=== PATIENT | male | born 1955 | race Caucasian/White ===

== ENCOUNTER 2016-12-10 11:46 | Inpatient (IN) ==
[2016-12-10] MEDS ORDERED: ZOFRAN 4 MG/2 ML IVP STA (12:10)
[2016-12-10] MEDS ORDERED: DEMEROL 25 MG/ML SYRINGE IVP STA (12:10)
[2016-12-10] MEDS ORDERED: SODIUM CHLORIDE OP STA (12:10)
[2016-12-10] MEDS ORDERED: SODIUM CHLORIDE 500 ML IV STA (12:13)
--- NOTE | 2016-12-10 12:14 | ED.PDOC ---
General ED Provider: Dr. EMBER SO Chief Complaint: Abdominal Pain Stated Complaint: Been hurting in the upper part of the [place] since sunday , vomited 2 times, nausea. has h/o pancreatitis. not been eating for 3 days Time Seen by Physician: 12:11 Mode of Arrival: Walk-In Information Source: Patient Primary Care Provider: VICKI ENRIQUEZ Nursing and Triage Documentation Reviewed and Agree: Yes GI Complaint Exam - Abdominal Pain Complaint/Exam Onset: Gradual Symptoms Are: Still present Timing: Constant Initial Severity: Severe Current Severity: Severe Location of Pain: Epigastric Character: Reports: Dull, Aching Aggravating: Reports: Movement, Food, Deep breaths Alleviating: Reports: None Associated Signs and Symptoms: Reports: Back pain, Nausea, Vomiting. Denies: Diaphoresis, Fever, Cough, Chest pain, Dizziness, Constipation, Blood in stool, Dysuria, Urinary frequency, Decreased urine output, Decreased appetite, Discharge, Diarrhea, Decreased activity Related History: Reports: Similar episode AAA Risk Factors: Reports: None Cardiac Risk Factors: Reports: None Testicular Torsion Risk Factors: Reports: None Surgical Obstruction Risk Factors: Reports: None Related Surgical History: Reports: None Abdominal Findings: Absent: Pulsatile mass, Abdominal distention, Unequal femoral pulses Differential Diagnoses: Gastroenteritis, Pancreatitis Review of Systems - Review Of Systems Constitutional: Reports: Malaise, Weakness Eyes: Reports: No symptoms Ears, Nose, Mouth, Throat: Reports: No symptoms Respiratory: Reports: No symptoms Cardiac: Reports: No symptoms GI: Reports: Abdominal pain : Reports: No symptoms Musculoskeletal: Reports: No symptoms Skin: Reports: No symptoms Neurological: Reports: No symptoms Endocrine: Reports: No symptoms Hematologic/Lymphatic: Reports: No symptoms All Other Systems: Reviewed and Negative Past Medical History - Past Medical History Previously Healthy: No Endocrine: Reports: None, Dyslipidemia Cardiovascular: Reports: CAD, Hypertension, A-Fib Respiratory: Reports: COPD Hematological: Reports: None Gastrointestinal: Reports: GERD, Pancreatitis Genitourinary: Reports: None Neuro/Psych: Reports: None Musculoskeletal: Reports: Arthritis Cancer: Reports: None - Surgical History General Surgical History: Reports: Cholecystectomy, CABG, Other (-carotid surg-- vein surg to legs--) - Family History Family History: Reports: Unknown - Social History Smoking Status: Current every day smoker Smoking Cessation Counseling Time: > 3 min - 10 min Hx Substance Use: No Alcohol Screening: Occasionally - Immunizations Tetanus Shot up to Date: Yes Physical Exam - Physical Exam Appearance: Ill-appearing, Thin Ill-appearing: Moderate Pain Distress: Severe Eyes: GUILLERMO, EOMI, Conjunctiva clear ENT: Ears normal, Nose normal, Oropharynx normal Respiratory: Airway patent Cardiovascular: RRR, Pulses normal, No rub, No murmur, Tachycardia GI/: Soft, Tender Musculoskeletal: Normal strength, ROM intact, No edema, No calf tenderness Skin: Warm, Dry, Normal color Neurological: Sensation intact, Motor intact, Reflexes intact, Cranial nerves intact, Alert, Oriented Psychiatric: Affect appropriate, Mood appropriate Re-Evaluation - Re-Evaluation Time of Re-Evaluation: 13:36 Status: Unchanged, Improved Critical Care Note - Critical Care Note Total Time (mins): 0 Course - Course Hematology/Chemistry: 12/10/16 12:15 12/10/16 12:15 Orders, Labs, Meds: Lab Review 12/10/16 12:15 WBC 11.27 H RBC 6.10 Hgb 19.9 H Hct 55.4 H MCV 90.8 MCH 32.6 H MCHC 35.9 H RDW Coeff of Hilary 13.0 Plt Count 169 Immature Gran % (Auto) 0.4 Neut % (Auto) 77.9 Lymph % (Auto) 14.4 [place] % (Auto) 6.9 Eos % (Auto) 0.1 Baso % (Auto) 0.3 Immature Gran # (Auto) 0.1 Neut # 8.8 H Lymph # 1.6 [place] # 0.8 Eos # 0.0 Baso # 0.0 Sodium 133 L Potassium 3.6 Chloride 99 Carbon Dioxide 21 L Anion Gap 16.6 BUN 21 H Creatinine 1.01 Estimated GFR (MDRD) 75.00 BUN/Creatinine Ratio 20.79 Glucose 337 H Calcium 9.3 Total Bilirubin 0.90 AST 16 ALT 21 Alkaline Phosphatase 112 Total Protein 7.4 Albumin 3.2 L Globulin 4.2 Albumin/Globulin Ratio 0.76 Amylase 55 Lipase 34 Orders Category Date Time Status ED IV/MEDIPORT/POWERPORT .ONCE EMERGENCY 12/10/16 12:10 Active AMYLASE Stat LAB 12/10/16 12:15 Completed CBC W/ AUTO DIFF Stat LAB 12/10/16 12:15 Completed COMPREHENSIVE METABOLIC PANEL Stat LAB 12/10/16 12:15 Completed LIPASE Stat LAB 12/10/16 12:15 Completed 0.9 % Sodium Chloride [Saline Flush] MEDS 12/10/16 12:10 Ordered 1 syr IVF PRN PRN Meperidine HCl/Pf [Demerol 25 mg/ml Syringe] MEDS 12/10/16 12:10 Discontinued 25 mg IVP ONCE STA Ondansetron HCl/Pf [Zofran 4 mg/2 ml] MEDS 12/10/16 12:10 Discontinued 4 mg IVP ONCE STA Sodium Chloride 0.9% [Sodium Chloride] MEDS 12/10/16 12:10 Discontinued 500 ml OP ONCE STA Sodium Chloride 0.9% [Sodium Chloride] 500 ml MEDS 12/10/16 12:13 Active IV 125 mls/hr CT ABDOMEN/PELVIS WO CONTRAST Stat RADS 12/10/16 12:10 Completed Medications Generic Name Dose Route Start Last Admin Trade Name Freq PRN Reason Stop Dose Admin Sodium Chloride 500 mls @ 125 mls/hr 12/10/16 12:13 12/10/16 12:37 Sodium Chloride IV 12/10/16 16:12 125 mls/hr .Q4H STA Administration Sodium Chloride 1 syr 12/10/16 12:10 Saline Flush IVF PRN PRN To flush IV Discontinued Medications Generic Name Dose Route Start Last Admin Trade Name Freq PRN Reason Stop Dose Admin Meperidine HCl 25 mg 12/10/16 12:10 12/10/16 12:32 Demerol 25 Mg/Ml Syringe IVP 12/10/16 12:11 25 mg ONCE STA Administration Ondansetron HCl 4 mg 12/10/16 12:10 12/10/16 12:32 Zofran 4 Mg/2 Ml IVP 12/10/16 12:11 4 mg ONCE STA Administration Sodium Chloride 500 ml 12/10/16 12:10 12/10/16 12:38 Sodium Chloride OP 12/10/16 12:11 Not Given ONCE STA Vital Signs: Temp Pulse Resp BP Pulse Ox 12/10/16 11:47 98.1 F 76 16 149/99 H 97 Departure - Departure Time of Disposition: 13:10 Disposition: ADMITTED INPATIENT Discharge Problem: Acute on chronic pancreatitis, Dehydration Discharge Problem: (Ruled Out): Pancreatitis Instructions: Pancreatitis (ED) Condition: Stable Pt referred to PMD for follow-up: No Allergies/Adverse Reactions: Allergies No Known Allergies Allergy (Verified 12/10/16 11:56) Home Medications: Ambulatory Orders Cyanocobalamin/FA/Pyridoxine [[place] Tablet] 1 each PO DAILY 02/10/14 Nitroglycerin [Nitrostat] 1 tab SL DIRECTED PRN 02/10/14 Ferrous Sulfate 325 mg PO DAILY 06/07/15 Fluticasone/Salmeterol 250/50 [Advair 250-50 Diskus] 1 puff IH BID #1 puff 06/09 Tiotropium [place] [Spiriva] 1 cap IH DAILY #1 cap.w.dev 06/09/15 Amlodipine Besylate [Norvasc] 5 mg PO BID #60 tablet 01/10/16 Losartan Potassium [Cozaar] 50 mg PO BID #60 tablet 01/10/16 Omeprazole [Prilosec] 40 mg PO QDAC 03/23/16 Apixaban [Eliquis] 5 mg PO BID #60 tablet 03/24/16 Sotalol HCl [Sotalol] 40 mg PO DAILY 12/10/16 Disposition Discussed With: Patient, Family
[2016-12-10 12:25] LABS: BASOPHILS % (AUTO) 0.3 % (0.0-3.0); EOSINOPHILS % (AUTO) 0.1 % (0.0-7.0); HEMATOCRIT 55.4 % (42.0-52.0); HEMOGLOBIN 19.9 g/dl (14.0-18.0); IMMATURE GRANULOCYTE % (AUTO) 0.4 % (0.0-5.0); LYMPHOCYTES # (AUTO) 1.6 K/uL (0.60-3.4); LYMPHOCYTES % (AUTO) 14.4 (10.0-50.0); MEAN CORPUSCULAR HEMOGLOBIN 32.6 pg (27.0-31.0); MEAN CORPUSCULAR HGB CONC 35.9 (31.8-35.4); MEAN CORPUSCULAR VOLUME 90.8 fl (80.0-94.0); MONOCYTES # (AUTO) 0.8 K/uL (0.4-2.0); MONOCYTES % (AUTO) 6.9 (0-10); NEUTROPHILS # (AUTO) 8.8 K/ul (2.0-6.9); NEUTROPHILS % (AUTO) 77.9; PLATELET COUNT 169 10^3/uL (140-440); WHITE BLOOD COUNT 11.27 K/ul (4.2-10.2)
[2016-12-10 12:42] LABS: ALBUMIN 3.2 g/dL (3.4-5.0); ALBUMIN/GLOBULIN RATIO 0.76; ANION GAP 16.6; BILIRUBIN,TOTAL 0.9 mg/dL (0.00-1.20); BUN/CREATININE RATIO 20.79; CALCIUM 9.3 mg/dL (8.2-10.2); CREATININE 1.01 mg/dL (0.60-1.10); POTASSIUM 3.6 mmol/L (3.5-5.1); TOTAL PROTEIN 7.4 g/dL (5.8-8.1)
--- NOTE | 2016-12-10 13:27 | CT ---
EXAM: CT abdomen pelvis without contrast TECHNIQUE: Helical axial CT of the abdomen pelvis was performed without contrast with coronal and s agittal reconstructions. COMPARISON: CT abdomen pelvis from 04/06/2016 HISTORY: Epigastric pain FINDINGS: Previously there was some yumiko-pancreatic stranding which has resolved on today's exam fo r the most part. There is only a minimal amount remaining. There is no pancreatic necrosis or pse udocyst. There is no free air free fluid or bowel wall thickening or edema. There is some perineph keegan stranding which is not particularly changed. There is very advanced calcific atherosclerosis. There are some calcifications in the spleen. There is some subtle low attenuation seen in the left hepatic lobe which is due to mild ductal dilatation. Again seen is a small right renal mass in the u pper pole which is better characterized on earlier studies. There is no hydronephrosis and no kidne y stones. There is no acute osseous abnormality. Urinary bladder shows no filling defects. There is a stent in the right groin. There are abdominal varices. There has been prior cholecystectomy. There has been prior left hemilaminectomy at L4-5. There are emphysematous changes seen in the lung bases. IMPRESSION: 1. No acute abnormality in the pelvis. 2. Improvement in peripancreatic stranding with no evidence for pseudocyst or pancreatic necrosis. 3. Mild ductal dilatation of the left hepatic lobe which appears stable. 4. Very advanced atherosclerosis. 5. Small right renal mass unchanged 6. Other miscellaneous findings as above.
[2016-12-10] MEDS ORDERED: DEMEROL 25 MG/ML SYRINGE IVP SCH (14:00)
[2016-12-10 14:17] VITALS: BMI 19.5
[2016-12-10] MEDS ORDERED: ZOFRAN 4 MG/2 ML ONE ×2 (14:33→20:00)
[2016-12-10] MEDS ORDERED: DEMEROL 25 MG/ML SYRINGE ONE (14:34)
[2016-12-10] MEDS: PROTONIX IV IVP SCH ×2 (14:37→20:06)
[2016-12-10] MEDS: ZOFRAN 4 MG/2 ML IVP SCH ×2 (14:37→20:06)
[2016-12-10] MEDS: BETAPACE PO SCH (16:12)
[2016-12-10] MEDS: SODIUM CHLORIDE 1,000 ML IV SCH (16:19)
[2016-12-10] MEDS ORDERED: DILAUDID 2 MG/ML SYRINGE IVP PRN (16:35)
[2016-12-10] MEDS ORDERED: DILAUDID 2 MG/ML SYRINGE ONE (16:49)
[2016-12-10] MEDS ORDERED: COZAAR ONE (19:59)
[2016-12-10] MEDS: COZAAR PO SCH (20:05)
[2016-12-10] MEDS: ADVAIR 250-50 DISKUS IH SCH (20:05)
[2016-12-10] MEDS: ELIQUIS PO SCH (20:06)
[2016-12-10] MEDS: NORVASC PO SCH (20:06)
[2016-12-10 20:12] LABS: CREATINE KINASE 14 U/L
[2016-12-10] MEDS ORDERED: VASOTEC IV IVP STA (21:51)
[2016-12-10] MEDS: DILAUDID 2 MG/ML SYRINGE IVP PRN (22:02)
[2016-12-11] MEDS ORDERED: ZOFRAN 4 MG/2 ML ONE (01:01)
[2016-12-11] MEDS: ZOFRAN 4 MG/2 ML IVP SCH ×3 (01:02→18:31)
[2016-12-11] MEDS: DILAUDID 2 MG/ML SYRINGE IVP PRN ×2 (02:07→21:36)
[2016-12-11 04:25] LABS: EOSINOPHILS % (AUTO) 0.6 % (0.0-7.0); HEMATOCRIT 46.8 % (42.0-52.0); HEMOGLOBIN 16.5 g/dl (14.0-18.0); MEAN CORPUSCULAR HEMOGLOBIN 32.2 pg (27.0-31.0); MEAN CORPUSCULAR HGB CONC 35.3 (31.8-35.4); MEAN CORPUSCULAR VOLUME 91.4 fl (80.0-94.0); MONOCYTES % (AUTO) 9.4 (0-10); NEUTROPHILS % (AUTO) 66.1; PLATELET COUNT 140 10^3/uL (140-440); RED BLOOD COUNT 5.12 10^6/ul (4.70-6.10); WHITE BLOOD COUNT 10.07 K/ul (4.2-10.2)
[2016-12-11 04:26] LABS: BASOPHILS % (AUTO) 0.3 % (0.0-3.0); EOSINOPHILS # (AUTO) 0.1 K/ul (0.0-0.7); IMMATURE GRANULOCYTE % (AUTO) 0.6 % (0.0-5.0); LYMPHOCYTES # (AUTO) 2.3 K/uL (0.60-3.4); NEUTROPHILS # (AUTO) 6.7 K/ul (2.0-6.9)
[2016-12-11 04:46] LABS: ALBUMIN 2.8 g/dL (3.4-5.0); ALBUMIN/GLOBULIN RATIO 0.82; ANION GAP 12.3; BILIRUBIN,TOTAL 0.74 mg/dL (0.00-1.20); BUN/CREATININE RATIO 23.33; CALCIUM 8.7 mg/dL (8.2-10.2); CREATININE 0.9 mg/dL (0.60-1.10); POTASSIUM 3.3 mmol/L (3.5-5.1); TOTAL PROTEIN 6.2 g/dL (5.8-8.1)
[2016-12-11] MEDS: SODIUM CHLORIDE 1,000 ML IV SCH ×2 (04:47→17:58)
[2016-12-11 04:54] LABS: CREATINE KINASE 14 U/L
[2016-12-11 06:10] LABS: AMYLASE 37 U/L (25-115); LIPASE 13 U/L (8-78)
[2016-12-11] MEDS: [UNRECOGNIZED DRUG - OTHER] PO SCH (08:28)
[2016-12-11] MEDS: NORVASC PO SCH ×2 (08:28→20:41)
[2016-12-11] MEDS: ELIQUIS PO SCH ×2 (08:28→20:40)
[2016-12-11] MEDS: SPIRIVA IH SCH (08:28)
[2016-12-11] MEDS: COZAAR PO SCH ×2 (08:28→20:41)
[2016-12-11] MEDS: PYRIDOXINE PO SCH (08:28)
[2016-12-11] MEDS: CYANOCOBALAMIN PO SCH (08:28)
[2016-12-11] MEDS: ADVAIR 250-50 DISKUS IH SCH ×2 (08:28→20:40)
[2016-12-11] MEDS: FERROUS SULFATE PO SCH (08:34)
[2016-12-11] MEDS ORDERED: NON-FORMULARY MEDICATION (Ferrous Sulfate [Ferrous Sulfate] 325 MG) PO SCH ×22 (09:00)
[2016-12-11] MEDS ORDERED: BETAPACE PO SCH (09:00)
--- NOTE | 2016-12-11 09:24 | PN ---
DATE OF SERVICE: 12/11/16 SUBJECTIVE: This is a 61-year-old male hospitalized with recurrent acute pancreatitis. The patient's pain is almost resolved. This morning he doesn't have any pain for the last 6 to 8 hours. He hasn't taken any pain medicine. REVIEW OF SYSTEMS: CONSTITUTIONAL: No night sweats. No fatigue, malaise, lethargy. No fever or chills. HEENT: Eyes: No visual changes. No eye pain. No eye discharge. ENT: No runny nose. No epistaxis. No sinus pain. No sore throat. No odynophagia. No congestion. RESPIRATORY: No cough, no congestion. No hemoptysis. CARDIOVASCULAR: No angina symptoms. No CHF symptoms. No atypical chest pain for CAD. No palpitations. No shortness of breath. GASTROINTESTINAL: No abdominal pain. No nausea or vomiting. No diarrhea or constipation. No hematemesis. No hematochezia. GENITOURINARY: No urgency. No frequency. No dysuria. No hematuria. No obstructive symptoms. No discharge. No pain. No significant abnormal bleeding. MUSCULOSKELETAL: No musculoskeletal pain; no joint swelling. NEUROLOGICAL: No headache. No neck pain. No syncope. No seizures. No dizziness. PSYCHIATRIC: Not anxious. No depression. No suicidal thoughts. No homicidal thoughts. SKIN: No rash. No lesions. No wounds. ENDOCRINE: No unexplained weight loss. No weight gain. HEMATOLOGIC/LYMPHATIC: No anemia. No purpura. No petechiae. No prolonged or excessive bleeding. No palpable lymph nodes. PHYSICAL EXAMINATION: GENERAL: The patient is oriented to time, place and person. VITAL SIGNS: Temperature 96.9, pulse 99, BP 116/70, respiratory rate 20, 02 sat 96% on room air. Weight 129 pounds. Height 5'8". HEENT: Head normocephalic, atraumatic. Eyes: Extraocular muscles are intact. Pupils are equal, round and reactive to light and accommodation. Ears: No lesions. Nose appeared normal. Throat: No exudate or erythema. NECK: Supple. No JVD, no carotid bruit. No lymphadenopathy or thyromegaly. LUNGS: Decreased breath sounds. Clear to auscultation. Percussion note normal. Chest symmetrical. HEART: S1, S2, no S3. No murmurs. No cyanosis or clubbing. No ascites. Pulses: Dorsalis pedis and posterior tibial pulses feeble bilaterally. ABDOMEN: Soft. Nontender. Bowel sounds active. No CVA tenderness. No mass felt. EXTREMITIES: No edema. Full range of motion of all extremities, equal. NEUROLOGIC: No focal deficit. Cranial nerves II through XII are grossly intact. No headache, no double vision or headache. SKIN: Not dry. Intact. Turgor - normal. LYMPHATIC: No palpable lymph nodes/no lymphedema. MUSCULOSKELETAL: Normal joints with no swelling. Muscle tone is normal. LAB DATA: WBC 10.07, RBC 5.12, egvgqmlrag66.5, hematocrit 46.8, platelet 140. Normal differential. Sodium 132, potassium 3.3, chloride 100, carbon dioxide 23, BUN 21, creatinine 0.90, glucose 263, calcium 8.7, AST 17, ALT 19, alkaline phosphatase 91. Amylase 37, lipase 13. ASSESSMENT: 1. ACUTE PANCREATITIS, SEEMS TO BE RESOLVING CLINICALLY. THE PATIENT IS HUNGRY , WILL PUT HIM ON FULL LIQUIDS WITH NO MILK PRODUCTS - ADVANCE TO SOFT DIET TOLERATED. 2. CONTINUE IV FLUIDS 3. COUNSELING FOR ALCOHOL DONE. THE PATIENT HAS BEEN DRINKING 5 TO 6 DAYS AGO AND HAS BEEN HAVING PAIN FOR THAT MUCH DURATION OF TIME. THE PATIENT HAS CONTINUED TO SMOKE. COUNSELING FOR DRINKING ALCOHOL DONE, HE DOESN'T WANT ANY HELP. THE PATIENT'S PROGNOSIS IS POOR. THE PATIENT HAS HAD MULTIPLE HOSPITALIZATIONS WITH ACUTE PANCREATITIS SECONDARY TO ALCOHOLISM. THE PATIENT'S OTHER PROBLEMS ARE: 1. CORONARY ARTERY DISEASE 2. PERIPHERAL ARTERIAL DISEASE 3. CAROTID ARTERY STENOSIS 4. HYPERTENSION CONDITION: STABLE PROGNOSIS: EXTREMELY POOR TIME SPENT: More than 30 minutes. Plan and coordination of the patient's care discussed in the presence of nurse. ESPERANZA
[2016-12-11] MEDS: PROTONIX IV IVP SCH ×2 (09:55→21:36)
--- NOTE | 2016-12-11 10:29 | HP ---
DATE OF SERVICE: 12/10/16 REASON FOR HOSPITALIZATION: Abdominal pain. HISTORY OF PRESENT ILLNESS: This is a 61-year-old white male admitted through the emergency room with abdominal pain. The patient was seen in the ER with complaint of right upper quadrant abdominal pain since Sunday, weakness, nausea, vomiting times two, poor appetite, has not eaten for 3 days. The patient has a history of pancreatitis. The patient is an alcoholic and has been counseled numerous times to abstain from alcohol. The patient is admitted for further evaluation and care. REVIEW OF SYSTEMS: CONSTITUTIONAL: Weakness, fatigue. No night sweats. No fever or chills. HEENT: Eyes: No visual changes. No eye pain. No eye discharge. ENT: No runny nose. No epistaxis. No sinus pain. No sore throat. No odynophagia. No ear pain. No congestion. RESPIRATORY: No cough, no congestion. No hemoptysis. CARDIOVASCULAR: No angina symptoms. No CHF symptoms. No atypical chest pain for CAD. No palpitations. No shortness of breath. GASTROINTESTINAL: Right upper quadrant abdominal pain. Nausea with vomiting times 2. Poor appetite No diarrhea or constipation. No hematemesis. No hematochezia. GENITOURINARY: No urgency. No frequency. No dysuria. No hematuria. No obstructive symptoms. No discharge. No pain. No significant abnormal bleeding. MUSCULOSKELETAL: Generalized arthritic pain. NEUROLOGICAL: No headache. No neck pain. No syncope. No seizures. No dizziness. PSYCHIATRIC: Not anxious. No depression. No suicidal thoughts. No homicidal thoughts. SKIN: No rash. No lesions. No wounds. ENDOCRINE: No unexplained weight loss. No weight gain. HEMATOLOGIC/LYMPHATIC: No anemia. No purpura. No petechiae. No prolonged or excessive bleeding. No palpable lymph nodes. PERSONAL/FAMILY/SOCIAL HISTORY: The patient is living with his , heavy smoker, heavy alcohol abuse. He does all activities of daily living. Family history: unknown. PAST MEDICAL/SURGICAL PROBLEMS: Chronic and acute pancreatitis Chronic alcoholism Heavy smoker Hypertension, history of Severe peripheral arterial disease Diabetes mellitus Chronic lung disease Coronary artery disease Status post coronary artery bypass surgery 2007 Cholecystectomy Bilateral carotid endarterectomy Fem/Pop bypass MEDICATIONS: (HOME) Nitroglycerin one tab SL as directed p.r.n. Cyanocobalamin one each p.o. daily Ferrous Sulfate 325 mg p.o. daily Fluticasone/Salmeterol 250/50 (Advair 250-50 Diskus) one puff IH b.i.d. Tiotropium [place] (Spiriva) one cap IH daily Amlodipine (Norvasc) 5 mg p.o. b.i.d. Losartan (Cozaar) 50 mg p.o. b.i.d. Omeprazole (Prilosec) 40 mg p.o. q.d a.c. Apixaban (Eliquis) 5 mg p.o. b.i.d. Sotalol 40 mg p.o. daily ALLERGIES: NKDA PHYSICAL EXAMINATION: VITAL SIGNS: Temperature 98.1, pulse 76, respiratory rate 16, BP 149/99, pulse ox 97 HEENT: Head normocephalic, atraumatic. Eyes: Extraocular muscles are intact. Pupils are equal, round and reactive to light and accommodation. Ears: No lesions. Nose appeared normal. Throat: No exudate or erythema. NECK: Supple. No JVD, no carotid bruit. No lymphadenopathy or thyromegaly. LUNGS: Clear to auscultation. Percussion note normal. Chest symmetrical. HEART: S1, S2, no S3. No murmurs. No cyanosis or clubbing. No ascites. Pulses: Dorsalis pedis and posterior tibial pulses feeble bilaterally. ABDOMEN: Nausea. Right upper quadrant abdominal pain. Bowel sounds active. No CVA tenderness. No mass felt. EXTREMITIES: No edema. Full range of motion of all extremities, equal. NEUROLOGIC: No focal deficit. Cranial nerves II through XII are grossly intact. No headache, no double vision or headache. SKIN: Not dry. Intact. Turgor - normal. LYMPHATIC: No palpable lymph nodes/no lymphedema. MUSCULOSKELETAL: Normal joints with no swelling. Muscle tone is normal. LAB/X-RAY DATA: WBC 11.27, RBC 6.10, Hgb 19.9, HCT 55.4, platelets 169. Chemistry - sodium 133, chloride 99, BUN 21, creatinine 1.01, glucose 337. CT scan of abdomen and pelvis - showed advanced atherosclerosis with no acute abnormality of the pelvis; improvement in peripancreatic stranding from the last one; small right renal cyst. ASSESSMENT: 1. ABDOMINAL PAIN LIKELY ACUTE PANCREATITIS 2. ALCOHOLISM 3. SEVERE CHRONIC LUNG DISEASE WITH HISTORY OF HEAVY SMOKING 4. CORONARY ARTERY DISEASE 5. CAROTID ARTERY DISEASE 6. SEVERE PERIPHERAL ARTERIAL DISEASE 7. HYPERTENSION 8. DYSLIPIDEMIA PLAN: 1. Admit acute from ER with telemetry monitoring 2. Dilaudid 2 mg IVP q.4 to 6h p.r.n. 3. Betapace 40 mg p.o. 1700 4. CBC, CMP 5. Continue home medications 6. NPO 7. Vasotec 1.25 mg IV once STAT 8. EKG daily times three 9. Zofran IV 10. NS IV 11. Dietary consult TIME SPENT: More than 70 minutes. MTDD
[2016-12-11] MEDS: BETAPACE PO SCH (16:29)
[2016-12-12] MEDS: ZOFRAN 4 MG/2 ML IVP SCH ×5 (00:24→23:03)
[2016-12-12 05:04] LABS: BASOPHILS % (AUTO) 0.3 % (0.0-3.0); EOSINOPHILS # (AUTO) 0.1 K/ul (0.0-0.7); EOSINOPHILS % (AUTO) 0.9 % (0.0-7.0); HEMOGLOBIN 14.7 g/dl (14.0-18.0); IMMATURE GRANULOCYTE % (AUTO) 0.3 % (0.0-5.0); LYMPHOCYTES # (AUTO) 1.6 K/uL (0.60-3.4); LYMPHOCYTES % (AUTO) 27.8 (10.0-50.0); MEAN CORPUSCULAR HEMOGLOBIN 32.2 pg (27.0-31.0); MEAN CORPUSCULAR VOLUME 92.1 fl (80.0-94.0); MONOCYTES # (AUTO) 0.6 K/uL (0.4-2.0); NEUTROPHILS # (AUTO) 3.5 K/ul (2.0-6.9); NEUTROPHILS % (AUTO) 60.7; PLATELET COUNT 100 10^3/uL (140-440); RED BLOOD COUNT 4.56 10^6/ul (4.70-6.10)
[2016-12-12 05:26] LABS: ALBUMIN 2.7 g/dL (3.4-5.0); ALBUMIN/GLOBULIN RATIO 0.79; ANION GAP 11.1; BILIRUBIN,TOTAL 0.69 mg/dL (0.00-1.20); BUN/CREATININE RATIO 13.04; CALCIUM 8.5 mg/dL (8.2-10.2); CREATININE 0.92 mg/dL (0.60-1.10); POTASSIUM 3.1 mmol/L (3.5-5.1); TOTAL PROTEIN 6.1 g/dL (5.8-8.1)
[2016-12-12] MEDS: SODIUM CHLORIDE 1,000 ML IV SCH (06:23)
[2016-12-12] MEDS ORDERED: POTASSIUM CHLORIDE 10 MEQ VIAL-ADDITIVE ONLY 40 MEQ in SODIUM CHLORIDE 1,000 ML IV SCH (08:37)
[2016-12-12] MEDS: ELIQUIS PO SCH ×2 (10:04→21:03)
[2016-12-12] MEDS: CYANOCOBALAMIN PO SCH (10:04)
[2016-12-12] MEDS: PYRIDOXINE PO SCH (10:04)
[2016-12-12] MEDS: [UNRECOGNIZED DRUG - OTHER] PO SCH (10:04)
[2016-12-12] MEDS: COZAAR PO SCH ×2 (10:04→21:04)
[2016-12-12] MEDS: NORVASC PO SCH ×2 (10:05→21:04)
[2016-12-12] MEDS: FERROUS SULFATE PO SCH (10:05)
[2016-12-12] MEDS: ADVAIR 250-50 DISKUS IH SCH ×2 (10:07→21:03)
[2016-12-12] MEDS: SPIRIVA IH SCH (10:07)
[2016-12-12] MEDS: SODIUM CHLORIDE 0.9%-KCL 40MEQ 1,000 ML IV SCH (10:09)
[2016-12-12] MEDS: PROTONIX IV IVP SCH ×2 (10:16→21:13)
[2016-12-12] MEDS: MICRO-K CAP PO SCH ×2 (12:28→21:04)
[2016-12-12] MEDS: BETAPACE PO SCH (17:11)
[2016-12-12] MEDS: VASOTEC IV IVP PRN (22:18)
[2016-12-13 04:51] LABS: BASOPHILS % (AUTO) 0.3 % (0.0-3.0); EOSINOPHILS # (AUTO) 0.1 K/ul (0.0-0.7); EOSINOPHILS % (AUTO) 0.9 % (0.0-7.0); HEMATOCRIT 42.2 % (42.0-52.0); HEMOGLOBIN 15.3 g/dl (14.0-18.0); IMMATURE GRANULOCYTE % (AUTO) 0.7 % (0.0-5.0); LYMPHOCYTES # (AUTO) 1.6 K/uL (0.60-3.4); LYMPHOCYTES % (AUTO) 27.5 (10.0-50.0); MEAN CORPUSCULAR HEMOGLOBIN 32.9 pg (27.0-31.0); MEAN CORPUSCULAR HGB CONC 36.3 (31.8-35.4); MEAN CORPUSCULAR VOLUME 90.8 fl (80.0-94.0); MONOCYTES # (AUTO) 0.6 K/uL (0.4-2.0); NEUTROPHILS # (AUTO) 3.5 K/ul (2.0-6.9); NEUTROPHILS % (AUTO) 60.6; PLATELET COUNT 108 10^3/uL (140-440); RED BLOOD COUNT 4.65 10^6/ul (4.70-6.10); WHITE BLOOD COUNT 5.78 K/ul (4.2-10.2)
[2016-12-13] MEDS: ZOFRAN 4 MG/2 ML IVP SCH ×2 (05:10→13:09)
[2016-12-13] MEDS: MICRO-K CAP PO SCH ×2 (05:10→12:55)
[2016-12-13 05:12] LABS: ALBUMIN/GLOBULIN RATIO 0.81; ANION GAP 13.4; BILIRUBIN,TOTAL 0.69 mg/dL (0.00-1.20); BUN/CREATININE RATIO 11.76; CALCIUM 8.7 mg/dL (8.2-10.2); CREATININE 0.85 mg/dL (0.60-1.10); POTASSIUM 3.4 mmol/L (3.5-5.1); TOTAL PROTEIN 6.7 g/dL (5.8-8.1)
[2016-12-13] MEDS: VASOTEC IV IVP PRN (05:17)
[2016-12-13] MEDS: ELIQUIS PO SCH (08:38)
[2016-12-13] MEDS: SPIRIVA IH SCH (08:38)
[2016-12-13] MEDS: [UNRECOGNIZED DRUG - OTHER] PO SCH (08:38)
[2016-12-13] MEDS: FERROUS SULFATE PO SCH (08:38)
[2016-12-13] MEDS: NORVASC PO SCH (08:38)
[2016-12-13] MEDS: CYANOCOBALAMIN PO SCH (08:38)
[2016-12-13] MEDS: ADVAIR 250-50 DISKUS IH SCH (08:38)
[2016-12-13] MEDS: PYRIDOXINE PO SCH (08:38)
[2016-12-13] MEDS: PROTONIX IV IVP SCH (08:39)
[2016-12-13] MEDS: COZAAR PO SCH (08:39)
[2016-12-13] MEDS: SODIUM CHLORIDE 0.9%-KCL 40MEQ 1,000 ML IV SCH (09:05)
--- NOTE | 2016-12-13 10:50 | PCM.PROG ---
Attending Provider: ATTENDING PROVIDER: Dr. VICKI ENRIQUEZ DATE OF SERVICE: 12/13/16 SUBJECTIVE: This 61 year old WHITE/ M was hospitalized 12/10/16. The patient is hospitalized with acute abdominal pain likely from acute pancreatitis. The patient's condition has improved remarkably. He hasn't taken any pain shots or had any pain for more than 48 hours. Appetite has improved to almost normal. He had a good bowel movement this morning. REVIEW OF SYSTEMS: CONSTITUTIONAL: No night sweats. No fatigue, malaise, lethargy. No fever or chills. HEENT: Eyes: No visual changes. No eye pain. No eye discharge. ENT: No runny nose. No epistaxis. No sinus pain. No odynophagia. No congestion. RESPIRATORY: No cough, no congestion. No hemoptysis. CARDIOVASCULAR: No angina symptoms. No CHF symptoms. No atypical chest pain for CAD. No palpitations. No shortness of breath. GASTROINTESTINAL: No abdominal pain. No nausea or vomiting. No diarrhea or constipation. No hematemesis. No hematochezia. GENITOURINARY: No urgency. No frequency. No dysuria. No hematuria. No obstructive symptoms. No discharge. No pain. No significant abnormal bleeding. MUSCULOSKELETAL: No musculoskeletal pain; no joint swelling. NEUROLOGICAL: Awake, alert, oriented to time, place and person. No headache. No neck pain. No syncope. No seizures. No dizziness. PSYCHIATRIC: Not anxious. No depression. No suicidal thoughts. No homicidal thoughts. SKIN: No rash. No lesions. No wounds. ENDOCRINE: No unexplained weight loss. No weight gain. HEMATOLOGIC/LYMPHATIC: No anemia. No purpura. No petechiae. No prolonged or excessive bleeding. No palpable lymph nodes. PHYSICAL EXAMINATION: GENERAL: The patient is awake, alert and oriented, lying in bed in no distress. VITAL SIGNS: Temperature 97.2 F, Pulse 104, Respiratory Rate 21, BP 166/90, Pulse Ox 98% HEENT: Head normocephalic, atraumatic. Eyes: Extraocular muscles are intact. Pupils are equal, round and reactive to light and accommodation. Ears: No lesions. Nose appeared normal. Throat: No exudate or erythema. NECK: Supple. No JVD, no carotid bruit. No lymphadenopathy or thyromegaly. LUNGS: Clear to auscultation. Percussion note normal. Chest symmetrical. HEART: S1, S2, no S3. No murmurs. No cyanosis or clubbing. No ascites. Pulses: Dorsalis pedis and posterior tibial pulses +1 to +2 both sides. ABDOMEN: Soft. Non-tender. Bowel sounds active. No CVA tenderness. No mass felt. EXTREMITIES: No edema. Full range of motion of all extremities, equal. NEUROLOGIC: No focal deficit. Cranial nerves II through XII are grossly intact. No headache, no double vision or headache. SKIN: Not dry. Intact. Turgor-normal. LYMPHATIC: No palpable lymph nodes/no lymphedema. MUSCULOSKELETAL: Normal joints with no swelling. Muscle tone is normal. LAB REVIEW: 12/13/16 04:46 12/13/16 04:46 12/13/16 04:46: WBC 5.78, RBC 4.65 L, Hgb 15.3, Hct 42.2, MCV 90.8, MCH 32.9 H, MCHC 36.3 H, RDW Coeff of Hilary 12.8, Plt Count 108 L, Immature Gran % (Auto) 0.7 , Neut % (Auto) 60.6, Lymph % (Auto) 27.5, [place] % (Auto) 10.0, Eos % (Auto) 0.9 , Baso % (Auto) 0.3, Immature Gran # (Auto) 0.0, Neut # 3.5, Lymph # 1.6, [place] # 0.6, Eos # 0.1, Baso # 0.0, Sodium 133 L, Potassium 3.4 L, Chloride 100, Carbon Dioxide 23, Anion Gap 13.4, BUN 10, Creatinine 0.85, Estimated GFR (MDRD ) 92.00, BUN/Creatinine Ratio 11.76, Glucose 299 H, Calcium 8.7, Total Bilirubin 0.69, AST 23, ALT 22, Alkaline Phosphatase 89, Total Protein 6.7, Albumin 3.0 L, Globulin 3.7, Albumin/Globulin Ratio 0.81, Amylase 60, Lipase 10 ASSESSMENT: 1. Acute abdominal pain likely pancreatitis which has resolved. 2. Chronic pancreatitis from chronic alcoholism. PLAN: 1. Echocardiogram today 2. BNP 493 but no evidence of CHF clinically 3. Will do echo today before discharge Plan and coordination of the patient's care discussed in the presence of Lighting Technician and nurse. EDUCATION: Counseling for alcohol done. Counseling for smoking - strongly advised to quit smoking. Diabetic diet discussed with the patient. CONDITION: STABLE. Prognosis is poor considering all medical problems that the patient has and his noncompliance. SCRIBED BY: [employer] Attendant scribed while in presence of service performed by Dr. VICKI ENRIQUEZ on 12/13/16 ([id number])
--- NOTE | 2016-12-13 13:53 | PN ---
DATE OF SERVICE: 12/12/16 SUBJECTIVE: The patient is a 61 year old white male hospitalized with severe abdominal pain requiring narcotics and IV Dilaudid. The patient's condition has improved. He has been drinking prior to hospitalization heavy for few days. The patient has recurrent acute pancreatitis from alcoholism. REVIEW OF SYSTEMS: CONSTITUTIONAL: No night sweats. No fatigue, malaise, lethargy. No fever or chills. HEENT: Eyes: No visual changes. No eye pain. No eye discharge. ENT: No runny nose. No epistaxis. No sinus pain. No sore throat. No odynophagia. No congestion. RESPIRATORY: No cough, no congestion. No hemoptysis. CARDIOVASCULAR: No angina symptoms. No CHF symptoms. No atypical chest pain for CAD. No palpitations. No shortness of breath. No PND. No Orthopnea. GASTROINTESTINAL: No abdominal pain. No nausea or vomiting. No diarrhea or constipation. No hematemesis. No hematochezia. The patient says that he is going to have a bowel movement he feels like that. GENITOURINARY: No urgency. No frequency. No dysuria. No hematuria. No obstructive symptoms. No discharge. No pain. No significant abnormal bleeding. MUSCULOSKELETAL: No musculoskeletal pain; no joint swelling. NEUROLOGICAL: No headache. No neck pain. No syncope. No seizures. No dizziness. PSYCHIATRIC: Not anxious. No depression. No suicidal thoughts. No homicidal thoughts. SKIN: No rash. No lesions. No wounds. ENDOCRINE: No unexplained weight loss. No weight gain. HEMATOLOGIC/LYMPHATIC: No anemia. No purpura. No petechiae. No prolonged or excessive bleeding. No palpable lymph nodes. PHYSICAL EXAMINATION: GENERAL: The patient is oriented to time, place and person. VITAL SIGNS: temperature 97.4, pulse 100, respiratory rate 16, blood pressure 158/90 and pulse ox 94%. HEENT: Head normocephalic, atraumatic. Eyes: Extraocular muscles are intact. Pupils are equal, round and reactive to light and accommodation. Ears: No lesions. Nose appeared normal. Throat: No exudate or erythema. NECK: Supple. No JVD, no carotid bruit. No lymphadenopathy or thyromegaly. LUNGS: Decreased breath sounds but clear to auscultation. Percussion note normal. Chest symmetrical. HEART: S1, S2, no S3. No murmurs. No cyanosis or clubbing. No ascites. Pulses: Dorsalis pedis and posterior tibial pulses +1 to +2 both sides. ABDOMEN: Soft. Nontender. Bowel sounds active. No CVA tenderness. No mass felt. EXTREMITIES: No edema. Full range of motion of all extremities, equal. NEUROLOGIC: No focal deficit. Cranial nerves II through XII are grossly intact. No headache, no double vision or headache. SKIN: Not dry. Intact. Turgor - normal. LYMPHATIC: No palpable lymph nodes/no lymphedema. MUSCULOSKELETAL: Normal joints with no swelling. Muscle tone is normal. LABS: hgb 14.7, hct 42, WBC 5,800 normal differential, creatinine 0.9, BUN 12 and potassium 3.1. ASSESSMENT: 1. Acute pancreatitis, seems to have resolved 2. Alcoholism, severe, counseling done for alcoholism and he refuses any help. 3. COPD with continued smoking. Counseling done for smoking 4. Severe peripheral arterial disease 5. Coronary artery disease 6. Carotid occlusive artery disease 7. Diabetes Mellitus 8. Dyslipidemia 9. Hypokalemia 10. Hyponatremia PLAN: 1. 1,000 cc normal saline with 40meq KCL 2. K-Tab 10 meq PO three times a day 3. Restrict fluid 4. Diet soft, small multiple meals CONDITION: Stable PROGNOSIS: Poor TIME SPENT: More than 30 minutes. Plan and coordination of the patient's care discussed in the presence of nurse. ESPERANZA
[2016-12-13 14:33] VITALS: BP 165/93; TEMP 98.1
--- NOTE | 2016-12-15 07:41 | ECHO2D ---
Date of Exam: 12/13/16 Ordering Physician: VICKI ENRIQUEZ Reason for Echo: HYPERTENSION,ATRIAL FIBRILLATION M-Mode Normal Adult Results LV Dimensions Normal Adult Results AoV Opening excursions >1.6 >1.6 LVEDD-base- 3.5-5.8 4.3 Ao root dimensions 2.0-3.7 3.2 LVESD-base- 3.1-4.6 L. Atrium dimensions 1.9-3.8 4.9 Post. Wall thickness 0.8-1.1 1.1 IV septum (thickness) 0.7-1.2 1.2 Post. Wall excursion 0.72-1.3 NORMAL Septal motion -- Systolic motion R. Ventricular cavity 1.5-2.0 3.0 LVEF 60% 45% Paradoxical septal wall motion YES 2-D : HYPOKINETIC/PARADOXICAL SEPTAL WALL MOTION--NORMAL VALVES, NO EFFUSION, ENLARGED LEFT ATRIAL CAVITY, NORMAL LEFT VENTRICLE SIZE M-MODE: MV: NORMAL AV: NORMAL TV: NORMAL PV: PULMONARY HYPERTENSION CHAMBER SIZE: ENLARGED RIGHT VENTRICLE AND LEFT ATRIAL CAVITY WALL MOTION: PARADOXICAL SEPTAL WALL PERICARDIUM: NORMAL INTERPRETATION: 1. PARADOXICAL SEPTAL WALL MOTION WITH LEFT VENTRICULAR EJECTION FRACTION 45% (AFFECTS LEFT VENTRICULAR EJECTION FRACTION CALCULATION) 2. ENLARGED LEFT ATRIAL AND RIGHT VENTRICLE CAVITIES 3. EVIDENCE OF PULMONARY HYPERTENSION 4. NORMAL VALVES MTDD
--- NOTE | 2016-12-18 14:00 | DS ---
DATE OF SERVICE: 12/13/16 FINAL DIAGNOSIS: 1. ACUTE PANCREATITIS WITH ABDOMINAL PAIN 2. CHRONIC PANCREATITIS WITH ALCOHOLISM 3. CHRONIC LUNG DISEASE WITH HEAVY SMOKING 4. PERIPHERAL ARTERIAL DISEASE, SEVERE 5. CAROTID OCCLUSIVE DISEASE 6. CORONARY ARTERY BYPASS SURGERY 7. HYPERTENSION 8. DIABETES MELLITUS 9. ATRIAL FIBRILLATION 10. DYSLIPIDEMIA DISCHARGE INSTRUCTIONS: Followup appointment: Instruction to return on December 19 at 1:15 p.m. Continue to check blood sugars at least twice daily. MEDICATIONS AT DISCHARGE: Advised to continue all the home medications: Nitroglycerin Ferrous Sulfate Advair Spiriva Norvasc Cozaar Prilosec Eliquis Sotalol NEW PRESCRIPTIONS: No prescriptions given DIET INSTRUCTIONS: Consistent carbohydrates ACTIVITY: Gradually resume as tolerated SMOKING: Advised to quit smoking DISEASE SPECIFIC EDUCATION: Counseling for smoking done; counseling for alcohol done, strongly advised to quit alcohol. He does not want any help to quit alcohol. HOSPITAL COURSE: 61-year-old white male hospitalized with acute abdominal pain. The patient was put on IV fluids, NPO. Dilaudid was given. The patient required some pain medication parenterally for 36 hours. After that the pain medication was stopped. The patient is pain free for the last 48 hours. He is up and about. His appetite has improved. He is on a soft diet. He had a good BM this morning. The patient has normal cardiovascular status with no evidence of CHF or angina. The patient underwent echo which showed paradoxical septal wall motion with ejection fraction of 45 to 50%. His valvular structures are normal. The patient was strongly advised to quit alcohol. Pancreatitis with complications discussed with him. Condition at time of discharge stable considering the patient has a lot of medical problems which are end-stage along with alcoholism and pancreatitis, his prognosis is poor. He was conveyed that. The patient is also noncompliant. LABS: Hemoglobin 15.3, hematocrit 42, WBC 5,700, normal differential. Creatinine 0.8 , BUN 10, potassium 3.4, glucose 299, BNP 493. A1C 7. TIME SPENT: More than 60 minutes. ESPERANZA
--- NOTE | 2016-12-21 10:17 | PN ---
DATE OF SERVICE: 12/10/16 ADMITTING NOTE SUBJECTIVE: The patient was seen by me in the emergency room for acute and chronic pancreatitis and dehydration. Admitted for Dr. Lee for dehydration and acute on chronic pancreatitis and the severe intractable abdominal pain. REVIEW OF SYSTEMS: CONSTITUTIONAL: No fever, no chills. Malaise and weakness. HEENT: Normal. ENDOCRINE: No weight gain, no weight loss. CVS: No angina symptoms. No CHF symptoms. No palpitations. No atypical chest pain for CAD. No shortness of breath. No PND, no orthopnea. RESPIRATORY: No cough, no hemoptysis. GI: No nausea, no vomiting. Abdominal pain. : No hematuria. No polyuria. MUSCULOSKELETAL:. No joint swelling. PSYCHIATRIC: Not anxious. No depression. No suicidal thoughts. No homicidal thoughts. SKIN: Intact. No rash. PHYSICAL EXAMINATION: V/S: Temperature 98.1, pulse 76, respiratory rate 16, blood pressure 149/99 and pulse ox 97%. HEENT: Normocephalic, atraumatic. Ears, eyes, nose and throat normal. NECK: Supple. No JVD, no carotid bruit. No lymphadenopathy. LUNGS: Clear to auscultation. No rales or rhonchi. HEART: S1, S2 normal. No S3. No murmur, gallop or regurgitation. ABDOMEN: Soft, Tender. Bowel sounds active. No rigidity. No rebound or guarding. No CVA tenderness. EXTREMITIES: No clubbing, cyanosis or pedal edema. MUSCULOSKELETAL: No joint swelling. NEUROLOGIC: Awake, alert, oriented times three. No focal deficit. LYMPHATIC: No lymph nodes palpable. SKIN: Intact. LABS: WBC 11.27, hgb 19.9, hct 55.4, plt count 169, Sodium 133, potassium 3.6, chloride 99, bicarb 21, BUN 21 and creatinine 1.01. ASSESSMENT: 1. Abdominal pain likely acute pancreatitis 2. Alcoholism 3. Severe chronic lung disease with history of heavy smoking 4. Coronary artery disease 5. Carotid artery disease 6. Severe peripheral arterial disease 7. Hypertension 8. Dyslipidemia PLAN: 1. Admit acute from ER with telemetry monitoring 2. Dilaudid 2mg IVP Q 4 to 6 hours PRN 3. Betapace 40mg PO 1700 4. CBC and CMP 5. Continue home medications. 6. NPO 7. Vasotec 1.25mg IV once STAT 8. EKG daily times three 9. Zofran IV 10.NS IV 11.Dietary consult. TIME SPENT: More than 30 minutes MTDD
== END 2016-12-13 14:25 | disposition home or self-care (01) | DRG 439 ==
LOC: ED 11:46 → MEDSURG B 13:39
PROVIDERS: ADMIT Internal Medicine; ATTEND Internal Medicine
DX: K85.90 Acute pancreatitis without necrosis or infection, unspecified (principal); K86.0 Alcohol-induced chronic pancreatitis; E87.1 Hypo-osmolality and hyponatremia; I51.7 Cardiomegaly; E86.0 Dehydration; I10 Essential (primary) hypertension; F17.200 Nicotine dependence, unspecified, uncomplicated; R93.1 Abnormal findings on diagnostic imaging of heart and coronary circulation; F10.10 Alcohol abuse, uncomplicated; I48.91 Unspecified atrial fibrillation; J44.9 Chronic obstructive pulmonary disease, unspecified; I73.9 Peripheral vascular disease, unspecified; I65.29 Occlusion and stenosis of unspecified carotid artery; E11.9 Type 2 diabetes mellitus without complications; E78.5 Hyperlipidemia, unspecified; E87.6 Hypokalemia; Z95.1 Presence of aortocoronary bypass graft; Z79.01 Long term (current) use of anticoagulants; Z79.899 Other long term (current) drug therapy
CPT/HCPCS: 36415; 80053; 82150; 82550; 83036; 83690; 83880; 84484; 85025; 93005; 93010; 96361; 96374; 96375; 97802; 99284

== ENCOUNTER 2017-07-14 21:53 | Inpatient (IN) ==
[2017-07-14] MEDS ORDERED: SODIUM CHLORIDE 1,000 ML IV STA (22:16)
[2017-07-14] MEDS ORDERED: TRANDATE IVP STA (22:18)
--- NOTE | 2017-07-14 22:18 | ED.PDOC ---
General ED Provider: Dr. BRISEYDA GOMES Chief Complaint: Abdominal Pain Stated Complaint: Patient is a 62 year old male who comes to the ER with abdominal pain. He was noted to have increased heart rate. Denies any chest pain. Feels like his Pancreatitis is acting up. Time Seen by Physician: 22:16 Mode of Arrival: Walk-In Information Source: Patient Exam Limitations: No limitations Primary Care Provider: VICKI ENRIQUEZ Nursing and Triage Documentation Reviewed and Agree: Yes Review of Systems - Review Of Systems Constitutional: Reports: No symptoms Eyes: Reports: No symptoms Ears, Nose, Mouth, Throat: Reports: No symptoms Respiratory: Reports: No symptoms Cardiac: Reports: No symptoms GI: Reports: Abdominal pain, Nausea, Poor appetite, Vomiting : Reports: No symptoms Musculoskeletal: Reports: No symptoms Skin: Reports: No symptoms Neurological: Reports: Anxiety Endocrine: Reports: No symptoms Hematologic/Lymphatic: Reports: No symptoms All Other Systems: Reviewed and Negative Past Medical History - Past Medical History Previously Healthy: No Endocrine: Reports: None, Dyslipidemia Cardiovascular: Reports: CAD, Hypertension, A-Fib Respiratory: Reports: COPD Hematological: Reports: None Gastrointestinal: Reports: GERD, Pancreatitis Genitourinary: Reports: None Neuro/Psych: Reports: None Musculoskeletal: Reports: Arthritis Cancer: Reports: None - Surgical History General Surgical History: Reports: Cholecystectomy, CABG, Other (-carotid surg-- vein surg to legs--) - Family History Family History: Reports: Unknown - Social History Smoking Status: Current every day smoker, Heavy tobacco smoker Hx Substance Use: No Alcohol Screening: Occasionally - Immunizations Tetanus Shot up to Date: Yes Physical Exam - Physical Exam Appearance: Ill-appearing Ill-appearing: Moderate Pain Distress: Moderate Neck: Supple Respiratory: Airway patent, Breath sounds clear, Breath sounds equal, Respirations nonlabored Cardiovascular: Irregular rhythm, Tachycardia GI/: Soft, Nontender, No masses, Bowel sounds normal, No Organomegaly Musculoskeletal: Normal strength, ROM intact, No edema, No calf tenderness Skin: Warm, Dry Neurological: Sensation intact, Motor intact, Reflexes intact, Cranial nerves intact, Alert, Oriented Psychiatric: Anxious Interpretation - Vp Security Rate: Tachy Rhythm: Other Ectopy: None - EKG Interpretation Time of EKG #1: 22:13 Rate: Tachy Rhythm: Other [place]: [place] ST Segment: Normal Interpretation: Atrial Fibrillation Re-Evaluation - Re-Evaluation Time of Re-Evaluation: 01:50 Status: Improved Vital Signs Stable: Yes (Blood pressure 160s ) Physician Notification - Case Discussed Physician Notified: Dr Enriquez Time of Notification: 01:00 (Ok to admit to SCU ) Critical Care Note - Critical Care Note Total Time (mins): 35 Course - Course Hematology/Chemistry: 07/14/17 22:32 07/14/17 22:32 Orders, Labs, Meds: Lab Review 07/14/17 07/14/17 07/14/17 22:32 22:32 22:32 WBC 10.98 H RBC 5.88 Hgb 19.5 H Hct 52.7 H MCV 89.6 MCH 33.2 H MCHC 37.0 H RDW Coeff of Hilary 12.6 Plt Count 183 Immature Gran % (Auto) 0.5 Neut % (Auto) 83.5 Lymph % (Auto) 9.7 L [place] % (Auto) 5.6 Eos % (Auto) 0.5 Baso % (Auto) 0.2 Immature Gran # (Auto) 0.1 Neut # 9.2 H Lymph # 1.1 [place] # 0.6 Eos # 0.1 Baso # 0.0 Sodium 134 L Potassium 3.5 Chloride 96 L Carbon Dioxide 22 L Anion Gap 19.5 BUN 12 Creatinine 0.83 Estimated GFR (MDRD) 94.00 BUN/Creatinine Ratio 14.45 Glucose 285 H Calcium 9.5 Total Bilirubin 1.05 AST 21 ALT 20 Alkaline Phosphatase 112 Total Creatine Kinase 20 Troponin I < 0.0100 B-Natriuretic Peptide 616 H Total Protein 8.5 H Albumin 3.6 Globulin 4.9 Albumin/Globulin Ratio 0.73 Amylase 162 H Lipase 153 H Orders Category Date Time Status ADMIT PATIENT INPATIENT .TO SCU (MONITORED BED) ADMISSION 07/15/17 01:07 Active EKG-(ED ONLY) Stat CARDIO 07/14/17 22:16 Completed BLOOD GLUCOSE MONITORING 0630,1100,1700,2100 CARE 07/15/17 01:10 Active GIVE HS SNACK 2100 CARE 07/15/17 01:13 Active TELEMETRY MONITORING TELE CARE 07/15/17 01:09 Active CLEAR LIQUID DIET DIETARY 07/15/17 Breakfast Ordered HS SNACK DIETARY 07/15/17 Dinner Ordered ED IV/MEDIPORT/POWERPORT .ONCE EMERGENCY 07/14/17 22:16 Active ED IV/MEDIPORT/POWERPORT .ONCE EMERGENCY 07/14/17 22:16 Active AMYLASE Stat LAB 07/14/17 22:32 Completed B-TYPE NATRIURETIC PEPTIDE Stat LAB 07/14/17 22:32 Completed CBC W/ AUTO DIFF DAILY@0600 LAB 07/15/17 06:00 Ordered CBC W/ AUTO DIFF DAILY@0600 LAB 07/16/17 06:00 Ordered CBC W/ AUTO DIFF DAILY@0600 LAB 07/17/17 06:00 Ordered CBC W/ AUTO DIFF DAILY@0600 LAB 07/18/17 06:00 Ordered CBC W/ AUTO DIFF DAILY@0600 LAB 07/19/17 06:00 Ordered CBC W/ AUTO DIFF DAILY@0600 LAB 07/20/17 06:00 Ordered CBC W/ AUTO DIFF DAILY@0600 LAB 07/21/17 06:00 Ordered CBC W/ AUTO DIFF DAILY@0600 LAB 07/22/17 06:00 Ordered CBC W/ AUTO DIFF DAILY@0600 LAB 07/23/17 06:00 Ordered CBC W/ AUTO DIFF DAILY@0600 LAB 07/24/17 06:00 Ordered CBC W/ AUTO DIFF DAILY@0600 LAB 07/25/17 06:00 Ordered CBC W/ AUTO DIFF DAILY@0600 LAB 07/26/17 06:00 Ordered CBC W/ AUTO DIFF DAILY@0600 LAB 07/27/17 06:00 Ordered CBC W/ AUTO DIFF DAILY@0600 LAB 07/28/17 06:00 Ordered CBC W/ AUTO DIFF DAILY@0600 LAB 07/29/17 06:00 Ordered CBC W/ AUTO DIFF DAILY@0600 LAB 07/30/17 06:00 Ordered CBC W/ AUTO DIFF DAILY@0600 LAB 07/31/17 06:00 Ordered CBC W/ AUTO DIFF DAILY@0600 LAB 08/01/17 06:00 Ordered CBC W/ AUTO DIFF DAILY@0600 LAB 08/02/17 06:00 Ordered CBC W/ AUTO DIFF DAILY@0600 LAB 08/03/17 06:00 Ordered CBC W/ AUTO DIFF Stat LAB 07/14/17 22:32 Completed COMPREHENSIVE METABOLIC PANEL DAILY@0600 LAB 07/15/17 06:00 Ordered COMPREHENSIVE METABOLIC PANEL DAILY@0600 LAB 07/16/17 06:00 Ordered COMPREHENSIVE METABOLIC PANEL DAILY@0600 LAB 07/17/17 06:00 Ordered COMPREHENSIVE METABOLIC PANEL DAILY@0600 LAB 07/18/17 06:00 Ordered COMPREHENSIVE METABOLIC PANEL DAILY@0600 LAB 07/19/17 06:00 Ordered COMPREHENSIVE METABOLIC PANEL DAILY@0600 LAB 07/20/17 06:00 Ordered COMPREHENSIVE METABOLIC PANEL DAILY@0600 LAB 07/21/17 06:00 Ordered COMPREHENSIVE METABOLIC PANEL DAILY@0600 LAB 07/22/17 06:00 Ordered COMPREHENSIVE METABOLIC PANEL DAILY@0600 LAB 07/23/17 06:00 Ordered COMPREHENSIVE METABOLIC PANEL DAILY@0600 LAB 07/24/17 06:00 Ordered COMPREHENSIVE METABOLIC PANEL DAILY@0600 LAB 07/25/17 06:00 Ordered COMPREHENSIVE METABOLIC PANEL DAILY@0600 LAB 07/26/17 06:00 Ordered COMPREHENSIVE METABOLIC PANEL DAILY@0600 LAB 07/27/17 06:00 Ordered COMPREHENSIVE METABOLIC PANEL DAILY@0600 LAB 07/28/17 06:00 Ordered COMPREHENSIVE METABOLIC PANEL DAILY@0600 LAB 07/29/17 06:00 Ordered COMPREHENSIVE METABOLIC PANEL DAILY@0600 LAB 07/30/17 06:00 Ordered COMPREHENSIVE METABOLIC PANEL DAILY@0600 LAB 07/31/17 06:00 Ordered COMPREHENSIVE METABOLIC PANEL DAILY@0600 LAB 08/01/17 06:00 Ordered COMPREHENSIVE METABOLIC PANEL DAILY@0600 LAB 08/02/17 06:00 Ordered COMPREHENSIVE METABOLIC PANEL DAILY@0600 LAB 08/03/17 06:00 Ordered COMPREHENSIVE METABOLIC PANEL Stat LAB 07/14/17 22:32 Completed CREATINE KINASE Stat LAB 07/14/17 22:32 Completed LIPASE Stat LAB 07/14/17 22:32 Completed TROPONIN I Stat LAB 07/14/17 22:32 Completed URINALYSIS C & S IF INDICATED Stat LAB 07/15/17 00:07 Ordered 0.9 % Sodium Chloride [Premix 200Ml 0.86% Sodium MEDS 07/14/17 23:30 Ordered Chloride] 1 bag Nicardipine in NaCl, Iso-Osm [Cardene-NaCl 20 mg/200 ml Soln] 20 mg IV 5 mg/hr 0.9 % Sodium Chloride [Saline Flush] MEDS 07/14/17 22:16 Ordered 1 syr IVF PRN PRN Hydromorphone HCl [Dilaudid 1 mg/ml Syringe] MEDS 07/14/17 22:37 Discontinued 1 mg IVP ONCE STA Hydromorphone HCl [Dilaudid 1 mg/ml Syringe] MEDS 07/14/17 23:07 Discontinued 1 mg IVP ONCE STA Hydromorphone HCl [Dilaudid 1 mg/ml Syringe] MEDS 07/15/17 01:07 Ordered 1 mg IVP Q4HR PRN Ketorolac Tromethamine [Toradol] MEDS 07/15/17 00:06 Discontinued 30 mg IVP ONCE STA Labetalol HCl [Trandate] MEDS 07/14/17 22:18 Discontinued 20 mg IVP ONCE STA Nicardipine in NaCl, Iso-Osm [Cardene-NaCl 20 mg/200 ml MEDS 07/14/17 23:21 Discontinued Soln] 200 ml IV .STK-MED Ondansetron HCl/Pf [Zofran 4 mg/2 ml] MEDS 07/14/17 22:37 Discontinued 4 mg IVP ONCE STA Ondansetron HCl/Pf [Zofran 4 mg/2 ml] MEDS 07/15/17 01:07 Ordered 4 mg IVP Q6H PRN Sodium Chloride 0.9% [Sodium Chloride] 1,000 ml MEDS 07/14/17 22:16 Discontinued IV 1,000 mls/hr Sodium Chloride 0.9% [Sodium Chloride] 1,000 ml MEDS 07/15/17 01:30 Ordered IV 150 mls/hr Sodium Chloride 0.9% [Sodium Chloride] 1,000 ml MEDS 07/15/17 00:19 Discontinued IV BOLUS RESUSCITATION STATUS Routine OTHERS 07/15/17 01:[address] ABD/PEL WO RENAL STONE PROT Stat RADS 07/14/17 22:56 Completed Medications Generic Name Dose Route Start Last Admin Trade Name Freq PRN Reason Stop Dose Admin Amlodipine Besylate 5 mg 07/15/17 09:00 Norvasc PO BID TYRA Apixaban 5 mg 07/15/17 09:00 Eliquis PO BID TYRA Chlordiazepoxide/Clidinium 1 cap 07/15/17 01:19 Librax 2.5/5 Mg PO TID PRN Alcohol Withdrawal Hydromorphone HCl 1 mg 07/15/17 01:07 Dilaudid 1 Mg/Ml Syringe IVP Q4HR PRN Severe Pain NICARDIPINE IN NACL, ISO-OSM 200 mls @ 50 mls/hr 07/14/17 23:30 07/15/17 00: 04 20 mg/ Sodium Chloride IV 0 mg/hr .Q4H TYRA 0 mls/hr Protocol Titration 5 MG/HR Sodium Chloride 1,000 mls @ 150 mls/hr 07/15/17 01:30 Sodium Chloride IV .Q6H40M TYRA NICARDIPINE IN NACL, ISO-OSM 200 mls @ 25 mls/hr 07/15/17 01:17 20 mg/ Sodium Chloride IV .Q8H PRN Hypertension Protocol 2.5 MG/HR Non-Formulary Medication 325 mg 07/15/17 09:00 Ferrous Sulfate [Ferrous Sulfate] PO DAILY TYRA Non-Formulary Medication 50 mg 07/15/17 09:00 Losartan Potassium PO BID TYRA Omeprazole 40 mg 07/15/17 06:30 Prilosec PO QDAC TYRA Ondansetron HCl 4 mg 07/15/17 01:07 Zofran 4 Mg/2 Ml IVP Q6H PRN Nausea / Vomiting Fluticasone/Salmeterol 1 puff 07/15/17 01:14 Advair 250-50 Diskus IH PRN PRN shortness of breath/wheezing Sodium Chloride 1 syr 07/14/17 22:16 07/14/17 23:55 Saline Flush IVF 1 syr PRN PRN Administration To flush IV Sotalol HCl 80 mg 07/15/17 09:00 Betapace PO DAILY TYRA Sotalol HCl 40 mg 07/15/17 09:00 Betapace PO DAILY TYRA Tiotropium [place] 1 cap 07/15/17 09:00 Spiriva IH DAILY TYRA Discontinued Medications Generic Name Dose Route Start Last Admin Trade Name Freq PRN Reason Stop Dose Admin Hydromorphone HCl 1 mg 07/14/17 22:37 07/14/17 22:44 Dilaudid 1 Mg/Ml Syringe IVP 07/14/17 22:38 1 mg ONCE STA Administration Hydromorphone HCl 1 mg 07/14/17 23:07 07/14/17 23:24 Dilaudid 1 Mg/Ml Syringe IVP 07/14/17 23:08 1 mg ONCE STA Administration Sodium Chloride 1,000 mls @ 1,000 mls/hr 07/14/17 22:16 07/14/17 22:31 Sodium Chloride IV 07/14/17 23:15 1,000 mls/hr .Q1H STA Administration Sodium Chloride 1,000 mls @ 1,000 mls/hr 07/15/17 00:19 07/15/17 00:20 Sodium Chloride IV 07/15/17 01:18 1,000 mls/hr BOLUS STA Administration Ketorolac Tromethamine 30 mg 07/15/17 00:06 07/15/17 00:18 Toradol IVP 07/15/17 00:07 30 mg ONCE STA Administration Labetalol HCl 20 mg 07/14/17 22:18 07/14/17 22:37 Trandate IVP 07/14/17 22:19 20 mg ONCE STA Administration Ondansetron HCl 4 mg 07/14/17 22:37 07/14/17 22:45 Zofran 4 Mg/2 Ml IVP 07/14/17 22:38 4 mg ONCE STA Administration Vital Signs: Temp Pulse Resp BP Pulse Ox 07/15/17 00:51 75 18 144/85 H 96 07/15/17 00:06 76 16 115/85 97 07/14/17 21:53 97.9 F 104 H 22 158/102 H 95 Departure - Departure Time of Disposition: 01:30 Disposition: ADMITTED INPATIENT Discharge Problem: Abdominal pain, Acute on chronic pancreatitis Hypertension Qualifiers: Hypertension type: essential hypertension Qualified Code(s): I10 - Essential ( primary) hypertension Condition: Fair Pt referred to PMD for follow-up: No (admitted ) Allergies/Adverse Reactions: Allergies No Known Allergies Allergy (Verified 12/10/16 11:56) Home Medications: Ambulatory Orders Ferrous Sulfate 325 mg PO DAILY 06/07/15 Tiotropium [place]ro [Spiriva] 1 cap IH DAILY #1 cap.w.dev 06/09/15 Amlodipine Besylate [Norvasc] 5 mg PO BID #60 tablet 01/10/16 Losartan Potassium [Cozaar] 50 mg PO BID #60 tablet 01/10/16 Omeprazole [Prilosec] 40 mg PO QDAC 03/23/16 Apixaban [Eliquis] 5 mg PO BID #60 tablet 03/24/16 Sotalol HCl [Sotalol] 40 mg PO DAILY 12/10/16 Fluticasone/Salmeterol [Advair 250-50 Diskus] 1 puff IH PRN PRN 07/14/17 Insulin Degludec [Tresiba Flextouch U-100] 100 units INJ PRN PRN 07/14/17 Sotalol HCl [Betapace] 80 mg PO DAILY 07/14/17 Disposition Discussed With: Patient, Family
[2017-07-14 22:34] LABS: BASOPHILS % (AUTO) 0.2 % (0.0-3.0); EOSINOPHILS # (AUTO) 0.1 K/ul (0.0-0.7); EOSINOPHILS % (AUTO) 0.5 % (0.0-7.0); HEMATOCRIT 52.7 % (42.0-52.0); HEMOGLOBIN 19.5 g/dl (14.0-18.0); IMMATURE GRANULOCYTE % (AUTO) 0.5 % (0.0-5.0); LYMPHOCYTES # (AUTO) 1.1 K/uL (0.60-3.4); LYMPHOCYTES % (AUTO) 9.7 (10.0-50.0); MEAN CORPUSCULAR HEMOGLOBIN 33.2 pg (27.0-31.0); MEAN CORPUSCULAR VOLUME 89.6 fl (80.0-94.0); MONOCYTES # (AUTO) 0.6 K/uL (0.4-2.0); MONOCYTES % (AUTO) 5.6 (0-10); NEUTROPHILS # (AUTO) 9.2 K/ul (2.0-6.9); NEUTROPHILS % (AUTO) 83.5; PLATELET COUNT 183 10^3/uL (140-440); RED BLOOD COUNT 5.88 10^6/ul (4.70-6.10); WHITE BLOOD COUNT 10.98 K/ul (4.2-10.2)
[2017-07-14] MEDS ORDERED: DILAUDID 1 MG/ML SYRINGE IVP STA ×2 (22:37→23:07)
[2017-07-14] MEDS ORDERED: ZOFRAN 4 MG/2 ML IVP STA (22:37)
[2017-07-14 23:00] LABS: ALANINE AMINOTRANSFERASE 20 U/L (12-78); ALBUMIN 3.6 g/dL (3.4-5.0); ALBUMIN/GLOBULIN RATIO 0.73; ALKALINE PHOSPHATASE 112 U/L (56-119); AMYLASE 162 U/L (25-115); ANION GAP 19.5; ASPARTATE AMINO TRANSFERASE 21 U/L (15-37); BILIRUBIN,TOTAL 1.05 mg/dL (0.00-1.20); BLOOD UREA NITROGEN 12 mg/dL (7-18); BUN/CREATININE RATIO 14.45; CALCIUM 9.5 mg/dL (8.2-10.2); CARBON DIOXIDE 22 mmol/L (23-31); CHLORIDE 96 mmol/L (98-107); CREATINE KINASE 20 U/L; CREATININE 0.83 mg/dL (0.60-1.10); GLUCOSE 285 mg/dL (82-115); LIPASE 153 U/L (8-78); POTASSIUM 3.5 mmol/L (3.5-5.1); SODIUM 134 mmol/L (136-145); TOTAL PROTEIN 8.5 g/dL (5.8-8.1)
[2017-07-14] MEDS ORDERED: CARDENE-NACL 20 MG/200 ML SOLN 200 ML IV ONE (23:21)
[2017-07-14] MEDS ORDERED: CARDENE-NACL 20 MG/200 ML SOLN 20 MG in PREMIX 200ML 0.86% SODIUM CHLORIDE 1 BAG IV SCH (23:30)
--- NOTE | 2017-07-14 23:41 | CT ---
EXAM: CT scan of the abdomen pelvis without contrast HISTORY: Abdominal pain COMPARISON: CT scan abdomen pelvis 12/10/2016 FINDINGS: Contiguous axial images obtained from lung bases to the symphysis pubis without contrast u tilizing 3-mm collimation. Sagittal and coronal reconstructions were imaged and reviewed The visual ized lung bases are clear. There has been prior cholecystectomy. There are benign granulomatous nelida nges in the liver and spleen.. There is a stable thickening of the adrenal glands. Dense atheroscler otic changes are seen involving the aorta without aneurysm formation. Prostate gland normal in size. There is no free fluid or inflammatory changes. The bladder is unremarkable. There is no CT eviden ce of appendicitis. There is a stable likely hyperdense cyst upper pole right kidney. There is mild fullness of the left pelvocaliceal system and ureter with left-sided perinephric stranding secondary to a 2 mm calculus at the S1 level. IMPRESSION: ASVD without aneurysm. Mild left-sided hydronephrosis and hydroureter with perinephric stranding secondary to a 2 mm calculu s at the S1 level.
[2017-07-15] MEDS ORDERED: TORADOL IVP STA (00:06)
[2017-07-15] MEDS ORDERED: SODIUM CHLORIDE 1,000 ML IV STA (00:19)
[2017-07-15] MEDS ORDERED: ZOFRAN 4 MG/2 ML IVP PRN (01:07)
[2017-07-15] MEDS ORDERED: ADVAIR 250-50 DISKUS IH PRN ×2 (01:14→08:59)
[2017-07-15] MEDS ORDERED: LIBRAX 2.5/5 MG PO PRN (01:19)
[2017-07-15 01:48] VITALS: BMI 20.2
[2017-07-15] MEDS: SODIUM CHLORIDE 1,000 ML IV SCH ×4 (02:02→16:45)
[2017-07-15] MEDS: CARDENE-NACL 20 MG/200 ML SOLN 20 MG in PREMIX 200ML 0.86% SODIUM CHLORIDE 1 BAG IV PRN ×2 (02:37→10:27)
[2017-07-15] MEDS ORDERED: DILAUDID 2 MG/ML SYRINGE ONE ×3 (03:48→11:57)
[2017-07-15] MEDS: DILAUDID 1 MG/ML SYRINGE IVP PRN ×3 (03:51→12:04)
[2017-07-15 04:39] LABS: BASOPHILS % (AUTO) 0.2 % (0.0-3.0); HEMATOCRIT 47.9 % (42.0-52.0); HEMOGLOBIN 17.4 g/dl (14.0-18.0); IMMATURE GRANULOCYTE % (AUTO) 0.4 % (0.0-5.0); LYMPHOCYTES # (AUTO) 1.1 K/uL (0.60-3.4); LYMPHOCYTES % (AUTO) 11.5 (10.0-50.0); MEAN CORPUSCULAR HGB CONC 36.3 (31.8-35.4); MEAN CORPUSCULAR VOLUME 90.9 fl (80.0-94.0); MONOCYTES # (AUTO) 0.6 K/uL (0.4-2.0); NEUTROPHILS # (AUTO) 8.1 K/ul (2.0-6.9); NEUTROPHILS % (AUTO) 81.9; PLATELET COUNT 156 10^3/uL (140-440); RED BLOOD COUNT 5.27 10^6/ul (4.70-6.10); WHITE BLOOD COUNT 9.93 K/ul (4.2-10.2)
[2017-07-15 05:02] LABS: ALBUMIN 3.2 g/dL (3.4-5.0); ALBUMIN/GLOBULIN RATIO 0.78; ANION GAP 15.4; BILIRUBIN,TOTAL 0.72 mg/dL (0.00-1.20); BUN/CREATININE RATIO 15.18; CALCIUM 8.7 mg/dL (8.2-10.2); CREATININE 0.79 mg/dL (0.60-1.10); POTASSIUM 3.4 mmol/L (3.5-5.1); TOTAL PROTEIN 7.3 g/dL (5.8-8.1)
[2017-07-15 05:56] LABS: BILIRUBIN,URINE 1+ (NEGATIVE); KETONES,URINE 2+ (NEGATIVE); LEUKOCYTE ESTERASE ,URINE Negative (NEGATIVE); NITRITE,URINE Negative (NEGATIVE); PH,URINE 6.5 (5-9); PROTEIN,URINE 3+ (NEGATIVE); URINE, BLOOD 2+ (NEGATIVE)
[2017-07-15 05:58] LABS: ADD URINE MICROSCOPIC YES
[2017-07-15 06:01] LABS: BACTERIA,URINE TRACE (NOT PRESENT)
[2017-07-15] MEDS ORDERED: PRILOSEC PO SCH (06:30)
[2017-07-15] MEDS: SPIRIVA IH SCH (08:22)
[2017-07-15] MEDS: COZAAR PO SCH ×2 (08:23→20:55)
[2017-07-15] MEDS: NORVASC PO SCH ×2 (08:23→20:55)
[2017-07-15] MEDS: FERROUS SULFATE PO SCH (08:23)
[2017-07-15] MEDS: ELIQUIS PO SCH ×2 (08:23→20:55)
[2017-07-15] MEDS ORDERED: SPIRIVA IH PRN (08:32)
[2017-07-15] MEDS: BETAPACE PO SCH (08:33)
[2017-07-15] MEDS ORDERED: BETAPACE PO SCH (09:00)
[2017-07-15] MEDS ORDERED: LOVENOX SUBCUT SCH (09:00)
[2017-07-15] MEDS ORDERED: NON-FORMULARY MEDICATION (Losartan Potassium 50 MG) PO SCH (09:00)
[2017-07-15] MEDS ORDERED: NON-FORMULARY MEDICATION (Ferrous Sulfate [Ferrous Sulfate] 325 MG) PO SCH ×22 (09:00)
[2017-07-15] MEDS: FOLBIC TABLET PO SCH (09:21)
[2017-07-15] MEDS: ZOFRAN 4 MG/2 ML IVP PRN (11:59)
[2017-07-15] MEDS ORDERED: DILAUDID 2 MG/ML SYRINGE IVP PRN (12:16)
[2017-07-15] MEDS: TORADOL IVP SCH ×2 (13:59→20:56)
[2017-07-15] MEDS: PROTONIX IV IVP SCH ×2 (13:59→20:56)
[2017-07-15] MEDS: FLOMAX PO SCH ×2 (15:15→20:55)
[2017-07-15] MEDS: DILAUDID 2 MG/ML SYRINGE IVP PRN ×3 (16:45→22:59)
[2017-07-15] MEDS: VASOTEC IV IVP PRN (19:43)
[2017-07-16] MEDS: SODIUM CHLORIDE 1,000 ML IV SCH ×3 (02:03→22:24)
[2017-07-16] MEDS: DILAUDID 2 MG/ML SYRINGE IVP PRN ×5 (02:11→21:27)
[2017-07-16] MEDS: ZOFRAN 4 MG/2 ML IVP PRN ×3 (03:29→18:02)
[2017-07-16] MEDS: TORADOL IVP SCH ×3 (04:39→21:01)
[2017-07-16] MEDS: VASOTEC IV IVP PRN ×2 (04:46→12:19)
[2017-07-16 05:20] LABS: BASOPHILS % (AUTO) 0.2 % (0.0-3.0); EOSINOPHILS % (AUTO) 0.4 % (0.0-7.0); HEMATOCRIT 45.1 % (42.0-52.0); HEMOGLOBIN 16.4 g/dl (14.0-18.0); IMMATURE GRANULOCYTE % (AUTO) 0.3 % (0.0-5.0); LYMPHOCYTES # (AUTO) 1.1 K/uL (0.60-3.4); LYMPHOCYTES % (AUTO) 12.6 (10.0-50.0); MEAN CORPUSCULAR HEMOGLOBIN 33.2 pg (27.0-31.0); MEAN CORPUSCULAR HGB CONC 36.4 (31.8-35.4); MEAN CORPUSCULAR VOLUME 91.3 fl (80.0-94.0); MONOCYTES # (AUTO) 0.9 K/uL (0.4-2.0); MONOCYTES % (AUTO) 9.5 (0-10); NEUTROPHILS # (AUTO) 6.9 K/ul (2.0-6.9); PLATELET COUNT 161 10^3/uL (140-440); RED BLOOD COUNT 4.94 10^6/ul (4.70-6.10); WHITE BLOOD COUNT 8.97 K/ul (4.2-10.2)
[2017-07-16 05:41] LABS: ALBUMIN 3.1 g/dL (3.4-5.0); ALBUMIN/GLOBULIN RATIO 0.82; ANION GAP 14.2; BILIRUBIN,TOTAL 1.11 mg/dL (0.00-1.20); BUN/CREATININE RATIO 15.78; CALCIUM 8.8 mg/dL (8.2-10.2); CREATININE 0.76 mg/dL (0.60-1.10); POTASSIUM 3.2 mmol/L (3.5-5.1); TOTAL PROTEIN 6.9 g/dL (5.8-8.1)
[2017-07-16 08:39] LABS: AMYLASE 57 U/L (25-115); LIPASE 60 U/L (8-78)
[2017-07-16] MEDS ORDERED: LANOXIN IVP STA ×3 (08:43→09:06)
--- NOTE | 2017-07-16 08:48 | CT ---
EXAM: CT Abdomen without contrast. CT Pelvis without contrast. HISTORY: Left-sided and upper abdominal pain. COMPARISON: 07/14/2017. TECHNIQUE: Multiple axial images of the abdomen and pelvis were obtained without intravenous contras t. Images were reformatted in the coronal plane. FINDINGS: Please note that evaluation of the abdominal and pelvic structures is limited due to lack of intravenous contrast. The lung bases are clear. Degenerative changes present in the spine. Gallbladder is absent. The liver, pancreas, and spleen demonstrate normal contour. Enlargement of t he left adrenal gland is stable. Right adrenal gland appears unremarkable. No calcified renal stones or hydronephrosis detected. No ureteral or bladder stones identified. Ravi dder is unremarkable. Previously noted left ureteral calculus is not identified. Mild left perineph keegan stranding again noted.. There is fat stranding in the upper abdominal mesentery which may be centered around the stomach. Th ere is no evidence for bowel obstruction. No free air identified. Atherosclerotic calcifications ar e present with stents present in the right iliac and left femoral arteries. IMPRESSION: 1. Previously noted left ureteral calculus and left hydronephrosis are no longer seen. Mild left pe rinephric stranding persists. 2. New upper abdominal fat stranding, possibly due to gastritis.
[2017-07-16] MEDS ORDERED: LIBRAX 2.5/5 MG PO SCH (09:00)
[2017-07-16] MEDS: COZAAR PO SCH ×2 (09:13→21:37)
[2017-07-16] MEDS: BETAPACE PO SCH (09:13)
[2017-07-16] MEDS: ELIQUIS PO SCH ×2 (09:14→21:37)
[2017-07-16] MEDS: FERROUS SULFATE PO SCH (09:14)
[2017-07-16] MEDS: FLOMAX PO SCH ×2 (09:14→21:37)
[2017-07-16] MEDS: K-DUR PO SCH ×3 (09:15→21:37)
[2017-07-16] MEDS: FOLBIC TABLET PO SCH (09:15)
[2017-07-16] MEDS: PROTONIX IV IVP SCH ×2 (09:16→21:02)
[2017-07-16] MEDS: NORVASC PO SCH ×2 (09:16→21:37)
[2017-07-16] MEDS: SPIRIVA IH SCH (09:20)
[2017-07-16] MEDS: LIBRIUM PO SCH ×4 (09:39→21:37)
--- NOTE | 2017-07-16 10:01 | PCM.PROG ---
Attending Provider: ATTENDING PROVIDER: Dr. VICKI ENRIQUEZ This patient is seen with Purvi Santizo, Nurse Practitioner. DATE OF SERVICE: 07/16/17 SUBJECTIVE: This 62 year old WHITE/ M was hospitalized 07/15/17. The patient is sitting up in bed, alert. She is still having abdominal pain. Amylase and lipase are elevated. CT scan shows left kidney stone 2 mm. REVIEW OF SYSTEMS: CONSTITUTIONAL: No night sweats. No fatigue, malaise, lethargy. No fever or chills. HEENT: Eyes: No visual changes. No eye pain. No eye discharge. ENT: No runny nose. No epistaxis. No sinus pain. No odynophagia. No congestion. RESPIRATORY: No cough, no congestion. No hemoptysis. No shortness of breath. CARDIOVASCULAR: No angina symptoms. No CHF symptoms. No atypical chest pain for CAD. No palpitations. No orthopnea.. GASTROINTESTINAL: Nausea. Left flank pain. No vomiting. No diarrhea or constipation. No hematemesis. No hematochezia. GENITOURINARY: No urgency. No frequency. No dysuria. No hematuria. No obstructive symptoms. No discharge. No pain. No significant abnormal bleeding. MUSCULOSKELETAL: No musculoskeletal pain; no joint swelling. NEUROLOGICAL: Awake, alert, oriented to time, place and person. No headache. No neck pain. No syncope. No seizures. No dizziness. PSYCHIATRIC: Not anxious. No depression. No suicidal thoughts. No homicidal thoughts. SKIN: No rash. No lesions. No wounds. ENDOCRINE: No unexplained weight loss. No weight gain. HEMATOLOGIC/LYMPHATIC: No anemia. No purpura. No petechiae. No prolonged or excessive bleeding. No palpable lymph nodes. PHYSICAL EXAMINATION: GENERAL: The patient is awake, alert and oriented, sitting in bed in no distress. VITAL SIGNS: Temperature 98.0 F, Pulse 87, Respiratory Rate 14, BP 174/102, Pulse Ox 98% HEENT: Head normocephalic, atraumatic. Eyes: Extraocular muscles are intact. Pupils are equal, round and reactive to light and accommodation. Ears: No lesions. Nose appeared normal. Throat: No exudate or erythema. NECK: Supple. No JVD, no carotid bruit. No lymphadenopathy or thyromegaly. LUNGS: Diminished breath sounds bilaterally. Clear to auscultation. Percussion note normal. Chest symmetrical. HEART: S1, S2, no S3. No murmurs. No cyanosis or clubbing. No ascites. Pulses: Dorsalis pedis and posterior tibial pulses +1 to +2 both sides. ABDOMEN: Soft. Tenderness left upper and lower quadrant left flank pain. Bowel sounds active. No CVA tenderness. No mass felt. EXTREMITIES: No edema. Full range of motion of all extremities, equal. NEUROLOGIC: No focal deficit. Cranial nerves II through XII are grossly intact. No headache, no double vision or headache. SKIN: Not dry. Intact. Turgor-normal. LYMPHATIC: No palpable lymph nodes/no lymphedema. MUSCULOSKELETAL: Normal joints with no swelling. Muscle tone is normal. LAB REVIEW: 07/16/17 05:17 07/16/17 05:17 07/16/17 05:17: Sodium 132 L, Potassium 3.2 L, Chloride 98, Carbon Dioxide 23, Anion Gap 14.2, BUN 12, Creatinine 0.76, Estimated GFR (MDRD) 104.00, BUN/ Creatinine Ratio 15.78, Glucose 204 H, Calcium 8.8, Total Bilirubin 1.11, AST 19 , ALT 15, Alkaline Phosphatase 81, Total Protein 6.9, Albumin 3.1 L, Globulin 3.8, Albumin/Globulin Ratio 0.82 07/16/17 05:17: WBC 8.97, RBC 4.94, Hgb 16.4, Hct 45.1, MCV 91.3, MCH 33.2 H, MCHC 36.4 H, RDW Coeff of Hilary 12.8, Plt Count 161, Immature Gran % (Auto) 0.3, Neut % (Auto) 77.0, Lymph % (Auto) 12.6, [place] % (Auto) 9.5, Eos % (Auto) 0.4, Baso % (Auto) 0.2, Immature Gran # (Auto) 0.0, Neut # 6.9, Lymph # 1.1, [place] # 0.9, Eos # 0.0, Baso # 0.0 ASSESSMENT: 1. Acute pancreatitis 2. Left hydronephrosis with 2 mm nephrolithiasis 3. Hypertension PLAN: 1. Repeat CT scan of abdomen and pelvis today with contrast 2. UA - strain urine 3. NPO 4. Repeat amylase and lipase 5. Potassium 40 t.i.d. Plan and coordination of the patient's care discussed in the presence of Project Management Intern and nurse. CONDITION: Stable SCRIBED BY: KM MAURER Algologist scribed while in presence of service performed by Dr. Enriquez/Purvi Santizo APRN on 07/16/17 ([id number])
[2017-07-16 11:56] LABS: BILIRUBIN,URINE Negative (NEGATIVE); KETONES,URINE 1+ (NEGATIVE); LEUKOCYTE ESTERASE ,URINE Negative (NEGATIVE); NITRITE,URINE Negative (NEGATIVE); PROTEIN,URINE 3+ (NEGATIVE); URINE, BLOOD 2+ (NEGATIVE)
[2017-07-16 12:02] LABS: ADD URINE MICROSCOPIC YES
[2017-07-17] MEDS: DILAUDID 2 MG/ML SYRINGE IVP PRN ×2 (04:51→11:27)
[2017-07-17] MEDS: TORADOL IVP SCH ×3 (04:56→21:23)
[2017-07-17 05:44] LABS: BASOPHILS % (AUTO) 0.3 % (0.0-3.0); EOSINOPHILS % (AUTO) 0.3 % (0.0-7.0); HEMATOCRIT 39.2 % (42.0-52.0); HEMOGLOBIN 14.2 g/dl (14.0-18.0); IMMATURE GRANULOCYTE % (AUTO) 0.4 % (0.0-5.0); LYMPHOCYTES # (AUTO) 0.9 K/uL (0.60-3.4); MEAN CORPUSCULAR HEMOGLOBIN 33.6 pg (27.0-31.0); MEAN CORPUSCULAR HGB CONC 36.2 (31.8-35.4); MEAN CORPUSCULAR VOLUME 92.7 fl (80.0-94.0); MONOCYTES # (AUTO) 0.7 K/uL (0.4-2.0); NEUTROPHILS # (AUTO) 5.7 K/ul (2.0-6.9); PLATELET COUNT 113 10^3/uL (140-440); RED BLOOD COUNT 4.23 10^6/ul (4.70-6.10); WHITE BLOOD COUNT 7.41 K/ul (4.2-10.2)
[2017-07-17 06:19] LABS: ALBUMIN 2.5 g/dL (3.4-5.0); ALBUMIN/GLOBULIN RATIO 0.68; ANION GAP 14.7; BUN/CREATININE RATIO 16.66; CALCIUM 8.3 mg/dL (8.2-10.2); CREATININE 0.84 mg/dL (0.60-1.10); POTASSIUM 3.7 mmol/L (3.5-5.1); TOTAL PROTEIN 6.2 g/dL (5.8-8.1)
--- NOTE | 2017-07-17 07:13 | HP ---
DATE OF SERVICE: 07/16/17 HISTORY OF PRESENT ILLNESS: This is a 62-year-old male who presented to the emergency room complaining of abdominal pain. He does have a history of recurrent pancreatitis. He had vomited times one at home, has no appetite and is found to have an increased heart rate. PAST MEDICAL HISTORY: Dyslipidemia Coronary artery disease Hypertension History of atrial fibrillation COPD GERD History of recurrent pancreatitis Osteoarthritis History of alcohol abuse PAST SURGICAL HISTORY: Cholecystectomy CABG Carotid stenosis repair REVIEW OF SYSTEMS: CONSTITUTIONAL: Positive for fatigue and malaise. No night sweats. No fever or chills. HEENT: Eyes: No blurred vision. No eye redness. No visual changes. No eye pain. No eye discharge. ENT: No runny nose. No epistaxis. No sinus pain. No sore throat. No odynophagia. No ear pain. No congestion. RESPIRATORY: No cough, no congestion. No hemoptysis. No shortness of breath. CARDIOVASCULAR: No angina symptoms. No CHF symptoms. No atypical chest pain for CAD. No palpitations. No orthopnea. GASTROINTESTINAL: Positive for abdominal pain. Nausea, poor appetite, vomiting. No diarrhea or constipation. No hematemesis. No hematochezia. GENITOURINARY: No urgency. No frequency. No dysuria. No hematuria. No obstructive symptoms. No discharge. No pain. No significant abnormal bleeding. MUSCULOSKELETAL: No musculoskeletal pain. No joint swelling or redness. No arthritis. NEUROLOGICAL: No headache. No neck pain. No syncope. No seizures. No dizziness. PSYCHIATRIC: Not anxious. No depression. No suicidal thoughts. No homicidal thoughts. SKIN: No rash. No lesions. No wounds. ENDOCRINE: No unexplained weight loss. No weight gain. HEMATOLOGIC/LYMPHATIC: No anemia. No purpura. No petechiae. No prolonged or excessive bleeding. No palpable lymph nodes. FAMILY HISTORY: Not pertinent. SOCIAL HISTORY: The patient is a current every day smoker. He uses alcohol daily. He lives at home with his . MEDICATIONS: (HOME) Ferrous Sulfate 325 mg p.o. daily Spiriva one cap IH daily Amlodipine (Norvasc) 5 mg p.o. b.i.d. Cozaar 50 mg p.o. b.i.d. Omeprazole 40 mg p.o. q.d a.c. Eliquis 5 mg p.o. b. i.d. Sotalol 40 mg p.o. daily Tresiba Flextouch U-100 100 jnits INJ p.r.n. Advair 250/50 diskus Spiriva one cap IH bedtime p.r.n. Cyanocobalamin one tab p.o. daily ALLERGIES: NKDA PHYSICAL EXAMINATION: GENERAL: The patient is ill-appearing but in no acute distress. VITAL SIGNS: Temperature 97.9, heart rate 104, respirations 22, BP 158/102, oxygen 95%. HEENT: Head normocephalic, atraumatic. Eyes: Extraocular muscles are intact. Pupils are equal, round and reactive to light and accommodation. Ears: No lesions. Nose appeared normal. Throat: No exudate or erythema. NECK: Supple. No JVD, no carotid bruit. No lymphadenopathy or thyromegaly. LUNGS: Clear with diminished breath sounds bilaterally. Respirations nonlabored. Percussion note normal. Chest symmetrical. HEART: Regular, tachycardic. S1, S2, no S3. No murmurs, clicks or rubs. No cyanosis or clubbing. No ascites. Pulses: Dorsalis pedis and posterior tibial pulses +1 to +2 both sides. ABDOMEN: Soft. Nondistended. Tenderness noted to the left upper and lower quadrants around to the left flank. Bowel sounds active times four quadrants. No hepatosplenomegaly. No CVA tenderness. No mass felt. EXTREMITIES: No edema. No calf tenderness. Full range of motion of all extremities, equal. NEUROLOGIC: The patient is alert, oriented times three. No focal deficit. Cranial nerves II through XII are grossly intact. No headache, no double vision or headache. SKIN: Clean, dry and intact. Turgor - normal. LYMPHATIC: No palpable lymph nodes/no lymphedema. MUSCULOSKELETAL: Normal joints with no swelling. Muscle tone is normal. EKG shows tachycardia with possible atrial fibrillation. LABS: White count 10.98, hemoglobin 19.5, hematocrit 52.7, platelets 183. Sodium 134, potassium 3.5, BUN 12, creatinine 0.83, glucose 285, calcium 9.5, total bili 1.05, AST 21, ALT 20, alkaline phosphatase 112. Total CK 20, troponin less than 0.01. BNP 616, total protein 8.5. Amylase 162, lipase 153. CT scan shows left hydronephrosis with 2 mm renal calculus at the S1 level and left kidney. Urine pH 6.5, 3+ protein, 2+ glucose, 2+ ketones, 2+ blood, nitrite negative, 1+ bili , negative leuks, trace bacteria. ASSESSMENT: 1. ACUTE PANCREATITIS 2. LEFT HYDRONEPHROSIS AND WITH LEFT RENAL CALCULUS 2 MM 3. POLYCYTHEMIA 4. TACHYCARDIA 5. CORONARY ARTERY DISEASE PLAN: 1. Admit to special care unit 2. Make patient NPO 3. IV fluids, NS at 100 cc/hr 4. Zofran 4 mg IV q.6hr as needed 5. Protonix 40 mg daily 6. Repeat CT with renal protocol at 1030 7. Routine telemetry 8. CBC, CMP daily 9. Will follow closely TIME SPENT: More than 70 minutes. MTDD
[2017-07-17] MEDS ORDERED: DECADRON 4 MG/ML SDV IM STA (08:33)
[2017-07-17] MEDS ORDERED: SODIUM CHLORIDE 1,000 ML IV SCH (08:42)
[2017-07-17] MEDS: SPIRIVA IH SCH (09:49)
[2017-07-17] MEDS: BETAPACE PO SCH (09:50)
[2017-07-17] MEDS: COZAAR PO SCH ×2 (09:51→21:18)
[2017-07-17] MEDS: FLOMAX PO SCH ×2 (09:52→21:18)
[2017-07-17] MEDS: FERROUS SULFATE PO SCH (09:52)
[2017-07-17] MEDS: ELIQUIS PO SCH ×2 (09:52→21:19)
[2017-07-17] MEDS: K-DUR PO SCH ×3 (09:53→21:18)
[2017-07-17] MEDS: FOLBIC TABLET PO SCH (09:53)
[2017-07-17] MEDS: LIBRIUM PO SCH ×4 (09:53→21:18)
[2017-07-17] MEDS: NORVASC PO SCH ×2 (09:53→21:19)
[2017-07-17] MEDS: PROTONIX PO SCH ×2 (09:54→17:48)
[2017-07-17] MEDS: THIAMINE IM SCH (09:54)
--- NOTE | 2017-07-17 11:27 | PCM.PROG ---
Attending Provider: ATTENDING PROVIDER: Dr. VICKI ENRIQUEZ DATE OF SERVICE: 07/17/17 SUBJECTIVE: This 62 year old WHITE/ M was hospitalized 07/15/17. The patient is hospitalized with acute pancreatitis, left ureteric stone, which has passed. No pain this morning. REVIEW OF SYSTEMS: CONSTITUTIONAL: No night sweats. No fatigue, malaise, lethargy. No fever or chills. HEENT: Eyes: No visual changes. No eye pain. No eye discharge. ENT: No runny nose. No epistaxis. No sinus pain. No odynophagia. No congestion. RESPIRATORY: Mild cough and congestion. No hemoptysis. No shortness of breath. CARDIOVASCULAR: No angina symptoms. No CHF symptoms. No atypical chest pain for CAD. No palpitations. No orthopnea.. GASTROINTESTINAL: No abdominal pain. No nausea or vomiting. No diarrhea or constipation. No hematemesis. No hematochezia. GENITOURINARY: No urgency. No frequency. No dysuria. No hematuria. No obstructive symptoms. No discharge. No pain. No significant abnormal bleeding. MUSCULOSKELETAL: No musculoskeletal pain; no joint swelling. NEUROLOGICAL: Awake, alert, oriented to time, place and person. No headache. No neck pain. No syncope. No seizures. No dizziness. PSYCHIATRIC: Not anxious. No depression. No suicidal thoughts. No homicidal thoughts. SKIN: No rash. No lesions. No wounds. ENDOCRINE: No unexplained weight loss. No weight gain. HEMATOLOGIC/LYMPHATIC: No anemia. No purpura. No petechiae. No prolonged or excessive bleeding. No palpable lymph nodes. PHYSICAL EXAMINATION: GENERAL: The patient is awake, alert and oriented, lying/sitting in bed in no distress. VITAL SIGNS: Temperature 97.7 F, Pulse 103, Respiratory Rate 16, BP 134/96, Pulse Ox 99% HEENT: Head normocephalic, atraumatic. Eyes: Extraocular muscles are intact. Pupils are equal, round and reactive to light and accommodation. Ears: No lesions. Nose appeared normal. Throat: No exudate or erythema. NECK: Supple. No JVD, no carotid bruit. No lymphadenopathy or thyromegaly. LUNGS: Decreased breath sounds. Clear to auscultation. Percussion note normal. Chest symmetrical. HEART: S1, S2, no S3. No murmurs. No cyanosis or clubbing. No ascites. Pulses: Dorsalis pedis and posterior tibial pulses +1 to +2 both sides. ABDOMEN: Soft. Non-tender. Bowel sounds active. No CVA tenderness. No mass felt. EXTREMITIES: No edema. Full range of motion of all extremities, equal. NEUROLOGIC: No focal deficit. Cranial nerves II through XII are grossly intact. No headache, no double vision or headache. SKIN: Not dry. Intact. Turgor-normal. LYMPHATIC: No palpable lymph nodes/no lymphedema. MUSCULOSKELETAL: Normal joints with no swelling. Muscle tone is normal. LAB REVIEW: 07/17/17 05:00 07/17/17 05:00 07/17/17 05:00: Sodium 132 L, Potassium 3.7, Chloride 100, Carbon Dioxide 21 L, Anion Gap 14.7, BUN 14, Creatinine 0.84, Estimated GFR (MDRD) 93.00, BUN/ Creatinine Ratio 16.66, Glucose 241 H, Calcium 8.3, Total Bilirubin 1.00, AST 13 L, ALT 9 L, Alkaline Phosphatase 74, Total Protein 6.2, Albumin 2.5 L, Globulin 3.7, Albumin/Globulin Ratio 0.68 07/17/17 05:00: WBC 7.41, RBC 4.23 L, Hgb 14.2, Hct 39.2 L, MCV 92.7, MCH 33.6 H , MCHC 36.2 H, RDW Coeff of Hilary 13.2, Plt Count 113 L, Immature Gran % (Auto) 0.4, Neut % (Auto) 77.0, Lymph % (Auto) 12.0, [place] % (Auto) 10.0, Eos % (Auto) 0.3, Baso % (Auto) 0.3, Immature Gran # (Auto) 0.0, Neut # 5.7, Lymph # 0.9, [place] # 0.7, Eos # 0.0, Baso # 0.0 07/16/17 11:32: Urine Color Yellow, Urine Clarity Clear, Urine pH 6.0, Ur Specific [place] 1.020, Urine Protein 3+, Urine Glucose (UA) 2+, Urine Ketones 1 +, Urine Blood 2+, Urine Nitrite Negative, Urine Bilirubin Negative, Urine Urobilinogen 0.2, Ur Leukocyte Esterase Negative, Urine Microscopic RBC 2-5, Urine Microscopic WBC 0-2, Ur Squamous Epith Cells 0-2 07/16/17 04:35: Amylase 57 D, Lipase 60 D ASSESSMENT: 1. Acute pancreatitis clinically resolved. 2. Left ureteric stone, resolved. 3. Hypertension controlled. 4. Atrial fibrillation has slowed down to 100/min average 5. Cardiovascular status is stable 6. Peripheral arterial disease is stable 7. Alcoholism discussed and strongly advised to quit. He doesn't want any help. The patient is an alcoholic. 8. The patient also has acute bronchitis. PLAN: 1. The patient will be given 1 cc Decadron for bronchitis 2. Continue IV fluids at a slower rate 3. Up and about 4. Soft diet 5. No DTs; Thiamine 100 mg IM every day 6. Protonix p.o. twice a day EDUCATION: Discussed pancreatitis and the need to abstain from all alcohol. Also discussed alcoholism as noted above. Plan and coordination of the patient's care discussed in the presence of Poultry And Fish Butcher and nurse. CONDITION: Stable SCRIBED BY: KM MAURER Automation Operator scribed while in presence of service performed by Dr. VICKI ENRIQUEZ on 07/17/17 ([id number])
[2017-07-17] MEDS: HUMULIN R SUBCUT PRN (23:02)
[2017-07-18 05:29] LABS: BASOPHILS % (AUTO) 0.2 % (0.0-3.0); EOSINOPHILS % (AUTO) 0.2 % (0.0-7.0); HEMATOCRIT 37.2 % (42.0-52.0); HEMOGLOBIN 13.6 g/dl (14.0-18.0); IMMATURE GRANULOCYTE % (AUTO) 0.6 % (0.0-5.0); LYMPHOCYTES % (AUTO) 15.7 (10.0-50.0); MEAN CORPUSCULAR HEMOGLOBIN 33.5 pg (27.0-31.0); MEAN CORPUSCULAR HGB CONC 36.6 (31.8-35.4); MEAN CORPUSCULAR VOLUME 91.6 fl (80.0-94.0); MONOCYTES # (AUTO) 0.7 K/uL (0.4-2.0); MONOCYTES % (AUTO) 10.4 (0-10); NEUTROPHILS # (AUTO) 4.7 K/ul (2.0-6.9); NEUTROPHILS % (AUTO) 72.9; PLATELET COUNT 111 10^3/uL (140-440); RED BLOOD COUNT 4.06 10^6/ul (4.70-6.10); WHITE BLOOD COUNT 6.37 K/ul (4.2-10.2)
[2017-07-18 05:50] LABS: ALBUMIN 2.6 g/dL (3.4-5.0); ALBUMIN/GLOBULIN RATIO 0.68; BILIRUBIN,TOTAL 0.71 mg/dL (0.00-1.20); BUN/CREATININE RATIO 16.86; CREATININE 0.83 mg/dL (0.60-1.10); TOTAL PROTEIN 6.4 g/dL (5.8-8.1)
[2017-07-18] MEDS: PROTONIX PO SCH ×2 (06:15→18:06)
[2017-07-18] MEDS: TORADOL IVP SCH ×3 (06:16→20:32)
[2017-07-18] MEDS: HUMULIN R SUBCUT PRN ×4 (06:43→20:43)
[2017-07-18] MEDS: ELIQUIS PO SCH ×2 (09:38→20:32)
[2017-07-18] MEDS: K-DUR PO SCH ×3 (09:39→20:32)
[2017-07-18] MEDS: LIBRIUM PO SCH ×4 (09:39→20:35)
[2017-07-18] MEDS: NORVASC PO SCH ×2 (09:39→21:25)
[2017-07-18] MEDS: BETAPACE PO SCH (09:39)
[2017-07-18] MEDS: FERROUS SULFATE PO SCH (09:39)
[2017-07-18] MEDS: FOLBIC TABLET PO SCH (09:39)
[2017-07-18] MEDS: FLOMAX PO SCH ×2 (09:40→20:32)
[2017-07-18] MEDS: THIAMINE IM SCH (09:40)
[2017-07-18] MEDS: COZAAR PO SCH ×2 (09:42→20:32)
[2017-07-18] MEDS: SPIRIVA IH SCH (09:43)
--- NOTE | 2017-07-18 09:54 | CT ---
EXAM: CT chest with and without contrast HISTORY: Wheezing and shortness of breath COMPARISON: CT chest 03/23/2016 and multiple prior chest x-rays TECHNIQUE: Serial axial images of the chest were obtained after and before 75 ml of Omnipaque IV con trast was administered. These were obtained from the lung apices to the upper abdomen. FINDINGS: The thyroid is normal. Visualized vessels demonstrate mild atherosclerotic disease of the aorta. There is no dissection, aneurysm or stenosis. The heart is normal in size without pericardi al effusion. There is no mediastinal, hilar or axillary pathologically enlarged lymph nodes. Calcif ied mediastinal and hilar lymph nodes are present. There is no pneumothorax or pleural effusion. There is mild emphysematous disease. The there is mil d small airway thickening in the lower lobes and right middle lobe. There is no nodule, consolidatio n or mass. Pleural-based nodule on prior examination is no longer visualized with trace residual te und-glass. The limited views of the soft tissues in the upper abdomen are unremarkable. The osseous structures demonstrate degenerative disease of the spine with changes of sternotomy. IMPRESSION: 1. Mild central and small airway thickening in the lower lobes and right middle lobe that may repres ent inflammation versus airways infection. There is no acute consolidation. 2. Sequela of old granulomatous disease. 3. Unchanged emphysema.
--- NOTE | 2017-07-18 09:54 | CT ---
EXAM: CT Head with and without contrast HISTORY: Weakness, dizziness COMPARISON: 01/12/2013 TECHNIQUE: CT head performed with and without contrast FINDINGS: There is no mass effect, midline shift, or intracranial hemmorhage. Zamora white differenti ation is preserved. There is no extra-axial collection. The ventricles, sulci, and basal cisterns a re patent and symmetric. There is chronic ischemic disease of the white matter and cerebral volume l oss. There is no depressed calvarial fracture. The mastoid air cells are clear. The visualized para nasal sinuses are clear. There are intracranial atherosclerotic calcifications. No abnormal area of e nhancement. IMPRESSION: 1. No acute intracranial abnormality. No abnormal area of enhancement. 2. Chronic ischemic disease of the white matter and cerebral volume loss.
--- NOTE | 2017-07-18 10:33 | US ---
EXAM: Bilateral carotid artery Doppler History: Dizziness and weakness. Technique: Multiple sonographic images through the bilateral internal carotid arteries were obtained . Color duplex Doppler was used to interrogate vascular flow. Findings: The right ICA peak systolic velocity is within normal limits measuring 70 cm/sec. The right ICA/cca P SV ratio is normal at 1.2. The right vertebral artery is patent and demonstrates antegrade flow. Gr ay scale images demonstrate mild to moderate plaque buildup within the right internal carotid artery. The left ICA peak systolic velocity is within normal limits measuring 70 cm/sec. The left ICA/cca PS V ratio is normal at 0.9. The left vertebral artery is patent and demonstrates antegrade flow. A mo derate amount of heterogeneous plaque buildup seen within the left carotid bulb and left internal car otid artery. Impression: No significant hemodynamic stenosis of the bilateral internal carotid arteries.
--- NOTE | 2017-07-18 11:28 | PCM.PROG ---
Attending Provider: ATTENDING PROVIDER: Dr. VICKI ENRIQUEZ This patient is seen with Purvi Santizo, Nurse Practitioner. DATE OF SERVICE: 07/18/17 SUBJECTIVE: This 62 year old WHITE/ M was hospitalized 07/15/17. The patient is lying in bed, alert. He has been dizzy upon standing. He is still tired. REVIEW OF SYSTEMS: CONSTITUTIONAL: No night sweats. No fatigue, malaise, lethargy. No fever or chills. HEENT: Eyes: No visual changes. No eye pain. No eye discharge. ENT: No runny nose. No epistaxis. No sinus pain. No odynophagia. No congestion. RESPIRATORY: No cough, no congestion. No hemoptysis. No shortness of breath. CARDIOVASCULAR: No angina symptoms. No CHF symptoms. No atypical chest pain for CAD. No palpitations. No orthopnea.. GASTROINTESTINAL: Decreased appetite. No abdominal pain. No nausea or vomiting. No diarrhea or constipation. No hematemesis. No hematochezia. GENITOURINARY: No urgency. No frequency. No dysuria. No hematuria. No obstructive symptoms. No discharge. No pain. No significant abnormal bleeding. MUSCULOSKELETAL: No musculoskeletal pain; no joint swelling. NEUROLOGICAL: Awake, alert, oriented to time, place and person. No headache. No neck pain. No syncope. No seizures. Dizziness. PSYCHIATRIC: Not anxious. No depression. No suicidal thoughts. No homicidal thoughts. SKIN: No rash. No lesions. No wounds. ENDOCRINE: No unexplained weight loss. No weight gain. HEMATOLOGIC/LYMPHATIC: No anemia. No purpura. No petechiae. No prolonged or excessive bleeding. No palpable lymph nodes. PHYSICAL EXAMINATION: GENERAL: The patient is awake, alert and oriented, lying in bed in no distress. VITAL SIGNS: Temperature 97.4 F, Pulse 80, Respiratory Rate 21, BP 151/85, Pulse Ox 95% HEENT: Head normocephalic, atraumatic. Eyes: Extraocular muscles are intact. Pupils are equal, round and reactive to light and accommodation. Ears: No lesions. Nose appeared normal. Throat: No exudate or erythema. NECK: Supple. No JVD, no carotid bruit. No lymphadenopathy or thyromegaly. LUNGS: Diminished breath sounds bilaterally. Clear to auscultation. Percussion note normal. Chest symmetrical. HEART: S1, S2, no S3. No murmurs. No cyanosis or clubbing. No ascites. Pulses: Dorsalis pedis and posterior tibial pulses +1 to +2 both sides. ABDOMEN: Soft. Non-tender. Bowel sounds active. No CVA tenderness. No mass felt. EXTREMITIES: No edema. Full range of motion of all extremities, equal. NEUROLOGIC: No focal deficit. Cranial nerves II through XII are grossly intact. No headache, no double vision or headache. SKIN: Not dry. Intact. Turgor-normal. LYMPHATIC: No palpable lymph nodes/no lymphedema. MUSCULOSKELETAL: Normal joints with no swelling. Muscle tone is normal. LAB REVIEW: 07/18/17 04:54 07/18/17 04:54 07/18/17 04:54: Sodium 133 L, Potassium 4.0, Chloride 102, Carbon Dioxide 22 L, Anion Gap 13.0, BUN 14, Creatinine 0.83, Estimated GFR (MDRD) 94.00, BUN/ Creatinine Ratio 16.86, Glucose 339 H D, Calcium 9.0, Total Bilirubin 0.71, AST 12 L, ALT 10 L, Alkaline Phosphatase 72, Total Protein 6.4, Albumin 2.6 L, Globulin 3.8, Albumin/Globulin Ratio 0.68 07/18/17 04:54: WBC 6.37, RBC 4.06 L, Hgb 13.6 L, Hct 37.2 L, MCV 91.6, MCH 33.5 H, MCHC 36.6 H, RDW Coeff of Hilary 12.8, Plt Count 111 L, Immature Gran % ( Auto) 0.6, Neut % (Auto) 72.9, Lymph % (Auto) 15.7, [place] % (Auto) 10.4 H, Eos % (Auto) 0.2, Baso % (Auto) 0.2, Immature Gran # (Auto) 0.0, Neut # 4.7, Lymph # 1.0, [place] # 0.7, Eos # 0.0, Baso # 0.0 ASSESSMENT: 1. Acute pancreatitis clinically resolved. 2. Left ureteric stone, resolved. 3. Hypertension controlled. 4. Atrial fibrillation has slowed down to 100/min average 5. Cardiovascular status is stable 6. Peripheral arterial disease is stable 7. Alcoholism discussed and strongly advised to quit. He doesn't want any help. The patient is an alcoholic. 8. The patient also has acute bronchitis. 9. Hyperglycemia. PLAN: 1. Encouraged to be up and about 2. Increase fluids 3. Will monitor sugar with sliding scale likely due to steroids Plan and coordination of the patient's care discussed in the presence of Negative Developer and nurse. CONDITION: Stable SCRIBED BY: KM MAURER Mandrel Press Hand scribed while in presence of service performed by Dr. Enriquez/Purvi Santizo APRN on 07/18/17 ([id number])
--- NOTE | 2017-07-18 14:43 | PN ---
DATE OF SERVICE: 07/16/17 SUBJECTIVE: The patient was seen and examined with the Nurse Practitioner and Clinical Esthetician. The patient's condition has improved and his pain is much less. CT scan of the abdomen and pelvis was repeated which doesn't show any left sided ureteric stone anymore and no hydronephrosis standing still. We will wait for culture sensitivity. The patient doesn't have any nausea or vomiting. Blood pressure a little bit better with systolic 155. REVIEW OF SYSTEMS: CONSTITUTIONAL: No night sweats. No fatigue, malaise, lethargy. No fever or chills. the patient's is in the room. HEENT: Eyes: No visual changes. No eye pain. No eye discharge. ENT: No runny nose. No epistaxis. No sinus pain. No sore throat. No odynophagia. No congestion. RESPIRATORY: No cough, no congestion. No hemoptysis. No shortness of breath. CARDIOVASCULAR: No angina symptoms. No CHF symptoms. No atypical chest pain for CAD. No palpitations. No orthopnea. GASTROINTESTINAL: Mild abdominal pain. No nausea or vomiting. No diarrhea or constipation. No hematemesis. No hematochezia. GENITOURINARY: No urgency. No frequency. No dysuria. No hematuria. No obstructive symptoms. No discharge. No pain. No significant abnormal bleeding. MUSCULOSKELETAL: No musculoskeletal pain; no joint swelling. NEUROLOGICAL: No headache. No neck pain. No syncope. No seizures. No dizziness. PSYCHIATRIC: Not anxious. No depression. No suicidal thoughts. No homicidal thoughts. SKIN: No rash. No lesions. No wounds. ENDOCRINE: No unexplained weight loss. No weight gain. HEMATOLOGIC/LYMPHATIC: No anemia. No purpura. No petechiae. No prolonged or excessive bleeding. No palpable lymph nodes. PHYSICAL EXAMINATION: GENERAL: The patient is oriented to time, place and person. VITAL SIGNS: Temperature 98, pulse 87, respiratory rate 14, blood pressure 155/ 98 and pulse ox 98%. HEENT: Head normocephalic, atraumatic. Eyes: Extraocular muscles are intact. Pupils are equal, round and reactive to light and accommodation. Ears: No lesions. Nose appeared normal. Throat: No exudate or erythema. NECK: Supple. No JVD, no carotid bruit. No lymphadenopathy or thyromegaly. LUNGS: Clear to auscultation. Percussion note normal. Chest symmetrical. HEART: S1, S2, no S3. No murmurs. No cyanosis or clubbing. No ascites. Pulses: Dorsalis pedis and posterior tibial pulses +1 to +2 both sides. ABDOMEN: Soft. Nontender. Bowel sounds active. No CVA tenderness. No mass felt. EXTREMITIES: No edema. Full range of motion of all extremities, equal. NEUROLOGIC: No focal deficit. Cranial nerves II through XII are grossly intact. No headache, no double vision or headache. SKIN: Not dry. Intact. Turgor - normal. LYMPHATIC: No palpable lymph nodes/no lymphedema. MUSCULOSKELETAL: Normal joints with no swelling. Muscle tone is normal. ASSESSMENT: 1. Acute pancreatitis 2. Acute left ureter stone resolved 3. Possibility of urinary tract infection 4. Hypokalemia 5. Severe hypertension getting under control with multiple medications being treated 6. Atrial fibrillation with rapid ventricular response,Will given 0.25mg of IV Lanoxin 7. Peripheral arterial disease 8. Coronary artery disease 9. Alcoholism 10.Dyslipidemia PLAN: 1. Given Librium 25mg Q 6 2. Discontinue Librax 3. IV Lanoxin 0.25mg now one dose and see the rate 4. Urine cultures pending 5. Continue IV fluids 6. Clear liquids 7. Alcoholism discussed and refuses any help 8. Watch for DT's 9. We have to give Thiamin 100mg IM daily TIME SPENT: More than 60 minutes, Extensive. Plan and coordination of the patient's care discussed in the presence of nurse. ESPERANZA
[2017-07-19] MEDS: TORADOL IVP SCH (04:42)
[2017-07-19] MEDS: HUMULIN R SUBCUT PRN ×2 (06:04→11:26)
[2017-07-19] MEDS: PROTONIX PO SCH (06:04)
[2017-07-19 06:09] LABS: BASOPHILS % (AUTO) 0.3 % (0.0-3.0); EOSINOPHILS # (AUTO) 0.1 K/ul (0.0-0.7); EOSINOPHILS % (AUTO) 1.5 % (0.0-7.0); HEMATOCRIT 41.7 % (42.0-52.0); IMMATURE GRANULOCYTE % (AUTO) 0.5 % (0.0-5.0); LYMPHOCYTES # (AUTO) 1.6 K/uL (0.60-3.4); LYMPHOCYTES % (AUTO) 23.7 (10.0-50.0); MEAN CORPUSCULAR HEMOGLOBIN 33.3 pg (27.0-31.0); MEAN CORPUSCULAR VOLUME 92.7 fl (80.0-94.0); MONOCYTES # (AUTO) 0.6 K/uL (0.4-2.0); MONOCYTES % (AUTO) 8.9 (0-10); NEUTROPHILS # (AUTO) 4.3 K/ul (2.0-6.9); NEUTROPHILS % (AUTO) 65.1; PLATELET COUNT 138 10^3/uL (140-440); WHITE BLOOD COUNT 6.66 K/ul (4.2-10.2)
[2017-07-19 06:30] LABS: ALBUMIN 2.8 g/dL (3.4-5.0); ALBUMIN/GLOBULIN RATIO 0.7; ANION GAP 13.7; BILIRUBIN,TOTAL 0.8 mg/dL (0.00-1.20); BUN/CREATININE RATIO 10.11; CALCIUM 9.6 mg/dL (8.2-10.2); CREATININE 0.89 mg/dL (0.60-1.10); POTASSIUM 3.7 mmol/L (3.5-5.1); TOTAL PROTEIN 6.8 g/dL (5.8-8.1)
[2017-07-19] MEDS: SPIRIVA IH SCH (08:13)
[2017-07-19] MEDS: ELIQUIS PO SCH (08:14)
[2017-07-19] MEDS: K-DUR PO SCH (08:14)
[2017-07-19] MEDS: FERROUS SULFATE PO SCH (08:14)
[2017-07-19] MEDS: FOLBIC TABLET PO SCH (08:14)
[2017-07-19] MEDS: BETAPACE PO SCH (08:15)
[2017-07-19] MEDS: THIAMINE IM SCH (08:15)
[2017-07-19] MEDS: COZAAR PO SCH (08:16)
[2017-07-19] MEDS: INSULIN DEGLUDEC 14 UNIT INJ SCH ×2 (08:18→09:23)
[2017-07-19] MEDS: NORVASC PO SCH (08:20)
--- NOTE | 2017-07-19 10:53 | PCM.PROG ---
Attending Provider: ATTENDING PROVIDER: Dr. VICKI ENRIQUEZ This patient is seen with Purvi Santizo, Nurse Practitioner. DATE OF SERVICE: 07/19/17 SUBJECTIVE: This 62 year old WHITE/ M was hospitalized 07/15/17. The patient is sitting up in chair alert. The patient is ready to go home. He is feeling better. All scans from yesterday, head, carotid and chest showed no acute process. Dizziness has resolved. He has been up and about with good appetite. REVIEW OF SYSTEMS: CONSTITUTIONAL: No night sweats. No fatigue, malaise, lethargy. No fever or chills. HEENT: Eyes: No visual changes. No eye pain. No eye discharge. ENT: No runny nose. No epistaxis. No sinus pain. No odynophagia. No congestion. RESPIRATORY:Cough and congestion. No hemoptysis. No shortness of breath. CARDIOVASCULAR: No angina symptoms. No CHF symptoms. No atypical chest pain for CAD. No palpitations. No orthopnea.. GASTROINTESTINAL: Appetite is good. No abdominal pain. No nausea or vomiting. No diarrhea or constipation. No hematemesis. No hematochezia. GENITOURINARY: No urgency. No frequency. No dysuria. No hematuria. No obstructive symptoms. No discharge. No pain. No significant abnormal bleeding. MUSCULOSKELETAL: No musculoskeletal pain; no joint swelling. NEUROLOGICAL: Awake, alert, oriented to time, place and person. No headache. No neck pain. No syncope. No seizures. No dizziness. PSYCHIATRIC: Not anxious. No depression. No suicidal thoughts. No homicidal thoughts. SKIN: No rash. No lesions. No wounds. ENDOCRINE: No unexplained weight loss. No weight gain. HEMATOLOGIC/LYMPHATIC: No anemia. No purpura. No petechiae. No prolonged or excessive bleeding. No palpable lymph nodes. PHYSICAL EXAMINATION: GENERAL: The patient is awake, alert and oriented, sitting in bed in no distress. VITAL SIGNS: Temperature 97.5 F, Pulse 78, Respiratory Rate 18, BP 152/87, Pulse Ox 95% HEENT: Head normocephalic, atraumatic. Eyes: Extraocular muscles are intact. Pupils are equal, round and reactive to light and accommodation. Ears: No lesions. Nose appeared normal. Throat: No exudate or erythema. NECK: Supple. No JVD, no carotid bruit. No lymphadenopathy or thyromegaly. LUNGS: Diminished breath sounds. Clear to auscultation. Percussion note normal. Chest symmetrical. HEART: Irregular heart rate consistent with atrial fib. S1, S2, no S3. No murmurs. No cyanosis or clubbing. No ascites. Pulses: Dorsalis pedis and posterior tibial pulses +1 to +2 both sides. ABDOMEN: Soft. Non-tender. Bowel sounds active. No CVA tenderness. No mass felt. EXTREMITIES: No edema. Full range of motion of all extremities, equal. NEUROLOGIC: No focal deficit. Cranial nerves II through XII are grossly intact. No headache, no double vision or headache. SKIN: Not dry. Intact. Turgor-normal. LYMPHATIC: No palpable lymph nodes/no lymphedema. MUSCULOSKELETAL: Normal joints with no swelling. Muscle tone is normal. LAB REVIEW: 07/19/17 05:32 07/19/17 05:32 07/19/17 05:32: Sodium 135 L, Potassium 3.7, Chloride 100, Carbon Dioxide 25, Anion Gap 13.7, BUN 9, Creatinine 0.89, Estimated GFR (MDRD) 87.00, BUN/ Creatinine Ratio 10.11, Glucose 315 H, Calcium 9.6, Total Bilirubin 0.80, AST 21 , ALT 14, Alkaline Phosphatase 95, Total Protein 6.8, Albumin 2.8 L, Globulin 4.0, Albumin/Globulin Ratio 0.70 07/19/17 05:32: WBC 6.66, RBC 4.50 L, Hgb 15.0, Hct 41.7 L, MCV 92.7, MCH 33.3 H , MCHC 36.0 H, RDW Coeff of Hilary 12.8, Plt Count 138 L, Immature Gran % (Auto) 0.5, Neut % (Auto) 65.1, Lymph % (Auto) 23.7, [place] % (Auto) 8.9, Eos % (Auto) 1.5, Baso % (Auto) 0.3, Immature Gran # (Auto) 0.0, Neut # 4.3, Lymph # 1.6, [place] # 0.6, Eos # 0.1, Baso # 0.0 ASSESSMENT: 1. Acute pancreatitis resolved 2. Left hydronephrosis 3. Nephrolithiasis resolved 4. Atrial fib controlled 5. Hypertension controlled 6. COPD/bronchitis improving 7. Dizziness resolved PLAN: 1. Prednisone 10 b.i.d. for 5 days 2. Z-Pack for 5 days 3. D/C home 4. Stop potassium 5. Stop Flomax Plan and coordination of the patient's care discussed in the presence of Window Cutter and nurse. CONDITION: Stable SCRIBED BY: KM MAURER Heel Cover Softener scribed while in presence of service performed by Dr. Enriquez/Purvi Santizo APRN on 07/19/17 ([id number])
--- NOTE | 2017-07-19 11:27 | CM.DICTOOL ---
ADMISSION: 07/15/17 01:12 DISCHARGE: 07/19/17 DATE OF SERVICE: 07/19/17 FINAL DIAGNOSIS PANCREATITIS, ACUTE ON CHRONIC-CLINICALLY RESOLVED BRONCHITIS ACUTE, RESOLVED ABDOMINAL PAIN LEFT HYDRONEPHROSIS WITH 2 MM NEPHROLITHIASIS, RESOLVED HYPERTENSION, CONTROLLED ATRIAL FIBRILLATION, RATE CONTROLLED (ELIQUIS) CORONARY ARTERY DISEASE CHRONIC LUNG DISEASE DIABETES MELLITUS SEVERE PERIPHERAL ARTERY DISEASE CHRONIC ALCOHOLISM TOBACCO USE, HEAVY DYSLIPIDEMIA BILATERAL CAROTID ENDARTERECTOMY CHOLECYSTECTOMY CABG, 2007 FEM-POP BYPASS ECHOCARDIOGRAM 12/13/2016: LVEF 45% PULMONARY HYPERTENSION LEFT ATRIAL AND RIGHT VENTRICLE CAVITIES PFT 08/2015: MILD/MODERATE COPD STRESS SESTAMIBI 08/2015: NO ISCHEMIA BY ST-T WAVE CURRENT HEAVY SMOKER LAST VITALS Temp Pulse Resp BP Pulse Ox 97.5 F L 78 18 152/87 H 95 07/19/17 05:39 07/19/17 05:39 07/19/17 05:39 07/19/17 05:39 07/19/17 02:00 ACTIVE HOME MEDICATIONS Amlodipine Besylate (Norvasc) 5 mg PO BID [facility] Last Admin: 07/19/17 08:20 Dose: 5 mg Apixaban (Eliquis) 5 mg PO BID [facility] Last Admin: 07/19/17 08:14 Dose: 5 mg Ferrous Sulfate (Ferrous Sulfate) 324 mg PO DAILY [facility] Last Admin: 07/19/17 08:14 Dose: 324 mg Folic Acid (Folbic Tablet) 1 tab PO DAILY [facility] Last Admin: 07/19/17 08:14 Dose: 1 tab Losartan Potassium (Cozaar) 50 mg PO BID [facility] Last Admin: 07/19/17 08:16 Dose: 50 mg Insulin Degludec [Tresiba Flextouch U-100] 14 units INJ QAM [facility] Last Admin: 07/19/17 09:23 Dose: Not Given Fluticasone/Salmeterol (Advair 250-50 Diskus) 1 puff IH BID PRN PRN Reason: shortness of breath/wheezing Last Admin: 07/18/17 20:43 Dose: 1 puff Omeprazole (Prilosec) 40 mg PO QDAC Sotalol HCl (Betapace) 40 mg PO DAILY [facility] Last Admin: 07/19/17 08:15 Dose: 40 mg Tiotropium [place] (Spiriva) 1 cap IH DAILY [facility] Last Admin: 07/19/17 08:13 Dose: 1 cap Tiotropium [place] (Spiriva) 1 cap IH BEDTIME PRN PRN Reason: SOA/wheezing ALLERGIES No Known Allergies Allergy (Verified 12/10/16 11:56) NEW PRESCRIPTIONS: Z-DANIEL (ZITHROMAX) TAKE DIRECTED PREDNISONE 10 MG, TAKE ONE TABLET BY MOUTH TWICE DAILY WITH FOOD FOR 5 DAYS SMOKING: CURRENT EVERYDAY SMOKER (HEAVY SMOKER) THE PATIENT HAS BEEN PROVIDED SMOKING CESSATION EDUCATION INCLUDING RISKS OF CONTINUATION AND BENEFITS FROM COMPLETE CESSATION. HE HAS BEEN ADVISED TO STOP SMOKING COMPLETELY. HE HAS NOT VERBALIZED HIS INTENT TO STOP OR DECREASE IN FREQUENCY. HE WILL BENEFIT FROM FOLLOW UP AND REINFORCEMENT OF THIS TEACHING. DISEASE SPECIFIC EDUCATION: PANCREATITIS LEFT HYDRONEPHROSIS LEFT NEPHROLITHIASIS HOME MEDICATIONS NEW PRESCRIPTIONS FOLLOW UP THE PATIENT HAS BEEN STRONGLY ADVISED TO STOP DRINKING ALCOHOL. HE DECLINES ASSISTANCE IN ALCOHOL CESSATION. HE IS AWARE HE IS AN ALCOHOLIC. HE WILL BENEFIT FROM CONTINUED TEACHING AND ENCOURAGEMENT FOR COMPLETE CESSATION. HE IS AWARE OF THE CONSEQUENCES OF CONTINUATION. LAB REVIEW: 07/19/17 05:32 07/19/17 05:32 07/19/17 05:32: Sodium 135 L, Potassium 3.7, Chloride 100, Carbon Dioxide 25, Anion Gap 13.7, BUN 9, Creatinine 0.89, Estimated GFR (MDRD) 87.00, BUN/ Creatinine Ratio 10.11, Glucose 315 H, Calcium 9.6, Total Bilirubin 0.80, AST 21 , ALT 14, Alkaline Phosphatase 95, Total Protein 6.8, Albumin 2.8 L, Globulin 4.0, Albumin/Globulin Ratio 0.70 07/19/17 05:32: WBC 6.66, RBC 4.50 L, Hgb 15.0, Hct 41.7 L, MCV 92.7, MCH 33.3 H , MCHC 36.0 H, RDW Coeff of Hilary 12.8, Plt Count 138 L, Immature Gran % (Auto) 0.5, Neut % (Auto) 65.1, Lymph % (Auto) 23.7, [place] % (Auto) 8.9, Eos % (Auto) 1.5, Baso % (Auto) 0.3, Immature Gran # (Auto) 0.0, Neut # 4.3, Lymph # 1.6, [place] # 0.6, Eos # 0.1, Baso # 0.0 PLAN: DISCHARGE HOME TODAY RETURN TO SEE DR. ENRIQUEZ ON 07/23/17 AT 10:15 A.M. RESUME YOUR HOME MEDICATIONS PER LIST PROVIDED BY THE NURSING STAFF NEW PRESCRIPTIONS: Z-DANIEL (ZITHROMAX) TAKE DIRECTED PREDNISONE 10 MG, TAKE ONE TABLET BY MOUTH TWICE DAILY WITH FOOD FOR 5 DAYS ACTIVITY: GET PLENTY OF REST AT HOME. GRADUALLY INCREASE YOUR ACTIVITY LEVEL ACCORDING TO YOUR TOLERATION DIET: CONSISTENT CARBS SUMMARY THE PATIENT IS ALERT AND ORIENTED X3. HE CURRENTLY RESIDES AT HOME WITH HIS SPOUSE. HE IS INDEPENDENT WITH ADL'S AND HAS NOT REQUIRED HOME HEALTH OR HOMEMAKING SERVICES. HE HAS A NEBULIZER AND A GLUCOMETER WITH BLOOD SUGAR TESTING SUPPLIES AT HOME. THE ROOM AIR OXYGEN SATURATIONS ARE 95% TODAY. HE WILL NOT REQUIRE HOME OXYGEN. MR. ROUSE DESIRES TO RETURN TO HIS HOME AT DISCHARGE. HIS SKIN TURGOR IS INTACT AND WITHOUT DECUBITUS ULCERS. THE HYDRATION STATUS IS VERY MUCH IMPROVED COMPARED TO ADMISSION. MR. ROUSE IS ABLE TO TOLERATE SOLID FOODS AND LIQUIDS WITHOUT N/V OR ABDOMINAL PAIN. HE DENIES DIZZINESS AND SAYS HE FEELS,"PRETTY GOOD" THIS MORNING. AND MRS. ROUSE ARE BOTH AWARE AND AGREEABLE FOR DISCHARGE TODAY. CURRENT CODE STATUS: FULL CODE ISAÍAS JEAN APRN VICKI ENRIQUEZ M.D.
[2017-07-19 11:42] VITALS: BP 148/15; TEMP 97.6
--- NOTE | 2017-07-19 12:40 | PN ---
DATE OF SERVICE: 07/15/17 - ADMITTING NOTE SUBJECTIVE: 62-year-old white male who came to the emergency room with complaint of having abdominal pain, left lower quadrant across; also upper part; epigastric across. According to the patient, his pain was typical of his pancreatitis. Besides that , he had left flank type of pain that goes along with his left ureteral stone producing partial hydronephrosis on the left side. The patient's pain started at 1:30 in the morning on 10:29 a.m. sudden onset. The patient had four to five beers the day prior. The patient is an alcoholic and has alcoholic pancreatitis for a number of years. Besides that the patient also has coronary artery disease, severe peripheral arterial disease, severe hypertension, chronic pancreatitis, severe chronic lung disease, history of smoking, diabetes mellitus. REVIEW OF SYSTEMS: CONSTITUTIONAL: Fatigue and weakness. No night sweats. No fever or chills. HEENT: Eyes: No visual changes. No eye pain. No eye discharge. ENT: No runny nose. No epistaxis. No sinus pain. No sore throat. No odynophagia. No congestion. RESPIRATORY: No cough, no congestion. No hemoptysis. No shortness of breath. No PND. CARDIOVASCULAR: No angina symptoms. No CHF symptoms. No atypical chest pain for CAD. No palpitations. No orthopnea. GASTROINTESTINAL: Poor appetite. Hasn 't eaten anything for a couple of days. Nausea, abdominal pain described which is lower quadrant and left flank area across. No vomiting. No diarrhea or constipation. No hematemesis. No hematochezia. GENITOURINARY: No urgency. No frequency. No dysuria. No hematuria. No obstructive symptoms. No discharge. No pain. No significant abnormal bleeding. MUSCULOSKELETAL: No musculoskeletal pain; no joint swelling. NEUROLOGICAL: No headache. No neck pain. No syncope. No seizures. No dizziness. PSYCHIATRIC: Not anxious. No depression. No suicidal thoughts. No homicidal thoughts. SKIN: No rash. No lesions. No wounds. ENDOCRINE: No unexplained weight loss. No weight gain. HEMATOLOGIC/LYMPHATIC: No anemia. No purpura. No petechiae. No prolonged or excessive bleeding. No palpable lymph nodes. PHYSICAL EXAMINATION: GENERAL: The patient is oriented to time, place and person. VITAL SIGNS: Temperature 97.8, pulse 81, respiratory rate 18, BP 146/100, pulse ox 97%. HEENT: Head normocephalic, atraumatic. Eyes: Extraocular muscles are intact. Pupils are equal, round and reactive to light and accommodation. Ears: No lesions. Nose appeared normal. Throat: No exudate or erythema. NECK: Supple. No JVD, no carotid bruit. No lymphadenopathy or thyromegaly. LUNGS: Decreased breath sounds. Clear to auscultation. Percussion note normal. Chest symmetrical. HEART: S1, S2, no S3. No murmurs. No cyanosis or clubbing. No ascites. Pulses: Dorsalis pedis and posterior tibial pulses +1 to +2 both sides. ABDOMEN: Flat. Soft. Mildly tender in epigastric area. Bowel sounds active. No CVA tenderness. No mass felt. EXTREMITIES: Feeble pulses bilaterally. No edema. Full range of motion of all extremities, equal. NEUROLOGIC: No focal deficit. Cranial nerves II through XII are grossly intact. No headache, no double vision or headache. SKIN: Not dry. Intact. Turgor - normal. LYMPHATIC: No palpable lymph nodes/no lymphedema. MUSCULOSKELETAL: Normal joints with no swelling. Muscle tone is normal. LABS: Hemoglobin 17, hematocrit 47, WBC 9,900, normal differential. Creatinine 0.7, BUN 12, potassium 3.4, glucose 258. BNP 616. EKG atrial fib with rapid ventricular response. ASSESSMENT: 1. ABDOMINAL PAIN, MODERATE TO SEVERE, CAUSE PANCREATITIS AND/OR URETERAL COLIC 2. ALCOHOLISM 3. LEFT HYDRONEPHROSIS WITH LEFT URETERAL STONES 4. ATRIAL FIBRILLATION WITH RAPID VENTRICULAR RESPONSE 5. SEVERE HYPERTENSION 6. SEVERE PERIPHERAL ARTERIAL DISEASE 7. CORONARY ARTERY DISEASE 8. DIABETES MELLITUS PLAN: 1. Protonix 40 mg twice a day 2. Dilaudid 2 mg every 3 hours 3. Flomax 0.4 twice a day 4. Toradol 30 mg IV q.8 5. Telemetry 6. Clear liquids with no dairy products 7. Counseling for alcoholism done - does not want any help for it 8. Vasotec 1.25 q.8 hourly for BP over 160 9. Nicardipine drip continued 10. Continue Norvasc 11. The patient's atrial fib with rate is approximately 100/110 average which is high because of the pain. Continue to monitor. May need IV Lanoxin to slow down the heart rhythm. Will watch closely. 12. Glucose to be monitored with sliding scale and coverage. CONDITION: Stable for now. PROGNOSIS: Guarded. TIME SPENT: More than 30 minutes. Plan and coordination of the patient's care discussed in the presence of nurse. ESPERANZA
--- NOTE | 2017-07-26 15:40 | PN ---
DATE OF SERVICE: 07/19/17 SUBJECTIVE: The patient was seen and examined with the Nurse Practitioner. 62 year old white male hospitalized with acute pancreatitis and left ureteric stone. The patient's condition has resolved. The patient has uncontrolled diabetes and he is noncompliant. He has continued to drink alcohol and refuses to quit drinking. The patient has been light headed and dizzy which has resolved. REVIEW OF SYSTEMS: CONSTITUTIONAL: No night sweats. No fatigue, malaise, lethargy. No fever or chills. HEENT: Eyes: No visual changes. No eye pain. No eye discharge. ENT: No runny nose. No epistaxis. No sinus pain. No sore throat. No odynophagia. No congestion. RESPIRATORY: No cough, no congestion. No hemoptysis. No shortness of breath. CARDIOVASCULAR: No angina symptoms. No CHF symptoms. No atypical chest pain for CAD. No palpitations. No orthopnea. GASTROINTESTINAL: No abdominal pain. No nausea or vomiting. No diarrhea or constipation. No hematemesis. No hematochezia. GENITOURINARY: No urgency. No frequency. No dysuria. No hematuria. No obstructive symptoms. No discharge. No pain. No significant abnormal bleeding. MUSCULOSKELETAL: No musculoskeletal pain; no joint swelling. NEUROLOGICAL: No headache. No neck pain. No syncope. No seizures. No dizziness. PSYCHIATRIC: Not anxious. No depression. No suicidal thoughts. No homicidal thoughts. SKIN: No rash. No lesions. No wounds. ENDOCRINE: No unexplained weight loss. No weight gain. HEMATOLOGIC/LYMPHATIC: No anemia. No purpura. No petechiae. No prolonged or excessive bleeding. No palpable lymph nodes. PHYSICAL EXAMINATION: GENERAL: The patient is oriented to time, place and person. VITAL SIGNS: Temperature 97.8, pulse 80, respiratory rate 18, blood pressure 146/105 with oxygen saturation 97%. HEENT: Head normocephalic, atraumatic. Eyes: Extraocular muscles are intact. Pupils are equal, round and reactive to light and accommodation. Ears: No lesions. Nose appeared normal. Throat: No exudate or erythema. NECK: Supple. No JVD, no carotid bruit. No lymphadenopathy or thyromegaly. LUNGS: Decreased breath sounds but clear to auscultation. Percussion note normal. Chest symmetrical. HEART: S1, S2, no S3. No murmurs. No cyanosis or clubbing. No ascites. Pulses: Dorsalis pedis and posterior tibial pulses +1 to +2 both sides. ABDOMEN: Soft. Nontender. Bowel sounds active. No CVA tenderness. No mass felt. EXTREMITIES: No edema. Full range of motion of all extremities, equal. NEUROLOGIC: No focal deficit. Cranial nerves II through XII are grossly intact. No headache, no double vision or headache. SKIN: Not dry. Intact. Turgor - normal. LYMPHATIC: No palpable lymph nodes/no lymphedema. MUSCULOSKELETAL: Normal joints with no swelling. Muscle tone is normal. ASSESSMENT: 1. Acute pancreatitis 2. Left Ureter stone, resolved 3. Dehydration, resolved PLAN: 1. No DT's noted 2. The patient is on Flomax 0.4 twice a day ureteric stone, we will discontinue that. 3. Blood pressure is labile CONDITION: Stable The patient is stable enough to be discharged. Blood pressure will be monitored at home, goal blood pressure will be 135/85 or under. We will see if the patient had echo or not. TIME SPENT: More than 30 minutes. Plan and coordination of the patient's care discussed in the presence of nurse. ESPERANZA
--- NOTE | 2017-07-27 10:58 | PN ---
DATE OF SERVICE: 07/18/17 SUBJECTIVE: 62-year-old white male hospitalized with acute pancreatitis, left ureteric stone , moderate to severe abdominal pain. The patient's pain has practically subsided. No evidence of pancreatitis. The left ureteric stone has disappeared. The patient is up and about. The patient is an alcoholic. Counseling for alcoholism done. REVIEW OF SYSTEMS: CONSTITUTIONAL: No night sweats. No fatigue, malaise, lethargy. No fever or chills. HEENT: Eyes: No visual changes. No eye pain. No eye discharge. ENT: No runny nose. No epistaxis. No sinus pain. No sore throat. No odynophagia. No congestion. RESPIRATORY: No cough, no congestion. No hemoptysis. No shortness of breath. CARDIOVASCULAR: No angina symptoms. No CHF symptoms. No atypical chest pain for CAD. No palpitations. No orthopnea. GASTROINTESTINAL: No abdominal pain. No nausea or vomiting. No diarrhea or constipation. No hematemesis. No hematochezia. GENITOURINARY: No urgency. No frequency. No dysuria. No hematuria. No obstructive symptoms. No discharge. No pain. No significant abnormal bleeding. MUSCULOSKELETAL: No musculoskeletal pain; no joint swelling. NEUROLOGICAL: No headache. No neck pain. No syncope. No seizures. No dizziness. PSYCHIATRIC: Not anxious. No depression. No suicidal thoughts. No homicidal thoughts. SKIN: No rash. No lesions. No wounds. ENDOCRINE: No unexplained weight loss. No weight gain. HEMATOLOGIC/LYMPHATIC: No anemia. No purpura. No petechiae. No prolonged or excessive bleeding. No palpable lymph nodes. PHYSICAL EXAMINATION: GENERAL: The patient is oriented to time, place and person. HEENT: Head normocephalic, atraumatic. Eyes: Extraocular muscles are intact. Pupils are equal, round and reactive to light and accommodation. Ears: No lesions. Nose appeared normal. Throat: No exudate or erythema. NECK: Supple. No JVD, no carotid bruit. No lymphadenopathy or thyromegaly. LUNGS: Decreased breath sounds but clear to auscultation. Percussion note normal. Chest symmetrical. HEART: S1, S2, no S3. No murmurs. No cyanosis or clubbing. No ascites. Pulses: Dorsalis pedis and posterior tibial pulses +1 to +2 both sides. ABDOMEN: Soft. Nontender. Bowel sounds active. No CVA tenderness. No mass felt. EXTREMITIES: No edema. Full range of motion of all extremities, equal. NEUROLOGIC: No focal deficit. Cranial nerves II through XII are grossly intact. No headache, no double vision or headache. SKIN: Not dry. Intact. Turgor - normal. LYMPHATIC: No palpable lymph nodes/no lymphedema. MUSCULOSKELETAL: Normal joints with no swelling. Muscle tone is normal. ASSESSMENT: 1. ACUTE PANCREATITIS RESOLVED 2. LEFT URETERIC STONE MUCH BETTER, RESOLVED 3. OF NOTE, THE PATIENT HAD SOME SYMPTOMS OF TIA WHICH WERE VERY QUESTIONABLE BUT THE PATIENT WILL UNDERGO CAROTID SCAN WITH MULTIPLE RISK FACTORS FOR ASHD AND ALSO WILL HAVE CT SCAN OF THE HEAD. CONDITION: Stable. Neurological status is stable. The patient was seen and examined with nurse practitioner. TIME SPENT: More than 30 minutes. Plan and coordination of the patient's care discussed in the presence of nurse. ESPERANZA
--- NOTE | 2017-08-03 14:10 | DS ---
DATE OF SERVICE: 07/19/16 FINAL DIAGNOSIS: 1. PANCREATITIS, ACUTE ON CHRONIC CLINICALLY RESOLVED 2. BRONCHITIS, ACUTE, RESOLVED 3. ABDOMINAL PAIN 4. LEFT HYDRONEPHROSIS WITH 2 MM NEPHROLITHIASIS, RESOLVED 5. HYPERTENSION, CONTROLLED 6. ATRIAL FIBRILLATION, RATE CONTROLLED (ELIQUIS) 7. CORONARY ARTERY DISEASE 8. CHRONIC LUNG DISEASE 9. DIABETES MELLITUS 10. SEVERE PERIPHERAL ARTERIAL DISEASE 11. CHRONIC ALCOHOLISM 12. TOBACCO USE, HEAVY 13. DYSLIPIDEMIA 14. BILATERAL CAROTID ENDARTERECTOMY 15. CHOLECYSTECTOMY 16. CABG, 2007 17. FEM-POP BYPASS 18. ECHOCARDIOGRAM 12/13/16, LEVEF 45% 19. PULMONARY HYPERTENSION 20. LEFT ATRIAL AND RIGHT VENTRICLE CAVITIES 21. PFT 08/2015; MILD/MODERATE COPD 22. STRESS SESTAMIBI 08/2015, NO ISCHEMIA BY ST-T WAVE 23. CURRENT HEAVY SMOKER DISCHARGE INSTRUCTIONS: Followup appointment: Return to see Dr. Lee on 07/23/17 at 10:15 a.m. MEDICATIONS AT DISCHARGE: Norvasc 5 mg p.o. b.i.d. TYRA Eliquis 5 mg p.o. b.i.d. [facility] Ferrous Sulfate 324 mt p.o. daily [facility] Folic Acid one tab p.o. daily [facility] Cozaar 50 mg p.o. b.i.d. [facility]YRA Tresiba Flextouch U-100 14 units INJ q.a.m. TYRA Advair 250-50 Diskus one puff IH b.i.d. p.r.n. Prilosec 40 mg p.o. q.d a.c. Betapace 40 mg p.o. daily TYRA Spiriva one cap IH daily TYRA Spiriva one cap IH bedtime p.r.n. NEW PRESCRIPTIONS: Z-Pack take as directed Prednisone 10 mg take one tablet by mouth twice daily with food for 5 days DIET INSTRUCTIONS: Consistent carbs ACTIVITY: Get plenty of rest at home. Gradually increase your activity level according to your toleration. SMOKING: Current every day smoker (heavy smoker). The patient has been provided smoking cessation education including risks of continuation and benefits from complete cessation. He has been advised to stop smoking completely. He has not verbalized his intent to stop or decrease in frequency. He will benefit from follow up and reinforcement of this teaching. DISEASE SPECIFIC EDUCATION: Pancreatitis Left Hydronephrosis Left nephrolithiasis Home medications New prescriptions Followup The patient has been strongly advised to stop drinking alcohol. He declines assistance in alcohol cessation. He is aweare he is an alcoholic. He will benefit from continued teaching and encouragement for complete cessation. He is aware of the consequences of continuation. HOSPITAL COURSE: This 62-year-old white male who was admitted after coming to the emergency room with abdominal pain. He has a history of recurrent pancreatitis. He is a chronic alcoholic. Upon admission, his amylase and lipase were significantly elevated. The CT scan of the abdomen also showed a 2 mm stone in the left kidney with left hydronephrosis and stranding. The patient was subsequently admitted to the Special Care Unit. He was started on IV fluids, Normal Saline at 100 cc an hour. He was placed on Flomax 0.4 mg b.i.d. in order to help pass the stone. He was made NPO. His blood pressure was elevated on admission. He was ordered Vasotec 1.25 mg q.8hr for systolic greater than 160. He was also given Dilaudid 2 mg IV every four hours as needed for pain. By the following morning, repeat amylase and lipase were significantly lower and he was experiencing very minimal pain. He did have very mild left flank pain, nothing severe. Repeat CT scan of the abdomen and pelvis the following morning revealed no stone and hydronephrosis had resolved so it was assumed that he had passed the kidney stone. On the second day, he was reporting an increase in dizziness and thought that he might have been experiencing some right-sides weakness. CT of the head along with a carotid scan and CT of the chest were all done, all of which were normal and showed changes associated with aging. 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 CT of the brain was normal and showed changes associated with aging and carotid scan showed no significant stenosis. Education was provided to the and the patient regarding his need to decrease his alcohol intake significantly along with stop smoking. He was placed on Librium t.i.d. during the hospital stay to prevent withdrawal symptoms. We thought that this in combination with the Flomax might have been causing some dizziness. The Librium was decreased along with the Flomax and today, on day of discharge, the patient reported no dizziness. He had been up walking around the room. He had advanced over the past several days and is now on a regular diet. He was not experiencing any abdominal pain. He had normal urinary output, no flank pain, no abdominal tenderness. His amylase and lipase had returned to normal. His blood pressure had stabilized at 152/87. His glucose has remained elevated during the course of his hospital stay with readings into the 400's. He is on Tresiba however the patient does not take it regularly as prescribed. We provided information and talked to him regarding the need to stop drinking alcohol and the effect it was having on his sugar which is somewhat uncontrollable and his blood pressure which also has been uncontrollable. He also has a history of atrial fibrillation for which he takes Eliquis. He remained in atrial fib during the course of his hospital stay. He was on telemetry the entire time. His rate had been controlled and he did not experience any problems from this. Today, he is ready to go home. All tests have been normal. His prognosis is good. His condition is stable. He will be discharged home with Prednisone 10 mg b.i.d. for the next 5 days for cough related to COPD and chronic smoking as well as a Z-pack. We will followup with him on Sunday or Sunday in the office. He will continue his Protonix 40 mg daily for the next 30 days. All other home medications he is to resume. We will follow him closely. TIME SPENT: More than 60 minutes. ESPERANZA
== END 2017-07-19 12:45 | disposition home or self-care (01) | DRG 439 ==
LOC: ED 21:53 → SCU 07-15 01:12
PROVIDERS: ADMIT Internal Medicine; ATTEND Internal Medicine
DX: K86.1 Other chronic pancreatitis (principal); N13.30 Unspecified hydronephrosis; I10 Essential (primary) hypertension; I48.91 Unspecified atrial fibrillation; R00.0 Tachycardia, unspecified; N20.0 Calculus of kidney; J44.9 Chronic obstructive pulmonary disease, unspecified; J20.9 Acute bronchitis, unspecified; E11.65 Type 2 diabetes mellitus with hyperglycemia; I25.10 Atherosclerotic heart disease of native coronary artery without angina pectoris; I73.9 Peripheral vascular disease, unspecified; E86.0 Dehydration; F10.20 Alcohol dependence, uncomplicated; E78.5 Hyperlipidemia, unspecified; I27.20 Pulmonary hypertension, unspecified; R42 Dizziness and giddiness; F17.200 Nicotine dependence, unspecified, uncomplicated; Z79.01 Long term (current) use of anticoagulants; Z98.890 Other specified postprocedural states; Z95.1 Presence of aortocoronary bypass graft; Z71.41 Alcohol abuse counseling and surveillance of alcoholic
CPT/HCPCS: 36415; 74176; 80053; 81001; 82150; 82550; 82962; 83690; 83880; 84484; 85025; 93005; 93010; 96361; 96367; 96374; 96375; 99284

== ENCOUNTER 2018-11-05 06:36 | Outpatient (CLI) ==
[2013-03-11 12:21] VITALS: TEMP 101
--- NOTE | 2018-11-05 08:46 | US ---
EXAM: ULTRASOUND CAROTID DUPLEX, BILATERAL HISTORY: Dizziness FINDINGS: Mckeon-scale ultrasound, color Doppler and spectral analysis was performed. Velocities are in meters per second. By mckeon scale and color Doppler imaging, there were regions of heterogeneous plaque formation identi fied within the carotid bulbs and internal carotid arteries. These regions of plaque appeared to rem ain less than 50% vessel diameter. RIGHT: External carotid artery peak systolic velocity: 1.05/0.13 Common carotid artery peak systolic velocity/end diastolic velocity: 0.61/0.14 Internal carotid artery peak systolic velocity: 0.78 ICA/CCA peak systolic velocity ratio: 1.3 ICA end diastolic velocity: 0.27 LEFT: External carotid artery peak systolic velocity: 0.62/0.09 Common carotid artery peak systolic velocity/end diastolic velocity: 0.8/0.32 Internal carotid artery peak systolic velocity: 0.66 ICA/CCA peak systolic velocity ratio: 0.8 ICA end diastolic velocity: 0.24 The right and left vertebral arteries were antegrade. IMPRESSION: 1. By mckeon scale and color Doppler imaging, there were regions of heterogeneous plaque formation mart ntified within the carotid bulbs and internal carotid arteries. These regions of plaque appeared to remain less than 50% vessel diameter. 2. Internal carotid artery peak systolic velocities and ICA/CCA peak systolic velocity ratios indica te no hemodynamically significant stenosis bilaterally. 3. Both vertebral arteries were antegrade.
--- NOTE | 2018-11-06 11:12 | ECHO2D ---
Date of Exam: 11/05/18 Ordering Physician: DR. VICKI ENRIQUEZ Room #: OP Reason for Echo: SOB, HYPERTENSION, CAD, PAD, SURGICAL CLEARANCE M-Mode Normal Adult Results LV Dimensions Normal Adult Results AoV Opening excursions >1.6 >1.6 LVEDD-base- 3.5-5.8 4.3 Ao root dimensions 2.0-3.7 3.4 LVESD-base- 3.1-4.6 L. Atrium dimensions 1.9-3.8 4.3 Post. Wall thickness 0.8-1.1 1.2 IV septum (thickness) 0.7-1.2 1.2 Post. Wall excursion 0.72-1.3 NORMAL Septal motion 0.3 Systolic motion R. Ventricular cavity 1.5-2.0 3.0 LVEF 60% 56% Paradoxical septal wall motion NO 2-D : ENLARGED LEFT ATRIAL CAVITY, NORMAL LEFT VENTRICULAR CONTRACTILITY, HYPOKINETIC SEPTAL WALL, NO EFFUSION, NO THROMBUS M-MODE: MV: NORMAL AV: NORMAL TV: NORMAL PV: CHAMBER SIZE: ENLARGED LEFT ATRIAL AND RIGHT VENTRICLE CAVITIES WALL MOTION: HYPOKINETIC SEPTUM PERICARDIUM: NORMAL INTERPRETATION: 1. LEFT VENTRICULAR HYPERTROPHY WITH ENLARGED LEFT ATRIAL AND RIGHT VENTRICLE CAVITIES 2. HYPOKINETIC SEPTAL WALL--EJECTION FRACTION 56% 3. NORMAL VALVES MTDD
== END 2018-11-05 06:37 | disposition home or self-care (01) ==
LOC: CAR 06:36
PROVIDERS: ATTEND Internal Medicine
DX: R06.02 Shortness of breath (principal); I25.10 Atherosclerotic heart disease of native coronary artery without angina pectoris; R42 Dizziness and giddiness; N28.89 Other specified disorders of kidney and ureter
CPT/HCPCS: 93005; 93010

== ENCOUNTER 2018-11-06 06:27 | Outpatient (CLI) ==
[2013-03-11 12:21] VITALS: TEMP 101
--- NOTE | 2018-11-06 10:05 | NM ---
Exam: Cardiac stress test with SPECT imaging. Reason for exam: Short of breath Comparison: 08/20/2015 Date of exam: 11/06/2018 Radiopharmaceutical: Rest: 3.5mCi Tc-99m Sestamibi i.v. Stress: 25.0mCi Tc-99m Sestamibi i.v. Treadmill stress FINDINGS: Standard myocardial perfusion images were obtained after injection of technetium 99m sesta mibi under resting conditions The patient was then stressed with Cristopher treadmill protocol. Please see separate report by lawrencein g physician for details of the stress protocol Standard myocardial perfusion images were obtained after injection of technetium 99m sestamibi under stress conditions. Gated images were performed to evaluate left ventricular ejection fraction The stress perfusion images moderately sized, mildly severe decreased radiopharmaceutical uptake in t he inferior wall The rest perfusion images demonstrate uniform distribution of activity without evidence of significan t redistribution or ischemia. The left ventricular ejection fraction is calculated to be 59%. Impression: 1. Moderately sized, mildly severe, mostly reversible ischemia in the inferior wall 2. Left ventricular ejection fraction measures 59%.
--- NOTE | 2018-11-06 11:21 | STECHOSEST ---
Date of Test: 11/06/18 Ordering Physician: DR. VICKI ENRIQUEZ Occupation: RETIRED Reason for Exam: CHEST PAIN, SOB Smoking History: 40 PK/YR Height: 68" Weight: 147 LBS Current Medications: COREG, AMLODIPINE, ATROPINE Resting EKG: SINUS RHYTHM/ PAC'S Target Heart Rate: 133/157 S-T SEGMENT STAGE MPH/GRADE HEART RATE BPM BLOOD PRESSURE mmhg RHYTHM +/- ELEVATION DEPRESSION SYMPTOMS At Rest 90 BPM 160/76 MMHG SR X NONE 1 1.7/10% 120 BPM 170/78 MMHG SR X NONE 2 2.5/12% 3 3.4/14% 4 4.2/16% 5 5.0/18% Immediately after 150 BPM SR X CLAUDICATION Minutes Post Exercise 4:00 92 BPM 166/74 MMHG SR X NONE Minutes Post Exercise Total Time: 3:34 Maximum Heart Rate Reached: 150 BPM Reason for Termination: CLAUDICATION 98% Oxygen saturation on room air with exercises Mets 6.5 INTERPRETATION 1. NO EVIDENCE OF ISCHEMIC ST-T WAVE 2. NO CHEST PAIN OR DISCOMFORT 3. CLAUDICATION WAS LIMITING FACTOR TO HIS EXERCISE LEVEL, IT WAS ACCEPTABLE 4. ISOLATED PVC'S WITH EXERCISE--FEW 5. BLOOD PRESSURE RESPONSE: ACCEPTABLE LEFT VENTRICULAR CONTRACTILITY--HYPOKINETIC SEPTUM RESTING AND POST EXERCISE MTDD
--- NOTE | 2018-11-06 11:27 | ECHOSTRESS ---
Date of Exam: 11/06/18 Ordering Physician: DR. VICKI ENRIQUEZ Reason for Echo: CHEST PAIN, SOB, STRESS TEST--NO ISCHEMIA M-Mode Normal Adult Results LV Dimensions Normal Adult Results AoV Opening excursions >1.6 LVEDD-base- 3.5-5.8 Ao root dimensions 2.0-3.7 LVESD-base- 3.1-4.6 L. Atrium dimensions 1.9-3.8 Post. Wall thickness 0.8-1.1 IV septum (thickness) 0.7-1.2 Post. Wall excursion 0.72-1.3 Septal motion Systolic motion R. Ventricular cavity 1.5-2.0 LVEF 60% Paradoxical septal wall motion 2-D: HYPOKINETIC SEPTAL WALL AT REST AND WITH EXERCISE M-MODE: MV: AV: TV: PV: CHAMBER SIZE: WALL MOTION: HYPOKINETIC SEPTAL WALL AT REST AND WITH EXERCISE PERICARDIUM: INTERPRETATION: 1. HYPOKINETIC SEPTAL WALL AT REST AND WITH EXERCISE MTDD
== END 2018-11-06 06:28 | disposition home or self-care (01) ==
LOC: CAR 06:27
PROVIDERS: ATTEND Internal Medicine
DX: R06.02 Shortness of breath (principal); I25.10 Atherosclerotic heart disease of native coronary artery without angina pectoris; N28.89 Other specified disorders of kidney and ureter

== ENCOUNTER 2020-11-18 11:59 | Inpatient (IN) ==
[2020-11-18 12:49] VITALS: BMI 16.8
[2020-11-18] MEDS ORDERED: VISTARIL INJ IM PRN (13:09)
[2020-11-18] MEDS ORDERED: ATROPINE SULFATE PFS IVP PRN (13:09)
[2020-11-18] MEDS ORDERED: TYLENOL PO PRN (13:09)
[2020-11-18] MEDS ORDERED: NITROSTAT SL PRN (13:09)
[2020-11-18 13:33] LABS: BASOPHILS % (AUTO) 0.2 % (0.0-3.0); EOSINOPHILS % (AUTO) 0.5 % (0.0-7.0); HEMATOCRIT 39.5 % (42.0-52.0); IMMATURE GRANULOCYTE % (AUTO) 0.5 % (0.0-5.0); LYMPHOCYTES # (AUTO) 2.1 K/uL (0.60-3.4); LYMPHOCYTES % (AUTO) 23.3 (10.0-50.0); MEAN CORPUSCULAR HEMOGLOBIN 33.2 pg (27.0-31.0); MEAN CORPUSCULAR HGB CONC 35.4 (31.8-35.4); MEAN CORPUSCULAR VOLUME 93.6 fl (80.0-94.0); MONOCYTES # (AUTO) 0.5 K/uL (0.4-2.0); MONOCYTES % (AUTO) 5.5 (0-10); NEUTROPHILS # (AUTO) 6.2 K/ul (2.0-6.9); PLATELET COUNT 186 10^3/uL (140-440); RED BLOOD COUNT 4.22 10^6/ul (4.70-6.10); WHITE BLOOD COUNT 8.88 K/ul (4.2-10.2)
[2020-11-18 13:46] LABS: ALANINE AMINOTRANSFERASE 22.8 U/L (0-50); ALBUMIN 3.4 g/dL (3.5-5.0); ALKALINE PHOSPHATASE 99.8 U/L (56-119); AMYLASE 65.1 U/L (30-110); ASPARTATE AMINO TRANSFERASE 30.5 U/L (17-59); BILIRUBIN,TOTAL 0.56 mg/dL (0.2-1.3); BLOOD UREA NITROGEN 19.7 mg/dL (9-20); CALCIUM 8.88 mg/dL (8.4-10.2); CHLORIDE 101.8 mmol/L (98-107); CREATININE 0.96 mg/dL (0.60-1.10); LIPASE 69.5 U/L (23-300); POTASSIUM 4.15 mmol/L (3.5-5.1); SODIUM 131.7 mmol/L (134.5-145); TOTAL PROTEIN 6.73 g/dL (6.3-8.2)
--- NOTE | 2020-11-18 14:11 | DI ---
EXAM: Chest two view, frontal and lateral views. HISTORY: Shortness of breath. COMPARISON: 07/18/2017. FINDINGS: CABG changes noted. The heart size is normal. There is no pulmonary vascular congestion. The lungs are clear. No pleural effusion or pneumothorax is seen. No acute osseous abnormality id entified. Old right clavicular and posterior sixth and seventh rib fractures noted. Since the prior study, there has been no significant interval change. IMPRESSION: No acute cardiopulmonary process.
[2020-11-18] MEDS: SODIUM CHLORIDE 1,000 ML IV SCH (14:12)
[2020-11-18] MEDS: DILAUDID 1 MG/ML SYRINGE IVP PRN ×2 (14:12→19:35)
[2020-11-18] MEDS: ADVAIR 250-50 DISKUS IH SCH (20:25)
[2020-11-18] MEDS: ELIQUIS PO SCH (20:26)
[2020-11-18] MEDS ORDERED: SYMBICORT 160-4.5 MCG INHALER IH SCH (21:00)
[2020-11-19] MEDS: DILAUDID 1 MG/ML SYRINGE IVP PRN ×4 (00:46→17:50)
[2020-11-19] MEDS: SODIUM CHLORIDE 1,000 ML IV SCH ×2 (00:50→12:48)
[2020-11-19 01:00] LABS: BILIRUBIN,URINE 1+ (NEGATIVE); CLARITY,URINE Clear (CLEAR); COLOR,URINE Yellow (YELLOW); GLUCOSE, URINE (UA) 2+ (NEGATIVE); KETONES,URINE Negative (NEGATIVE); LEUKOCYTE ESTERASE ,URINE Negative (NEGATIVE); NITRITE,URINE Negative (NEGATIVE); PH,URINE 5.5 (5-9); PROTEIN,URINE 2+ (NEGATIVE); URINE, BLOOD Negative (NEGATIVE)
[2020-11-19 01:02] LABS: URINE RBC, MICROSCOPIC 0-2 (0-2); URINE WBC, MICROSCOPIC 0-2 (0-2)
[2020-11-19 05:27] LABS: BASOPHILS % (AUTO) 0.2 % (0.0-3.0); EOSINOPHILS % (AUTO) 0.5 % (0.0-7.0); HEMATOCRIT 36.4 % (42.0-52.0); HEMOGLOBIN 12.5 g/dl (14.0-18.0); IMMATURE GRANULOCYTE % (AUTO) 0.5 % (0.0-5.0); LYMPHOCYTES # (AUTO) 1.7 K/uL (0.60-3.4); LYMPHOCYTES % (AUTO) 21.1 (10.0-50.0); MEAN CORPUSCULAR HEMOGLOBIN 32.4 pg (27.0-31.0); MEAN CORPUSCULAR HGB CONC 34.3 (31.8-35.4); MEAN CORPUSCULAR VOLUME 94.3 fl (80.0-94.0); MONOCYTES # (AUTO) 0.4 K/uL (0.4-2.0); MONOCYTES % (AUTO) 4.4 (0-10); NEUTROPHILS % (AUTO) 73.3 % (42.2-75.2); PLATELET COUNT 164 10^3/uL (140-440); RED BLOOD COUNT 3.86 10^6/ul (4.70-6.10); WHITE BLOOD COUNT 8.15 K/ul (4.2-10.2)
[2020-11-19] MEDS: PROTONIX PO SCH (05:34)
[2020-11-19 05:43] LABS: ALANINE AMINOTRANSFERASE 159.5 U/L (0-50); ALKALINE PHOSPHATASE 263.8 U/L (56-119); ASPARTATE AMINO TRANSFERASE 307.9 U/L (17-59); BILIRUBIN,TOTAL 1.08 mg/dL (0.2-1.3); BLOOD UREA NITROGEN 16.1 mg/dL (9-20); CALCIUM 8.43 mg/dL (8.4-10.2); CHLORIDE 104.1 mmol/L (98-107); CREATININE 0.74 mg/dL (0.60-1.10); GLUCOSE 225.8 mg/dL (74-106); POTASSIUM 3.94 mmol/L (3.5-5.1); SODIUM 132.4 mmol/L (134.5-145); TOTAL PROTEIN 6.29 g/dL (6.3-8.2)
[2020-11-19] MEDS ORDERED: PRILOSEC PO SCH (06:30)
[2020-11-19] MEDS ORDERED: ASPIRIN EC PO SCH (08:30)
[2020-11-19] MEDS: NORVASC PO SCH (08:45)
[2020-11-19] MEDS: FERROUS SULFATE PO SCH (08:45)
[2020-11-19] MEDS: ADVAIR 250-50 DISKUS IH SCH ×2 (08:45→20:19)
[2020-11-19] MEDS: ELIQUIS PO SCH ×2 (08:45→20:19)
[2020-11-19] MEDS: BETAPACE PO SCH (08:45)
[2020-11-19] MEDS: SPIRIVA IH SCH (08:45)
[2020-11-19] MEDS: COZAAR PO SCH (08:45)
[2020-11-19] MEDS: THIAMINE IM SCH (08:46)
[2020-11-19] MEDS ORDERED: ZOFRAN 4 MG/2 ML IVP PRN (08:51)
[2020-11-19] MEDS: TRESIBA SUBCUT SCH (08:51)
[2020-11-19] MEDS ORDERED: NON-FORMULARY MEDICATION (Insulin Degludec [Tresiba Flextouch U-100] 100 UNIT/ML insulin p SUBCUT SCH (09:00)
[2020-11-19] MEDS ORDERED: NON-FORMULARY MEDICATION (Ferrous Sulfate 325 MG tablet) PO SCH (09:00)
[2020-11-19] MEDS: FOLIC ACID VIT B6 VIT B12 PO SCH (09:00)
--- NOTE | 2020-11-19 10:53 | PCM.PROG ---
Attending Provider: ATTENDING PROVIDER: Dr. VICKI ENRIQUEZ This patient is seen with Purvi Santizo, Nurse Practitioner. DATE OF SERVICE: 11/19/20 SUBJECTIVE: This 65 year old /WHITE M was hospitalized 11/18/20. The patient's pain has slightly improved. Pain medication is helping. Liver function is elevated which is to be expected. REVIEW OF SYSTEMS: CONSTITUTIONAL: No night sweats. No fatigue, malaise, lethargy. No fever or chills. HEENT: Eyes: No visual changes. No eye pain. No eye discharge. ENT: No runny nose. No epistaxis. No sinus pain. No odynophagia. No congestion. RESPIRATORY: No cough, no congestion. No hemoptysis. No shortness of breath. CARDIOVASCULAR: No angina symptoms. No CHF symptoms. No atypical chest pain for CAD. No palpitations. No orthopnea.. GASTROINTESTINAL: Abdominal pain. Nausea. No diarrhea or constipation. No hematemesis. No hematochezia. Decreased appetite. GENITOURINARY: No urgency. No frequency. No dysuria. No hematuria. No o bstructive symptoms. No discharge. No pain. No significant abnormal bleeding. MUSCULOSKELETAL: No musculoskeletal pain; no joint swelling. NEUROLOGICAL: Awake, alert, oriented to time, place and person. No headache. No neck pain. No syncope. No seizures. No dizziness. PSYCHIATRIC: Not anxious. No depression. No suicidal thoughts. No homicidal thoughts. SKIN: No rash. No lesions. No wounds. ENDOCRINE: No unexplained weight loss. No weight gain. HEMATOLOGIC/LYMPHATIC: No anemia. No purpura. No petechiae. No prolonged or excessive bleeding. No palpable lymph nodes. PHYSICAL EXAMINATION: GENERAL: The patient is awake, alert and oriented, sitting in bed in no distres s. VITAL SIGNS: Temperature 98.0 F, Pulse 65, Respiratory Rate 20, BP 140/90, Pulse Ox 100% HEENT: Head normocephalic, atraumatic. Eyes: Extraocular muscles are intact. Pupils are equal, round and reactive to light and accommodation. Ears: No lesions. Nose appeared normal. Throat: No exudate or erythema. NECK: Supple. No JVD, no carotid bruit. No lymphadenopathy or thyromegaly. LUNGS: Diminished breath sounds. Clear to auscultation. Percussion note normal. Chest symmetrical. HEART: S1, S2, no S3. No murmurs. No cyanosis or clubbing. No ascites. Pulses: Dorsalis pedis and posterior tibial pulses +1 to +2 both sides. ABDOMEN: Soft. Non-tender. Bowel sounds active. No CVA tenderness. No mass felt. Left upper quadrant tenderness to epigastric. EXTREMITIES: No edema. Full range of motion of all extremities, equal. NEUROLOGIC: No focal deficit. Cranial nerves II through XII are grossly intact. No headache. No double vision. SKIN: Not dry. Intact. Turgor-normal. LYMPHATIC: No palpable lymph nodes/no lymphedema. MUSCULOSKELETAL: Normal joints with no swelling. Muscle tone is normal. LAB REVIEW: 11/19/20 04:55 11/19/20 04:55 11/19/20 04:55: Sodium 132.4 L, Potassium 3.94, Chloride 104.1, Carbon Dioxide 24.0, Anion Gap 8.24, BUN 16.1, Creatinine 0.74, Estimated GFR (MDRD) 106.00, BUN/Creatinine Ratio 21.75, Glucose 225.8 H, Calcium 8.43, Total Bilirubin 1.08, AST 307.9 H D, ALT 159.5 H D, Alkaline Phosphatase 263.8 H D, Total Protein 6.29 L, Albumin 3.00 L, Globulin 3.29, Albumin/Globulin Ratio 0.91 11/19/20 04:55: WBC 8.15, RBC 3.86 L, Hgb 12.5 L, Hct 36.4 L, MCV 94.3 H, MCH 32.4 H, MCHC 34.3, RDW Coeff of Hilary 15.0 H, Plt Count 164, Immature Gran % (Auto) 0.5, Neut % (Auto) 73.3, Lymph % (Auto) 21.1, [place] % (Auto) 4.4, Eos % (Auto) 0.5, Baso % (Auto) 0.2, Neut # (Auto) 6.0, Lymph # (Auto) 1.7, [place] # (Auto) 0.4, Eos # (Auto) 0.0, Baso # (Auto) 0.0, Immature Gran # (Auto) 0.0 11/19/20 00:50: Urine Color Yellow, Urine Clarity Clear, Urine pH 5.5, Ur Specific [place] >=1.030, Urine Protein 2+ H, Urine Glucose (UA) 2+ H, Urine Ketones Negative, Urine Blood Negative, Urine Nitrite Negative, Urine Bilirubin 1+ H, Urine Urobilinogen 2.0 H, Ur Leukocyte Esterase Negative, Urine Microsco pic RBC 0-2, Urine Microscopic WBC 0-2, Ur Squamous Epith Cells 2-5, Hyaline Casts 2-5 11/18/20 13:29: Sodium 131.7 L, Potassium 4.15, Chloride 101.8, Carbon Dioxide 22.0, Anion Gap 12.05, BUN 19.7, Creatinine 0.96, Estimated GFR (MDRD) 79.00, BUN/Creatinine Ratio 20.52, Glucose 264.0 H, Calcium 8.88, Total Bilirubin 0.56, AST 30.5, ALT 22.8, Alkaline Phosphatase 99.8, Total Protein 6.73, Albumin 3.40 L, Globulin 3.33, Albumin/Globulin Ratio 1.02, Amylase 65.1, Lipase 69.5 11/18/20 13:29: WBC 8.88, RBC 4.22 L, Hgb 14.0, Hct 39.5 L, MCV 93.6, MCH 33.2 H , MCHC 35.4, RDW Coeff of Hilary 15.0 H, Plt Count 186, Immature Gran % (Auto) 0.5, Neut % (Auto) 70.0, Lymph % (Auto) 23.3, [place] % (Auto) 5.5, Eos % (Auto) 0.5, Baso % (Auto) 0.2, Neut # (Auto) 6.2, Lymph # (Auto) 2.1, [place] # (Auto) 0.5, Eos # (Auto) 0.0, Baso # (Auto) 0.0, Immature Gran # (Auto) 0.0 ASSESSMENT: Please see below. 1. Acute pancreatitis 2. Nausea 3. Dehydration, improved 4. Atrial fibrillation 5. Diabetes Mellitus type 2 6. COPD PLAN: 1. Will continue with IV fluids 2. Clear liquid diet 3. Thiamine IM 4. Zofran 4mg Q 6 hours PRN 5. Hepatitis panel 6. Ultrasound of liver 7. Discontinue Symbicort inhaler 8. Accu-checks TID with sliding scale. Plan and coordination of the patient's care discussed in the presence of Central Lab Technician and nurse. SCRIBED BY: LA VICKERS Bin Operator scribed while in presence of service performed by Dr. Enriquez/Purvi Santizo APRN on 11/19/20 ([id number])
--- NOTE | 2020-11-19 11:04 | HP ---
DATE OF SERVICE: 11/18/20 REASON FOR HOSPITALIZATION/HISTORY OF PRESENT ILLNESS: 65-year-old male with complaint of left-sided abdominal pain, nausea and vomiting, has lost 10 lbs. He went to ER 11/16 and sent him home. This started Sunday. He is not eating or drinking. PAST MEDICAL HISTORY: COPD Chronic pancreatitis History of alcoholism Anemia PAD severe Hypertension Hyperglycemia PAST SURGICAL HISTORY: Gallbladder CABG times three Vascular right leg REVIEW OF SYSTEMS: CONSTITUTIONAL: Fatigue. No fever. HEENT: No sinus drainage, no sore throat. RESPIRATORY: No cough, no congestion. CARDIOVASCULAR: No atypical chest pain for coronary artery disease. No angina, CHF symptoms, palpitations or shortness of breath. GASTROINTESTINAL: Abdominal pain left upper quadrant. Nausea. GENITOURINARY: No hematuria, no prostatism, no polyuria. PULPER OPERATOR: No blackout, no dizziness, no headache, no double vision. MUSCULOSKELETAL: No osteoarthritis pain, no joint swelling. ENDOCRINE: No weight loss, no weight gain. SKIN: Not dry, no rash. PSYCHIATRIC: Not anxious, no depression, no suicidal thoughts, no homicidal thoughts. SOCIAL HISTORY: Smoker, 1 1/2 pack per day. Alcohol use. . No children. Retired. FAMILY HISTORY: Father . Mother . Brother(s) 3. Sister(s) 3. MEDICATIONS: Eliquis 5 mg b.i.d. Folic acid q.d Losartan 50 mg q.d Prilosec 40 mg q.d Norvasc 5 mg q.d Betapace 80 mg q.d Fe Sulfate 325 mg q.d Advair 250/50 b.i.d. Spiriva q.d Tresiba 18-20 units daily ASA 81 mg q.d Symbicort 160/4.5 b.i.d. Protonix 40 mg daily ALLERGIES: METFORMIN (UPSET STOMACH), TRICOR, CHANTIX, NO JANUVIA/TRADJENTA, PRAVASTATIN-PANCREAS PHYSICAL EXAMINATION: V/S: Pulse 80, BP 102/58, temperature 98.2, 02 sat 98%. BMI 17.8. Height 5'9", 120.8 lbs. GENERAL APPEARANCE: Oriented times three. Pale. Dry mucous membranes. HEENT: Normal. NECK: No JVP, no bruits. RESPIRATORY: Decreased breath sounds. Lungs are clear. CARDIOVASCULAR: Irregular, atrial fibrillation. S1, S2, no S3, no murmur. No cyanosis, clubbing. No ascites. GI/ABDOMEN: Left upper quadrant epigastric pain. Bowel sounds are active. EXTREMITIES: No edema, pulses +1, equal. PULPER OPERATOR: Deep tendon reflexes, sensory, motor and gait all normal. ASSESSMENT: 1. LEFT UPPER QUADRANT PAIN 2. ACUTE PANCREATITIS OR CHRONIC 3. DEHYDRATION 4. GENERALIZED WEAKNESS 5. HISTORY OF NONCOMPLIANCE WITH DIET, MEDICATIONS AND LIFESTYLE 6. COPD 7. HEART CATHETERIZATION 12/03 8. STATUS POST PARTIAL RIGHT NEPHRECTOMY, DR. MUHAMMAD 9. RIGHT FEMORAL ARTERIAL OCCLUSION 10. HISTORY OF RENAL STENT 11. CAD/CABG 2006 12. DIABETES MELLITUS TYPE 2, A1C 8.6 13. RIGHT COMM. FEMORAL END 12/03 - DR. HASKINS 14. BILATERAL CAROTID ENDARTERECTOMY, 2009 15. HISTORY OF PANCREATITIS 16. HISTORY OF ALCOHOL ABUSE 17. ATRIAL FIBRILLATION - ELIQUIS 18. HISTORY OF RENAL MASS 19. PAD 20. NEUROPATHY 21. HISTORY OF GI BLEED 22. DYSLIPIDEMIA 23. CLAUDICATION PLAN: 1. Routine telemetry orders. 2. No cardiac markers. 3. No aspirin. 4. UA 5. Chest x-ray 6. NS IV @ 83 cc/hr. 7. Amylase/lipase now. 8. CBC, CMP now and daily. 9. Clear liquid diet. 10. Dilaudid 1-2 mg IV q.4h. 11. Thiamine 100 mg IM daily. 12. Watch for DT's. 13. Full code. TIME SPENT: More than 70 minutes. MTDD
[2020-11-19] MEDS: HUMULIN R SUBCUT PRN ×2 (12:13→17:17)
--- NOTE | 2020-11-19 12:34 | US ---
EXAM: ULTRASOUND ABDOMEN LIMITED HISTORY: Elevated liver enzymes FINDINGS: Ultrasound abdomen, limited. Mckeon-scale ultrasound and color Doppler was performed. Live r size was measured at 10 cm, within normal limits. There is mild increased sound attenuation by the liver parenchyma which may be related to steatosis. No focal hepatic lesion or definite evidence of intrahepatic biliary dilatation was identified. The main portal vein is patent and hepatopedal. Gallbladder has been removed. The common bile duct is dilated at 1.5 cm. No gross choledocholithias is. The pancreas was not adequately seen secondary superimposed bowel gas. No ascites identified. IMPRESSION: 1. Possible mild fatty infiltration liver. 2. Post cholecystectomy state. 3. Significant dilatation of the common bile duct. 4. The pancreas was poorly seen. 5. Consider correlation with MRI/MRCP of the liver.
--- NOTE | 2020-11-19 12:54 | PN ---
DATE OF SERVICE: 11/19/2020 SUBJECTIVE: Alcoholic with history of pancreatitis admitted for pancreatitis. Condition is a lot better. The pain is much less. Hydration status has improved. Cardiovascular status is stable. TIME SPENT: More than 30 minutes. Plan and coordination of the patient's care discussed in the presence of nurse. ESPERANZA
--- NOTE | 2020-11-19 14:38 | PN ---
DATE OF SERVICE: 11/18/2020 SUBJECTIVE: The patient was seen and examined in the office and was hospitalized. The patient's old records reviewed from the emergency room. The patient was sent home with acute pancreatitis type of symptoms. He continued to vomit. The patient is alcoholic. The patient is going to be hospitalized with IV fluids and Dilaudid. The patient's history of physical and management was discussed with Nurse Practitioner. CONDITION: Stable. PROGNOSIS: Poor TIME SPENT: More than 30 minutes. Plan and coordination of the patient's care discussed in the presence of nurse. ESPERANZA
[2020-11-20] MEDS: DILAUDID 1 MG/ML SYRINGE IVP PRN ×5 (00:27→23:42)
[2020-11-20] MEDS: SODIUM CHLORIDE 1,000 ML IV SCH ×2 (00:27→05:58)
[2020-11-20 05:15] LABS: BASOPHILS % (AUTO) 0.4 % (0.0-3.0); EOSINOPHILS # (AUTO) 0.1 K/ul (0.0-0.7); EOSINOPHILS % (AUTO) 1.4 % (0.0-7.0); HEMATOCRIT 35.5 % (42.0-52.0); HEMOGLOBIN 11.8 g/dl (14.0-18.0); IMMATURE GRANULOCYTE % (AUTO) 0.4 % (0.0-5.0); LYMPHOCYTES # (AUTO) 1.6 K/uL (0.60-3.4); LYMPHOCYTES % (AUTO) 31.4 (10.0-50.0); MEAN CORPUSCULAR HEMOGLOBIN 33.5 pg (27.0-31.0); MEAN CORPUSCULAR HGB CONC 33.2 (31.8-35.4); MEAN CORPUSCULAR VOLUME 100.9 fl (80.0-94.0); MONOCYTES # (AUTO) 0.4 K/uL (0.4-2.0); MONOCYTES % (AUTO) 8.6 (0-10); NEUTROPHILS % (AUTO) 57.8 % (42.2-75.2); PLATELET COUNT 157 10^3/uL (140-440); RDW COEFFICIENT OF VARIATION 15.5 % (11.6-14.8); RED BLOOD COUNT 3.52 10^6/ul (4.70-6.10)
[2020-11-20 05:55] LABS: ALANINE AMINOTRANSFERASE 185.4 U/L (0-50); ALBUMIN 2.72 g/dL (3.5-5.0); ALKALINE PHOSPHATASE 415.1 U/L (56-119); ASPARTATE AMINO TRANSFERASE 277.1 U/L (17-59); BILIRUBIN,TOTAL 0.53 mg/dL (0.2-1.3); BLOOD UREA NITROGEN 9.1 mg/dL (9-20); CALCIUM 7.98 mg/dL (8.4-10.2); CARBON DIOXIDE 19.6 mmol/L (22-30.0); CHLORIDE 108.2 mmol/L (98-107); CREATININE 0.58 mg/dL (0.60-1.10); GLUCOSE 136.6 mg/dL (74-106); POTASSIUM 3.4 mmol/L (3.5-5.1); SODIUM 132.2 mmol/L (134.5-145); TOTAL PROTEIN 5.61 g/dL (6.3-8.2)
[2020-11-20] MEDS: PROTONIX PO SCH (06:10)
[2020-11-20 06:16] LABS: HBsAgSCREEN Negative (Negative); HEP A AB, IgM Negative (Negative); HEP B CORE Ab, IgM Negative (Negative); HEP C VIRUS AB < 0.1 s/co ratio (0.0-0.9)
[2020-11-20] MEDS: ADVAIR 250-50 DISKUS IH SCH ×2 (09:16→20:46)
[2020-11-20] MEDS: COZAAR PO SCH (09:16)
[2020-11-20] MEDS: THIAMINE IM SCH (09:16)
[2020-11-20] MEDS: SPIRIVA IH SCH (09:16)
[2020-11-20] MEDS: BETAPACE PO SCH (09:16)
[2020-11-20] MEDS: FERROUS SULFATE PO SCH (09:16)
[2020-11-20] MEDS: FOLIC ACID VIT B6 VIT B12 PO SCH (09:17)
[2020-11-20] MEDS: TRESIBA SUBCUT SCH (09:17)
[2020-11-20] MEDS: NORVASC PO SCH (09:17)
[2020-11-20] MEDS: ELIQUIS PO SCH ×2 (09:18→20:45)
[2020-11-20] MEDS: HUMULIN R SUBCUT PRN (12:09)
[2020-11-21] MEDS: PROTONIX PO SCH (05:37)
[2020-11-21 05:39] LABS: BASOPHILS % (AUTO) 0.2 % (0.0-3.0); EOSINOPHILS % (AUTO) 0.9 % (0.0-7.0); HEMATOCRIT 31.2 % (42.0-52.0); HEMOGLOBIN 11.1 g/dl (14.0-18.0); IMMATURE GRANULOCYTE % (AUTO) 0.2 % (0.0-5.0); LYMPHOCYTES # (AUTO) 1.4 K/uL (0.60-3.4); LYMPHOCYTES % (AUTO) 32.7 (10.0-50.0); MEAN CORPUSCULAR HEMOGLOBIN 33.3 pg (27.0-31.0); MEAN CORPUSCULAR HGB CONC 35.6 (31.8-35.4); MEAN CORPUSCULAR VOLUME 93.7 fl (80.0-94.0); MONOCYTES # (AUTO) 0.4 K/uL (0.4-2.0); MONOCYTES % (AUTO) 8.2 (0-10); NEUTROPHILS # (AUTO) 2.5 K/ul (2.0-6.9); NEUTROPHILS % (AUTO) 57.8 % (42.2-75.2); PLATELET COUNT 127 10^3/uL (140-440); RDW COEFFICIENT OF VARIATION 14.9 % (11.6-14.8); RED BLOOD COUNT 3.33 10^6/ul (4.70-6.10); WHITE BLOOD COUNT 4.37 K/ul (4.2-10.2)
[2020-11-21 06:01] LABS: ALBUMIN 2.8 g/dL (3.5-5.0); BILIRUBIN,TOTAL 0.6 mg/dL (0.2-1.3); CALCIUM 8.3 mg/dL (8.4-10.2); CREATININE 0.5 mg/dL (0.60-1.10); POTASSIUM 3.1 mmol/L (3.5-5.1); TOTAL PROTEIN 5.7 g/dL (6.3-8.2)
[2020-11-21] MEDS: THIAMINE IM SCH (08:52)
[2020-11-21] MEDS: COZAAR PO SCH (08:52)
[2020-11-21] MEDS: BETAPACE PO SCH (08:52)
[2020-11-21] MEDS: FERROUS SULFATE PO SCH (08:52)
[2020-11-21] MEDS: NORVASC PO SCH (08:52)
[2020-11-21] MEDS: SPIRIVA IH SCH (08:53)
[2020-11-21] MEDS: TRESIBA SUBCUT SCH (08:53)
[2020-11-21] MEDS: ADVAIR 250-50 DISKUS IH SCH ×2 (08:53→20:47)
[2020-11-21] MEDS: ELIQUIS PO SCH ×2 (08:53→20:46)
[2020-11-21] MEDS: FOLIC ACID VIT B6 VIT B12 PO SCH (08:59)
[2020-11-21] MEDS: HUMULIN R SUBCUT PRN ×2 (12:25→17:13)
[2020-11-21] MEDS: K-DUR PO SCH ×2 (12:46→17:13)
[2020-11-22] MEDS: K-DUR PO SCH ×2 (00:09→05:50)
[2020-11-22 05:23] LABS: BASOPHILS % (AUTO) 0.2 % (0.0-3.0); EOSINOPHILS # (AUTO) 0.1 K/ul (0.0-0.7); EOSINOPHILS % (AUTO) 0.8 % (0.0-7.0); HEMATOCRIT 32.3 % (42.0-52.0); HEMOGLOBIN 11.5 g/dl (14.0-18.0); IMMATURE GRANULOCYTE % (AUTO) 0.3 % (0.0-5.0); LYMPHOCYTES # (AUTO) 1.9 K/uL (0.60-3.4); LYMPHOCYTES % (AUTO) 30.3 (10.0-50.0); MEAN CORPUSCULAR HEMOGLOBIN 33.3 pg (27.0-31.0); MEAN CORPUSCULAR HGB CONC 35.6 (31.8-35.4); MEAN CORPUSCULAR VOLUME 93.6 fl (80.0-94.0); MONOCYTES # (AUTO) 0.5 K/uL (0.4-2.0); MONOCYTES % (AUTO) 8.5 (0-10); NEUTROPHILS # (AUTO) 3.8 K/ul (2.0-6.9); NEUTROPHILS % (AUTO) 59.9 % (42.2-75.2); PLATELET COUNT 153 10^3/uL (140-440); RDW COEFFICIENT OF VARIATION 15.2 % (11.6-14.8); RED BLOOD COUNT 3.45 10^6/ul (4.70-6.10); WHITE BLOOD COUNT 6.36 K/ul (4.2-10.2)
[2020-11-22 05:34] LABS: ALBUMIN 3.1 g/dL (3.5-5.0); BILIRUBIN,TOTAL 0.5 mg/dL (0.2-1.3); CALCIUM 8.4 mg/dL (8.4-10.2); CREATININE 0.7 mg/dL (0.60-1.10); POTASSIUM 3.3 mmol/L (3.5-5.1); TOTAL PROTEIN 6.3 g/dL (6.3-8.2)
[2020-11-22] MEDS: PROTONIX PO SCH (05:50)
[2020-11-22 06:11] VITALS: BP 148/83; TEMP 99
--- NOTE | 2020-11-22 09:11 | PCM.PROG ---
Attending Provider: ATTENDING PROVIDER: Dr. VICKI ENRIQUEZ This patient is seen with Purvi Santizo, Nurse Practitioner. DATE OF SERVICE: 11/22/20 SUBJECTIVE: This 65 year old /WHITE M was hospitalized 11/18/20. The patient is lying in bed resting comfortably. He has not required any pain medications for over 24 hours. He has been eating a low fat diet and tolerating each meal. Pain and tenderness resolved. REVIEW OF SYSTEMS: CONSTITUTIONAL: Weakness. No night sweats. No fatigue, malaise, lethargy. No fever or chills. HEENT: Eyes: No visual changes. No eye pain. No eye discharge. ENT: No runny nose. No epistaxis. No sinus pain. No odynophagia. No congestion. RESPIRATORY: No cough, no congestion. No hemoptysis. No shortness of breath. CARDIOVASCULAR: No angina symptoms. No CHF symptoms. No atypical chest pain for CAD. No palpitations. No orthopnea.. GASTROINTESTINAL: No abdominal pain. No nausea or vomiting. No diarrhea or constipation. No hematemesis. No hematochezia. GENITOURINARY: No urgency. No frequency. No dysuria. No hematuria. No obstructive symptoms. No discharge. No pain. No significant abnormal bleeding. MUSCULOSKELETAL: No musculoskeletal pain; no joint swelling. NEUROLOGICAL: Awake, alert, oriented to time, place and person. No headache. No neck pain. No syncope. No seizures. No dizziness. PSYCHIATRIC: Not anxious. No depression. No suicidal thoughts. No homicidal thoughts. SKIN: No rash. No lesions. No wounds. ENDOCRINE: No unexplained weight loss. No weight gain. HEMATOLOGIC/LYMPHATIC: No anemia. No purpura. No petechiae. No prolonged or excessive bleeding. No palpable lymph nodes. PHYSICAL EXAMINATION: GENERAL: The patient is awake, alert and oriented, lying/sitting in bed in no distress. VITAL SIGNS: Temperature 99.0 F, Pulse 85, Respiratory Rate 16, BP 148/83, Pulse Ox 97% HEENT: Head normocephalic, atraumatic. Eyes: Extraocular muscles are intact. Pupils are equal, round and reactive to light and accommodation. Ears: No lesions. Nose appeared normal. Throat: No exudate or erythema. NECK: Supple. No JVD, no carotid bruit. No lymphadenopathy or thyromegaly. LUNGS: Diminished breath sounds. Clear to auscultation. Percussion note normal. Chest symmetrical. HEART: S1, S2, no S3. No murmurs. No cyanosis or clubbing. No ascites. Pulses: Dorsalis pedis and posterior tibial pulses +1 to +2 both sides. ABDOMEN: Soft. Non-tender. Bowel sounds active. No CVA tenderness. No mass felt. EXTREMITIES: No edema. Full range of motion of all extremities, equal. NEUROLOGIC: No focal deficit. Cranial nerves II through XII are grossly intact. No headache. No double vision. SKIN: Not dry. Intact. Turgor-normal. LYMPHATIC: No palpable lymph nodes/no lymphedema. MUSCULOSKELETAL: Normal joints with no swelling. Muscle tone is normal. LAB REVIEW: 11/22/20 04:45 11/22/20 04:45 11/22/20 04:45: Sodium 132.0 L, Potassium 3.30 L, Chloride 104.0, Carbon Dioxide 23.0, Anion Gap 8.30, BUN 5.0 L, Creatinine 0.70, Estimated GFR (MDRD) 113.00, BUN/Creatinine Ratio 7.14, Glucose 44.0 L* D, Calcium 8.40, Total Bilirubin 0.50, AST 59.0 D, ALT 123.0 H D, Alkaline Phosphatase 408.0 H D, Total Protein 6.30, Albumin 3.10 L, Globulin 3.20, Albumin/Globulin Ratio 0.96 11/22/20 04:45: WBC 6.36, RBC 3.45 L, Hgb 11.5 L, Hct 32.3 L, MCV 93.6, MCH 33.3 H, MCHC 35.6 H, RDW Coeff of Hilary 15.2 H, Plt Count 153, Immature Gran % (Auto) 0.3, Neut % (Auto) 59.9, Lymph % (Auto) 30.3, [place] % (Auto) 8.5, Eos % (Auto) 0.8, Baso % (Auto) 0.2, Neut # (Auto) 3.8, Lymph # (Auto) 1.9, [place] # (Auto) 0.5, Eos # (Auto) 0.1, Baso # (Auto) 0.0, Immature Gran # (Auto) 0.0 ASSESSMENT: Please see below. 1. Acute on chronic pancreatitis. 2. Elevated liver function related to pancreatitis. 3. Hypokalemia. 4. Hyponatremia. 5. History of alcohol abuse. 6. Diabetes mellitus type 2. PLAN: 1. Will discharge home today. 2. Instructions given regarding diet with small frequent meals, low fat. 3. The patient declines treatment for alcohol - advised to discontinue. 4. Will help the patient reschedule Covid vaccine. 5. Potassium 20 mEq b.i.d. for 5 days. 6. D/C Humalog. 7. Will see in the office next week. Plan and coordination of the patient's care discussed in the presence of Slurry Tank Operator and nurse. CONDITION: Stable SCRIBED BY: KM MAURER [employer] Project Manager scribed while in presence of service performed by Dr. Enriquez/Purvi Santizo APRN on 11/22/20 ([id number])
[2020-11-22] MEDS: TRESIBA SUBCUT SCH (10:06)
[2020-11-22] MEDS: FERROUS SULFATE PO SCH (10:09)
[2020-11-22] MEDS: COZAAR PO SCH (10:09)
[2020-11-22] MEDS: BETAPACE PO SCH (10:10)
[2020-11-22] MEDS: NORVASC PO SCH (10:10)
[2020-11-22] MEDS: ELIQUIS PO SCH (10:10)
[2020-11-22] MEDS: THIAMINE IM SCH (10:10)
[2020-11-22] MEDS: ADVAIR 250-50 DISKUS IH SCH (10:12)
[2020-11-22] MEDS: SPIRIVA IH SCH (10:12)
[2020-11-22] MEDS: FOLIC ACID VIT B6 VIT B12 PO SCH (10:16)
--- NOTE | 2020-11-22 11:01 | CM.DICTOOL ---
ADMISSION: 11/18/20 11:59 DISCHARGE: NOVEMBER 22, 2020 DATE OF SERVICE: 11/22/20 FINAL DIAGNOSIS LEFT UPPER QUADRANT PAIN ACUTE ON CHRONIC PANCREATITIS* ELEVATED LIVER FUNCTION RELATED TO PANCREATITIS* HYPOKALEMIEA* HYPONATREMIA* HISTORY OF ALCOHOL ABUSE* DIABETES MELLITUS TYPE 2* HX: DEHYDRATION GENERALIZED WEAKNESS HISTORY OF NONCOMPLIANCE WITH DIET, MEDICATIONS AND LIFESTYLE COPD HEART CATHETERIZATION 12/03 STATUS POST PARTIAL RIGHT NEPHRECTOMY, DR. MUHAMMAD RIGHT FEMORAL ARTERIAL OCCLUSION HISTORY OF RENAL STENT CAD/CABG 2006 DIABETES MELLITUS TYPE 2, A1C 8.6 RIGHT COMM. FEMORAL END 12/03 - DR. HASKINS BILATERAL CAROTID ENDARTERECTOMY, 2009 HISTORY OF PANCREATITIS HISTORY OF ALCOHOL ABUSE ATRIAL FIBRILLATION - ELIQUIS HISTORY OF RENAL MASS PAD NEUROPATHY HISTORY OF GI BLEED DYSLIPIDEMIA CLAUDICATION PAST SURGICAL HISTORY: STATUS POST PARTIAL RIGHT NEPHRECTOMY, DR. MUHAMMAD RIGHT FEMORAL ARTERIAL OCCLUSION HISTORY OF RENAL STENT CAD/CABG 2006 DIABETES MELLITUS TYPE 2, A1C 8.6 RIGHT COMM. FEMORAL END 12/03 - DR. HAKSINS BILATERAL CAROTID ENDARTERECTOMY, 2009 GALLBLADDER LAST VITALS Temp Pulse Resp BP Pulse Ox 99.0 F 85 19 148/83 H 97 11/22/20 06:00 11/22/20 06:00 11/22/20 08:00 11/22/20 06:00 11/22/20 06:00 TAKE THESE MEDICATIONS AT HOME Amlodipine Besylate (Amlodipine Besylate 5 Mg Tablet) 5 mg PO DAILY [facility] Last Admin: 11/21/20 08:52 Dose: 5 mg Documented by: Apixaban (Apixaban 5 Mg Tab) 5 mg PO BID [facility] Last Admin: 11/21/20 20:46 Dose: 5 mg Documented by: Ferrous Sulfate (Ferrous Sulfate 324 Mg Tablet.) 324 mg PO DAILY [facility] Last Admin: 11/21/20 08:52 Dose: 324 mg Documented by: Losartan Potassium (Losartan Potassium 25 Mg Tablet) 50 mg PO DAILY [facility] Last Admin: 11/21/20 08:52 Dose: 50 mg Documented by: Non-Formulary Medication (Folic Acid-Vit B6-Vit B12 [Folbic]) 1 tab PO DAILY [facility] Last Admin: 11/21/20 08:59 Dose: Not Given Documented by: Non-Formulary Medication (Tresiba 200units/Ml) 18 - 20 units SUBCUT DAILY [facility] Last Admin: 11/21/20 08:53 Dose: 18 units Documented by: Potassium Chloride (Potassium Chloride 20 Meq Tab) 20 meq PO BID X 5 MORE DAYS -- ( NEW) Last Admin: 11/22/20 05:50 Dose: 20 meq Documented by: Fluticasone/Salmeterol (Fluticasone/Salmeterol 250/50 Diskus) 1 puff IH BID [facility] Last Admin: 11/21/20 20:47 Dose: 1 puff Documented by: Sotalol HCl (Sotalol Hcl 80 Mg Tablet) 80 mg PO DAILY [facility] Last Admin: 11/21/20 08:52 Dose: 80 mg Documented by: Tiotropium [place] (Tiotropium [place] 18 Mcg Cap.W.Dev) 1 cap IH DAILY [facility] Last Admin: 11/21/20 08:53 Dose: 1 cap Documented by: OMEPRAZOLE 40 MG PO QDAC ALLERGIES No Known Allergies Allergy (Verified 11/16/20 17:05) DISCONTINUED MEDICATIONS 1). SYMBICORT INHALER NEW PRESCRIPTIONS: 1). POTASSIUM 20 MEQ PO BID X 5 DAYS SMOKING: N/A DISEASE SPECIFIC EDUCATION: PANCREATITIS NO ALCOHOL COVID 19 LAB REVIEW: 11/22/20 04:45 11/22/20 04:45 11/22/20 04:45: Sodium 132.0 L, Potassium 3.30 L, Chloride 104.0, Carbon Dioxide 23.0, Anion Gap 8.30, BUN 5.0 L, Creatinine 0.70, Estimated GFR (MDRD) 113.00, BUN/Creatinine Ratio 7.14, Glucose 44.0 L* D, Calcium 8.40, Total Bilirubin 0.50, AST 59.0 D, ALT 123.0 H D, Alkaline Phosphatase 408.0 H D, Total Protein 6.30, Albumin 3.10 L, Globulin 3.20, Albumin/Globulin Ratio 0.96 11/22/20 04:45: WBC 6.36, RBC 3.45 L, Hgb 11.5 L, Hct 32.3 L, MCV 93.6, MCH 33.3 H, MCHC 35.6 H, RDW Coeff of Hilary 15.2 H, Plt Count 153, Immature Gran % (Auto) 0.3, Neut % (Auto) 59.9, Lymph % (Auto) 30.3, [place] % (Auto) 8.5, Eos % (Auto) 0.8, Baso % (Auto) 0.2, Neut # (Auto) 3.8, Lymph # (Auto) 1.9, [place] # (Auto) 0.5, Eos # (Auto) 0.1, Baso # (Auto) 0.0, Immature Gran # (Auto) 0.0 PLAN: DISCHARGE HOME: TODAY, WEDNESDAY, NOVEMBER 22 LIVES WITH SPOUSE ACTIVITY: SLOWLY RESUME PREVIOUS ACTIVITY, WITH FREQUENT REST PERIODS STAY HOME, EXCEPT FOR MEDICAL RELATED APPOINTMENTS, COVID VACCINE SUNDAY AT [facility] SOCIAL DISTANCING BLOOD SUGARS: CONTINUE TO CHECK BEFORE DIET: LOW FAT/ LOW CHOLESTEROL NO ALCOHOL FOLLOW UP: SEE DR. ENRIQUEZ/ ISAÍAS JEAN APRN/ RHONDA JAY APRN IN THE OFFICE ON SUNDAY. DECEMBER 02, 2020 @ 0945 AM CODE STATUS: DNI MR. ROUSE REMAINS ALERT AND ORIENTED X 4. HE IS PLEASANT. LUNGS ARE CLEAR, WITH NO COUGH AND NO SHORTNESS OF BREATH. NO CHEST PAIN. NO ABDOMINAL PAIN IN 2 DAYS. NO FURTHER N/V. HE IS TOLERATING A LOW FAT/ LOW CHOLESTEROL DIET WITH FAIR TO GOOD APPETITE.. SKIN WARM, DRY AND INTACT. CONTINENT OF BOWEL AND BLADDER. LAST BM 11/21/2020, FORMED AND GREEN, ( IS ON IRON). HE IS UP TOLERATED, INDEPENDENTLY. HE STATED HE HAD 2 BEERS A MONTH AGO. HE DID VERBALIZE THAT HE IS NOT TO DRINK ALCOHOL. LIVES WITH HIS . HE IS SCHEDULED TO HAVE THE COVID VACCINE ON Sunday11/26/2020 AT A COMMUNITY LOCATION PER [address] MD ISAÍAS LARA APRN ALYCE HANNAN, APRN
--- NOTE | 2020-11-22 11:46 | PN ---
DATE OF SERVICE: 11/20/20 SUBJECTIVE: 65-year-old white male hospitalized with acute pancreatitis, abdominal pain. The patient had acute pancreatitis resolving with dehydration with nausea and vomiting. The patient received IV fluids. He was practically on clear liquids. His diet has been advanced because he has been feeling hungry on low fat diet tolerating very well. He is up and about practically no pain, very little pain medication. REVIEW OF SYSTEMS: CONSTITUTIONAL: No night sweats. No fatigue, malaise, lethargy. No fever or chills. HEENT: Eyes: No visual changes. No eye pain. No eye discharge. ENT: No runny nose. No epistaxis. No sinus pain. No sore throat. No odynophagia. No congestion. RESPIRATORY: No cough, no congestion. No hemoptysis. No shortness of breath. CARDIOVASCULAR: No angina symptoms. No CHF symptoms. No atypical chest pain for CAD. No palpitations. No PND. No orthopnea. GASTROINTESTINAL: No abdominal pain. No nausea or vomiting. No diarrhea or constipation. No hematemesis. No hematochezia. GENITOURINARY: No urgency. No frequency. No dysuria. No hematuria. No obstructive symptoms. No discharge. No pain. No significant abnormal bleeding. MUSCULOSKELETAL: No musculoskeletal pain; no joint swelling. NEUROLOGICAL: No headache. No neck pain. No syncope. No seizures. No dizziness. PSYCHIATRIC: Not anxious. No depression. No suicidal thoughts. No homicidal thoughts. SKIN: No rash. No lesions. No wounds. ENDOCRINE: No unexplained weight loss. No weight gain. HEMATOLOGIC/LYMPHATIC: No anemia. No purpura. No petechiae. No prolonged or excessive bleeding. No palpable lymph nodes. PHYSICAL EXAMINATION: VITAL SIGNS: Temperature 97.8, pulse 77, respiratory rate 20, blood pressure 140/90, pulse ox 100% on room air. HEENT: Head normocephalic, atraumatic. Eyes: Extraocular muscles are intact. Pupils are equal, round and reactive to light and accommodation. Ears: No lesions. Nose appeared normal. Throat: No exudate or erythema. NECK: Supple. No JVD, no carotid bruit. No lymphadenopathy or thyromegaly. LUNGS: Decreased breath sounds but clear to auscultation. Percussion note normal. Chest symmetrical. HEART: S1, S2, no S3. No murmurs. No cyanosis or clubbing. No ascites. Pulses: Dorsalis pedis and posterior tibial pulses +1 to +2 bilaterally. ABDOMEN: Soft. Nontender. Bowel sounds active. No CVA tenderness. No mass felt. EXTREMITIES: No edema. Full range of motion of all extremities, equal. NEUROLOGIC: No focal deficit. Cranial nerves II through XII are grossly intact. No headache. No double vision. SKIN: Not dry. Intact. Turgor - normal. LYMPHATIC: No palpable lymph nodes/no lymphedema. MUSCULOSKELETAL: Normal joints with no swelling. Muscle tone is normal. LABS: Hemoglobin 11.8, hematocrit 35, WBC 6,100, normal differential. Creatinine 0.5, BUN 9, potassium 3.4. ASSESSMENT: 1. Acute pancreatitis resolving. 2. History of alcohol abuse with history of chronic pancreatitis. 3. Peripheral arterial disease. 4. Coronary artery disease. 5. Carotid occlusive disease. 6. Severe chronic lung disease with history of smoking. The patient has continued to smoke. 7. Chronic anemia. PLAN: 1. Continue medications. 2. D/C IV fluids. 3. Up and about. 4. Counseling for smoking done. 5. Refuses any help for alcohol abuse. Prognosis is poor. TIME SPENT: More than 30 minutes. Plan and coordination of the patient's care discussed in the presence of nurse. ESPERANZA
--- NOTE | 2020-11-23 10:25 | ECHO2D ---
Date of Exam: 11/20/2020 Ordering Physician: DR. VICKI ENRIQUEZ Room #: 109 Reason for Echo: HYPERTENSION, CAD, COPD M-Mode Normal Adult Results LV Dimensions Normal Adult Results AoV Opening excursions >1.6 >1.6 LVEDD-base- 3.5-5.8 4.4 Ao root dimensions 2.0-3.7 3.4 LVESD-base- 3.1-4.6 L. Atrium dimensions 1.9-3.8 4.6 Post. Wall thickness 0.8-1.1 1.0 IV septum (thickness) 0.7-1.2 1.0 Post. Wall excursion 0.72-1.3 NORMAL Septal motion 0.3 Systolic motion R. Ventricular cavity 1.5-2.0 4.0 LVEF 60% 45-50% Paradoxical septal wall motion MAYBE 2-D : 2-D M Mode Echocardiogram was performed using apical four chamber and left parasternal long and short axis views. Mitral, tricuspid and aortic valves appear to be normal. Contractility of the left ventricle seems to be normal, so is the cavity size. ENLARGED LEFT ATRIAL AND RIGHT VENTRICLE CAVITIES. Aortic root appears to be normal. There is no pericardial effusion. There is no thrombus noted in the left ventricle or left atrial cavity. No mitral valve prolapse noted. HYPOKINETIC SEPTUM M-MODE: MV: NORMAL AV: NORMAL TV: NORMAL PV: CHAMBER SIZE: ENLARGED RIGHT VENTRICLE AND LEFT ATRIAL CAVITIES WALL MOTION: HYPOKINETIC SEPTUM PERICARDIUM: NORMAL INTERPRETATION: 1. HYPOKINETIC SEPTUM--MAYBE MILD PARADOXICAL MOTION 2. ENLARGED LEFT ATRIAL AND RIGHT VENTRICLE CAVITIES 3. LEFT VENTRICULAR EJECTION FRACTION 45 TO 50% 4. NORMAL VALVES MTDD
--- NOTE | 2020-11-24 11:39 | HP ---
DATE OF SERVICE: 11/22/20 FINAL DIAGNOSIS: 1. LEFT UPPER QUADRANT PAIN 2. ACUTE ON CHRONIC PANCREATITIS* 3. ELEVATED LIVER FUNCTION RELATED TO PANCREATITIS* 4. HYPOKALEMIA* 5. HYPONATREMIA* 6. HISTORY OF ALCOHOL ABUSE* 7. DIABETES MELLITUS TYPE 2* HX: 8. DEHYDRATION 9. GENERALIZED WEAKNESS 10. HISTORY OF NONCOMPLIANCE WITH DIET, MEDICATIONS AND LIFESTYLE 11. COPD 12. HEART CATHETERIZATION 12/03 13. STATUS POST PARTIAL RIGHT NEPHRECTOMY, DR. MUHAMMAD 14. RIGHT FEMORAL ARTERIAL OCCLUSION 15. HISTORY OF RENAL STENT 16. CAD/CABG 2006 17. DIABETES MELLITUS TYPE 2, A1C 8.6 18. RIGHT COMM. FEMORAL END 12/03 - DR. HASKINS 19. BILATERAL CAROTID ENDARTERECTOMY, 2009 20. HISTORY OF PANCREATITIS 21. HISTORY OF ALCOHOL ABUSE 22. ATRIAL FIBRILLATION - ELIQUIS 23. HISTORY OF RENAL MASS 24. PAD 25. NEUROPATHY 26. HISTORY OF GI BLEED 27. DYSLIPIDEMIA 28. CLAUDICATION PAST SURGICAL HISTORY: 29. STATUS POST PARTIAL RIGHT NEPHRECTOMY, DR. MUHAMMAD 30. RIGHT FEMORAL ARTERIAL OCCLUSION 31. HISTORY OF RENAL STENT 32. CAD/CABG 2006 33. DIABETES MELLITUS TYPE 2, A1C 8.6 34. RIGHT COMM. FEMORAL END 12/03 - DR. HASKINS 35. BILATERAL CAROTID ENDARTERECTOMY, 2009 36. GALLBLADDER LAST VITALS Temp Pulse Resp BP Pulse Ox 99.0 F 85 19 148/83 H 97 11/22/20 06:00 11/22/20 06:00 11/22/20 08:00 11/22/20 06:00 11/22/20 06:00 DISCHARGE INSTRUCTIONS: 1. DISCHARGE HOME: TODAY, SUNDAY, November, LIVES WITH SPOUSE. 2. MD FOLLOW UP: SEE DR. ENRIQUEZ/ISAÍAS JEAN APRN/RHONDA JAY APRN IN THE OFFICE ON SUNDAY. DECEMBER 02, 2020 @ 0945 AM. 3. BLOOD SUGARS: CONTINUE TO CHECK BEFORE. MEDICATIONS AT DISCHARGE: Amlodipine Besylate (Amlodipine Besylate 5 Mg Tablet) 5 mg PO DAILY [facility] Last Admin: 11/21/20 08:52 Dose: 5 mg Documented by: Apixaban (Apixaban 5 Mg Tab) 5 mg PO BID [facility] Last Admin: 11/21/20 20:46 Dose: 5 mg Documented by: Ferrous Sulfate (Ferrous Sulfate 324 Mg Tablet.) 324 mg PO DAILY [facility] Last Admin: 11/21/20 08:52 Dose: 324 mg Documented by: Losartan Potassium (Losartan Potassium 25 Mg Tablet) 50 mg PO DAILY [facility] Last Admin: 11/21/20 08:52 Dose: 50 mg Documented by: Non-Formulary Medication (Folic Acid-Vit B6-Vit B12 ) 1 tab PO DAILY [facility] Last Admin: 11/21/20 08:59 Dose: Not Given Documented by: Non-Formulary Medication (Tresiba 200units/Ml) 18 - 20 units SUBCUT DAILY [facility] Last Admin: 11/21/20 08:53 Dose: 18 units Documented by: Potassium Chloride (Potassium Chloride 20 Meq Tab) 20 meq PO BID X 5 MORE DAYS -- ( NEW) Last Admin: 11/22/20 05:50 Dose: 20 meq Documented by: Fluticasone/Salmeterol (Fluticasone/Salmeterol 250/50 Diskus) 1 puff IH BID [facility] Last Admin: 11/21/20 20:47 Dose: 1 puff Documented by: Sotalol HCl (Sotalol Hcl 80 Mg Tablet) 80 mg PO DAILY [facility] Last Admin: 11/21/20 08:52 Dose: 80 mg Documented by: Tiotropium [place] (Tiotropium [place] 18 Mcg Cap.W.Dev) 1 cap IH DAILY [facility] Last Admin: 11/21/20 08:53 Dose: 1 cap Documented by: OMEPRAZOLE 40 MG PO QDAC NEW PRESCRIPTIONS: POTASSIUM 20 MEQ PO BID X 5 DAYS DISCONTINUED MEDICATIONS: SYMBICORT INHALER DIET INSTRUCTIONS: LOW FAT/LOW CHOLESTEROL NO ALCOHOL ACTIVITY: SLOWLY RESUME PREVIOUS ACTIVITY, WITH FREQUENT REST PERIODS STAY HOME, EXCEPT FOR MEDICAL RELATED APPOINTMENTS COVID VACCINE SUNDAY AT [facility] [employer] [facility] SOCIAL DISTANCING SMOKING: N/A DISEASE SPECIFIC EDUCATION: PANCREATITIS NO ALCOHOL COVID 19 HOSPITAL COURSE: This is a 65-year-old white male who went to the emergency room, I do believe on 11/16, was seen in the emergency room for abdominal pain, nausea, vomiting and unable to eat. He has a history of pancreatitis. CT scan revealed pancreatitis. He was sent home. No IV fluids were given. Amylase was done. No lipase. He called our office reporting that he had increasing pain, was unable to eat. He was admitted with left upper quadrant pain, acute on chronic pancreatitis, was found to be hypokalemic, hyponatremic. He was started on IV fluids at 125 cc/hr NS, placed NPO, given Dilaudid 1 mg q.3 to 4 hours p.r.n. He was not started on Toradol as he is on Eliquis for history of atrial fibrillation. Over the course of several days he was advanced to clear liquids and soft bland diet. He has tolerated this well. Today, on day of discharge, he has been eating low fat foods, small frequent meals for the past 24 hours and has tolerated this, not experiencing any pain, has not had any nausea. It is to be noted liver functions significantly increased after admission. Hepatitis panel was done which was negative. Ultrasound of the liver was done which showed fatty liver. Liver enzymes have already started trending down. This is to be expected with pancreatitis. He does have a history of alcohol abuse although reports that he has stopped, declines treatment for alcohol abuse. Blood sugars were controlled while he was here. He does have a history of diabetes. Today, on day of discharge, his labs look great. He is feeling much better. He has been up and about in the room. Again, reports no pain at all. Sodium 132, potassium 3.3, BUN 5, creatinine 0.7. Hemoglobin 11.5. He has been instructed of course no alcohol, small low-fat meals and to eat frequently. He is scheduled for a Covid vaccine I do believe later on this week. He is okay to get that. I will discharge him on Potassium 20 daily to take for the next 5 days just as his potassium is at 3.3. We will followup with him next week in the office and he will be discharged in stable condition. TIME SPENT: More than 60 minutes. ESPERANZA
--- NOTE | 2020-11-25 09:19 | PN ---
DATE OF SERVICE: 11/21/2020 SUBJECTIVE: 65 year old white male hospitalized with epigastric pain, acute pancreatitis and dehydration. He is feeling a lot better. He is up and about. Appetite has improved. No nausea or vomiting. He is taking pain medication much less than before. REVIEW OF SYSTEMS: CONSTITUTIONAL: No night sweats. No fatigue, malaise, lethargy. No fever or chills. Up and about. HEENT: Eyes: No visual changes. No eye pain. No eye discharge. ENT: No runny nose. No epistaxis. No sinus pain. No sore throat. No odynophagia. No congestion. RESPIRATORY: No cough, no congestion. No hemoptysis. No shortness of breath. CARDIOVASCULAR: No angina symptoms. No CHF symptoms. No atypical chest pain for CAD. No palpitations. No PND. No orthopnea. GASTROINTESTINAL: No abdominal pain. No nausea or vomiting. No diarrhea or constipation. No hematemesis. No hematochezia.Appetite is improving. GENITOURINARY: No urgency. No frequency. No dysuria. No hematuria. No obstructive symptoms. No discharge. No pain. No significant abnormal bleeding. MUSCULOSKELETAL: No musculoskeletal pain; no joint swelling. NEUROLOGICAL: No headache. No neck pain. No syncope. No seizures. No dizziness. PSYCHIATRIC: Not anxious. No depression. No suicidal thoughts. No homicidal thoughts. SKIN: No rash. No lesions. No wounds. ENDOCRINE: No unexplained weight loss. No weight gain. HEMATOLOGIC/LYMPHATIC: No anemia. No purpura. No petechiae. No prolonged or excessive bleeding. No palpable lymph nodes. PHYSICAL EXAMINATION: VITAL SIGNS: Temperature 99, pulse 84, respiratory rate 16, blood pressure 136/82 and pulse ox 99%. HEENT: Head normocephalic, atraumatic. Eyes: Extraocular muscles are intact. Pupils are equal, round and reactive to light and accommodation. Ears: No lesions. Nose appeared normal. Throat: No exudate or erythema. NECK: Supple. No JVD, no carotid bruit. No lymphadenopathy or thyromegaly. LUNGS: Decreased breath sounds but clear to auscultation. Percussion note normal. Chest symmetrical. HEART: S1, S2, no S3. No murmurs. No cyanosis or clubbing. No ascites. Pulses: Dorsalis pedis and posterior tibial pulses +1 to +2 bilaterally. ABDOMEN: Soft. Nontender. Bowel sounds active. No CVA tenderness. No mass felt. EXTREMITIES: No edema. Full range of motion of all extremities, equal. NEUROLOGIC: No focal deficit. Cranial nerves II through XII are grossly intact. No headache. No double vision. SKIN: Not dry. Intact. Turgor - normal. LYMPHATIC: No palpable lymph nodes/no lymphedema. MUSCULOSKELETAL: Normal joints with no swelling. Muscle tone is normal. LABS: Hgb 11.1, hct 31, WBC 4,300 normal differential, creatinine 0.5, BUN 6, potassium 3.1 ASSESSMENT: 1. Acute pancreatitis has resolved advised to quit alcohol completely. The patient has alcohol addiction. 2. Hypokalemia, will give K-tab 20meq QID daily PLAN: 1. He says that he had a BM this morning and feels a lot better. His appetite has improved. 2. Counseling for smoking also done. 3. Again discussed about his DNR status. Just like during past hospitalization the patient has indicated that he would not like to be intubated. He doesn't want tube to be put into his throat. He would want everything else. I conveyed that to the nurse in charge. CONDITION: Stable TIME SPENT: More than 30 minutes. Plan and coordination of the patient's care discussed in the presence of nurse. ESPERANZA
--- NOTE | 2020-11-25 09:23 | PN ---
DATE OF SERVICE: 11/22/2020 SUBJECTIVE: The patient was seen and examined with the Nurse Practitioner. The patient's condition is improving. He is up and about. Cardiovascular status is stable. Practically no abdominal pain. Bowel movements are regular. Counseling for alcohol abuse and alcohol excess done. Also counseling for smoking done. TIME SPENT: More than 30 minutes. Plan and coordination of the patient's care discussed in the presence of nurse. ESPERANZA
--- NOTE | 2020-11-26 09:44 | DS ---
DATE OF SERVICE: 11/22/20 FINAL DIAGNOSIS: 1. LEFT UPPER QUADRANT PAIN 2. ACUTE ON CHRONIC PANCREATITIS* 3. ELEVATED LIVER FUNCTION RELATED TO PANCREATITIS* 4. HYPOKALEMIA* 5. HYPONATREMIA* 6. HISTORY OF ALCOHOL ABUSE* 7. DIABETES MELLITUS TYPE 2* HX: 8. DEHYDRATION 9. GENERALIZED WEAKNESS 10. HISTORY OF NONCOMPLIANCE WITH DIET, MEDICATIONS AND LIFESTYLE 11. COPD 12. HEART CATHETERIZATION 12/03 13. STATUS POST PARTIAL RIGHT NEPHRECTOMY, DR. MUHAMMAD 14. RIGHT FEMORAL ARTERIAL OCCLUSION 15. HISTORY OF RENAL STENT 16. CAD/CABG 2006 17. DIABETES MELLITUS TYPE 2, A1C 8.6 18. RIGHT COMM. FEMORAL END 12/03 - DR. HASKINS 19. BILATERAL CAROTID ENDARTERECTOMY, 2009 20. HISTORY OF PANCREATITIS 21. HISTORY OF ALCOHOL ABUSE 22. ATRIAL FIBRILLATION - ELIQUIS 23. HISTORY OF RENAL MASS 24. PAD 25. NEUROPATHY 26. HISTORY OF GI BLEED 27. DYSLIPIDEMIA 28. CLAUDICATION PAST SURGICAL HISTORY: 29. STATUS POST PARTIAL RIGHT NEPHRECTOMY, DR. MUHAMMAD 30. RIGHT FEMORAL ARTERIAL OCCLUSION 31. HISTORY OF RENAL STENT 32. CAD/CABG 2006 33. DIABETES MELLITUS TYPE 2, A1C 8.6 34. RIGHT COMM. FEMORAL END 12/03 - DR. HASKINS 35. BILATERAL CAROTID ENDARTERECTOMY, 2009 36. GALLBLADDER LAST VITALS Temp Pulse Resp BP Pulse Ox 99.0 F 85 19 148/83 H 97 11/22/20 06:00 11/22/20 06:00 11/22/20 08:00 11/22/20 06:00 11/22/20 06:00 DISCHARGE INSTRUCTIONS: 1. DISCHARGE HOME: TODAY, SUNDAY, November, LIVES WITH SPOUSE. 2. MD FOLLOW UP: SEE DR. ENRIQUEZ/ISAÍAS JEAN APRN/RHONDA JAY APRN IN THE OFFICE ON SUNDAY. DECEMBER 02, 2020 @ 0945 AM. 3. BLOOD SUGARS: CONTINUE TO CHECK BEFORE. MEDICATIONS AT DISCHARGE: Amlodipine Besylate (Amlodipine Besylate 5 Mg Tablet) 5 mg PO DAILY [facility] Last Admin: 11/21/20 08:52 Dose: 5 mg Documented by: Apixaban (Apixaban 5 Mg Tab) 5 mg PO BID [facility] Last Admin: 11/21/20 20:46 Dose: 5 mg Documented by: Ferrous Sulfate (Ferrous Sulfate 324 Mg Tablet.) 324 mg PO DAILY [facility] Last Admin: 11/21/20 08:52 Dose: 324 mg Documented by: Losartan Potassium (Losartan Potassium 25 Mg Tablet) 50 mg PO DAILY [facility] Last Admin: 11/21/20 08:52 Dose: 50 mg Documented by: Non-Formulary Medication (Folic Acid-Vit B6-Vit B12 ) 1 tab PO DAILY [facility] Last Admin: 11/21/20 08:59 Dose: Not Given Documented by: Non-Formulary Medication (Tresiba 200units/Ml) 18 - 20 units SUBCUT DAILY [facility] Last Admin: 11/21/20 08:53 Dose: 18 units Documented by: Potassium Chloride (Potassium Chloride 20 Meq Tab) 20 meq PO BID X 5 MORE DAYS -- ( NEW) Last Admin: 11/22/20 05:50 Dose: 20 meq Documented by: Fluticasone/Salmeterol (Fluticasone/Salmeterol 250/50 Diskus) 1 puff IH BID [facility] Last Admin: 11/21/20 20:47 Dose: 1 puff Documented by: Sotalol HCl (Sotalol Hcl 80 Mg Tablet) 80 mg PO DAILY [facility] Last Admin: 11/21/20 08:52 Dose: 80 mg Documented by: Tiotropium Page (Tiotropium Page 18 Mcg Cap.W.Dev) 1 cap IH DAILY [facility] Last Admin: 11/21/20 08:53 Dose: 1 cap Documented by: OMEPRAZOLE 40 MG PO QDAC NEW PRESCRIPTIONS: POTASSIUM 20 MEQ PO BID X 5 DAYS DISCONTINUED MEDICATIONS: SYMBICORT INHALER DIET INSTRUCTIONS: LOW FAT/LOW CHOLESTEROL NO ALCOHOL ACTIVITY: SLOWLY RESUME PREVIOUS ACTIVITY, WITH FREQUENT REST PERIODS STAY HOME, EXCEPT FOR MEDICAL RELATED APPOINTMENTS COVID VACCINE SUNDAY AT [facility] SOCIAL DISTANCING SMOKING: N/A DISEASE SPECIFIC EDUCATION: PANCREATITIS NO ALCOHOL COVID 19 HOSPITAL COURSE: This is a 65-year-old white male who went to the emergency room, I do believe on 11/16, was seen in the emergency room for abdominal pain, nausea, vomiting and unable to eat. He has a history of pancreatitis. CT scan revealed pancreatitis. He was sent home. No IV fluids were given. Amylase was done. No lipase. He called our office reporting that he had increasing pain, was unable to eat. He was admitted with left upper quadrant pain, acute on chronic pancreatitis, was found to be hypokalemic, hyponatremic. He was started on IV fluids at 125 cc/hr NS, placed NPO, given Dilaudid 1 mg q.3 to 4 hours p.r.n. He was not started on Toradol as he is on Eliquis for history of atrial fibrillation. Over the course of several days he was advanced to clear liquids and soft bland diet. He has tolerated this well. Today, on day of discharge, he has been eating low fat foods, small frequent meals for the past 24 hours and has tolerated this, not experiencing any pain, has not had any nausea. It is to be noted liver functions significantly increased after admission. Hepatitis panel was done which was negative. Ultrasound of the liver was done which showed fatty liver. Liver enzymes have already started trending down. This is to be expected with pancreatitis. He does have a history of alcohol abuse although reports that he has stopped, declines treatment for alcohol abuse. Blood sugars were controlled while he was here. He does have a history of diabetes. Today, on day of discharge, his labs look great. He is feeling much better. He has been up and about in the room. Again, reports no pain at all. Sodium 132, potassium 3.3, BUN 5, creatinine 0.7. Hemoglobin 11.5. He has been instructed of course no alcohol, small low-fat meals and to eat frequently. He is scheduled for a Covid vaccine I do believe later on this week. He is okay to get that. I will discharge him on Potassium 20 daily to take for the next 5 days just as his potassium is at 3.3. We will followup with him next week in the office and he will be discharged in stable condition. TIME SPENT: More than 60 minutes. ESPERANZA
--- NOTE | 2020-11-26 09:47 | DS ---
CODING FOR BILLING 11/18/20 ADMISSION DAY LEVEL 5 11/19/20 INTERMEDIATE 11/20/20 INTERMEDIATE 11/21/20 INTERMEDIATE 11/22/20 D IN DISCHARGE MTDD
== END 2020-11-22 11:51 | disposition home or self-care (01) | DRG 392 ==
LOC: MEDSURG A 11:59
PROVIDERS: ADMIT Internal Medicine; ATTEND Internal Medicine

== ENCOUNTER 2021-08-23 15:39 | Inpatient (IN) ==
[2021-08-23] MEDS ORDERED: VENTOLIN HFA (PER PUFF-WITH SPACER) IH ONE (15:47)
[2021-08-23] MEDS ORDERED: SOLU-MEDROL 125 MG IVP STA (16:06)
[2021-08-23 16:08] LABS: ABG O2 HGB 89.9 % (95-100); ABG PH 7.45 (7.35-7.45); BEecf 3.8 (-2.0-3.0); COHb 2.8 (0.5-1.5); HCO3 27.8 (21-28); MetHb 1.3 (0-1.5); sO2 92.1 % (94-98); tHb 14.1 g/dl (11.7-17.4)
[2021-08-23] MEDS ORDERED: DUONEB NEB ONE (16:11)
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
--- NOTE | 2021-08-23 16:26 | DI ---
EXAM: Chest one view, frontal view only. HISTORY: Shortness of breath. COMPARISON: 08/04/2021. FINDINGS: CABG hardware again noted. The heart size is normal. There is no pulmonary vascular jonatan estion. Pulmonary nodules noted on recent CT not well seen by radiograph. Follow-up CT recommended. There is bronchial thickening in both lungs most notably the right base. Otherwise, the lungs are clear. No pleural effusion or pneumothorax is seen. No acute osseous abnormality is identified. Ol d right clavicular fracture noted. IMPRESSION: Bronchial thickening, greatest in the right base consistent with airways inflammation.
[2021-08-23 16:31] LABS: BASOPHILS % (AUTO) 0.4 % (0.0-3.0); EOSINOPHILS % (AUTO) 0.2 % (0.0-7.0); HEMATOCRIT 42.4 % (42.0-52.0); HEMOGLOBIN 14.2 g/dl (14.0-18.0); IMMATURE GRANULOCYTE # (AUTO) 0.1 (0.0-1.0); IMMATURE GRANULOCYTE % (AUTO) 0.6 % (0.0-5.0); LYMPHOCYTES # (AUTO) 1.4 K/uL (0.60-3.4); LYMPHOCYTES % (AUTO) 16.2 (10.0-50.0); MEAN CORPUSCULAR HEMOGLOBIN 31.7 pg (27.0-31.0); MEAN CORPUSCULAR HGB CONC 33.5 (31.8-35.4); MEAN CORPUSCULAR VOLUME 94.6 fl (80.0-94.0); MONOCYTES # (AUTO) 0.9 K/uL (0.4-2.0); MONOCYTES % (AUTO) 10.7 (0-10); NEUTROPHILS % (AUTO) 71.9 % (42.2-75.2); PLATELET COUNT 186 10^3/uL (140-440); RDW COEFFICIENT OF VARIATION 12.5 % (11.6-14.8); RED BLOOD COUNT 4.48 10^6/ul (4.70-6.10); WHITE BLOOD COUNT 8.35 K/ul (4.2-10.2)
[2021-08-23] MEDS ORDERED: CATAPRES PO STA (16:50)
[2021-08-23] MEDS ORDERED: CATAPRES PO ONE (16:54)
[2021-08-23 17:14] LABS: ALANINE AMINOTRANSFERASE 15.2 U/L (0-50); ALKALINE PHOSPHATASE 94.8 U/L (56-119); ASPARTATE AMINO TRANSFERASE 20.2 U/L (17-59); BILIRUBIN,TOTAL 0.37 mg/dL (0.2-1.3); BLOOD UREA NITROGEN 12.5 mg/dL (9-20); CARBON DIOXIDE 26.5 mmol/L (22-30.0); CHLORIDE 103.9 mmol/L (98-107); CREATINE KINASE 32.3 U/L (55-170); CREATININE 0.78 mg/dL (0.60-1.10); GLUCOSE 202.5 mg/dL (74-106); POTASSIUM 3.52 mmol/L (3.5-5.1); SODIUM 136.8 mmol/L (134.5-145); TOTAL PROTEIN 7.32 g/dL (6.3-8.2)
[2021-08-23 17:31] LABS: TROPONIN I < 0.012 ng/ml (0.0000-0.120)
[2021-08-23] MEDS ORDERED: ROCEPHIN 1 GM/50 ML D5W 1 GM/50 ML BAG IV SCH (20:00)
[2021-08-23] MEDS ORDERED: PROTONIX PO PRN (20:11)
[2021-08-23] MEDS ORDERED: NORVASC PO SCH ×2 (20:30→21:00)
[2021-08-23] MEDS ORDERED: BETAPACE PO SCH (20:30)
[2021-08-23 20:43] LABS: BORDETELLA PARAPERTUSSIS (PCR) NOT DETECTED (NOT DETECT); BORDETELLA PERTUSSIS (PCR) NOT DETECTED (NOT DETECT); CHLAMYDIA PNEUMONIAE (PCR) NOT DETECTED (NOT DETECT); CORONAVIRUS 229E (PCR) NOT DETECTED (NOT DETECT); CORONAVIRUS HKU1 (PCR) NOT DETECTED (NOT DETECT); CORONAVIRUS NL63 (PCR) NOT DETECTED (NOT DETECT); CORONAVIRUS OC43 (PCR) NOT DETECTED (NOT DETECT); HUMAN METAPNEUMOVIRUS (PCR) NOT DETECTED (NOT DETECT); HUMAN RHINOVIRUS/ENTEROV (PCR) NOT DETECTED (NOT DETECT); INFLUENZA B (PCR) NOT DETECTED (NOT DETECT); MYCOPLASMA PNEUMONIAE (PCR) NOT DETECTED (NOT DETECT); PARAINFLUENZA VIRUS 1 (PCR) NOT DETECTED (NOT DETECT); PARAINFLUENZA VIRUS 2 (PCR) NOT DETECTED (NOT DETECT); PARAINFLUENZA VIRUS 4 (PCR) NOT DETECTED (NOT DETECT); RESPIRATORY SYNCYTIAL V (PCR) NOT DETECTED (NOT DETECT); SARS_COV_2 (PCR) NOT DETECTED (NOT DETECT)
[2021-08-23] MEDS ORDERED: ELIQUIS PO SCH (21:00)
[2021-08-23] MEDS ORDERED: SOLU-MEDROL 125 MG IVP SCH (21:00)
[2021-08-23] MEDS ORDERED: SYMBICORT 160-4.5 MCG INHALER IH SCH (21:00)
[2021-08-23 21:09] VITALS: BMI 18.3
[2021-08-23] MEDS ORDERED: NITROSTAT SL PRN (21:11)
[2021-08-23] MEDS ORDERED: TYLENOL PO PRN (21:11)
[2021-08-23] MEDS ORDERED: ATROPINE SULFATE PFS IVP PRN (21:11)
[2021-08-23] MEDS: ATIVAN PO SCH (21:16)
[2021-08-23] MEDS: ELIQUIS PO SCH (21:17)
[2021-08-23] MEDS: THIAMINE PO SCH (21:17)
[2021-08-23 21:34] LABS: ADENOVIRUS (PCR) NOT DETECTED (NOT DETECT); PARAINFLUENZA VIRUS 3 (PCR) DETECTED (NOT DETECT)
[2021-08-23] MEDS: SOLU-MEDROL 125 MG IVP SCH (21:50)
[2021-08-23] MEDS: DOXY-100 100 MG in SODIUM CHLORIDE 100ML 100 ML IV SCH (22:22)
[2021-08-23] MEDS: HUMULIN R SUBCUT PRN (22:26)
[2021-08-24] MEDS: DUONEB NEB SCH ×4 (04:50→19:50)
[2021-08-24] MEDS: PULMICORT 1 MG/2 ML NEB SCH ×2 (04:50→19:40)
[2021-08-24 05:15] LABS: BASOPHILS % (AUTO) 0.2 % (0.0-3.0); HEMATOCRIT 39.1 % (42.0-52.0); HEMOGLOBIN 13.2 g/dl (14.0-18.0); IMMATURE GRANULOCYTE % (AUTO) 0.6 % (0.0-5.0); LYMPHOCYTES % (AUTO) 16.3 (10.0-50.0); MEAN CORPUSCULAR HEMOGLOBIN 31.7 pg (27.0-31.0); MEAN CORPUSCULAR HGB CONC 33.8 (31.8-35.4); MEAN CORPUSCULAR VOLUME 93.8 fl (80.0-94.0); MONOCYTES # (AUTO) 0.1 K/uL (0.4-2.0); MONOCYTES % (AUTO) 1.6 (0-10); NEUTROPHILS # (AUTO) 5.1 K/ul (2.0-6.9); NEUTROPHILS % (AUTO) 81.3 % (42.2-75.2); PLATELET COUNT 158 10^3/uL (140-440); RDW COEFFICIENT OF VARIATION 12.2 % (11.6-14.8); RED BLOOD COUNT 4.17 10^6/ul (4.70-6.10); WHITE BLOOD COUNT 6.32 K/ul (4.2-10.2)
[2021-08-24] MEDS: SOLU-MEDROL 125 MG IVP SCH ×4 (05:20→20:36)
[2021-08-24 05:27] LABS: ALANINE AMINOTRANSFERASE 13.3 U/L (0-50); ALBUMIN 3.17 g/dL (3.5-5.0); ALKALINE PHOSPHATASE 81.1 U/L (56-119); ASPARTATE AMINO TRANSFERASE 18.4 U/L (17-59); BILIRUBIN,TOTAL 0.29 mg/dL (0.2-1.3); BLOOD UREA NITROGEN 14.4 mg/dL (9-20); CALCIUM 8.49 mg/dL (8.4-10.2); CREATININE 0.73 mg/dL (0.60-1.10); GLUCOSE 164.9 mg/dL (74-106); POTASSIUM 3.94 mmol/L (3.5-5.1); SODIUM 136.1 mmol/L (134.5-145); TOTAL PROTEIN 6.67 g/dL (6.3-8.2)
[2021-08-24 05:43] LABS: BILIRUBIN,URINE Negative (NEGATIVE); CLARITY,URINE Clear (CLEAR); COLOR,URINE Yellow (YELLOW); GLUCOSE, URINE (UA) 2+ (NEGATIVE); KETONES,URINE Negative (NEGATIVE); LEUKOCYTE ESTERASE ,URINE Negative (NEGATIVE); NITRITE,URINE Negative (NEGATIVE); PROTEIN,URINE 3+ (NEGATIVE); URINE, BLOOD Trace-intact (NEGATIVE); UROBILINOGEN,URINE 0.2 (0.2)
[2021-08-24] MEDS: PRILOSEC PO SCH (05:44)
[2021-08-24] MEDS: HUMULIN R SUBCUT PRN ×4 (05:54→20:49)
[2021-08-24 05:56] LABS: BACTERIA,URINE TRACE (NOT PRESENT); MUCUS,URINE 1+ (NOT PRESENT); RENAL EPITHELIAL CELLS,URINE 0-2 (NOT PRESENT); SQUAMOUS EPITHELIAL CELL,UR NOT PRESENT (0-5)
[2021-08-24] MEDS ORDERED: PRILOSEC PO SCH (06:30)
[2021-08-24] MEDS: THIAMINE PO SCH (08:05)
[2021-08-24] MEDS: FERROUS SULFATE PO SCH (08:05)
[2021-08-24] MEDS: ATIVAN PO SCH ×2 (08:05→20:36)
[2021-08-24] MEDS: DOXY-100 100 MG in SODIUM CHLORIDE 100ML 100 ML IV SCH ×2 (08:05→21:36)
[2021-08-24] MEDS: ELIQUIS PO SCH ×2 (08:06→20:39)
[2021-08-24] MEDS ORDERED: COZAAR PO SCH (09:00)
[2021-08-24] MEDS ORDERED: FERROUS SULFATE PO SCH (09:00)
[2021-08-24] MEDS ORDERED: SODIUM CHLORIDE 1,000 ML IV SCH (09:00)
[2021-08-24 14:27] LABS: ABG O2 HGB 92.9 % (95-100); ABG PH 7.44 (7.35-7.45); BEecf 1.6 (-2.0-3.0); COHb 2.6 (0.5-1.5); HCO3 25.8 (21-28); sO2 93.7 % (94-98); tHb 12.2 g/dl (11.7-17.4)
[2021-08-24] MEDS: NORVASC PO SCH ×2 (14:35→20:38)
[2021-08-24] MEDS ORDERED: NYSTATIN ORAL SUSP PO STA (20:14)
[2021-08-24] MEDS: NYSTATIN ORAL SUSP PO SCH (20:26)
[2021-08-24] MEDS: COZAAR PO SCH (20:38)
[2021-08-24] MEDS ORDERED: NORVASC PO SCH (21:00)
[2021-08-24] MEDS ORDERED: BETAPACE PO SCH (21:00)
[2021-08-24] MEDS ORDERED: ROCEPHIN 1 GM/50 ML D5W 1 GM/50 ML BAG IV SCH (21:00)
[2021-08-25] MEDS: PULMICORT 1 MG/2 ML NEB SCH (04:55)
[2021-08-25] MEDS: DUONEB NEB SCH ×2 (04:55→09:55)
[2021-08-25 05:35] LABS: BASOPHILS % (AUTO) 0.1 % (0.0-3.0); HEMATOCRIT 37.7 % (42.0-52.0); HEMOGLOBIN 12.8 g/dl (14.0-18.0); IMMATURE GRANULOCYTE # (AUTO) 0.1 (0.0-1.0); IMMATURE GRANULOCYTE % (AUTO) 0.8 % (0.0-5.0); LYMPHOCYTES # (AUTO) 1.4 K/uL (0.60-3.4); LYMPHOCYTES % (AUTO) 17.6 (10.0-50.0); MEAN CORPUSCULAR HEMOGLOBIN 31.5 pg (27.0-31.0); MEAN CORPUSCULAR VOLUME 92.9 fl (80.0-94.0); MONOCYTES # (AUTO) 0.3 K/uL (0.4-2.0); MONOCYTES % (AUTO) 3.7 (0-10); NEUTROPHILS # (AUTO) 6.2 K/ul (2.0-6.9); NEUTROPHILS % (AUTO) 77.8 % (42.2-75.2); PLATELET COUNT 170 10^3/uL (140-440); RDW COEFFICIENT OF VARIATION 12.3 % (11.6-14.8); RED BLOOD COUNT 4.06 10^6/ul (4.70-6.10); WHITE BLOOD COUNT 7.92 K/ul (4.2-10.2)
[2021-08-25 05:46] VITALS: BP 139/86; TEMP 97.9
[2021-08-25] MEDS: PRILOSEC PO SCH (05:46)
[2021-08-25] MEDS: NYSTATIN ORAL SUSP PO SCH ×2 (05:47→11:00)
[2021-08-25 05:51] LABS: ALBUMIN 3.03 g/dL (3.5-5.0); ALKALINE PHOSPHATASE 68.5 U/L (56-119); ASPARTATE AMINO TRANSFERASE 19.7 U/L (17-59); BILIRUBIN,TOTAL 0.25 mg/dL (0.2-1.3); BLOOD UREA NITROGEN 20.4 mg/dL (9-20); CALCIUM 8.48 mg/dL (8.4-10.2); CARBON DIOXIDE 25.7 mmol/L (22-30.0); CHLORIDE 104.3 mmol/L (98-107); CREATININE 0.73 mg/dL (0.60-1.10); POTASSIUM 3.82 mmol/L (3.5-5.1); TOTAL PROTEIN 6.33 g/dL (6.3-8.2)
[2021-08-25] MEDS: HUMULIN R SUBCUT PRN ×2 (06:04→11:01)
[2021-08-25] MEDS ORDERED: PREDNISONE PO SCH (08:30)
[2021-08-25] MEDS ORDERED: DECADRON IM ONE (08:35)
[2021-08-25] MEDS: FERROUS SULFATE PO SCH (08:37)
[2021-08-25] MEDS: COZAAR PO SCH (08:37)
[2021-08-25] MEDS: NORVASC PO SCH (08:37)
[2021-08-25] MEDS: THIAMINE PO SCH (08:37)
[2021-08-25] MEDS: ATIVAN PO SCH (08:38)
[2021-08-25] MEDS: ELIQUIS PO SCH (08:38)
[2021-08-25] MEDS: DOXY-100 100 MG in SODIUM CHLORIDE 100ML 100 ML IV SCH (08:43)
[2021-08-25] MEDS ORDERED: SYMBICORT 160-4.5 MCG INHALER IH SCH (09:00)
--- NOTE | 2021-08-25 09:00 | PCM.PROG ---
Attending Provider: ATTENDING PROVIDER: Dr. VICKI ENRIQUEZ This patient is seen with Purvi Santizo, Nurse Practitioner. DATE OF SERVICE: 08/25/21 SUBJECTIVE: This 66 year old /WHITE M was hospitalized 08/23/21. The patient is resting comfortably. The patient would like to go home today. Sating 93% on room air. Still with significant wheezing. No fever. REVIEW OF SYSTEMS: CONSTITUTIONAL: No night sweats. No fatigue, malaise, lethargy. No fever or chills. HEENT: Eyes: No visual changes. No eye pain. No eye discharge. ENT: No runny nose. No epistaxis. No sinus pain. No odynophagia. No congestion. RESPIRATORY: Cough, no congestion. No hemoptysis. No shortness of breath. Wheezing. CARDIOVASCULAR: No angina symptoms. No CHF symptoms. No atypical chest pain for CAD. No palpitations. No orthopnea.. GASTROINTESTINAL: No abdominal pain. No nausea or vomiting. No diarrhea or constipation. No hematemesis. No hematochezia. GENITOURINARY: No urgency. No frequency. No dysuria. No hematuria. No obstructive symptoms. No discharge. No pain. No significant abnormal bleeding. MUSCULOSKELETAL: No musculoskeletal pain; no joint swelling. NEUROLOGICAL: Awake, alert, oriented to time, place and person. No headache. No neck pain. No syncope. No seizures. No dizziness. PSYCHIATRIC: Not anxious. No depression. No suicidal thoughts. No homicidal thoughts. SKIN: No rash. No lesions. No wounds. ENDOCRINE: No unexplained weight loss. No weight gain. HEMATOLOGIC/LYMPHATIC: No anemia. No purpura. No petechiae. No prolonged or excessive bleeding. No palpable lymph nodes. PHYSICAL EXAMINATION: GENERAL: The patient is awake, alert and oriented, lying in bed in no distress. VITAL SIGNS: Temperature 97.9 F, Pulse 88, Respiratory Rate 20, BP 139/86, Pulse Ox 94% HEENT: Head normocephalic, atraumatic. Eyes: Extraocular muscles are intact. Pupils are equal, round and reactive to light and accommodation. Ears: No lesions. Nose appeared normal. Throat: No exudate or erythema. NECK: Supple. No JVD, no carotid bruit. No lymphadenopathy or thyromegaly. LUNGS:Bilateral inspiratory and expiratory wheezing. Clear to auscultation. Percussion note normal. Chest symmetrical. HEART: S1, S2, no S3. No murmurs. No cyanosis or clubbing. No ascites. Pulses: Dorsalis pedis and posterior tibial pulses +1 to +2 both sides. ABDOMEN: Soft. Non-tender. Bowel sounds active. No CVA tenderness. No mass felt. EXTREMITIES: No edema. Full range of motion of all extremities, equal. NEUROLOGIC: No focal deficit. Cranial nerves II through XII are grossly intact. No headache. No double vision. SKIN: Not dry. Intact. Turgor-normal. LYMPHATIC: No palpable lymph nodes/no lymphedema. MUSCULOSKELETAL: Normal joints with no swelling. Muscle tone is normal. LAB REVIEW: 08/25/21 05:10 08/25/21 05:10 08/25/21 05:10: Sodium 135.0, Potassium 3.82, Chloride 104.3, Carbon Dioxide 25.7, Anion Gap 8.82, BUN 20.4 H, Creatinine 0.73, Estimated GFR (MDRD) 107.00, BUN/Creatinine Ratio 27.94, Glucose 177.0 H, Calcium 8.48, Total Bilirubin 0.25, AST 19.7, ALT 14.0, Alkaline Phosphatase 68.5, Total Protein 6.33, Albumin 3.03 L, Globulin 3.30, Albumin/Globulin Ratio 0.91 08/25/21 05:10: WBC 7.92, RBC 4.06 L, Hgb 12.8 L, Hct 37.7 L, MCV 92.9, MCH 31.5 H, MCHC 34.0, RDW Coeff of Hilary 12.3, Plt Count 170, Immature Gran % (Auto) 0.8, Neut % (Auto) 77.8 H, Lymph % (Auto) 17.6, [place] % (Auto) 3.7, Eos % (Auto) 0.0, Baso % (Auto) 0.1, Neut # (Auto) 6.2, Lymph # (Auto) 1.4, [place] # (Auto) 0.3 L, Eos # (Auto) 0.0, Baso # (Auto) 0.0, Immature Gran # (Auto) 0.1 08/24/21 14:00: Puncture Site Lrad, Base Excess 1.6, O2 Saturation 93.7 L, ABG pH 7.44, ABG pCO2 38.0, ABG pO2 67.0 L, ABG HCO3 25.8, ABG Total CO2 27.0 H, Laron Test Pos, Hemoglobin 1.0, Oxyhemoglobin 92.9 L, Carboxyhemoglobin 2.6 H, Total Hemoglobin 12.2, FiO2 % 21.0 ASSESSMENT: Please see below. 1. Acute COPD exacerbation 2. Shortness of breath 3. Atrial fibrillation. PLAN: 1. Discharge home 2. 1cc Decadrone today 3. Prednisone 20mg BID for 4 days then daily for 3 days 4. Keflex 500mg TID for 7 days 5. Nystatin QID 6. Followup in the office Plan and coordination of the patient's care discussed in the presence of Clinical Editor and nurse. SCRIBED BY: Kaden WHITE scribed while in presence of service performed by Dr. Enriquez/Purvi Santizo APRN on 08/25/21 ([id number])
--- NOTE | 2021-08-25 13:59 | CM.DICTOOL ---
ADMISSION: 08/23/21 18:17 DISCHARGE: AUGUST 25, 2021 DATE OF SERVICE: 08/25/21 FINAL DIAGNOSIS ACUTE COPD EXACERBATION SMOKE EXPOSURE/INHALATION ATRIAL FIBRILLATION (ON ELIQUIS) COPD HYPERTENSION CORONARY ARTERY DISEASE RIGHT FEMORAL ARTERIAL OCCLUSION DIABETES MELLITUS TYPE 2, A1C 8.6 PANCREATITIS RIGHT RENAL MASS PERIPHERAL ARTERIAL DISEASE CLAUDICATION NEUROPATHY HISTORY OF GI BLEED DYSLIPIDEMIA ALCOHOL ABUSE CONTINUED SMOKING NON-COMPLIANCE WITH DIET, MEDICATIONS AND LIFESTYLE PARTIAL RIGHT NEPHRECTOMY, DR. MUHAMMAD RENAL STENT CABG 2006 CARDIAC CATH, 2018 RIGHT COMMON FEMORAL ENDARTERECTOMY, 12/03 - DR. HASKINS LEFT FEMORAL ARTERY STENT BILATERAL CAROTID ENDARTERECTOMY, 2010 CHOLECYSTECTOMY LAST VITALS Temp Pulse Resp BP Pulse Ox 97.9 F 88 20 139/86 95 08/25/21 05:45 08/25/21 05:45 08/25/21 08:00 08/25/21 05:45 08/25/21 09:54 TAKE THESE MEDICATIONS AT HOME Albuterol NEB RTQID PRN Last Admin: 08/25/21 09:55 Dose: 3 ml Documented by: Amlodipine Besylate (Amlodipine Besylate 5 Mg Tablet) 5 mg PO BID [facility] (DOSE INCREASED) Last Admin: 08/25/21 08:37 Dose: 5 mg Documented by: Apixaban (Apixaban 5 Mg Tab) 5 mg PO BID [facility] Last Admin: 08/25/21 08:38 Dose: 5 mg Documented by: Budesonide/Formoterol Fumarate (Budesonide/Formoterol Fumarate 160/4.5 Mcg Inhaler) 2 puff IH BID [facility] Last Admin: 08/25/21 09:11 Dose: 2 puff Documented by: Ferrous Sulfate (Ferrous Sulfate 324 Mg Tablet.) 324 mg PO DAILY [facility] Last Admin: 08/25/21 08:37 Dose: 324 mg Documented by: FOLBIC ACID 1 TABLET PO DAILY [facility] LAST ADMIN: TRESIBA SQ DAILY, DOSE INSTRUCTED [facility] LAST ADMIN: Losartan Potassium (Losartan Potassium 25 Mg Tablet) 50 mg PO BID [facility] (DOSE INCREASED) Last Admin: 08/25/21 08:37 Dose: 50 mg Documented by: Nystatin (Nystatin Susp 500,000 Units/5 Ml Cup) 5 ml PO ACHS TYRA (NEW RX) Last Admin: 08/25/21 05:47 Dose: 5 ml Documented by: Pantoprazole Sodium (Pantoprazole Sodium 40 Mg Tablet.) 40 mg PO DAILY PRN Reason: Heartburn Prednisone (Prednisone 20 Mg Tablet) 20 mg PO BID FOR 4 DAYS, THEN DAILY FOR 3 DAYS TYRA (NEW RX) Last Admin: 08/25/21 08:37 Dose: 20 mg Documented by: KEFLEX 500 MG PO TID TYRA FOR 7 DAYS (NEW RX) ALBUTEROL HFA 2 PUFFS QID PRN WHEEZING, SHORTNESS OF AIR (NEW RX) Sotalol HCl (Sotalol Hcl 80 Mg Tablet) 80 mg PO 2100 TYRA Last Admin: 08/24/21 20:36 Dose: 80 mg Documented by: ALLERGIES No Known Allergies Allergy (Verified 08/23/21 15:45) DISCONTINUED MEDICATIONS AMLODIPINE 5 MG DAILY LOSARTAN 50 MG DAILY PRILOSEC ASA SPIRIVA ADVAIR NEW PRESCRIPTIONS: PREDNISONE 20 MG BID FOR 4 DAYS, THEN 20 MG DAILY FOR 3 DAYS KEFLEX 500 MG TID FOR 7 DAYS AMLODIPINE 5 MG BID LOSARTAN 50 MG BID ALBUTEROL HFA 2 PUFFS QID PRN WHEEZING NYSTATIN 5 ML QID FOR 10 DAYS SMOKING: COUNSELING REGARDING SMOKING CESSATION ENCOURAGED TO STOP SMOKING DISEASE SPECIFIC EDUCATION: SMOKING CESSATION NEBULIZER TREATMENTS NEW MEDICATIONS USE OF ORAL STEROIDS AND RISK OF GI IRRITATION, AVASCULAR NECROSIS APPOINTMENT LAB REVIEW: 08/25/21 05:10 08/25/21 05:10 08/25/21 05:10: Sodium 135.0, Potassium 3.82, Chloride 104.3, Carbon Dioxide 25.7, Anion Gap 8.82, BUN 20.4 H, Creatinine 0.73, Estimated GFR (MDRD) 107.00, BUN/Creatinine Ratio 27.94, Glucose 177.0 H, Calcium 8.48, Total Bilirubin 0.25, AST 19.7, ALT 14.0, Alkaline Phosphatase 68.5, Total Protein 6.33, Albumin 3.03 L, Globulin 3.30, Albumin/Globulin Ratio 0.91 08/25/21 05:10: WBC 7.92, RBC 4.06 L, Hgb 12.8 L, Hct 37.7 L, MCV 92.9, MCH 31.5 H, MCHC 34.0, RDW Coeff of Hilary 12.3, Plt Count 170, Immature Gran % (Auto) 0.8, Neut % (Auto) 77.8 H, Lymph % (Auto) 17.6, [place] % (Auto) 3.7, Eos % (Auto) 0.0, Baso % (Auto) 0.1, Neut # (Auto) 6.2, Lymph # (Auto) 1.4, [place] # (Auto) 0.3 L, Eos # (Auto) 0.0, Baso # (Auto) 0.0, Immature Gran # (Auto) 0.1 08/24/21 14:00: Puncture Site Lrad, Base Excess 1.6, O2 Saturation 93.7 L, ABG pH 7.44, ABG pCO2 38.0, ABG pO2 67.0 L, ABG HCO3 25.8, ABG Total CO2 27.0 H, Laron Test Pos, Hemoglobin 1.0, Oxyhemoglobin 92.9 L, Carboxyhemoglobin 2.6 H, Total Hemoglobin 12.2, FiO2 % 21.0 PLAN: DISCHARGE HOME WITH SPOUSE ACTIVITY: GRADUALLY RESUME TOLERATED DIET: CONSISTENT CARBOHYDRATES CONTINUE TO USE NEBULIZER TREATMENTS 3-4 TIMES DAILY UNTIL SEEN IN OFFICE A NEW NEBULIZER HAS BEEN ORDERED THRU [facility] USE ONLY INHALERS LISTED ON NURSING DISCHARGE DO NOT TAKE ASPIRIN CONTINUE TRESIBA DOSING INSTRUCTED BY DR. ENRIQUEZ/ISAÍAS JEAN APRN AN APPOINTMENT IS SCHEDULED WITH DR. ENRIQUEZ/ISAÍAS JEAN APRN/RHONDA JAY APRN ON August AT 10:45 AM CODE STATUS: FULL CODE MR. ROUSE IS ALERT AND ORIENTED X 4. HE LIVES AT HOME WITH HIS . HE IS INDEPENDENT WITH ALL ACTIVITIES OF DAILY LIVING. HE IS AMBULATORY WITHOUT USE OF ASSISTIVE DEVICE OR STAFF ASSISTANCE. MR. ROUSE CONTINUES TO REPORT SLIGHT SHORTNESS OF AIR WITH EXERTION, BUT STATES HE IS MUCH IMPROVED SINCE HIS ADMISSION. OXYGEN SATURATIONS HAVE BEEN IN THE LOW T0 MID 90'S ON ROOM AIR. MEAL INTAKES ARE GOOD AT 25-100%. MR. ROUSE REPORTS HE LIKES TO HAVE SMALL SNACKS FREQUENTLY HERE AND AT HOME. HYDRATION STATUS IS GOOD. HE IS CONTINENT OF BOWEL AND BLADDER. SKIN IS INTACT AND FREE OF OPEN WOUNDS. MD ISAÍAS LARA APRN
--- NOTE | 2021-08-26 13:34 | PN ---
DATE OF SERVICE: 08/25/2021 SUBJECTIVE: The patient was seen and examined with the Nurse Practitioner. The patient's condition is stable and wants to go home. No distress. No wheezing. Cardiovascular and respiratory status is stable. Oxygen saturation 96% on room air. Discharge home on steroids and antibiotics. Counseling for smoking done. Counseling for alcoholism to quit alcohol abuse done. Advised to continue all his medications as prescribed. TIME SPENT: More than 30 minutes. Plan and coordination of the patient's care discussed in the presence of nurse. ESPERANZA
--- NOTE | 2021-08-26 13:41 | PN ---
DATE OF SERVICE: 08/24/2021 SUBJECTIVE: The patient is doing well. Was seen in the rounds. REVIEW OF SYSTEMS: CONSTITUTIONAL: No night sweats. No fatigue, malaise, lethargy. No fever or chills. HEENT: Eyes: No visual changes. No eye pain. No eye discharge. ENT: No runny nose. No epistaxis. No sinus pain. No sore throat. No odynophagia. No congestion. RESPIRATORY: No cough, no congestion. No hemoptysis. No shortness of breath. CARDIOVASCULAR: No angina symptoms. No CHF symptoms. No atypical chest pain for CAD. No palpitations. No PND. No orthopnea. GASTROINTESTINAL: No abdominal pain. No nausea or vomiting. No diarrhea or constipation. No hematemesis. No hematochezia. Appetite has improved. GENITOURINARY: No urgency. No frequency. No dysuria. No hematuria. No obstructive symptoms. No discharge. No pain. No significant abnormal bleeding. MUSCULOSKELETAL: No musculoskeletal pain; no joint swelling. NEUROLOGICAL: No headache. No neck pain. No syncope. No seizures. No dizziness. PSYCHIATRIC: Not anxious. No depression. No suicidal thoughts. No homicidal thoughts. SKIN: No rash. No lesions. No wounds. ENDOCRINE: No unexplained weight loss. No weight gain. HEMATOLOGIC/LYMPHATIC: No anemia. No purpura. No petechiae. No prolonged or excessive bleeding. No palpable lymph nodes. PHYSICAL EXAMINATION: VITAL SIGNS: Oxygen saturation 96% on room air. pulse 80, respiratory rate 15, blood pressure 180/94. HEENT: Head normocephalic, atraumatic. Eyes: Extraocular muscles are intact. Pupils are equal, round and reactive to light and accommodation. Ears: No lesions. Nose appeared normal. Throat: No exudate or erythema. NECK: Supple. No JVD, no carotid bruit. No lymphadenopathy or thyromegaly. LUNGS: Good breath sounds with mild expiratory wheeze. Clear to auscultation. Percussion note normal. Chest symmetrical. HEART: S1, S2, no S3. No murmurs. No cyanosis or clubbing. No ascites. Pulses: Dorsalis pedis and posterior tibial pulses +1 to +2 bilaterally. ABDOMEN: Soft. Nontender. Bowel sounds active. No CVA tenderness. No mass felt. EXTREMITIES: No edema. Full range of motion of all extremities, equal. NEUROLOGIC: No focal deficit. Cranial nerves II through XII are grossly intact. No headache. No double vision. SKIN: Not dry. Intact. Turgor - normal. LYMPHATIC: No palpable lymph nodes/no lymphedema. MUSCULOSKELETAL: Normal joints with no swelling. Muscle tone is normal. LABS: Stable. ASSESSMENT: 1. Acute respiratory distress, resolved 2. COPD with continued smoking. Counseling for smoking done. Counseling for alcoholism done. Doesn't want any help for alcoholism 3. Cardiovascular status is stable with history of coronary artery disease. Respiratory functions are a lot better Clinically. PLAN: 1. Add Cozaar 50mg BID 2. Amlodipine 5mg twice day 3. The patient hasn't been taking his inhalers as prescribed. 4. Will add Albuterol as rescue inhaler CONDITION: Stable. TIME SPENT: More than 30 minutes. Plan and coordination of the patient's care discussed in the presence of nurse. ESPERANZA
--- NOTE | 2021-08-26 13:51 | PN ---
DATE OF SERVICE: 08/23/2021 ADMIT NOTE SUBJECTIVE: The patient was seen and examined. He was hospitalized with shortness of breath and cough. 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 The patient's blood pressure in the emergency room was approximately 180/112. The patient is noncompliant of medications and lifestyle. He has continued to smoke and drink with multiple end stage medical problems with history of chronic pancreatitis, severe chronic lung disease, severe peripheral arterial disease, coronary artery disease, severe chronic lung disease. The patient's arterial blood gasses are stable for his medical problems and has oxygen saturation 92% on room air. He is going to be given antibiotics, steroids and NEBS. He is going to have telemetry. Cardiac markers are negative. He will continued on his antihypertensive medications. CONDITION: Stable The patient is full code. TIME SPENT: More than 30 minutes. Plan and coordination of the patient's care discussed in the presence of nurse. ESPERANZA
--- NOTE | 2021-09-08 13:31 | HP ---
DATE OF SERVICE: 08/23/2021 REASON FOR HOSPITALIZATION/HISTORY OF PRESENT ILLNESS: 66 year old white male who presented to the emergency room with shortness of breath and wheezing. He stated that he had been burning leaves all day. He has a long history of COPD, heavy smoker and atrial fibrillation. PAST MEDICAL HISTORY: End stage COPD Atrial fibrillation on Eliquis Hypertension Coronary artery disease Right femoral arterial occlusions Diabetes Mellitus type II last A1c was 8 in the office about a month ago History of recurrent pancreatitis. Chronic alcoholism Right renal carcinoma with right partial nephrectomy PAD Claudication Neuropathy History of GI bleed Dyslipidemia Smoker History of noncompliance with diet, lifestyle and medications Carotid stenosis GERD PAST SURGICAL HISTORY: Partial right nephrectomy by Dr. Sandoval History of renal stent CABG 2006 Last cath 2019 Right common femoral endarterectomy 12/[address] Alcocer Left femoral artery stent Bilateral carotid endarterectomy 2010 Cholecystectomy REVIEW OF SYSTEMS: CONSTITUTIONAL: No night sweats. No fatigue, malaise, lethargy. No fever or chills. HEENT: Eyes: No visual changes. No eye pain. No eye discharge. ENT: No runny nose. No epistaxis. No sinus pain. No sore throat. No odynophagia. No ear pain. No congestion. RESPIRATORY: Cough, no congestion. No hemoptysis. Shortness of breath. Wheezing. Brown sputum. CARDIOVASCULAR: No angina symptoms. No CHF symptoms. No atypical chest pain for CAD. No palpitations. No PND. No orthopnea. GASTROINTESTINAL: No abdominal pain. No nausea or vomiting. No diarrhea or constipation. No hematemesis. No hematochezia. GENITOURINARY: No urgency. No frequency. No dysuria. No hematuria. No obstructive symptoms. No discharge. No pain. No significant abnormal bleeding. MUSCULOSKELETAL: No musculoskeletal pain. No joint swelling. No arthritis. NEUROLOGICAL: No headache. No neck pain. No syncope. No seizures. No dizziness. PSYCHIATRIC: Not anxious. No depression. No suicidal thoughts. No homicidal thoughts. SKIN: No rash. No lesions. No wounds. ENDOCRINE: No unexplained weight loss. No weight gain. HEMATOLOGIC/LYMPHATIC: No anemia. No purpura. No petechiae. No prolonged or excessive bleeding. No palpable lymph nodes. PERSONAL/FAMILY/SOCIAL HISTORY: Continues to be heavy smoker. Frequent drinker of alcohol. No illicit drug use. He is and lives at home with his . MEDICATIONS: Ferrous sulfate 325mg Po daily Spiriva 1 cap inhalation daily Omeprazole 40mg PO QDAC Eliquis 5mg PO BID Sotalol 80mg PO daily Tresiba 18-20 units daily Advair 250-50 one puff inhalation BID Folbic tablet 2.5-25-2mg one tablet PO daily Amlodipine 5mg PO daily Losartan 50mg PO daily Symbicort two puffs inhalation BID Pantoprazole 40mg PO daily Albuterol Sulfate 2.5mg inhalation QID PRN ALLERGIES: No known allergies PHYSICAL EXAMINATION: HEENT: Head normocephalic, atraumatic. Eyes: Extraocular muscles are intact. Pupils are equal, round and reactive to light and accommodation. Ears: No lesions. Nose appeared normal. Throat: No exudate or erythema. NECK: Supple. No JVD, no carotid bruit. No lymphadenopathy or thyromegaly. LUNGS: Clear to auscultation. Percussion note normal. Chest symmetrical. HEART: S1, S2, no S3. No murmur. No cyanosis or clubbing. No ascites. Pulses: Dorsalis pedis and posterior tibial pulses +1 to +2 bilaterally. ABDOMEN: Soft. Nontender. Bowel sounds active. No CVA tenderness. No mass felt. EXTREMITIES: No edema. Full range of motion of all extremities, equal. NEUROLOGIC: No focal deficit. Cranial nerves II through XII are grossly intact. No headache, no double vision or headache. SKIN: Not dry. Intact. Turgor - normal. LYMPHATIC: No palpable lymph nodes/no lymphedema. MUSCULOSKELETAL: Normal joints with no swelling. Muscle tone is normal. LABS: Hgb 12.8, hct 37.7, plt count 170, WBC 7.9, sodium 135, potassium 3.8, BUN 20.4, creatinine 0.73, glucose 177. AST 20, ALT 15, Troponin 0.012, total protein 7.32. ABG on room air and ER O2 saturation 92, pH 7.45, pCO2 40, Po2 61. Rapid PCR in the ER was negative. Chest x-ray shows bronchial thickening greatest in the right base consistent with airway inflammation. ASSESSMENT: 1. Acute COPD exacerbation 2. Shortness of breath 3. Smoker 4. Afib 5. Coronary artery disease 6. Diabetes Mellitus type II PLAN: 1. We will admit 2. Routine telemetry orders 3. CBC and CMP daily 4. Respiratory panel by PCR 5. Sputum culture 6. Rocephin 1 gram IV daily 7. Solu-Medrol 125mg IV Q 8 hours 8. Pulmicort NEB 1mg BID 9. DUO NEB TID scheduled 10.Regular diet 11.Sliding scale for insulin due to diabetes 12.Continue home medications 13.Oxygen at 1-2 liters as needed. 14.Fall precautions 15.Will follow closely. TIME SPENT: More than 70 minutes. MTDD
--- NOTE | 2021-09-21 08:41 | DS ---
DATE OF SERVICE: 08/25/21 FINAL DIAGNOSIS: ACUTE COPD EXACERBATION SMOKE EXPOSURE/INHALATION ATRIAL FIBRILLATION (ON ELIQUIS) COPD HYPERTENSION CORONARY ARTERY DISEASE RIGHT FEMORAL ARTERIAL OCCLUSION DIABETES MELLITUS TYPE 2, A1C 8.6 PANCREATITIS RIGHT RENAL MASS PERIPHERAL ARTERIAL DISEASE CLAUDICATION NEUROPATHY HISTORY OF GI BLEED DYSLIPIDEMIA ALCOHOL ABUSE CONTINUED SMOKING NON-COMPLIANCE WITH DIET, MEDICATIONS AND LIFESTYLE PARTIAL RIGHT NEPHRECTOMY, DR. MUHAMMAD RENAL STENT CABG 2006 CARDIAC CATH, 2018 RIGHT COMMON FEMORAL ENDARTERECTOMY, 12/03 - DR. HASKINS LEFT FEMORAL ARTERY STENT BILATERAL CAROTID ENDARTERECTOMY, 2009 CHOLECYSTECTOMY LAST VITALS: Temp Pulse Resp BP Pulse Ox 97.9 F 88 20 139/86 95 08/25/21 05:45 08/25/21 05:45 08/25/21 08:00 08/25/21 05:45 08/25/21 09:54 DISCHARGE INSTRUCTIONS: DISCHARGE HOME WITH SPOUSE. CONTINUE TO USE NEBULIZER TREATMENTS 3-4 TIMES DAILY UNTIL SEEN IN OFFICE. A NEW NEBULIZER HAS BEEN ORDERED THRU [facility]. USE ONLY INHALERS LISTED ON NURSING DISCHARGE. DO NOT TAKE ASPIRIN CONTINUE TRESIBA DOSING INSTRUCTED BY DR. ENRIQUEZ/ISAÍAS JEAN APRN. AN APPOINTMENT IS SCHEDULED WITH DR. ENRIQUEZ/ISAÍAS JEAN APRN/RHONDA JAY APRN ON August AT 10:45 AM. CODE STATUS: FULL CODE TAKE THESE MEDICATIONS AT HOME: Albuterol NEB RTQID PRN Last Admin: 08/25/21 09:55 Dose: 3 ml Documented by: Amlodipine Besylate (Amlodipine Besylate 5 Mg Tablet) 5 mg PO BID [facility] (DOSE INCREASED) Last Admin: 08/25/21 08:37 Dose: 5 mg Documented by: Apixaban (Apixaban 5 Mg Tab) 5 mg PO BID [facility] Last Admin: 08/25/21 08:38 Dose: 5 mg Documented by: Budesonide/Formoterol Fumarate (Budesonide/Formoterol Fumarate 160/4.5 Mcg Inhaler) 2 puff IH BID [facility] Last Admin: 08/25/21 09:11 Dose: 2 puff Documented by: Ferrous Sulfate (Ferrous Sulfate 324 Mg Tablet.) 324 mg PO DAILY [facility] Last Admin: 08/25/21 08:37 Dose: 324 mg Documented by: FOLBIC ACID 1 TABLET PO DAILY [facility] LAST ADMIN: TRESIBA SQ DAILY, DOSE INSTRUCTED [facility] LAST ADMIN: Losartan Potassium (Losartan Potassium 25 Mg Tablet) 50 mg PO BID [facility] (DOSE INCREASED) Last Admin: 08/25/21 08:37 Dose: 50 mg Documented by: Nystatin (Nystatin Susp 500,000 Units/5 Ml Cup) 5 ml PO ACHS TYRA (NEW RX) Last Admin: 08/25/21 05:47 Dose: 5 ml Documented by: Pantoprazole Sodium (Pantoprazole Sodium 40 Mg Tablet.) 40 mg PO DAILY PRN Reason: Heartburn Prednisone (Prednisone 20 Mg Tablet) 20 mg PO BID FOR 4 DAYS, THEN DAILY FOR 3 DAYS [facility] (NEW RX) Last Admin: 08/25/21 08:37 Dose: 20 mg Documented by: KEFLEX 500 MG PO TID TYRA FOR 7 DAYS (NEW RX) ALBUTEROL HFA 2 PUFFS QID PRN WHEEZING, SHORTNESS OF AIR (NEW RX) Sotalol HCl (Sotalol Hcl 80 Mg Tablet) 80 mg PO 2100 [facility] Last Admin: 08/24/21 20:36 Dose: 80 mg Documented by: ALLERGIES: No Known Allergies Allergy (Verified 08/23/21 15:45) DISCONTINUED MEDICATIONS: AMLODIPINE 5 MG DAILY LOSARTAN 50 MG DAILY PRILOSEC ASA SPIRIVA ADVAIR NEW PRESCRIPTIONS: PREDNISONE 20 MG BID FOR 4 DAYS, THEN 20 MG DAILY FOR 3 DAYS KEFLEX 500 MG TID FOR 7 DAYS AMLODIPINE 5 MG BID LOSARTAN 50 MG BID ALBUTEROL HFA 2 PUFFS QID PRN WHEEZING NYSTATIN 5 ML QID FOR 10 DAYS SMOKING: COUNSELING REGARDING SMOKING CESSATION ENCOURAGED TO STOP SMOKING DISEASE SPECIFIC EDUCATION: SMOKING CESSATION NEBULIZER TREATMENTS NEW MEDICATIONS USE OF ORAL STEROIDS AND RISK OF GI IRRITATION, AVASCULAR NECROSIS APPOINTMENT LAB REVIEW: 08/25/21 05:10 08/25/21 05:10 08/25/21 05:10: Sodium 135.0, Potassium 3.82, Chloride 104.3, Carbon Dioxide 25.7, Anion Gap 8.82, BUN 20.4 H, Creatinine 0.73, Estimated GFR (MDRD) 107.00, BUN/Creatinine Ratio 27.94, Glucose 177.0 H, Calcium 8.48, Total Bilirubin 0.25, AST 19.7, ALT 14.0, Alkaline Phosphatase 68.5, Total Protein 6.33, Albumin 3.03 L, Globulin 3.30, Albumin/Globulin Ratio 0.91 08/25/21 05:10: WBC 7.92, RBC 4.06 L, Hgb 12.8 L, Hct 37.7 L, MCV 92.9, MCH 31.5 H, MCHC 34.0, RDW Coeff of Hilary 12.3, Plt Count 170, Immature Gran % (Auto) 0.8, Neut % (Auto) 77.8 H, Lymph % (Auto) 17.6, [place] % (Auto) 3.7, Eos % (Auto) 0.0, Baso % (Auto) 0.1, Neut # (Auto) 6.2, Lymph # (Auto) 1.4, [place] # (Auto) 0.3 L, Eos # (Auto) 0.0, Baso # (Auto) 0.0, Immature Gran # (Auto) 0.1 08/24/21 14:00: Puncture Site Lrad, Base Excess 1.6, O2 Saturation 93.7 L, ABG pH 7.44, ABG pCO2 38.0, ABG pO2 67.0 L, ABG HCO3 25.8, ABG Total CO2 27.0 H, Laron Test Pos, Hemoglobin 1.0, Oxyhemoglobin 92.9 L, Carboxyhemoglobin 2.6 H, Total Hemoglobin 12.2, FiO2 % 21.0 ACTIVITY: GRADUALLY RESUME TOLERATED DIET: CONSISTENT CARBOHYDRATES HOSPITAL COURSE: This is a 66 year old white male with severe COPD who came to the emergency room after burning some brush outside and he was experiencing shortness of breath. Chest x-ray showed that he had some inflammation and possible bronchialitis. Respiratory panel was negative. He was admitted and started on IV Solu-Medrol along with IV antibiotics, Rocephin and Zithromax. He initially used oxygen at 2 liters via nasal canula but this was stopped a couple of hours after admission. With IV steroids and antibiotics along with inhalers Symbicort and Albuterol TID his shortness of breath has improved. He does not qualify for home oxygen. Information regarding smoking cessation has been given and especially about him staying indoors with things burning that will exacerbate his COPD. He will be discharged on Prednisone 20mg PO BID for 4 days and then daily for 3 days along with Keflex 500mg TID for 7 days. He also will be given a prescription for Albuterol inhaler two puffs QID. I want him to do this at least three times a day scheduled along with a Symbicort inhaler which he previously had at home. He however has a long history of noncompliance with his medications so I do believe that he has not been doing his inhalers at home. He does have a nebulizer and I have instructed him to do this three times a day if he is inside rather than albuterol inhaler. Again stop smoking. Please return if signs or symptoms do not continue to improve. He is discharged in stable condition. TIME SPENT: More than 60 minutes. ESPERANZA
== END 2021-08-25 13:50 | disposition home or self-care (01) | DRG 190 ==
LOC: ED 15:39 → MEDSURG A 18:17
PROVIDERS: ADMIT Internal Medicine; ATTEND Internal Medicine
DX: I10 Essential (primary) hypertension; R06.02 Shortness of breath; K85.90 Acute pancreatitis without necrosis or infection, unspecified; Z79.01 Long term (current) use of anticoagulants; Z20.822 Contact with and (suspected) exposure to COVID-19; Z95.820 Peripheral vascular angioplasty status with implants and grafts; Z95.828 Presence of other vascular implants and grafts; R07.9 Chest pain, unspecified; Z79.899 Other long term (current) drug therapy; I25.810 Atherosclerosis of coronary artery bypass graft(s) without angina pectoris; T59.811A Toxic effect of smoke, accidental (unintentional), initial encounter; Z91.14 Patient's other noncompliance with medication regimen; Z91.11 Patient's noncompliance with dietary regimen; E78.5 Hyperlipidemia, unspecified; G62.9 Polyneuropathy, unspecified; I73.9 Peripheral vascular disease, unspecified; Z96.0 Presence of urogenital implants; Z72.0 Tobacco use; I48.91 Unspecified atrial fibrillation; E11.9 Type 2 diabetes mellitus without complications; J44.1 Chronic obstructive pulmonary disease with (acute) exacerbation; R06.2 Wheezing; R53.1 Weakness; F10.10 Alcohol abuse, uncomplicated; Z51.81 Encounter for therapeutic drug level monitoring; Z90.5 Acquired absence of kidney

== ENCOUNTER 2021-10-03 11:52 | Inpatient (IN) ==
[2021-10-03 14:28] VITALS: BMI 16.6
[2021-10-03] MEDS ORDERED: TYLENOL PO PRN (14:44)
[2021-10-03] MEDS ORDERED: NITROSTAT SL PRN (14:44)
[2021-10-03] MEDS ORDERED: ATROPINE SULFATE PFS IVP PRN (14:44)
[2021-10-03] MEDS ORDERED: CREON DR 12,000 UNITS CAPSULE PO SCH (15:00)
[2021-10-03 15:01] LABS: BASOPHILS % (AUTO) 0.2 % (0.0-3.0); EOSINOPHILS % (AUTO) 0.3 % (0.0-7.0); HEMATOCRIT 34.1 % (42.0-52.0); HEMOGLOBIN 11.9 g/dl (14.0-18.0); IMMATURE GRANULOCYTE # (AUTO) 0.1 (0.0-1.0); IMMATURE GRANULOCYTE % (AUTO) 0.6 % (0.0-5.0); LYMPHOCYTES # (AUTO) 2.4 K/uL (0.60-3.4); LYMPHOCYTES % (AUTO) 20.1 (10.0-50.0); MEAN CORPUSCULAR HEMOGLOBIN 32.3 pg (27.0-31.0); MEAN CORPUSCULAR HGB CONC 34.9 (31.8-35.4); MEAN CORPUSCULAR VOLUME 92.7 fl (80.0-94.0); MONOCYTES # (AUTO) 0.8 K/uL (0.4-2.0); NEUTROPHILS # (AUTO) 8.4 K/ul (2.0-6.9); NEUTROPHILS % (AUTO) 71.8 % (42.2-75.2); PLATELET COUNT 264 10^3/uL (140-440); RDW COEFFICIENT OF VARIATION 16.1 % (11.6-14.8); RED BLOOD COUNT 3.68 10^6/ul (4.70-6.10)
[2021-10-03 15:13] LABS: ALANINE AMINOTRANSFERASE 65.5 U/L (0-50); ALBUMIN 3.09 g/dL (3.5-5.0); ALKALINE PHOSPHATASE 353.7 U/L (56-119); ASPARTATE AMINO TRANSFERASE 36.8 U/L (17-59); CALCIUM 8.84 mg/dL (8.4-10.2); CARBON DIOXIDE 23.2 mmol/L (22-30.0); CREATINE KINASE 24.8 U/L (55-170); GLUCOSE 165.6 mg/dL (74-106); POTASSIUM 4.14 mmol/L (3.5-5.1); SODIUM 135.2 mmol/L (134.5-145); TOTAL PROTEIN 6.03 g/dL (6.3-8.2)
--- NOTE | 2021-10-03 15:16 | DI ---
EXAM: Chest two view, frontal and lateral views. HISTORY: Shortness of breath. COMPARISON: 10/02/2021. FINDINGS: CABG hardware again noted. The heart size is normal. There is no pulmonary vascular jonatan estion. The lungs are clear. Medial right upper lobe nodular density on CT is not well seen by radi ograph. CT followup as previously recommended. No pleural effusion or pneumothorax is seen. No acu te osseous abnormality identified. Old right clavicular fracture. Old right posterior sixth rib fra cture. Since the prior study, there has been no significant interval change. IMPRESSION: No acute cardiopulmonary process.
[2021-10-03 15:26] LABS: TROPONIN I < 0.012 ng/ml (0.0000-0.120)
[2021-10-03] MEDS ORDERED: NORCO 10-325 PO PRN ×3 (15:33→17:00)
[2021-10-03] MEDS: ATIVAN PO PRN (16:21)
[2021-10-03] MEDS: SOLU-CORTEF 250 MG IVP SCH ×2 (16:22→20:48)
[2021-10-03] MEDS: DILAUDID 1 MG/ML SYRINGE IVP PRN ×2 (16:22→20:55)
[2021-10-03] MEDS: DEXTROSE 5%-1/2NS IV SOLUTION 1,000 ML IV SCH (16:22)
[2021-10-03] MEDS: CREON DR 12,000 UNITS CAPSULE PO SCH (17:13)
[2021-10-03] MEDS: ELIQUIS PO SCH (20:47)
[2021-10-03] MEDS: BETAPACE PO SCH (20:48)
[2021-10-03] MEDS: COZAAR PO SCH (20:51)
[2021-10-03] MEDS: NORVASC PO SCH (20:52)
[2021-10-04] MEDS: DILAUDID 1 MG/ML SYRINGE IVP PRN ×5 (00:56→20:12)
[2021-10-04] MEDS: DEXTROSE 5%-1/2NS IV SOLUTION 1,000 ML IV SCH (01:07)
[2021-10-04 05:22] LABS: BILIRUBIN,URINE Negative (NEGATIVE); CLARITY,URINE Clear (CLEAR); COLOR,URINE Yellow (YELLOW); GLUCOSE, URINE (UA) 2+ (NEGATIVE); KETONES,URINE Negative (NEGATIVE); LEUKOCYTE ESTERASE ,URINE Negative (NEGATIVE); NITRITE,URINE Negative (NEGATIVE); PH,URINE 5.5 (5-9); PROTEIN,URINE Negative (NEGATIVE); URINE, BLOOD Negative (NEGATIVE); UROBILINOGEN,URINE 0.2 (0.2)
[2021-10-04 05:46] LABS: BASOPHILS % (AUTO) 0.1 % (0.0-3.0); HEMATOCRIT 34.7 % (42.0-52.0); HEMOGLOBIN 11.8 g/dl (14.0-18.0); IMMATURE GRANULOCYTE % (AUTO) 0.4 % (0.0-5.0); LYMPHOCYTES # (AUTO) 1.1 K/uL (0.60-3.4); MEAN CORPUSCULAR HEMOGLOBIN 32.2 pg (27.0-31.0); MEAN CORPUSCULAR VOLUME 94.6 fl (80.0-94.0); MONOCYTES # (AUTO) 0.1 K/uL (0.4-2.0); MONOCYTES % (AUTO) 1.2 (0-10); NEUTROPHILS # (AUTO) 6.5 K/ul (2.0-6.9); NEUTROPHILS % (AUTO) 84.3 % (42.2-75.2); PLATELET COUNT 228 10^3/uL (140-440); RDW COEFFICIENT OF VARIATION 16.2 % (11.6-14.8); RED BLOOD COUNT 3.67 10^6/ul (4.70-6.10); WHITE BLOOD COUNT 7.74 K/ul (4.2-10.2)
[2021-10-04] MEDS: PROTONIX PO SCH (05:59)
[2021-10-04 06:02] LABS: ALANINE AMINOTRANSFERASE 54.1 U/L (0-50); ALBUMIN 2.82 g/dL (3.5-5.0); ASPARTATE AMINO TRANSFERASE 34.4 U/L (17-59); BILIRUBIN,TOTAL 0.4 mg/dL (0.2-1.3); BLOOD UREA NITROGEN 18.9 mg/dL (9-20); CALCIUM 8.18 mg/dL (8.4-10.2); CARBON DIOXIDE 22.8 mmol/L (22-30.0); CHLORIDE 105.1 mmol/L (98-107); CREATININE 0.91 mg/dL (0.60-1.10); GLUCOSE 430.5 mg/dL (74-106); POTASSIUM 4.08 mmol/L (3.5-5.1); SODIUM 131.1 mmol/L (134.5-145); TOTAL PROTEIN 5.49 g/dL (6.3-8.2)
[2021-10-04] MEDS: THIAMINE IM SCH (08:51)
[2021-10-04] MEDS: CREON DR 12,000 UNITS CAPSULE PO SCH (08:52)
[2021-10-04] MEDS: FERROUS SULFATE PO SCH (08:52)
[2021-10-04] MEDS: FOLIC ACID VIT B6 VIT B12 PO SCH (08:52)
[2021-10-04] MEDS: NON-FORMULARY MEDICATION (Insulin Degludec [Tresiba Flextouch U-100] 100 UNIT/ML insulin p SUBCUT SCH ×2 (08:53→11:50)
--- NOTE | 2021-10-04 08:54 | PCM.PROG ---
Attending Provider: ATTENDING PROVIDER: Dr. VICKI ENRIQUEZ This patient is seen with Purvi Santizo, Nurse Practitioner. DATE OF SERVICE: 10/04/21 SUBJECTIVE: This 66 year old /WHITE M was hospitalized 10/03/21. Dilaudid helping with pain control. Did eat small amount of cleat liquids last night. Color has improved this morning. Blood pressure has improved. We have been holding blood pressure medications due to Hypotension. Did have asymptomatic bradycardia last night with no noted pauses. Will continue with IV fluids and steroids. Will continue with clear liquids today. REVIEW OF SYSTEMS: CONSTITUTIONAL: No night sweats. No fatigue, malaise, lethargy. No fever or chills. Weakness. HEENT: Eyes: No visual changes. No eye pain. No eye discharge. ENT: No runny nos e. No epistaxis. No sinus pain. No odynophagia. No congestion. RESPIRATORY: No cough, no congestion. No hemoptysis. No shortness of breath. CARDIOVASCULAR: No angina symptoms. No CHF symptoms. No atypical chest pain for CAD. No palpitations. No orthopnea.. GASTROINTESTINAL: Left lower abdominal pain. No nausea or vomiting. No diarrhea or constipation. No hematemesis. No hematochezia. GENITOURINARY: No urgency. No frequency. No dysuria. No hematuria. No obstructive symptoms. No discharge. No pain. No significant abnormal bleeding. MUSCULOSKELETAL: No musculoskeletal pain; no joint swelling. NEUROLOGICAL: Awake, alert, oriented to time, place and person. No headache. No neck pain. No syncope. No seizures. No dizziness. PSYCHIATRIC: Not anxious. No depression. No suicidal thoughts. No homicidal thoughts. SKIN: No rash. No lesions. No wounds. ENDOCRINE: No unexplained weight loss. No weight gain. HEMATOLOGIC/LYMPHATIC: No anemia. No purpura. No petechiae. No prolonged or excessive bleeding. No palpable lymph nodes. PHYSICAL EXAMINATION: GENERAL: The patient is awake, alert and oriented, lying in bed in no distress. VITAL SIGNS: Temperature 97.8 F, Pulse 60, Respiratory Rate 16, BP 120/70, Pulse Ox 98% HEENT: Head normocephalic, atraumatic. Eyes: Extraocular muscles are intact. Pupils are equal, round and reactive to light and accommodation. Ears: No lesions. Nose appeared normal. Throat: No exudate or erythema. NECK: Supple. No JVD, no carotid bruit. No lymphadenopathy or thyromegaly. LUNGS: Diminished breath sounds. Bilateral rhonchi. Left sided tenderness. Clear to auscultation. Percussion note normal. Chest symmetrical. HEART: S1, S2, no S3. No murmurs. No cyanosis or clubbing. No ascites. Pulses: Dorsalis pedis and posterior tibial pulses +1 to +2 both sides. ABDOMEN: Soft. Non-tender. Bowel sounds active. No CVA tenderness. No mass felt. EXTREMITIES: No edema. Full range of motion of all extremities, equal. NEUROLOGIC: No focal deficit. Cranial nerves II through XII are grossly intact. No headache. No double vision. SKIN: Not dry. Intact. Turgor-normal. LYMPHATIC: No palpable lymph nodes/no lymphedema. MUSCULOSKELETAL: Normal joints with no swelling. Muscle tone is normal. LAB REVIEW: 10/04/21 04:57 10/04/21 04:57 10/04/21 05:10: Urine Color Yellow, Urine Clarity Clear, Urine pH 5.5, Ur Specific [place] 1.015, Urine Protein Negative, Urine Glucose (UA) 2+ H, Urine Ketones Negative, Urine Blood Negative, Urine Nitrite Negative, Urine Bilirubin Negative, Urine Urobilinogen 0.2, Ur Leukocyte Esterase Negative 10/04/21 04:57: Sodium 131.1 L, Potassium 4.08, Chloride 105.1, Carbon Dioxide 22.8, Anion Gap 7.28, BUN 18.9, Creatinine 0.91, Estimated GFR (MDRD) 83.00, BUN/Creatinine Ratio 20.76, Glucose 430.5 H D, Calcium 8.18 L, Total Bilirubin 0.40, AST 34.4, ALT 54.1 H, Alkaline Phosphatase 365.0 H, Total Protein 5.49 L, Albumin 2.82 L, Globulin 2.67, Albumin/Globulin Ratio 1.05 10/04/21 04:57: WBC 7.74, RBC 3.67 L, Hgb 11.8 L, Hct 34.7 L, MCV 94.6 H, MCH 32.2 H, MCHC 34.0, RDW Coeff of Hilary 16.2 H, Plt Count 228, Immature Gran % (Auto) 0.4, Neut % (Auto) 84.3 H, Lymph % (Auto) 14.0, [place] % (Auto) 1.2, Eos % (Auto) 0.0, Baso % (Auto) 0.1, Neut # (Auto) 6.5, Lymph # (Auto) 1.1, [place] # (Auto) 0.1 L, Eos # (Auto) 0.0, Baso # (Auto) 0.0, Immature Gran # (Auto) 0.0 10/03/21 14:56: Sodium 135.2, Potassium 4.14, Chloride 108.0 H, Carbon Dioxide 23.2, Anion Gap 8.14, BUN 22.0 H, Creatinine 1.00, Estimated GFR (MDRD) 75.00, BUN/Creatinine Ratio 22.00, Glucose 165.6 H, Calcium 8.84, Total Bilirubin 0.50, AST 36.8 D, ALT 65.5 H, Alkaline Phosphatase 353.7 H, Total Creatine Kinase 24.8 L, Troponin I < 0.012, Total Protein 6.03 L, Albumin 3.09 L, Globulin 2.94, Albumin/Globulin Ratio 1.05 10/03/21 14:56: WBC 11.70 H, RBC 3.68 L, Hgb 11.9 L, Hct 34.1 L, MCV 92.7, MCH 32.3 H, MCHC 34.9, RDW Coeff of Hilary 16.1 H, Plt Count 264, Immature Gran % (Auto) 0.6, Neut % (Auto) 71.8, Lymph % (Auto) 20.1, [place] % (Auto) 7.0, Eos % (Auto) 0.3, Baso % (Auto) 0.2, Neut # (Auto) 8.4 H, Lymph # (Auto) 2.4, [place] # (Auto) 0.8, Eos # (Auto) 0.0, Baso # (Auto) 0.0, Immature Gran # (Auto) 0.1 10/03/21 12:13: SARS CoV-2 RNA Rapid MARTINEZ Negative ASSESSMENT: Please see below. 1. Pancreatic insufficiency due to chronic pancreatitis 2. Long history of alcohol abuse 4. Dehydration, improved 5. Acute COPD exacerbation 6. Diabetes Mellitus Type II PLAN: 1. Discontinue D5 and start normal saline 2. Continue with clear liquids 3. Hold blood pressure medications. Plan and coordination of the patient's care discussed in the presence of Supervisor Marble and nurse. SCRIBED BY: LA VICKERS Delivery Table Operator scribed while in presence of service performed by Dr. Enriquez/Purvi Santizo APRN on 10/04/21 ([id number])
[2021-10-04] MEDS: SPIRIVA IH SCH (08:59)
[2021-10-04] MEDS ORDERED: NON-FORMULARY MEDICATION (Ferrous Sulfate 325 MG tablet) PO SCH (09:00)
[2021-10-04] MEDS ORDERED: BETAPACE PO SCH (09:00)
[2021-10-04] MEDS: ELIQUIS PO SCH ×2 (09:09→20:27)
[2021-10-04] MEDS: SODIUM CHLORIDE 1,000 ML IV SCH ×2 (09:18→20:27)
[2021-10-04] MEDS: COZAAR PO SCH ×2 (09:20→20:27)
[2021-10-04] MEDS: NORVASC PO SCH ×2 (09:20→20:27)
[2021-10-04] MEDS: SOLU-CORTEF 250 MG IVP SCH ×2 (09:20→20:12)
[2021-10-04] MEDS: INSULIN DEGLUDEC SUBCUT SCH ×2 (12:00→17:26)
[2021-10-04] MEDS: ZOFRAN 4 MG/2 ML IVP PRN (14:40)
[2021-10-04] MEDS ORDERED: INSULIN DEGLUDEC SUBCUT SCH (17:45)
[2021-10-04] MEDS: BETAPACE PO SCH (20:27)
[2021-10-05 04:31] LABS: BASOPHILS % (AUTO) 0.1 % (0.0-3.0); HEMATOCRIT 29.8 % (42.0-52.0); HEMOGLOBIN 10.4 g/dl (14.0-18.0); IMMATURE GRANULOCYTE # (AUTO) 0.1 (0.0-1.0); IMMATURE GRANULOCYTE % (AUTO) 0.6 % (0.0-5.0); LYMPHOCYTES # (AUTO) 1.3 K/uL (0.60-3.4); LYMPHOCYTES % (AUTO) 9.1 (10.0-50.0); MEAN CORPUSCULAR HEMOGLOBIN 32.7 pg (27.0-31.0); MEAN CORPUSCULAR HGB CONC 34.9 (31.8-35.4); MEAN CORPUSCULAR VOLUME 93.7 fl (80.0-94.0); MONOCYTES # (AUTO) 0.7 K/uL (0.4-2.0); NEUTROPHILS # (AUTO) 12.2 K/ul (2.0-6.9); NEUTROPHILS % (AUTO) 85.2 % (42.2-75.2); PLATELET COUNT 216 10^3/uL (140-440); RDW COEFFICIENT OF VARIATION 15.9 % (11.6-14.8); RED BLOOD COUNT 3.18 10^6/ul (4.70-6.10); WHITE BLOOD COUNT 14.25 K/ul (4.2-10.2)
[2021-10-05] MEDS: DILAUDID 1 MG/ML SYRINGE IVP PRN ×3 (04:37→13:49)
[2021-10-05 04:50] LABS: ALANINE AMINOTRANSFERASE 42.4 U/L (0-50); ALBUMIN 2.71 g/dL (3.5-5.0); ALKALINE PHOSPHATASE 281.9 U/L (56-119); ASPARTATE AMINO TRANSFERASE 23.2 U/L (17-59); BILIRUBIN,TOTAL 0.31 mg/dL (0.2-1.3); BLOOD UREA NITROGEN 13.3 mg/dL (9-20); CALCIUM 8.17 mg/dL (8.4-10.2); CARBON DIOXIDE 21.9 mmol/L (22-30.0); CHLORIDE 109.6 mmol/L (98-107); CREATININE 0.69 mg/dL (0.60-1.10); GLUCOSE 198.6 mg/dL (74-106); POTASSIUM 3.69 mmol/L (3.5-5.1); SODIUM 135.2 mmol/L (134.5-145); TOTAL PROTEIN 5.4 g/dL (6.3-8.2)
[2021-10-05] MEDS: PROTONIX PO SCH (05:40)
[2021-10-05] MEDS: SODIUM CHLORIDE 1,000 ML IV SCH ×2 (05:45→17:29)
[2021-10-05] MEDS: CREON DR 12,000 UNITS CAPSULE PO SCH (08:58)
[2021-10-05] MEDS: SOLU-CORTEF 250 MG IVP SCH ×2 (08:58→20:41)
[2021-10-05] MEDS: COZAAR PO SCH ×2 (08:58→20:41)
[2021-10-05] MEDS: NORVASC PO SCH ×2 (08:59→20:41)
[2021-10-05] MEDS: FERROUS SULFATE PO SCH (08:59)
[2021-10-05] MEDS: ZOFRAN 4 MG/2 ML IVP PRN (09:00)
[2021-10-05] MEDS: THIAMINE IM SCH (09:00)
[2021-10-05] MEDS: ELIQUIS PO SCH ×2 (09:16→20:42)
[2021-10-05] MEDS: FOLIC ACID VIT B6 VIT B12 PO SCH (09:17)
[2021-10-05] MEDS: SPIRIVA IH SCH (09:17)
[2021-10-05] MEDS: MIRALAX PO SCH (13:59)
[2021-10-05] MEDS: HUMULIN R SUBCUT PRN ×2 (17:31→21:44)
[2021-10-05] MEDS: DILAUDID 0.5 MG/0.5 ML SYRINGE IVP PRN ×2 (17:54→21:59)
[2021-10-05] MEDS: BETAPACE PO SCH (20:40)
[2021-10-05] MEDS ORDERED: LANTUS SUBCUT SCH (21:00)
[2021-10-06] MEDS: SODIUM CHLORIDE 1,000 ML IV SCH (02:54)
[2021-10-06] MEDS: PROTONIX PO SCH (05:53)
[2021-10-06 07:19] LABS: BASOPHILS % (AUTO) 0.1 % (0.0-3.0); EOSINOPHILS % (AUTO) 0.1 % (0.0-7.0); HEMATOCRIT 32.4 % (42.0-52.0); HEMOGLOBIN 11.2 g/dl (14.0-18.0); IMMATURE GRANULOCYTE # (AUTO) 0.2 (0.0-1.0); IMMATURE GRANULOCYTE % (AUTO) 0.9 % (0.0-5.0); LYMPHOCYTES # (AUTO) 1.4 K/uL (0.60-3.4); LYMPHOCYTES % (AUTO) 8.5 (10.0-50.0); MEAN CORPUSCULAR HEMOGLOBIN 32.4 pg (27.0-31.0); MEAN CORPUSCULAR HGB CONC 34.6 (31.8-35.4); MEAN CORPUSCULAR VOLUME 93.6 fl (80.0-94.0); MONOCYTES % (AUTO) 6.1 (0-10); NEUTROPHILS # (AUTO) 13.5 K/ul (2.0-6.9); NEUTROPHILS % (AUTO) 84.3 % (42.2-75.2); PLATELET COUNT 303 10^3/uL (140-440); RDW COEFFICIENT OF VARIATION 16.2 % (11.6-14.8); RED BLOOD COUNT 3.46 10^6/ul (4.70-6.10)
[2021-10-06] MEDS ORDERED: DEXTROSE 50%-WATER ABBOJECT IVP ONE ×3 (07:22→20:12)
[2021-10-06 07:26] LABS: ALANINE AMINOTRANSFERASE 38.7 U/L (0-50); ALBUMIN 2.91 g/dL (3.5-5.0); ALKALINE PHOSPHATASE 248.8 U/L (56-119); ASPARTATE AMINO TRANSFERASE 24.6 U/L (17-59); BILIRUBIN,TOTAL 0.32 mg/dL (0.2-1.3); BLOOD UREA NITROGEN 11.5 mg/dL (9-20); CALCIUM 8.23 mg/dL (8.4-10.2); CARBON DIOXIDE 22.6 mmol/L (22-30.0); CHLORIDE 109.4 mmol/L (98-107); CREATININE 0.63 mg/dL (0.60-1.10); POTASSIUM 3.07 mmol/L (3.5-5.1); SODIUM 135.9 mmol/L (134.5-145); TOTAL PROTEIN 5.68 g/dL (6.3-8.2)
[2021-10-06 07:29] LABS: GLUCOSE 46.5 mg/dL (74-106)
[2021-10-06] MEDS: DILAUDID 0.5 MG/0.5 ML SYRINGE IVP PRN ×3 (07:38→19:42)
--- NOTE | 2021-10-06 09:06 | PCM.PROG ---
Attending Provider: ATTENDING PROVIDER: Dr. VICKI ENRIQUEZ This patient is seen with Purvi Santizo, Nurse Practitioner. DATE OF SERVICE: 10/06/21 SUBJECTIVE: This 66 year old /WHITE M was hospitalized 10/03/21. Had hypoglycemia this morning, since resolved. The patient was asymptomatic. Still requiring Dilaudid for pain control. However he states he wishes he could go home, tried to explain pancreatic insufficiency causing chronic pain and at this point in ability to control pain at home. Will attempt PO medication today. REVIEW OF SYSTEMS: CONSTITUTIONAL: No night sweats. No fatigue, malaise, lethargy. No fever or chills. Weakness. HEENT: Eyes: No visual changes. No eye pain. No eye discharge. ENT: No runny nose. No epistaxis. No sinus pain. No odynophagia. No congestion. RESPIRATORY: No cough, no congestion. No hemoptysis. No shortness of breath. CARDIOVASCULAR: No angina symptoms. No CHF symptoms. No atypical chest pain for CAD. No palpitations. No orthopnea.. GASTROINTESTINAL: Left abdominal pain. No nausea or vomiting. No diarrhea or constipation. No hematemesis. No hematochezia. Loss of appetite. GENITOURINARY: No urgency. No frequency. No dysuria. No hematuria. No obstructive symptoms. No discharge. No pain. No significant abnormal bleeding. MUSCULOSKELETAL: No musculoskeletal pain; no joint swelling. NEUROLOGICAL: Awake, alert, oriented to time, place and person. No headache. No neck pain. No syncope. No seizures. No dizziness. PSYCHIATRIC: Not anxious. No depression. No suicidal thoughts. No homicidal thoughts. SKIN: No rash. No lesions. No wounds. ENDOCRINE: No unexplained weight loss. No weight gain. HEMATOLOGIC/LYMPHATIC: No anemia. No purpura. No petechiae. No prolonged or excessive bleeding. No palpable lymph nodes. PHYSICAL EXAMINATION: GENERAL: The patient is awake, alert and oriented, lying in bed in no distress. VITAL SIGNS: Temperature 97.7 F, Pulse 92, Respiratory Rate 20, BP 132/78, Pulse Ox 99% HEENT: Head normocephalic, atraumatic. Eyes: Extraocular muscles are intact. Pupils are equal, round and reactive to light and accommodation. Ears: No lesions. Nose appeared normal. Throat: No exudate or erythema. NECK: Supple. No JVD, no carotid bruit. No lymphadenopathy or thyromegaly. LUNGS: Diminished breath sounds. Clear to auscultation. Percussion note normal. Chest symmetrical. HEART: S1, S2, no S3. No murmurs. No cyanosis or clubbing. No ascites. Pulses: Dorsalis pedis and posterior tibial pulses +1 to +2 both sides. ABDOMEN: Soft. Non-tender. Bowel sounds active. No CVA tenderness. No mass felt. EXTREMITIES: No edema. Full range of motion of all extremities, equal. NEUROLOGIC: No focal deficit. Cranial nerves II through XII are grossly intact. No headache. No double vision. SKIN: Not dry. Intact. Turgor-normal. LYMPHATIC: No palpable lymph nodes/no lymphedema. MUSCULOSKELETAL: Normal joints with no swelling. Muscle tone is normal. LAB REVIEW: 10/06/21 06:52 10/06/21 06:52 10/06/21 06:52: Sodium 135.9, Potassium 3.07 L, Chloride 109.4 H, Carbon Dioxide 22.6, Anion Gap 6.97, BUN 11.5, Creatinine 0.63, Estimated GFR (MDRD) 127.00, BUN/Creatinine Ratio 18.25, Glucose 46.5 L*, Calcium 8.23 L, Total Bilirubin 0.32, AST 24.6, ALT 38.7, Alkaline Phosphatase 248.8 H D, Total Protein 5.68 L, Albumin 2.91 L, Globulin 2.77, Albumin/Globulin Ratio 1.05 10/06/21 06:52: WBC 16.00 H, RBC 3.46 L, Hgb 11.2 L, Hct 32.4 L, MCV 93.6, MCH 32.4 H, MCHC 34.6, RDW Coeff of Hilary 16.2 H, Plt Count 303 D, Immature Gran % (Auto) 0.9, Neut % (Auto) 84.3 H, Lymph % (Auto) 8.5 L, [place] % (Auto) 6.1, Eos % (Auto) 0.1, Baso % (Auto) 0.1, Neut # (Auto) 13.5 H, Lymph # (Auto) 1.4, [place] # (Auto) 1.0, Eos # (Auto) 0.0, Baso # (Auto) 0.0, Immature Gran # (Auto) 0.2 10/06/21 06:50: Glucose 46.5 L* ASSESSMENT: Please see below. 1. Left sided abdominal pain 2. Pancreatitis insufficiency due to chronic pancreatitis 3. Dehydration, resolved 4. Diabetes Mellitus type II 5. Acute COPD exacerbation 6. Hypokalemia 7. Atrial fibrillation PLAN: 1. Potassium 20meq TID 2. Tresiba 15 3. Discontinue Lantus 4. 1/2 Bottle Magnesium Citrate 5. Discontinue IV fluids 6. Discontinue Solu-Cortef 7. Prednisone 20mg PO daily 8. [place] 10mg TID scheduled. We will attempt to control pain with this and use Dilaudid as last resort in hopes to prepare for discharge otherwise Hospice maybe a better option for his condition level of pain and end stage disease Plan and coordination of the patient's care discussed in the presence of Assisted Living Executive Director and nurse. SCRIBED BY: LA VICKERS [employer] scribed while in presence of service performed by Dr. Enriquez/Purvi Santizo APRN on 10/06/21 ([id number])
[2021-10-06] MEDS: CITRATE OF MAGNESIA PO ONE ×2 (09:50→09:59)
[2021-10-06] MEDS: FOLIC ACID VIT B6 VIT B12 PO SCH (09:52)
[2021-10-06] MEDS: CREON DR 12,000 UNITS CAPSULE PO SCH (09:53)
[2021-10-06] MEDS: NORVASC PO SCH ×2 (09:53→20:19)
[2021-10-06] MEDS: COZAAR PO SCH ×2 (09:54→20:20)
[2021-10-06] MEDS: FERROUS SULFATE PO SCH (09:54)
[2021-10-06] MEDS: K-DUR PO SCH ×3 (09:54→17:17)
[2021-10-06] MEDS: THIAMINE IM SCH (09:55)
[2021-10-06] MEDS: SPIRIVA IH SCH (09:57)
[2021-10-06] MEDS: MIRALAX PO SCH (10:00)
[2021-10-06] MEDS: ELIQUIS PO SCH ×2 (10:01→20:20)
[2021-10-06] MEDS: NORCO 10-325 PO SCH ×2 (14:50→20:19)
[2021-10-06] MEDS: BETAPACE PO SCH (20:20)
[2021-10-07] MEDS: DILAUDID 0.5 MG/0.5 ML SYRINGE IVP PRN (00:17)
[2021-10-07] MEDS: ATIVAN PO PRN (00:17)
[2021-10-07] MEDS ORDERED: DEXTROSE 50%-WATER ABBOJECT ONE (04:55)
[2021-10-07 05:03] LABS: BASOPHILS % (AUTO) 0.1 % (0.0-3.0); EOSINOPHILS % (AUTO) 0.1 % (0.0-7.0); HEMATOCRIT 33.2 % (42.0-52.0); HEMOGLOBIN 11.8 g/dl (14.0-18.0); IMMATURE GRANULOCYTE # (AUTO) 0.1 (0.0-1.0); IMMATURE GRANULOCYTE % (AUTO) 0.8 % (0.0-5.0); LYMPHOCYTES # (AUTO) 2.8 K/uL (0.60-3.4); LYMPHOCYTES % (AUTO) 16.4 (10.0-50.0); MEAN CORPUSCULAR HEMOGLOBIN 32.9 pg (27.0-31.0); MEAN CORPUSCULAR HGB CONC 35.5 (31.8-35.4); MEAN CORPUSCULAR VOLUME 92.5 fl (80.0-94.0); MONOCYTES # (AUTO) 2.3 K/uL (0.4-2.0); MONOCYTES % (AUTO) 13.4 (0-10); NEUTROPHILS # (AUTO) 11.9 K/ul (2.0-6.9); NEUTROPHILS % (AUTO) 69.2 % (42.2-75.2); PLATELET COUNT 301 10^3/uL (140-440); RDW COEFFICIENT OF VARIATION 16.2 % (11.6-14.8); RED BLOOD COUNT 3.59 10^6/ul (4.70-6.10); WHITE BLOOD COUNT 17.23 K/ul (4.2-10.2)
[2021-10-07 05:17] LABS: ALANINE AMINOTRANSFERASE 37.6 U/L (0-50); ALBUMIN 2.83 g/dL (3.5-5.0); ALKALINE PHOSPHATASE 231.1 U/L (56-119); ASPARTATE AMINO TRANSFERASE 34.7 U/L (17-59); BILIRUBIN,TOTAL 0.39 mg/dL (0.2-1.3); BLOOD UREA NITROGEN 11.6 mg/dL (9-20); CALCIUM 8.47 mg/dL (8.4-10.2); CARBON DIOXIDE 25.4 mmol/L (22-30.0); CHLORIDE 109.7 mmol/L (98-107); CREATININE 0.54 mg/dL (0.60-1.10); POTASSIUM 3.42 mmol/L (3.5-5.1); TOTAL PROTEIN 5.57 g/dL (6.3-8.2)
[2021-10-07 05:18] LABS: GLUCOSE 20.3 mg/dL (74-106)
[2021-10-07] MEDS ORDERED: DEXTROSE 50%-WATER ABBOJECT IVP ONE (05:46)
[2021-10-07] MEDS: PROTONIX PO SCH (06:40)
[2021-10-07] MEDS ORDERED: DEXTROSE 50%-WATER ABBOJECT IVP STA (08:07)
[2021-10-07] MEDS: CREON DR 12,000 UNITS CAPSULE PO SCH (08:55)
[2021-10-07] MEDS: NORCO 7.5-325 PO SCH ×3 (08:56→20:11)
[2021-10-07] MEDS: COZAAR PO SCH ×2 (08:56→20:11)
[2021-10-07] MEDS: NORVASC PO SCH ×2 (08:56→20:11)
[2021-10-07] MEDS: PREDNISONE PO SCH (08:56)
[2021-10-07] MEDS: FERROUS SULFATE PO SCH (08:56)
[2021-10-07] MEDS: THIAMINE IM SCH (08:57)
[2021-10-07] MEDS: K-DUR PO SCH ×3 (08:57→17:19)
[2021-10-07] MEDS: MIRALAX PO SCH (08:57)
[2021-10-07] MEDS: SPIRIVA IH SCH (08:59)
[2021-10-07] MEDS: ELIQUIS PO SCH ×2 (08:59→20:10)
[2021-10-07] MEDS ORDERED: DEXTROSE 50%-WATER ABBOJECT IVP PRN ×2 (08:59→11:38)
[2021-10-07] MEDS: FOLIC ACID VIT B6 VIT B12 PO SCH (08:59)
[2021-10-07] MEDS ORDERED: NON-FORMULARY MEDICATION (Insulin Degludec [Tresiba Flextouch U-100] 100 unit/mL (3 mL) In SUBCUT SCH (09:00)
--- NOTE | 2021-10-07 09:50 | PCM.PROG ---
Attending Provider: ATTENDING PROVIDER: Dr. VICKI ENRIQUEZ DATE OF SERVICE: 10/07/21 SUBJECTIVE: This 66 year old /WHITE M was hospitalized 10/03/21 with dehydration, left sided pain and pancreatitis. The patient during the hospital stay was given IV fluids and steroids to improve his appetite which has worked. Last 24 hours having hypoglycemic spells, he was not given insulin yesterday. Day before yesterday was given Lantus. The patient has been given 2-3 doses of IV D50% glucose. At present time he is oriented to time, place and person. He is in no distress. REVIEW OF SYSTEMS: CONSTITUTIONAL: No night sweats. No fatigue, malaise, lethargy. No fever or chills. HEENT: Eyes: No visual changes. No eye pain. No eye discharge. ENT: No runny nose. No epistaxis. No sinus pain. No odynophagia. No congestion. RESPIRATORY: No cough, no congestion. No hemoptysis. No shortness of breath. CARDIOVASCULAR: No angina symptoms. No CHF symptoms. No atypical chest pain for CAD. No palpitations. No orthopnea.. GASTROINTESTINAL: No abdominal pain. No nausea or vomiting. No diarrhea or constipation. No hematemesis. No hematochezia. GENITOURINARY: No urgency. No frequency. No dysuria. No hematuria. No obstructive symptoms. No discharge. No pain. No significant abnormal bleeding. MUSCULOSKELETAL: No musculoskeletal pain; no joint swelling. NEUROLOGICAL: Awake, alert, oriented to time, place and person. No headache. No neck pain. No syncope. No seizures. No dizziness. PSYCHIATRIC: Not anxious. No depression. No suicidal thoughts. No homicidal thoughts. SKIN: No rash. No lesions. No wounds. ENDOCRINE: No unexplained weight loss. No weight gain. HEMATOLOGIC/LYMPHATIC: No anemia. No purpura. No petechiae. No prolonged or excessive bleeding. No palpable lymph nodes. PHYSICAL EXAMINATION: GENERAL: The patient is awake, alert and oriented, lying in bed in no distress. VITAL SIGNS: Temperature 97.6 F, Pulse 72, Respiratory Rate 18, BP 98/50, Pulse Ox 95% HEENT: Head normocephalic, atraumatic. Eyes: Extraocular muscles are intact. Pupils are equal, round and reactive to light and accommodation. Ears: No lesions. Nose appeared normal. Throat: No exudate or erythema. NECK: Supple. No JVD, no carotid bruit. No lymphadenopathy or thyromegaly. LUNGS: Clear to auscultation. Percussion note normal. Chest symmetrical. HEART: S1, S2, no S3. No murmurs. No cyanosis or clubbing. No ascites. Pulses: Dorsalis pedis and posterior tibial pulses +1 to +2 both sides. ABDOMEN: Soft. Non-tender. Bowel sounds active. No CVA tenderness. No mass felt. EXTREMITIES: No edema. Full range of motion of all extremities, equal. NEUROLOGIC: No focal deficit. Cranial nerves II through XII are grossly intact. No headache, no double vision or headache. SKIN: Warm and dry. Intact. Turgor-normal. LYMPHATIC: No palpable lymph nodes/no lymphedema. MUSCULOSKELETAL: Normal joints with no swelling. Muscle tone is normal. LAB REVIEW: 10/07/21 05:00 10/07/21 05:30 10/07/21 05:30: Glucose 94.5 D 10/07/21 05:00: Sodium 137.0, Potassium 3.42 L, Chloride 109.7 H, Carbon Dioxide 25.4, Anion Gap 5.32, BUN 11.6, Creatinine 0.54 L, Estimated GFR (MDRD) 152.00, BUN/Creatinine Ratio 21.48, Glucose 20.3 L* D, Calcium 8.47, Total Bilirubin 0.39, AST 34.7, ALT 37.6, Alkaline Phosphatase 231.1 H, Total Protein 5.57 L, Albumin 2.83 L, Globulin 2.74, Albumin/Globulin Ratio 1.03 10/07/21 05:00: WBC 17.23 H, RBC 3.59 L, Hgb 11.8 L, Hct 33.2 L, MCV 92.5, MCH 32.9 H, MCHC 35.5 H, RDW Coeff of Hilary 16.2 H, Plt Count 301, Immature Gran % (Auto) 0.8, Neut % (Auto) 69.2, Lymph % (Auto) 16.4, [place] % (Auto) 13.4 H, Eos % (Auto) 0.1, Baso % (Auto) 0.1, Neut # (Auto) 11.9 H, Lymph # (Auto) 2.8, [place] # (Auto) 2.3 H, Eos # (Auto) 0.0, Baso # (Auto) 0.0, Immature Gran # (Auto) 0.1 ASSESSMENT: Please see below. 1. Dehydration 2. Chronic pancreatitis 3. Hypoglycemia 4. Generalized osteoarthritis PLAN: 1. Will observe his sugars likely discharge day is tomorrow 2. Discontinue Dilaudid 3. Decrease [place] to 7.5mg three times a day 4. Discontinue Insulin Plan and coordination of the patient's care discussed in the presence of Psych Rn and nurse. SCRIBED BY: LA VICKERS [employer] Operator scribed while in presence of service performed by Dr. VICKI ENRIQUEZ on 10/07/21 ([id number])
--- NOTE | 2021-10-07 12:46 | PN ---
DATE OF SERVICE: 10/03/21 SUBJECTIVE: The patient was seen and examined with the Nurse Practitioner and the patient was hospitalized. Reviewing the ER chart, ER visit yesterday the plan is to admit the patient and given IV fluids and put him NPO for the time being. The patient has chronic pancreatitis. Discussed the patient's prognosis with the in detail. The patient is going to be DNI. He has a lot of end stage medical condition. The patient has end stage chronic lung disease with continued smoking, has liver cirrhosis, chronic pancreatitis from alcoholism, peripheral arterial disease for number of years, coronary artery disease, carotid artery stenosis. The patient is losing weight. He is just declining in health. Plan is to given IV fluids and we will also put him on appetite stimulants. TIME SPENT: More than 30 minutes. Plan and coordination of the patient's care discussed in the presence of nurse. ESPERANZA
--- NOTE | 2021-10-07 13:38 | PN ---
DATE OF SERVICE: 10/04/21 SUBJECTIVE: The patient was seen and examined with the Nurse Practitioner. The patient seems to have improved. Hydration status has improved. His appetite has improved. We will advance the diet. No chest pain. No PND. No Orthopnea. Continue the same management with steroids and fluids. Encourage the patient to eat, advised to quit smoking and drinking. Counseling done for smoking and alcoholism. In the past the patient has refused any help for his alcohol abuse. TIME SPENT: More than 30 minutes. Plan and coordination of the patient's care discussed in the presence of nurse. ESPERANZA
[2021-10-07] MEDS: BETAPACE PO SCH (20:11)
[2021-10-07 21:28] VITALS: TEMP 98.5
[2021-10-08 05:18] LABS: BASOPHILS % (AUTO) 0.1 % (0.0-3.0); HEMATOCRIT 28.6 % (42.0-52.0); IMMATURE GRANULOCYTE # (AUTO) 0.1 (0.0-1.0); IMMATURE GRANULOCYTE % (AUTO) 0.3 % (0.0-5.0); LYMPHOCYTES # (AUTO) 1.3 K/uL (0.60-3.4); LYMPHOCYTES % (AUTO) 8.3 (10.0-50.0); MEAN CORPUSCULAR VOLUME 94.4 fl (80.0-94.0); MONOCYTES # (AUTO) 1.4 K/uL (0.4-2.0); MONOCYTES % (AUTO) 8.4 (0-10); NEUTROPHILS # (AUTO) 13.4 K/ul (2.0-6.9); NEUTROPHILS % (AUTO) 82.9 % (42.2-75.2); PLATELET COUNT 177 10^3/uL (140-440); RED BLOOD COUNT 3.03 10^6/ul (4.70-6.10); WHITE BLOOD COUNT 16.09 K/ul (4.2-10.2)
[2021-10-08 05:34] LABS: ALANINE AMINOTRANSFERASE 28.8 U/L (0-50); ALBUMIN 2.37 g/dL (3.5-5.0); ALKALINE PHOSPHATASE 175.5 U/L (56-119); ASPARTATE AMINO TRANSFERASE 22.3 U/L (17-59); BILIRUBIN,TOTAL 0.41 mg/dL (0.2-1.3); CALCIUM 8.34 mg/dL (8.4-10.2); CARBON DIOXIDE 25.7 mmol/L (22-30.0); CHLORIDE 108.3 mmol/L (98-107); CREATININE 0.73 mg/dL (0.60-1.10); GLUCOSE 143.8 mg/dL (74-106); POTASSIUM 4.77 mmol/L (3.5-5.1); SODIUM 133.8 mmol/L (134.5-145); TOTAL PROTEIN 4.88 g/dL (6.3-8.2)
[2021-10-08 05:41] VITALS: BP 119/66
[2021-10-08] MEDS: PROTONIX PO SCH (05:42)
[2021-10-08] MEDS: SPIRIVA IH SCH (09:14)
[2021-10-08] MEDS: THIAMINE IM SCH (09:14)
[2021-10-08] MEDS: CREON DR 12,000 UNITS CAPSULE PO SCH (09:15)
[2021-10-08] MEDS: FERROUS SULFATE PO SCH (09:15)
[2021-10-08] MEDS: COZAAR PO SCH (09:15)
[2021-10-08] MEDS: PREDNISONE PO SCH (09:15)
[2021-10-08] MEDS: NORCO 7.5-325 PO SCH ×2 (09:16→14:15)
[2021-10-08] MEDS: K-DUR PO SCH ×2 (09:16→12:39)
[2021-10-08] MEDS: NORVASC PO SCH (09:16)
[2021-10-08] MEDS: ELIQUIS PO SCH (09:16)
[2021-10-08] MEDS: FOLIC ACID VIT B6 VIT B12 PO SCH (09:21)
[2021-10-08] MEDS: MIRALAX PO SCH (10:16)
--- NOTE | 2021-10-10 10:24 | ECHO2D ---
Date of Exam: 10/08/2021 Ordering Physician: DR. VICKI ENRIQUEZ Room #: 104 Reason for Echo: CAD, COPD, A-FIB M-Mode Normal Adult Results LV Dimensions Normal Adult Results AoV Opening excursions >1.6 >1.6 LVEDD-base- 3.5-5.8 4.9 Ao root dimensions 2.0-3.7 3.2 LVESD-base- 3.1-4.6 L. Atrium dimensions 1.9-3.8 4.7 Post. Wall thickness 0.8-1.1 1.0 IV septum (thickness) 0.7-1.2 1.0 Post. Wall excursion 0.72-1.3 NORMAL Septal motion .03 Systolic motion R. Ventricular cavity 1.5-2.0 3.0 LVEF 60% 77% Paradoxical septal wall motion YES 2-D : ENLARGED LEFT ATRIAL AND RIGHT VENTRICLE CAVITIES--PARADOXICAL SEPTAL MOTION, NO EFFUSION, NO THROMBUS, NORMAL LEFT VENTRICLE SIZE M-MODE: MV: NORMAL AV: NORMAL TV: NORMAL PV: CHAMBER SIZE: ENLARGED LEFT ATRIAL AND RIGHT VENTRICLE CAVITIES WALL MOTION: PARADOXICAL SEPTAL MOTION PERICARDIUM: NORMAL INTERPRETATION: 1. ENLARGED RIGHT VENTRICLE AND LEFT ATRIAL CAVITIES 2. PARADOXICAL SEPTAL MOTION 3. NORMAL LEFT VENTRICLE SIZE--EJECTION FRACTION >60% 4. VALVES --NORMAL MTDD
--- NOTE | 2021-10-10 13:58 | DS ---
DATE OF SERVICE: 10/08/21 FINAL DIAGNOSIS: 1. Abdominal pain left upper quadrant from chronic pancreatitis 2. Dehydration 3. Loss of appetite and weight loss secondary to alcoholism, chronic pancreatitis and chronic hepatitis 4. Severe peripheral arterial disease 5. Severe chronic lung disease 6. Severe coronary artery disease 7. Alcoholism 8. Alcoholic hepatitis with possibility of liver cirrhosis 9. History of hypertension 10.History of dyslipidemia 11.Diabetes mellitus 12.Chronic anemia 13.Malnutrition DISCHARGE INSTRUCTIONS: Discharge home. Advised to continue the rest of the medications. MEDICATIONS AT DISCHARGE: Eliquis Ferrous sulfate Sotalol Pantoprazole Albuterol inhaler Amlodipine Losartan Zofran Spiriva handy haler Tresiba 15 units after supper. NEW PRESCRIPTIONS: [place] 7.5/325mg PO twice a day as needed total given 30 tablets DIET INSTRUCTIONS: Continue on soft/low fiber diet until followup with Dr. Lee ACTIVITY: Resume normal activity with frequent rest periods SMOKING: Abstain from smoking and drinking DISEASE SPECIFIC EDUCATION: Medications Diet Followup Smoking Alcohol use HOSPITAL COURSE: 66 year old white male hospitalized with chronic pancreatitis, left upper quadrant discomfort, dehydration. The patient was treated with steroids, Dilaudid for pain, IV fluids and continuation of PPI and IRIS II mynor. Condition improved. At the time of discharge he has gained weight and his appetite had improved. His pain practically was under control with [place] being given a couple of times at day. The patient's hydration status with skin turgor improved remarkably. The patient was again counseled about alcoholism and smoking. He was explained about all his diagnosis in detail. His was present practically every time there was discussion about his lifestyle. The patient has multiple end stage medical problems and his prognosis is very poor. He is to be seen in 5-7 days after discharge. Note the patient is DNI. The patient was given [place] 7.5/325mg BID PRN total of 30 tablet but advised to only if needed for abdominal pain. TIME SPENT: More than 60 minutes. MTDD
--- NOTE | 2021-10-10 13:59 | PN ---
10/03/21: Level 5 10/04/21: Intermediate 10/05/21: Intermediate 10/06/21: Intermediate 10/07/21: Intermediate 10/08/21: Intermediate MTDD
--- NOTE | 2021-10-10 14:44 | PN ---
DATE OF SERVICE: 10/08/21 DISCHARGE NOTE SUBJECTIVE: 66 year old white male hospitalized with mild abdominal pain, left upper quadrant which is intermittently with pancreatitis, chronic pancreatitis and dehydration and weight loss. The patient has been still drinking. The patient's present in the room. The patient had hypoglycemia yesterday which has resolved. The patient hasn't been given any insulin. REVIEW OF SYSTEMS: CONSTITUTIONAL: No night sweats. No fatigue, malaise, lethargy. No fever or chills. HEENT: Eyes: No visual changes. No eye pain. No eye discharge. ENT: No runny nose. No epistaxis. No sinus pain. No sore throat. No odynophagia. No congestion. RESPIRATORY: No cough, no congestion. No hemoptysis. No shortness of breath. CARDIOVASCULAR: No angina symptoms. No CHF symptoms. No atypical chest pain for CAD. No palpitations. No PND. No orthopnea. GASTROINTESTINAL: Practically no abdominal pain for last 36 hours to 48 hours. No nausea or vomiting. No diarrhea or constipation. No hematemesis. No hematochezia. GENITOURINARY: No urgency. No frequency. No dysuria. No hematuria. No obstructive symptoms. No discharge. No pain. No significant abnormal bleeding. MUSCULOSKELETAL: No musculoskeletal pain; no joint swelling. NEUROLOGICAL: No headache. No neck pain. No syncope. No seizures. No dizziness. PSYCHIATRIC: Not anxious. No depression. No suicidal thoughts. No homicidal thoughts. SKIN: No rash. No lesions. No wounds. ENDOCRINE: No unexplained weight loss. No weight gain. HEMATOLOGIC/LYMPHATIC: No anemia. No purpura. No petechiae. No prolonged or excessive bleeding. No palpable lymph nodes. PHYSICAL EXAMINATION: VITAL SIGNS: Temperature 98.5, pulse 75, respiratory rate 16, blood pressure 120/66 and pulse ox 98% on room air. HEENT: Head normocephalic, atraumatic. Eyes: Extraocular muscles are intact. Pupils are equal, round and reactive to light and accommodation. Ears: No lesions. Nose appeared normal. Throat: No exudate or erythema. NECK: Supple. No JVD, no carotid bruit. No lymphadenopathy or thyromegaly. LUNGS: Decreased breath sounds but clear to auscultation. Percussion note normal. Chest symmetrical. HEART: S1, S2, no S3. No murmurs. No cyanosis or clubbing. No ascites. Pulses: Dorsalis pedis and posterior tibial pulses +1 to +2 bilaterally. ABDOMEN: Soft. Nontender. Bowel sounds active. No CVA tenderness. No mass felt. EXTREMITIES: No edema. Full range of motion of all extremities, equal. NEUROLOGIC: No focal deficit. Cranial nerves II through XII are grossly intact. No headache. No double vision. SKIN: Not dry. Intact. Turgor - normal. LYMPHATIC: No palpable lymph nodes/no lymphedema. MUSCULOSKELETAL: Normal joints with no swelling. Muscle tone is normal. LABS: Hgb 10, hct 28, WBC 16,000 normal differential, creatinine 0.7, BUN 12, potassium 4.7 ASSESSMENT: 1. Dehydration 2. Left upper quadrant pain, under control PLAN: 1. Discharge the patient home 2. Counseled for alcohol and smoking 3. [place] to be given 7.5/325mg BID PRN 30 tablets given 4. Instruction to come back in 5-7 days 5. The patient strongly advised to quit drinking and smoking. 6. Regular lifestyle discussed 7. Small multiple meals, low fat discussed PROGNOSIS: Poor The patient is DNI. TIME SPENT: More than 30 minutes. Plan and coordination of the patient's care discussed in the presence of nurse. ESPERANZA
--- NOTE | 2021-10-11 11:03 | PN ---
DATE OF SERVICE: 10/05/21 SUBJECTIVE: 66 year old white male hospitalized with failure to thrive, dehydration and chronic abdominal pain subsided. The patient's lab findings and x-ray findings were not consistent with acute pancreatitis. The patient has chronic pancreatitis. The patient's condition has steadily improved. He is looking better. The patient has multiple other medical problems which are probably end stage like COPD, peripheral arterial disease, coronary artery disease, Chronic lung disease. The patient is also on insulin with diabetes mellitus. The patient's appetite has improved some but in excess amount of food causes him to have abdominal pain from chronic pancreatitis. The is in the room. The patient is DNI. REVIEW OF SYSTEMS: CONSTITUTIONAL: No night sweats. No fatigue, malaise, lethargy. No fever or chills. Feeling better. HEENT: Eyes: No visual changes. No eye pain. No eye discharge. ENT: No runny nose. No epistaxis. No sinus pain. No sore throat. No odynophagia. No congestion. RESPIRATORY: No cough, no congestion. No hemoptysis. No shortness of breath. CARDIOVASCULAR: No angina symptoms. No CHF symptoms. No atypical chest pain for CAD. No palpitations. No PND. No orthopnea. GASTROINTESTINAL: No abdominal pain for past few hours. No nausea or vomiting. No diarrhea or constipation. No hematemesis. No hematochezia. Appetite has improved. GENITOURINARY: No urgency. No frequency. No dysuria. No hematuria. No obstructive symptoms. No discharge. No pain. No significant abnormal bleeding. MUSCULOSKELETAL: No musculoskeletal pain; no joint swelling. NEUROLOGICAL: No headache. No neck pain. No syncope. No seizures. No dizziness. PSYCHIATRIC: Not anxious. No depression. No suicidal thoughts. No homicidal thoughts. SKIN: No rash. No lesions. No wounds. ENDOCRINE: No unexplained weight loss. No weight gain. HEMATOLOGIC/LYMPHATIC: No anemia. No purpura. No petechiae. No prolonged or excessive bleeding. No palpable lymph nodes. PHYSICAL EXAMINATION: VITAL SIGNS: Temperature 97.8, pulse 56, respiratory rate 18, blood pressure 122/80 and pulse ox 98%. HEENT: Head normocephalic, atraumatic. Eyes: Extraocular muscles are intact. Pupils are equal, round and reactive to light and accommodation. Ears: No lesions. Nose appeared normal. Throat: No exudate or erythema. NECK: Supple. No JVD, no carotid bruit. No lymphadenopathy or thyromegaly. LUNGS: Decreased breath sounds but clear to auscultation. Percussion note normal. Chest symmetrical. HEART: S1, S2, no S3. No murmurs. No cyanosis or clubbing. No ascites. Pulses: Dorsalis pedis and posterior tibial pulses +1 to +2 bilaterally. ABDOMEN: Soft. Nontender. Bowel sounds active. No CVA tenderness. No mass felt. EXTREMITIES: No edema. Full range of motion of all extremities, equal. NEUROLOGIC: No focal deficit. Cranial nerves II through XII are grossly intact. No headache. No double vision. SKIN: Not dry. Intact. Turgor - normal. LYMPHATIC: No palpable lymph nodes/no lymphedema. MUSCULOSKELETAL: Normal joints with no swelling. Muscle tone is normal. LABS: Hgb 10.4, hct 29, WBC 14,000 normal differential, creatinine 0.6, BUN 13, potassium 3.6. ASSESSMENT: 1. Failure to thrive 2. Dehydration 3. Chronic abdominal pain, subsided. 4. Chronic lung disease under control 5. Coronary artery disease stable 6. COPD PLAN: 1. Continue IV fluids 2. Continue to encourage the patient to eat. 3. We will discontinue Tresiba which the patient takes three times a day. Already indicated to him that that's not the way Tresiba should be taken. It is a long acting insulin. Should be taken once but he has decided to take it three times a day. We put him on 30 units of Lantus insulin and discontinues Tresiba while he is in the hospital. We put him on sliding scale 4. Counseling for smoking 5. Counseling for alcoholism done. He doesn't want any help for any of them is in the room but she is quite helpless as far as his lifestyle is concerned. PROGNOSIS: Poor 3. TIME SPENT: More than 30 minutes. Plan and coordination of the patient's care discussed in the presence of nurse. ESPERANZA
--- NOTE | 2021-10-11 11:13 | PN ---
DATE OF SERVICE: 10/06/21 SUBJECTIVE: The patient was seen and examined with the Nurse Practitioner. The patient's cardiovascular and respiratory status stable. He is able to tolerate the food. Discussed with the patient. Also discussed with him about his insulin in detail. He is noncompliant of lifestyle and medications, followups. His prognosis is poor. TIME SPENT: More than 30 minutes. Plan and coordination of the patient's care discussed in the presence of nurse. ESPERANZA
--- NOTE | 2021-10-12 11:02 | HP ---
DATE OF SERVICE: 10/03/21 REASON FOR HOSPITALIZATION/HISTORY OF PRESENT ILLNESS: Lost 17 pounds. ER followup. The patient has been in the ER twice. Left sided pain. Pain 9-10 on 1-10 scale. Can't eat, nauseated. PAST MEDICAL HISTORY: COPD Chronic pancreatitis History of alcoholism Anemia PAD, severe Hypertension Hyperglycemia PAST SURGICAL HISTORY: Gallbladder CABG times three Vascular right leg REVIEW OF SYSTEMS: CONSTITUTIONAL: No fever, Fatigue. HEENT: No sinus drainage, no sore throat. RESPIRATORY: No cough, no congestion. CARDIOVASCULAR: No atypical chest pain for coronary artery disease. No angina, CHF symptoms, palpitations or shortness of breath. GASTROINTESTINAL: No melena. GERD. Left sided abdominal pain. GENITOURINARY: No hematuria, no prostatism, no polyuria. UKE OPERATOR: No blackout, no dizziness, no headache, no double vision. MUSCULOSKELETAL: Osteoarthritis pain, no joint swelling. ENDOCRINE: No weight loss, no weight gain. SKIN: Not dry, no rash. PSYCHIATRIC: Not anxious, no depression, no suicidal thoughts, no homicidal thoughts. SOCIAL HISTORY: Marital Status: . Alcohol Usage: Y. Tobacco Usage: Y. FAMILY HISTORY: Father Mother Brother 3 Sister 3 MEDICATIONS: Eliquis 5mg BID Folic acid Q daily Losartan 50mg Q daily Norvasc 5mg Q daily Betapace 80mg Q daily Ferrous sulfate 325mg Q daily Advair 250-50 BID Spiriva Q daily Tresiba 18-20 units daily Aspirin 81mg Q daily Symbicort 160-4.5mg BID Protonix 40 daily COVID vaccine Zofran 4mg PRN [place] 10-325mg daily ALLERGIES: Metformin (upset stomach) Tricor Chantix No Januvia Tradjenta Pravastatin-pancreas PHYSICAL EXAMINATION: V/S: pulse 56, blood pressure 88/52, temperature 97.7, oxygen saturation 99%. BMI 16.4, height 5'9, weight 111. GENERAL APPEARANCE: Oriented times three. HEENT: Pale. Dry mucous membranes NECK: No JVP, no bruits. RESPIRATORY: Decreased breath sounds, bilateral rhonchi. CARDIOVASCULAR: S1, S2, no S3, Irregular. no murmur. No cyanosis, clubbing. No ascites. GI/ABDOMEN: No tenderness. Bowel sounds are active. EXTREMITIES: edema, pulses +1, equal. UKE OPERATOR: Deep tendon reflexes, sensory, motor and gait all normal. RECTAL: Dr. Sandoval. 01/30 refused repeat. PROSTATE: 05/2020 . ASSESSMENT: 1. Acute dehydration 2. Left sided pain 3. Pancreatic insufficiency 4. Acute COPD exacerbation 5. Dyslipidemia 6. Claudication 7. History of GI bleed 8. COPD 9. Bilateral pulmonary nodules 10.Basal cell nose- Dr. 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 Patient to go through drive through for testing 2. Routine telemetry orders, No cardiac markers 3. CBC and CMP now and daily 4. Chest x-ray 5. U/A 6. Continue home medications 7. D5 1/2 normal saline IV @100 cc an hour 8. NPO 9. Zofran 4mg IV Q 6 hours PRN 10.Solu-Cortef 125mg IV Q 12 hours 11.Thiamine daily 12.O2 @ 1-2 liters nasal cannula. 13.Dilaudid 1-2mg IV Q 4 hours 14. NPO 15.Ativan 0.5mg BID PRN PO 16.Creo [id number] daily PO TIME SPENT: More than 70 minutes. MTDD
== END 2021-10-08 14:21 | disposition home or self-care (01) | DRG 392 ==
LOC: LAB 11:52 → MEDSURG A 13:52
PROVIDERS: ADMIT Internal Medicine; ATTEND Internal Medicine
DX: K73.9 Chronic hepatitis, unspecified; R11.0 Nausea; E78.5 Hyperlipidemia, unspecified; I73.9 Peripheral vascular disease, unspecified; I10 Essential (primary) hypertension; D64.9 Anemia, unspecified; I25.10 Atherosclerotic heart disease of native coronary artery without angina pectoris; Z51.81 Encounter for therapeutic drug level monitoring; E44.1 Mild protein-calorie malnutrition; Z87.19 Personal history of other diseases of the digestive system; R10.12 Left upper quadrant pain; Z79.01 Long term (current) use of anticoagulants; F10.99 Alcohol use, unspecified with unspecified alcohol-induced disorder; Z96.0 Presence of urogenital implants; G90.09 Other idiopathic peripheral autonomic neuropathy; R91.1 Solitary pulmonary nodule; K86.1 Other chronic pancreatitis; J44.9 Chronic obstructive pulmonary disease, unspecified; Z79.899 Other long term (current) drug therapy; J44.1 Chronic obstructive pulmonary disease with (acute) exacerbation; E11.65 Type 2 diabetes mellitus with hyperglycemia; E86.0 Dehydration

== ENCOUNTER 2022-06-09 22:51 | Inpatient (IN) ==
[2022-06-09] MEDS ORDERED: DUONEB NEB STA (22:53)
[2022-06-09] MEDS ORDERED: DECADRON IVP ONE (22:53)
--- NOTE | 2022-06-09 23:05 | ED.PDOC ---
General ED Provider: Dr. JILLIAN ESPINO Chief Complaint: Shortness of Air Stated Complaint: Pt presents with SOB. Pt has been feeling SOB for the past 3 days. It worsened tonight and he started having chest tightness so he called EMS. On arrival, he was noted to have an O2 saturation of around 75%. After a delfina and oxygen, he was feeling better and his chest tightness resolved but he still has some SOB. He has COPD and still smokes but has been smoking less recently. He is in afib w/ RVR but has a h/o it and is on Eliquis. Has has a subjective fever but no N/V/AP. Nothing else has made his sxs better or worse and they are mild in nature. Time Seen by Provider: 06/09/22 22:53 Primary Care Provider: VICKI ENRIQUEZ Nursing and Triage Documentation Reviewed and Agree: Yes Does patient meet sepsis criteria?: No If yes, has appropriate treatment been initiated?: No System Inflammatory Response Syndrome: Not Applicable Sepsis Protocol: For patient's 13 years and over: Temp is 96.8 and below OR 101 and greater Pulse >90 BPM Resp >20/minute Acutely Altered Mental Status Are patient's symptoms suggestive of a new infection, such as: -Pneumonia -Skin, Soft Tissue -Endocarditis -UTI -Bone, Joint Infection -Implantable Device -Acute Abdominal Infection -Wound Infection -Meningitis -Blood Stream Catheter Infection -Unknown Review of Systems Review Of Systems Constitutional: Reports No symptoms Eyes: Reports No symptoms Ears, Nose, Mouth, Throat: Reports No symptoms Respiratory: Reports Short of air and Wheezing Cardiac: Reports Chest pain (Tightness with SOb) GI: Reports No symptoms : Reports No symptoms Musculoskeletal: Reports No symptoms Skin: Reports No symptoms Neurological: Reports No symptoms Endocrine: Reports No symptoms Hematologic/Lymphatic: Reports No symptoms All Other Systems: Reviewed and Negative [facility] Medical History A-fib Alcohol abuse CAD (coronary artery disease) Claudication COPD (chronic obstructive pulmonary disease) Diabetes mellitus Dyslipidemia Femoral artery occlusion GI bleed History of stent insertion of renal artery Neuropathy PAD (peripheral artery disease) Pancreatitis Right renal mass Family History Other No known health problems Social History Smoking and tobacco status: Current every day smoker Alcohol intake: current Alcohol intake frequency: a few times a week Substance use type: does not use Surgical History History of nephrectomy, right Hx of CABG Physical Exam Physical Exam Appearance: Reports Ill-appearing, No pain distress and Well-nourished Ill-appearing: Mild Pain Distress: None Eyes: Reports GUILLERMO, EOMI and Conjunctiva clear ENT: Reports Oropharynx normal Neck: Supple Respiratory: Reports Airway patent and Wheezes (Diffuse inspiratory and expiratory wheezes with mild SOB) Cardiovascular: Reports No rub, No murmur, Irregular rhythm and Tachycardia GI/: Reports Soft, Nontender, No masses, Bowel sounds normal and No Organomegaly Musculoskeletal: Reports Normal strength, ROM intact, No edema and No calf tenderness Skin: Reports Warm, Dry and Normal color Neurological: Reports Sensation intact, Motor intact, Reflexes intact, Cranial nerves intact, Alert and Oriented Psychiatric: Reports Affect appropriate and Mood appropriate Interpretation EKG Interpretation Time of EKG #1: 23:16 Rate: Tachy Rhythm: Other (Atrial fibrillation with PVCs) Ectopy: PVCs [place]: [place] ST Segment: Normal Critical Care Note Critical Care Note Total Critical Care Time (mins): 0 Course Course Hematology/Chemistry: 06/09/22 23:00 06/09/22 23:00 Orders, Labs, Meds: Lab Review 06/09/22 06/09/22 23:00 23:00 WBC 13.85 H RBC 4.33 L Hgb 14.0 Hct 42.0 MCV 97.0 H MCH 32.3 H MCHC 33.3 RDW Coeff of Hilary 12.3 Plt Count 196 Immature Gran % (Auto) 0.4 Neut % (Auto) 79.7 H Lymph % (Auto) 11.3 [place] % (Auto) 8.2 Eos % (Auto) 0.2 Baso % (Auto) 0.2 Neut # (Auto) 11.0 H Lymph # (Auto) 1.6 [place] # (Auto) 1.1 Eos # (Auto) 0.0 Baso # (Auto) 0.0 Immature Gran # (Auto) 0.1 Sodium 136.3 Potassium 3.55 Chloride 100.0 Carbon Dioxide 27.6 Anion Gap 12.25 BUN 16.5 Creatinine 0.87 Estimated GFR (MDRD) 88.00 BUN/Creatinine Ratio 18.96 Glucose 375.4 H Calcium 8.48 Magnesium 1.55 L Total Bilirubin 0.49 AST 22.7 ALT 17.8 Alkaline Phosphatase 138.8 H Troponin I < 0.012 NT-Pro-B Natriuret Pep 8520.000 H Total Protein 6.61 Albumin 3.21 L Globulin 3.40 Albumin/Globulin Ratio 0.94 Orders Category Date Time Status AD[facility] ADMISSION 06/10/22 00:50 Active ABG DRAW REQUEST Stat CARDIO 06/09/22 23:05 Ordered EKG-(ED ONLY) Stat CARDIO 06/09/22 22:53 Completed NEBULIZER TREATMENT Routine CARDIO 06/10/22 00:52 Ordered NEBULIZER TREATMENT Stat CARDIO 06/09/22 22:54 Completed OXYGEN Routine CARDIO 06/10/22 00:51 Ordered ACTIVITY .Up ad Noemi CARE 06/10/22 00:50 Active BLOOD GLUCOSE MONITORING (MED/SURG) 0630,1100,1700,2100 CARE 06/10/22 00:51 Active GIVE HS SNACK 2100 CARE 06/10/22 00:51 Active INTAKE & OUTPUT Q8HR CARE 06/10/22 00:50 Active IP: INSERT SALINE LOCK ONCE CARE 06/10/22 00:50 Active NOTIFY PHYSICIAN OF CONSULT ONCE CARE 06/10/22 00:55 Active REMINDER: Give Insulin if Needed Q4HR CARE 06/10/22 00:50 Active TELEMETRY MONITORING TELE CARE 06/10/22 00:50 Active VITAL SIGNS Q8HR CARE 06/10/22 00:50 Active CONSULT PHYSICIAN [PHYSICIAN CONSULTATION] [CONS] CONSULTS 06/10/22 00:55 Ordered Routine ADA 1800 KAM. DIET DIETARY 06/10/22 Breakfast Ordered HS SNACK DIETARY 06/10/22 Dinner Ordered ABG COOX Stat LAB 06/09/22 23:05 Received BLOOD CULTURE (ED ONLY) Stat LAB 06/10/22 Ordered CBC W/ AUTO DIFF DAILY@0600 LAB 06/10/22 06:00 Ordered CBC W/ AUTO DIFF DAILY@0600 LAB 06/11/22 06:00 Ordered CBC W/ AUTO DIFF Stat LAB 06/09/22 23:00 Completed COMPREHENSIVE METABOLIC PANEL DAILY@0600 LAB 06/10/22 06:00 Ordered COMPREHENSIVE METABOLIC PANEL DAILY@0600 LAB 06/11/22 06:00 Ordered COMPREHENSIVE METABOLIC PANEL Stat LAB 06/09/22 23:00 Completed MAGNESIUM Stat LAB 06/09/22 23:00 Completed NT-PROBNP Stat LAB 06/09/22 23:00 Completed SARS COV-2 RNA RAPID MARTINEZ Stat LAB 06/10/22 Ordered TROPONIN I Q8H LAB 06/10/22 07:00 Ordered TROPONIN I Q8H LAB 06/10/22 15:00 Ordered TROPONIN I Stat LAB 06/09/22 23:00 Completed Amlodipine Besylate [Norvasc] MEDS 06/10/22 09:00 Ordered 5 mg PO BID Apixaban [Eliquis] MEDS 06/10/22 09:00 Ordered 5 mg PO BID Azithromycin Inj [Zithromax] 500 mg MEDS 06/10/22 09:00 Ordered 0.9 % Sodium Chloride [Sodium Chloride] 250 ml IV DAILY Budesonide/Formoterol Fumarate [Symbicort 160-4.5 Mcg MEDS 06/10/22 09:00 Ordered Inhaler] 2 puff IH BID Ceftriaxone/D5w 1 gm Premix [Rocephin 1 gm/50 ml D5w] MEDS 06/10/22 09:00 Ordered 1 gm in 50 ml IV DAILY Ceftriaxone/D5w 1 gm Premix [Rocephin 1 gm/50 ml D5w] MEDS 06/10/22 00:07 Discontinued 1 gm in 50 ml IV ONCE Dexamethasone Sod Phosphate [Decadron] MEDS 06/09/22 22:53 Discontinued 10 mg IVP ONCE ONE Fluticasone Propionate [Flonase] MEDS 06/10/22 09:00 Ordered 2 spray MARCO A DAILY Hydrocodone Bit/Acetaminophen [[place] 7.5-325] MEDS 06/10/22 00:54 Ordered 1 tab PO BID PRN Insulin Regular, Human [Humulin R] MEDS 06/10/22 00:07 Discontinued 10 unit SUBCUT ONCE STA Ipratropium/Albuterol Neb [Duoneb] MEDS 06/09/22 22:53 Discontinued 3 ml NEB ONCE STA Ipratropium/Albuterol Neb [Duoneb] MEDS 06/10/22 06:00 Ordered 3 ml NEB RTQ6H Loratadine [Claritin] MEDS 06/10/22 09:00 Ordered 10 mg PO DAILY Losartan Potassium [Cozaar] MEDS 06/10/22 09:00 Ordered 50 mg PO BID Ondansetron [Zofran Odt] MEDS 06/10/22 01:00 Ordered 4 mg PO Q8H Pantoprazole Sodium [Protonix] MEDS 06/10/22 09:00 Ordered 40 mg PO DAILY Sotalol HCl [Betapace] MEDS 06/10/22 09:00 Ordered 80 mg PO DAILY ferrous sulfate MEDS 06/10/22 09:00 Ordered 325 mg PO DAILY folic acid-vit B6-vit B12 [Folbic] MEDS 06/10/22 09:00 Ordered 1 tab PO DAILY insulin degludec [Tresiba FlexTouch U-100] MEDS 06/10/22 09:00 Ordered 15 unit SUBCUT DAILY RESUSCITATION STATUS Routine OTHERS 06/10/22 00:50 Ordered CHEST, 1V AP ONLY Stat RADS 06/09/22 22:53 Completed Medications Generic Name Dose Route Start Last Admin Trade Name Freq PRN Reason Stop Dose Admin Hydrocodone Bitart/Acetaminophen 1 tab 06/10/22 00:54 Hydrocodone Bit/Acetaminophen 7.5/325 Mg Tablet PO BID PRN Pain Albuterol/Ipratropium 3 ml 06/10/22 06:00 Ipratropium/Albuterol Vial.Neb NEB RTQ6H TYRA Amlodipine Besylate 5 mg 06/10/22 09:00 Amlodipine Besylate 5 Mg Tablet PO BID TYRA Apixaban 5 mg 06/10/22 09:00 Apixaban 5 Mg Tab PO BID TYRA Budesonide/Formoterol Fumarate 2 puff 06/10/22 09:00 Budesonide/Formoterol Fumarate 160/4.5 Mcg Inhaler IH BID TYRA Fluticasone Propionate 2 spray 06/10/22 09:00 Fluticasone Propionate 16 Gm Nasal [place] MARCO A DAILY TYRA CEFTRIAXONE/D5W 1 GM PREMIX 1 gm in 50 mls @ 75 mls/hr 06/10/22 09:00 Rocephin 1 Gm/50 Ml D5w IV 06/13/22 08:59 DAILY [facility] Azithromycin 500 mg/ Sodium 250 mls @ 125 mls/hr 06/10/22 09:00 Chloride IV 06/13/22 08:59 DAILY TYRA Loratadine 10 mg 06/10/22 09:00 Loratadine 10 Mg Tablet PO DAILY TYRA Losartan Potassium 50 mg 06/10/22 09:00 Losartan Potassium 25 Mg Tablet PO BID TYRA Non-Formulary Medication 325 mg 06/10/22 09:00 Ferrous Sulfate PO DAILY TYRA Non-Formulary Medication 15 unit 06/10/22 09:00 Insulin Degludec [Tresiba Flextouch U-100] SUBCUT DAILY [facility] Non-Formulary Medication 1 tab 06/10/22 09:00 Folic Acid-Vit B6-Vit B12 [Folbic] PO DAILY TYRA Ondansetron HCl 4 mg 06/10/22 01:00 Ondansetron Hcl 4 Mg Tab.Rapdis PO Q8H TYRA Pantoprazole Sodium 40 mg 06/10/22 09:00 Pantoprazole Sodium 40 Mg Tablet. PO DAILY TYRA Sotalol HCl 80 mg 06/10/22 09:00 Sotalol Hcl 80 Mg Tablet PO DAILY [facility] Discontinued Medications Generic Name Dose Route Start Last Admin Trade Name Freq PRN Reason Stop Dose Admin Albuterol/Ipratropium 3 ml 06/09/22 22:53 06/09/22 23:10 Ipratropium/Albuterol Vial.Neb NEB 06/09/22 22:54 3 ml ONCE STA Administration Dexamethasone Sodium Phosphate 10 mg 06/09/22 22:53 06/09/22 23:16 Dexamethasone Sod Phos 10 Mg/Ml Inj IVP 06/09/22 22:54 10 mg ONCE ONE Administration CEFTRIAXONE/D5W 1 GM PREMIX 1 gm in 50 mls @ 75 mls/hr 06/10/22 00:07 06/10/22 00:42 Rocephin 1 Gm/50 Ml D5w IV 06/10/22 00:46 75 mls/hr ONCE ONE Administration Insulin Human Regular 10 unit 06/10/22 00:07 06/10/22 00:40 Insulin Regular, Human 100 Unit/Ml (3ml) Vial SUBCUT 06/10/22 00:08 10 unit ONCE STA Administration Vital Signs: Temp Pulse Resp BP Pulse Ox 06/09/22 22:52 98.1 F 126 H 25 H 124/70 98 Discharge Plan Discharge Patient Disposition: ADMITTED INPATIENT Discharge Problem: COPD exacerbation, Acute hyperglycemia, Atrial fibrillation, Hypoxia Did you review [place] IS TECHNICIAN?: Not Applicable ED Provider: JILLIAN ESPINO Condition: Fair Physician Progress Note: 12:00 AM: I have reviewed pt results. CBC shows a WBC of 13.85. Chems show a glucose of 375. Trop is negative. BNP is 8520. XR shows COPD with no obvious infiltrate or edema. ABG shows pH of 7.41, Co2 of 44, O2 of 52. On reeval, he is doing better but drops to mid to low 80s Os sat and will need to be admitted. I spoke with Dr. Enriquez who recommends transfer as he is a full code with many problems. I will draw blood cultures, give abx and treat his glucose while attempting to transfer the patient. 12:50 AM: Both [facility] and [facility] in [place] are at capacity. The patient does not wish to go anywhere else. Will plan to admit to hospitalist service here and have Dr. Enriquez consult in the morning.
[2022-06-09 23:12] LABS: BASOPHILS % (AUTO) 0.2 % (0.0-3.0); EOSINOPHILS % (AUTO) 0.2 % (0.0-7.0); IMMATURE GRANULOCYTE # (AUTO) 0.1 (0.0-1.0); IMMATURE GRANULOCYTE % (AUTO) 0.4 % (0.0-5.0); LYMPHOCYTES # (AUTO) 1.6 K/uL (0.60-3.4); LYMPHOCYTES % (AUTO) 11.3 (10.0-50.0); MEAN CORPUSCULAR HEMOGLOBIN 32.3 pg (27.0-31.0); MEAN CORPUSCULAR HGB CONC 33.3 (31.8-35.4); MONOCYTES # (AUTO) 1.1 K/uL (0.4-2.0); MONOCYTES % (AUTO) 8.2 (0-10); NEUTROPHILS % (AUTO) 79.7 % (42.2-75.2); PLATELET COUNT 196 10^3/uL (140-440); RDW COEFFICIENT OF VARIATION 12.3 % (11.6-14.8); RED BLOOD COUNT 4.33 10^6/ul (4.70-6.10); WHITE BLOOD COUNT 13.85 K/ul (4.2-10.2)
[2022-06-09 23:24] LABS: ALANINE AMINOTRANSFERASE 17.8 U/L (0-50); ALBUMIN 3.21 g/dL (3.5-5.0); ALKALINE PHOSPHATASE 138.8 U/L (56-119); ASPARTATE AMINO TRANSFERASE 22.7 U/L (17-59); BILIRUBIN,TOTAL 0.49 mg/dL (0.2-1.3); BLOOD UREA NITROGEN 16.5 mg/dL (9-20); CALCIUM 8.48 mg/dL (8.4-10.2); CARBON DIOXIDE 27.6 mmol/L (22-30.0); CREATININE 0.87 mg/dL (0.60-1.10); GLUCOSE 375.4 mg/dL (74-106); MAGNESIUM 1.55 mg/dL (1.6-2.3); POTASSIUM 3.55 mmol/L (3.5-5.1); SODIUM 136.3 mmol/L (134.5-145); TOTAL PROTEIN 6.61 g/dL (6.3-8.2)
[2022-06-09 23:37] LABS: TROPONIN I < 0.012 ng/ml (0.0000-0.120)
[2022-06-10] MEDS ORDERED: HUMULIN R SUBCUT STA (00:07)
[2022-06-10] MEDS ORDERED: ROCEPHIN 1 GM/50 ML D5W 1 GM/50 ML BAG IV ONE (00:07)
--- NOTE | 2022-06-10 00:29 | DI ---
EXAM: Single-view chest HISTORY: Shortness of breath COMPARISON: Two-view chest 10/03/2021 FINDINGS: The cardiomediastinal silhouette is stable. Sternal wire sutures are noted from previous CABG. There is no consolidation or effusion. Clips are seen in the right upper quadrant. IMPRESSION: No evidence of active pulmonary disease. Prior mediastinotomy.
[2022-06-10 03:02] VITALS: BMI 14.1
[2022-06-10] MEDS: NICODERM 21 MG TD SCH ×3 (04:02→12:38)
[2022-06-10] MEDS: ZOFRAN ODT PO SCH ×3 (05:03→16:53)
[2022-06-10] MEDS: DUONEB NEB SCH ×3 (05:39→16:50)
[2022-06-10 05:50] LABS: BASOPHILS % (AUTO) 0.1 % (0.0-3.0); HEMATOCRIT 38.5 % (42.0-52.0); HEMOGLOBIN 13.1 g/dl (14.0-18.0); IMMATURE GRANULOCYTE # (AUTO) 0.1 (0.0-1.0); IMMATURE GRANULOCYTE % (AUTO) 0.4 % (0.0-5.0); LYMPHOCYTES # (AUTO) 0.7 K/uL (0.60-3.4); LYMPHOCYTES % (AUTO) 4.9 (10.0-50.0); MEAN CORPUSCULAR HEMOGLOBIN 32.5 pg (27.0-31.0); MEAN CORPUSCULAR VOLUME 95.5 fl (80.0-94.0); MONOCYTES # (AUTO) 0.8 K/uL (0.4-2.0); MONOCYTES % (AUTO) 5.9 (0-10); NEUTROPHILS # (AUTO) 11.9 K/ul (2.0-6.9); NEUTROPHILS % (AUTO) 88.7 % (42.2-75.2); PLATELET COUNT 166 10^3/uL (140-440); RDW COEFFICIENT OF VARIATION 12.1 % (11.6-14.8); RED BLOOD COUNT 4.03 10^6/ul (4.70-6.10); WHITE BLOOD COUNT 13.39 K/ul (4.2-10.2)
[2022-06-10 06:05] LABS: ALANINE AMINOTRANSFERASE 17.9 U/L (0-50); ALBUMIN 2.91 g/dL (3.5-5.0); ALKALINE PHOSPHATASE 119.1 U/L (56-119); ASPARTATE AMINO TRANSFERASE 29.4 U/L (17-59); BILIRUBIN,TOTAL 0.39 mg/dL (0.2-1.3); BLOOD UREA NITROGEN 17.5 mg/dL (9-20); CALCIUM 8.43 mg/dL (8.4-10.2); CARBON DIOXIDE 29.5 mmol/L (22-30.0); CHLORIDE 101.8 mmol/L (98-107); CREATININE 0.79 mg/dL (0.60-1.10); GLUCOSE 205.2 mg/dL (74-106); POTASSIUM 3.2 mmol/L (3.5-5.1); SODIUM 137.7 mmol/L (134.5-145); TOTAL PROTEIN 6.29 g/dL (6.3-8.2)
[2022-06-10] MEDS: HUMULIN R SUBCUT PRN ×4 (06:17→20:35)
[2022-06-10 06:41] LABS: ABG PH 7.41 (7.35-7.45)
[2022-06-10 06:42] LABS: BEecf 3.3 (-2.0-3.0); COHb 4.1 (0.5-1.5); HCO3 27.9 (21-28)
[2022-06-10 06:43] LABS: ABG O2 HGB 85.5 % (95-100); MetHb 1.2 (0-1.5); TCO2 29.3 (19-24); sO2 86.7 % (94-98); tHb 13.3 g/dl (11.7-17.4)
[2022-06-10] MEDS: ZITHROMAX 500 MG in SODIUM CHLORIDE 250 ML IV SCH (08:05)
[2022-06-10] MEDS: CLARITIN PO SCH (08:06)
[2022-06-10] MEDS: COZAAR PO SCH ×2 (08:06→20:36)
[2022-06-10] MEDS: ELIQUIS PO SCH ×2 (08:06→20:36)
[2022-06-10] MEDS: FLONASE NAS SCH (08:06)
[2022-06-10] MEDS: FOLIC ACID PO SCH (08:06)
[2022-06-10] MEDS: PROTONIX PO SCH (08:06)
[2022-06-10] MEDS: SYMBICORT 160-4.5 MCG INHALER IH SCH ×2 (08:06→20:45)
[2022-06-10] MEDS: FERROUS SULFATE PO SCH (08:06)
[2022-06-10] MEDS ORDERED: NON-FORMULARY MEDICATION (Insulin Degludec [Tresiba Flextouch U-100] 100 unit/mL (3 mL) In SUBCUT SCH (09:00)
[2022-06-10] MEDS ORDERED: BETAPACE PO SCH (09:00)
[2022-06-10] MEDS ORDERED: NORVASC PO SCH (09:00)
[2022-06-10] MEDS ORDERED: K-DUR PO STA (09:02)
--- NOTE | 2022-06-10 09:06 | PCM.PROG ---
Date Seen by Provider: 06/10/22 Time Seen by Provider: 09:03 Subjective: he says he is breathing much better--cough is more productive now--no nursing staff concerns other than afib with rvr this am--betapace given early this am Objective: Vitals: T=97.0 F, P=112, R=18, DY=554/86, SPO2=99 HEENT: [] Neck: [supple] Lungs: [scattered rhonchi] CVS: [irr] Abdomen: [soft nt ] Extremities: [] Neurological: [intact] Skin: [] Lab/Tests/Diagnostic Imaging: [potassium 3.2 this am] (1) COPD exacerbation: Status: Acute Code(s): J44.1 - Chronic obstructive pulmonary disease with (acute) exacerbation SNOMED Code(s): 064241337 (2) Hypokalemia: Status: Inactive Code(s): E87.6 - Hypokalemia SNOMED Code(s): 03774450 Plan: will replete potassium orall and monitor--continue meds for copd exacerbation--dr florentino consulted for HR concerns---see orders
[2022-06-10] MEDS: LANTUS SUBCUT SCH (09:40)
[2022-06-10] MEDS ORDERED: TYLENOL PO PRN (13:09)
[2022-06-10] MEDS: NORCO 7.5-325 PO PRN (13:49)
[2022-06-10] MEDS: K-DUR PO SCH (17:37)
[2022-06-10] MEDS: NYSTATIN ORAL SUSP PO SCH ×2 (17:37→20:57)
[2022-06-10] MEDS: ROCEPHIN 1 GM/50 ML D5W 1 GM/50 ML BAG IV SCH (20:36)
[2022-06-11] MEDS: DUONEB NEB SCH ×5 (00:15→23:15)
[2022-06-11] MEDS: ZOFRAN ODT PO SCH ×3 (01:03→17:01)
[2022-06-11 05:00] LABS: BASOPHILS % (AUTO) 0.1 % (0.0-3.0); HEMATOCRIT 34.5 % (42.0-52.0); HEMOGLOBIN 11.7 g/dl (14.0-18.0); IMMATURE GRANULOCYTE # (AUTO) 0.1 (0.0-1.0); IMMATURE GRANULOCYTE % (AUTO) 0.5 % (0.0-5.0); LYMPHOCYTES # (AUTO) 1.1 K/uL (0.60-3.4); LYMPHOCYTES % (AUTO) 10.7 (10.0-50.0); MEAN CORPUSCULAR HEMOGLOBIN 32.4 pg (27.0-31.0); MEAN CORPUSCULAR HGB CONC 33.9 (31.8-35.4); MEAN CORPUSCULAR VOLUME 95.6 fl (80.0-94.0); MONOCYTES # (AUTO) 0.5 K/uL (0.4-2.0); MONOCYTES % (AUTO) 4.9 (0-10); NEUTROPHILS # (AUTO) 8.7 K/ul (2.0-6.9); NEUTROPHILS % (AUTO) 83.8 % (42.2-75.2); PLATELET COUNT 168 10^3/uL (140-440); RDW COEFFICIENT OF VARIATION 12.2 % (11.6-14.8); RED BLOOD COUNT 3.61 10^6/ul (4.70-6.10); WHITE BLOOD COUNT 10.42 K/ul (4.2-10.2)
[2022-06-11 05:11] LABS: ALANINE AMINOTRANSFERASE 14.1 U/L (0-50); ALBUMIN 2.71 g/dL (3.5-5.0); ASPARTATE AMINO TRANSFERASE 16.8 U/L (17-59); BILIRUBIN,TOTAL 0.32 mg/dL (0.2-1.3); BLOOD UREA NITROGEN 19.1 mg/dL (9-20); CALCIUM 8.58 mg/dL (8.4-10.2); CARBON DIOXIDE 25.9 mmol/L (22-30.0); CHLORIDE 103.6 mmol/L (98-107); CREATININE 0.65 mg/dL (0.60-1.10); GLUCOSE 323.4 mg/dL (74-106); POTASSIUM 4.43 mmol/L (3.5-5.1); SODIUM 134.5 mmol/L (134.5-145); TOTAL PROTEIN 5.79 g/dL (6.3-8.2)
[2022-06-11] MEDS: NYSTATIN ORAL SUSP PO SCH ×4 (05:54→20:39)
[2022-06-11] MEDS: HUMULIN R SUBCUT PRN ×4 (05:54→20:39)
[2022-06-11] MEDS: PROTONIX PO SCH (05:54)
[2022-06-11] MEDS: BETAPACE PO SCH ×2 (08:24→20:40)
[2022-06-11] MEDS: CLARITIN PO SCH (08:25)
[2022-06-11] MEDS: K-DUR PO SCH ×3 (08:25→17:22)
[2022-06-11] MEDS: COZAAR PO SCH ×2 (08:25→20:40)
[2022-06-11] MEDS: ELIQUIS PO SCH ×2 (08:25→20:40)
[2022-06-11] MEDS: FOLIC ACID PO SCH (08:25)
[2022-06-11] MEDS: FERROUS SULFATE PO SCH (08:25)
[2022-06-11] MEDS: LANTUS SUBCUT SCH (08:26)
[2022-06-11] MEDS: SYMBICORT 160-4.5 MCG INHALER IH SCH ×2 (08:27→20:50)
[2022-06-11] MEDS: FLONASE NAS SCH (08:27)
[2022-06-11] MEDS: NICODERM 21 MG TD SCH (08:28)
[2022-06-11] MEDS: DECADRON IVP SCH (08:56)
[2022-06-11] MEDS: ZITHROMAX 500 MG in SODIUM CHLORIDE 250 ML IV SCH (08:59)
[2022-06-11] MEDS ORDERED: NORVASC PO SCH (09:00)
[2022-06-11] MEDS: NORCO 7.5-325 PO PRN (12:12)
[2022-06-11] MEDS ORDERED: CITRATE OF MAGNESIA PO ONE (12:21)
--- NOTE | 2022-06-11 12:28 | PCM.PROG ---
Date Seen by Provider: 06/11/22 Time Seen by Provider: 12:26 Subjective: breathing better, out of bed, noted Dr Lee med changes, norvasc daily, betapace 40 bid, kdur 20 tid, decadron Objective: Vitals: T=97.8 F, P=91, R=18, EZ=316/88, SPO2=99 HEENT: [] Neck: [] Lungs: [] CVS: [] Abdomen: [] Extremities: [] Neurological: [] Skin: [] Lab/Tests/Diagnostic Imaging: [] K+ 4.4, glucose 319 (1) COPD exacerbation: Status: Acute Code(s): J44.1 - Chronic obstructive pulmonary disease with (acute) exacerbation SNOMED Code(s): 308078144 (2) Hypokalemia: Status: Inactive Code(s): E87.6 - Hypokalemia SNOMED Code(s): 78204432 Plan: continue rocephin and zithromax and duo nebs, discharge home in morning care to Dr Lim at 19:00
[2022-06-11] MEDS ORDERED: MILK OF MAGNESIA PO ONE (12:37)
[2022-06-11] MEDS: ROCEPHIN 1 GM/50 ML D5W 1 GM/50 ML BAG IV SCH (20:39)
[2022-06-11] MEDS: NORVASC PO SCH (20:49)
[2022-06-12] MEDS: ZOFRAN ODT PO SCH ×2 (02:10→09:01)
[2022-06-12] MEDS: DUONEB NEB SCH ×2 (04:50→11:55)
[2022-06-12 05:25] LABS: HEMATOCRIT 37.4 % (42.0-52.0); HEMOGLOBIN 12.4 g/dl (14.0-18.0); IMMATURE GRANULOCYTE # (AUTO) 0.1 (0.0-1.0); IMMATURE GRANULOCYTE % (AUTO) 0.5 % (0.0-5.0); LYMPHOCYTES # (AUTO) 1.8 K/uL (0.60-3.4); LYMPHOCYTES % (AUTO) 19.1 (10.0-50.0); MEAN CORPUSCULAR HGB CONC 33.2 (31.8-35.4); MEAN CORPUSCULAR VOLUME 96.6 fl (80.0-94.0); MONOCYTES # (AUTO) 0.6 K/uL (0.4-2.0); MONOCYTES % (AUTO) 6.5 (0-10); NEUTROPHILS # (AUTO) 6.9 K/ul (2.0-6.9); NEUTROPHILS % (AUTO) 73.9 % (42.2-75.2); PLATELET COUNT 200 10^3/uL (140-440); RDW COEFFICIENT OF VARIATION 12.4 % (11.6-14.8); RED BLOOD COUNT 3.87 10^6/ul (4.70-6.10); WHITE BLOOD COUNT 9.39 K/ul (4.2-10.2)
[2022-06-12 05:40] LABS: ALANINE AMINOTRANSFERASE 18.6 U/L (0-50); ALBUMIN 2.97 g/dL (3.5-5.0); ALKALINE PHOSPHATASE 108.7 U/L (56-119); ASPARTATE AMINO TRANSFERASE 24.6 U/L (17-59); BILIRUBIN,TOTAL 0.29 mg/dL (0.2-1.3); BLOOD UREA NITROGEN 17.6 mg/dL (9-20); CALCIUM 8.91 mg/dL (8.4-10.2); CHLORIDE 100.6 mmol/L (98-107); CREATININE 0.66 mg/dL (0.60-1.10); GLUCOSE 332.9 mg/dL (74-106); POTASSIUM 4.66 mmol/L (3.5-5.1); SODIUM 133.5 mmol/L (134.5-145); TOTAL PROTEIN 6.18 g/dL (6.3-8.2)
[2022-06-12] MEDS: NYSTATIN ORAL SUSP PO SCH ×2 (05:54→11:22)
[2022-06-12] MEDS: HUMULIN R SUBCUT PRN ×2 (05:55→12:03)
[2022-06-12] MEDS: PROTONIX PO SCH (05:55)
--- NOTE | 2022-06-12 07:15 | ECHO2D ---
Date of Exam: 06/10/2022 Ordering Physician: DR. VICKI ENRIQUEZ Room #: 104 Reason for Echo: CAD/COPD/A FIB WITH RVR/ SOB/ RESPIRATORY FAILURE M-Mode Normal Adult Results LV Dimensions Normal Adult Results AoV Opening excursions >1.6 >1.6 LVEDD-base- 3.5-5.8 4.3 Ao root dimensions 2.0-3.7 3.5 LVESD-base- 3.1-4.6 L. Atrium dimensions 1.9-3.8 4.7 Post. Wall thickness 0.8-1.1 1.1 IV septum (thickness) 0.7-1.2 1.1 Post. Wall excursion 0.72-1.3 NORMAL Septal motion Systolic motion R. Ventricular cavity 1.5-2.0 4.0 LVEF 60% Paradoxical septal wall motion YES 2-D : ENLARGED LEFT ATRIAL AND RIGHT VENTRICLE CAVITIES--NORMAL LEFT VENTRICLE SIZE--NORMAL VALVES--PARADOXICAL SEPTAL MOTION, NO EFFUSION, NO THROMBUS M-MODE: MV: NORMAL AV: NORMAL TV: NORMAL PV: CHAMBER SIZE: ENLARGED LEFT ATRIAL AND RIGHT VENTRICLE CAVITIES WALL MOTION: PARADOXICAL SEPTAL WALL MOTION PERICARDIUM: NORMAL INTERPRETATION: 1. ENLARGED LEFT ATRIAL AND RIGHT VENTRICLE CAVITIES 2. PARADOXICAL SEPTAL WALL MOTION--LEFT VENTRICLE EJECTION FRACTION 60% 3. NORMAL VALVES UNCHANGED FROM 10/08/21 MTDD
[2022-06-12 07:36] VITALS: BP 153/80; TEMP 97.6
[2022-06-12] MEDS: BETAPACE PO SCH (08:51)
[2022-06-12] MEDS: ZITHROMAX 500 MG in SODIUM CHLORIDE 250 ML IV SCH (08:51)
[2022-06-12] MEDS: NORVASC PO SCH (08:52)
[2022-06-12] MEDS: COZAAR PO SCH (08:52)
[2022-06-12] MEDS: DECADRON IVP SCH (08:53)
[2022-06-12] MEDS: K-DUR PO SCH ×2 (08:53→11:39)
[2022-06-12] MEDS: FERROUS SULFATE PO SCH (08:53)
[2022-06-12] MEDS: CLARITIN PO SCH (08:53)
[2022-06-12] MEDS: FOLIC ACID PO SCH (08:53)
[2022-06-12] MEDS: LANTUS SUBCUT SCH (08:54)
[2022-06-12] MEDS: ELIQUIS PO SCH (08:55)
[2022-06-12] MEDS: NICODERM 21 MG TD SCH (09:00)
[2022-06-12] MEDS: SYMBICORT 160-4.5 MCG INHALER IH SCH (09:02)
[2022-06-12] MEDS: FLONASE NAS SCH (09:02)
--- NOTE | 2022-06-12 09:03 | RS.SLPCNOT ---
Speech Case Note Date of Note: 06/12/22 Title: Speech consult Note: SECURITY LEAD discussed speech consult with RN. Per discussion, the pt is discharging home this date after dose of antibiotics is administered. No further evaluation warranted. Thank you for this consult.
--- NOTE | 2022-06-12 09:32 | PCM.PROG ---
Date Seen by Provider: 06/12/22 Time Seen by Provider: 08:00 Subjective: Patient denies SOB. He reports feeling well and is asking to go home. Tolerating diet and ambulating without difficulty. Objective: Vitals: T=97.6 F, P=76, R=18, BU=292/80, BCR4=247 Patient is alert and appears to be comfortable. He answers questions appropriately. HEENT: Oral mucosa moist. Neck: [] Supple and without JVD. Lungs: [] Clear and breath tones equal. Good air exchange. CVS: [] Heart rate in the 70s. Pulse irregularly irregular. Abdomen: [] Extremities: []No swelling. Neurological: [] No motor or sensory deficits. Skin: [] Lab/Tests/Diagnostic Imaging: [] (1) COPD exacerbation: Status: Acute Code(s): J44.1 - Chronic obstructive pulmonary disease with (acute) exacerbation SNOMED Code(s): 937976656 Assessment: Improved. (2) Hypokalemia: Status: Inactive Code(s): E87.6 - Hypokalemia SNOMED Code(s): 11505012 Assessment: Resolved. Plan: Patient to be discharged home. He is to follow up with his primary care provider within one week.
--- NOTE | 2022-06-12 09:34 | PCM.PROG ---
Attending Provider: ATTENDING PROVIDER: Dr. KAYLENE ROSA MD This patient is seen with Purvi Santizo, Nurse Practitioner. DATE OF SERVICE: 06/12/22 SUBJECTIVE: This 67 year old /WHITE M was hospitalized 06/10/22. Shortness of breath has significantly improved. He has been up and about walking in the room. Respiratory symptoms started after working outside and had been mowing likely reaction to is due to dust and change in weather. Ready for discharge. Will be discharged from Hospitalist. Keep medication changes as they are. REVIEW OF SYSTEMS: CONSTITUTIONAL: No night sweats. No fatigue, malaise, lethargy. No fever or chills. HEENT: Eyes: No visual changes. No eye pain. No eye discharge. ENT: No runny nose. No epistaxis. No sinus pain. No odynophagia. No congestion. RESPIRATORY: Cough, no congestion. No hemoptysis. No shortness of breath. CARDIOVASCULAR: No angina symptoms. No CHF symptoms. No atypical chest pain for CAD. No palpitations. No orthopnea.. GASTROINTESTINAL: No abdominal pain. No nausea or vomiting. No diarrhea or constipation. No hematemesis. No hematochezia. GENITOURINARY: No urgency. No frequency. No dysuria. No hematuria. No obstructive symptoms. No discharge. No pain. No significant abnormal bleeding. MUSCULOSKELETAL: No musculoskeletal pain; no joint swelling. NEUROLOGICAL: Awake, alert, oriented to time, place and person. No headache. No neck pain. No syncope. No seizures. No dizziness. PSYCHIATRIC: Not anxious. No depression. No suicidal thoughts. No homicidal thoughts. SKIN: No rash. No lesions. No wounds. ENDOCRINE: No unexplained weight loss. No weight gain. HEMATOLOGIC/LYMPHATIC: No anemia. No purpura. No petechiae. No prolonged or excessive bleeding. No palpable lymph nodes. PHYSICAL EXAMINATION: GENERAL: The patient is awake, alert and oriented, sitting in bed in no distress. VITAL SIGNS: Temperature 97.6 F, Pulse 76, Respiratory Rate 18, BP 153/80, Pulse Ox 100% HEENT: Head normocephalic, atraumatic. Eyes: Extraocular muscles are intact. Pupils are equal, round and reactive to light and accommodation. Ears: No lesions. Nose appeared normal. Throat: No exudate or erythema. NECK: Supple. No JVD, no carotid bruit. No lymphadenopathy or thyromegaly. LUNGS: Diminished breath sounds. Clear to auscultation. Percussion note normal. Chest symmetrical. HEART: S1, S2, no S3. Irregular heart rate. No murmurs. No cyanosis or clubbing. No ascites. Pulses: Dorsalis pedis and posterior tibial pulses +1 to +2 both sides. ABDOMEN: Soft. Non-tender. Bowel sounds active. No CVA tenderness. No mass felt. EXTREMITIES: No edema. Full range of motion of all extremities, equal. NEUROLOGIC: No focal deficit. Cranial nerves II through XII are grossly intact. No headache. No double vision. SKIN: Not dry. Intact. Turgor-normal. LYMPHATIC: No palpable lymph nodes/no lymphedema. MUSCULOSKELETAL: Normal joints with no swelling. Muscle tone is normal. LAB REVIEW: 06/12/22 05:05 06/12/22 05:05 06/12/22 05:05: Sodium 133.5 L, Potassium 4.66, Chloride 100.6, Carbon Dioxide 27.0, Anion Gap 10.56, BUN 17.6, Creatinine 0.66, Estimated GFR (MDRD) 120.00, B UN/Creatinine Ratio 26.66, Glucose 332.9 H, Calcium 8.91, Total Bilirubin 0.29, AST 24.6, ALT 18.6, Alkaline Phosphatase 108.7, Total Protein 6.18 L, Albumin 2.97 L, Globulin 3.21, Albumin/Globulin Ratio 0.92 06/12/22 05:05: WBC 9.39, RBC 3.87 L, Hgb 12.4 L, Hct 37.4 L, MCV 96.6 H, MCH 32.0 H, MCHC 33.2, RDW Coeff of Hilary 12.4, Plt Count 200, Immature Gran % (Auto) 0.5, Neut % (Auto) 73.9, Lymph % (Auto) 19.1, [place] % (Auto) 6.5, Eos % (Auto) 0.0, Baso % (Auto) 0.0, Neut # (Auto) 6.9, Lymph # (Auto) 1.8, [place] # (Auto) 0.6, Eos # (Auto) 0.0, Baso # (Auto) 0.0, Immature Gran # (Auto) 0.1 ASSESSMENT: Please see below. 1. Acute COPD exacerbation 2. Acute respiratory failure, resolved 3. COPD 4. AFIB PLAN: 1. Prednisone 10mg BID for 4 days, then daily for 3 days 2. Continue NEBS threes times a day 3. Stay inside 4. Three step propr to discharge 5. Dr. Lee did Echo yesterday 6. Medications reviewed 7. Re-weigh 8. Keflex 500mg TID for 7 days 9. From Cardiac stand point the patient is stable and ready to be discharged Plan and coordination of the patient's care discussed in the presence of First Mate and nurse. SCRIBED BY: Kaden WHITE scribed while in presence of service performed by Dr. Lee/Purvi Santizo APRN on 06/12/22 ([id number])
--- NOTE | 2022-06-12 10:31 | PCM.DC ---
Final Diagnosis: acute exacerbation of COPD acute hypokalemia diabetes mellitus hypoxemia atrial fibrillation Physical Exam Appearance: Well-appearing, No pain distress, Thin and Other (Patient breathing without distress. ) Ill-appearing: None Pain Distress: None Eyes: GUILLERMO, EOMI and Conjunctiva clear ENT: Nose normal and Oropharynx normal Neck: Supple Respiratory: Airway patent, Breath sounds clear and Breath sounds equal Cardiovascular: RRR (ventricular rate 70s), No rub and No murmur GI/: Soft, Nontender, No masses and Bowel sounds normal Musculoskeletal: Normal strength, ROM intact and No edema Skin: Warm, Dry and Normal color Neurological: Sensation intact, Motor intact, Alert and Oriented Psychiatric: Affect appropriate and Mood appropriate (1) COPD exacerbation: Status: Acute Code(s): J44.1 - Chronic obstructive pulmonary disease with (acute) exacerbation SNOMED Code(s): 696720001 (2) Hypokalemia: Status: Inactive Code(s): E87.6 - Hypokalemia SNOMED Code(s): 25009236 (3) Atrial fibrillation: Status: Acute Code(s): I48.91 - Unspecified atrial fibrillation SNOMED Code(s): 19274485 (4) Hypoxia: Status: Acute Code(s): R09.02 - Hypoxemia SNOMED Code(s): 443115533 (5) Diabetes mellitus: Status: Acute Code(s): E11.9 - Type 2 diabetes mellitus without complications SNOMED Code(s): 14674677 Reason for Hospitalization: Patient admitted with acute exacerbation of COPD. He was hypoxemic at the time of admission. Patient received nebulizer treatments and IV steroids as well as supplemental oxygen. His pulmonary function improved and he was weaned from the oxygen. Patient received supplemental potassium to replenish his deficiency. Atrial fibrillaiton was well controlled. His serum glucose levels were elevated and it was felt that this was related to the steroids. Insulin dosage was adjusted accordingly. Prognosis/Condition at Discharge: Condition at discharge was improved/stable. Medications at Discharge: Patient was discharged on the same medications that he was taking at time of admission. He was also discharged on oral steroids. Lab/Diagnostics: CXR was without findings of pneumonia. Education Provided to Patient and Family: COPD Follow-ups: Patient to follow up with primary care provider within one week. Discharge Disposition: Home Hospital Course: See reason for hospitalization. Plan: Discharge patient to home.
[2022-06-12] MEDS ORDERED: ROCEPHIN 1 GM/50 ML D5W 1 GM/50 ML BAG IV SCH (11:05)
--- NOTE | 2022-06-13 10:58 | CONS ---
DATE OF CONSULTATION: 06/10/22 REASON FOR CONSULTATION/HISTORY OF PRESENT ILLNESS: 67 year old white male hospitalized on 06/09/22 through the emergency room with shortness of air. The patient had acute respiratory failure with hypoxemia. The patient according to him was given Nebulizer treatment and after that his condition improved. [place] the patient was supposed to be transferred but there was no place available in any of the hospitals near by, the patient was requested to be hospitalized under hospitalist. Dr. Mcgraw agreed to that. Today the patient is feeling a lot better. REVIEW OF SYSTEMS: CONSTITUTIONAL: No night sweats. No fatigue, malaise, lethargy. No fever or chills. is in the room, she is happy with the patient's progress. HEENT: Eyes: No visual changes. No eye pain. No eye discharge. ENT: No sinus drainage. No epistaxis. No sinus pain. No sore throat. No odynophagia. No ear pain. No congestion. RESPIRATORY: No cough, no congestion. No hemoptysis. No shortness of breath. CARDIOVASCULAR: No angina symptoms. No CHF symptoms. No atypical chest pain for CAD. No palpitations. No orthopnea. GASTROINTESTINAL: No abdominal pain. No nausea or vomiting. No diarrhea or constipation. No hematemesis. No hematochezia. Appetite has improved. GENITOURINARY: No urgency. No frequency. No dysuria. No hematuria. No obstructive symptoms. No discharge. No pain. No significant abnormal bleeding. MUSCULOSKELETAL: No musculoskeletal pain. No joint swelling. NEUROLOGICAL: No headache. No neck pain. No syncope. No seizures. No dizziness. PSYCHIATRIC: Not anxious. No depression. No suicidal thoughts. No homicidal thoughts. SKIN: No rash. No lesions. No wounds. ENDOCRINE: No unexplained weight loss. No weight gain. HEMATOLOGIC/LYMPHATIC: No anemia. No purpura. No petechiae. No prolonged or excessive bleeding. No palpable lymph nodes. MEDICATIONS: Ferrous sulfate Apixaban Sotalol Pantoprazole Albuterol nebulizer Amlodipine Losartan Zofran Tresiba insulin Saline Symbicort Nasacort Loratadine ALLERGIES: Fenofibrate Metformin Tradjenta Pravastatin Januvia PAST MEDICAL HISTORY/PAST SURGICAL HISTORY: History of coronary artery disease, endstage Severe chronic lung disease with pulmonary hypertension Severe peripheral arterial disease status post carotid endarterectomy with carotid occlusive disease Recurrent pancreatitis from alcoholism Alcoholism for number of years Severe lung disease with the smoking Malnutrition from chronic pancreatitis SOCIAL/PERSONAL/FAMILY HISTORY: The patient is alcoholic, heavy smoker. Does all activity of daily living. . Lives with the . PHYSICAL EXAMINATION: VITAL SIGNS: Temperature 97, pulse 100 irregular, respiratory rate 16, blood pressure 120/86 and pulse ox 99% on 2 liters. HEENT: Head normocephalic, atraumatic. Eyes: Extraocular muscles are intact. Pupils are equal, round and reactive to light and accommodation. Ears: No lesions. Nose appeared normal. Throat: No exudate or erythema. NECK: Supple. No JVD, no carotid bruit. No lymphadenopathy or thyromegaly. LUNGS: Decreased breath sounds bilaterally. Clear to auscultation. Percussion note normal. Chest symmetrical. HEART: S1, S2, no S3. No murmurs. No cyanosis or clubbing. No ascites. Pulses: Feeble bilaterally. ABDOMEN: Soft. Flat. Nontender. Bowel sounds active. No CVA tenderness. No mass felt. EXTREMITIES: No edema. Full range of motion of all extremities, equal. NEUROLOGIC: No focal deficit. Cranial nerves II through XII are grossly intact. No headache, no double vision or headache. SKIN: Not dry. Intact. Turgor - normal. LYMPHATIC: No palpable lymph nodes/no lymphedema. MUSCULOSKELETAL: Normal joints with no swelling. Muscle tone is normal. LABS: hgb 13.1, hct 38, WBC 13,000 normal differential, creatinine 0.7, BUN 17, potassium 3.2, sugar was 205. Arterial blood gasses showed severe hypoxemia. The patient on arrival to the emergency room had oxygen saturation of 75% on room air. ASSESSMENT: 1. Acute exacerbation of COPD 2. History of smoking 3. History of severe chronic lung disease 4. History of paroxysmal atrial fibrillation, the patient is in atrial fibrillation at present time, on Eliquis 5. History of coronary artery disease with coronary bypass surgery 6. Severe peripheral arterial disease with femoral artery occlusion 7. Status post carotid endarterectomy 8. Status post stent placement on renal artery 9. Chronic pancreatitis from alcoholism 10. Renal mass followed by county director 11. Diabetes Mellitus 12. Hypertension 13. Severe dyslipidemia 14. Noncompliance of all aspects of medical care. 15. Malnutrition with extreme under weight 16. Status post nephrectomy, right sided RECOMMENDATIONS: 1. Continue NEBS treatment with DUO NEBS Q 4 hours 2. Steroid Decadron Q daily 3. Continue Rocephin and Zithromax 4. Potassium supplements for the hypokalemia, K-tab 20meq TID 5. Sliding scale coverage with insulin for hyperglycemia 6. Continue Eliquis 7. Betapace to be restarted. We will make Betapace 40mg BID 8. Amlodipine to be just 5mg QAM, Discontinue the evening dose as the patient is more or less hypotension side for him NOTE: The patient's echo was done which is practically unchanged from September 2021. The patient has evidence of paradoxical septal wall motion, LV size is normal, LA size is enlarged, ejection fraction calculated, seems to be approximately 60%. All the findings also discussed with the and patient. PROGNOSIS: Guarded The patient is full code. Thanks for referral, will follow. BRANDOND
--- NOTE | 2022-06-13 12:59 | CONS ---
DATE OF SERVICE: 06/11/22 CONSULT FOLLOWUP SUBJECTIVE: The patient is up and about with the . He has been walking around feeling a lot better. No distress. REVIEW OF SYSTEMS: CONSTITUTIONAL: No night sweats. No fatigue, malaise, lethargy. No fever or chills. HEENT: Eyes: No visual changes. No eye pain. No eye discharge. ENT: No runny nose. No epistaxis. No sinus pain. No sore throat. No odynophagia. No ear pain. No congestion. RESPIRATORY: No cough, no congestion. No hemoptysis. CARDIOVASCULAR: No angina symptoms. No CHF symptoms. No atypical chest pain for CAD. No palpitations. No shortness of breath. GASTROINTESTINAL: No abdominal pain. No nausea or vomiting. No diarrhea or constipation. No hematemesis. No hematochezia. GENITOURINARY: No urgency. No frequency. No dysuria. No hematuria. No obstructive symptoms. No discharge. No pain. No significant abnormal bleeding. MUSCULOSKELETAL: No musculoskeletal pain. No joint swelling. No arthritis. Some back pain. NEUROLOGICAL: No headache. No neck pain. No syncope. No seizures. No dizziness. PSYCHIATRIC: Not anxious. No depression. No suicidal thoughts. No homicidal thoughts. SKIN: No rash. No lesions. No wounds. ENDOCRINE: No unexplained weight loss. No weight gain. HEMATOLOGIC/LYMPHATIC: No anemia. No purpura. No petechiae. No prolonged or excessive bleeding. No palpable lymph nodes. PHYSICAL EXAMINATION: VITAL SIGNS: Temperature 97.8, pulse 90, respiratory rate 18, blood pressure 156/88 and pulse ox 99% on 2 liters. HEENT: Head normocephalic, atraumatic. Eyes: Extraocular muscles are intact. Pupils are equal, round and reactive to light and accommodation. Ears: No lesions. Nose appeared normal. Throat: No exudate or erythema. NECK: Supple. No JVD, no carotid bruit. No lymphadenopathy or thyromegaly. LUNGS: Decreased breath sounds but clear to auscultation. Percussion note normal. Chest symmetrical. HEART: S1, S2, no S3. No murmur. No cyanosis or clubbing. No ascites. Pulses: Dorsalis pedis and posterior tibial pulses +1 to +2 bilaterally. ABDOMEN: Soft. Nontender. Bowel sounds active. No CVA tenderness. No mass felt. EXTREMITIES: No edema. Full range of motion of all extremities, equal. NEUROLOGIC: No focal deficit. Cranial nerves II through XII are grossly intact. No headache, no double vision or headache. SKIN: Not dry. Intact. Turgor - normal. LYMPHATIC: No palpable lymph nodes/no lymphedema. MUSCULOSKELETAL: Normal joints with no swelling. Muscle tone is normal. LABS: Hgb 11.7, hct 34, WBC 10,000 normal differential, creatinine 0.6, BUN 19, potassium 4.4., glucose 323. ASSESSMENT: 1. Acute exacerbation of COPD seems to be under control 2. Atrial fibrillation seems to be in regular rate now 3. Hyperglycemia, the patient is on sliding scale with coverage RECOMMENDATIONS: 1. Increase the Amlodipine to 5mg twice a day 2. Continue Betapace 40mg twice a day 3. The patient is strongly advised to quite smoking, Counseling done. 4. The patient is strongly advised to quit alcohol, counseling done 5. The patient's BMI is 14. Chronic pancreatitis has effected his overall health with alcoholism and smoking. Malnutrition discussed with the patient. PROGNOSIS: Poor considering the patient's lifestyle and multiple medical problems. MTDD
== END 2022-06-12 12:30 | disposition home or self-care (01) | DRG 192 ==
LOC: ED 22:51 → MEDSURG A 06-10 01:57
PROVIDERS: ADMIT Emergency Medicine; ATTEND Surgery
DX: Z99.81 Dependence on supplemental oxygen; J44.1 Chronic obstructive pulmonary disease with (acute) exacerbation; Z79.4 Long term (current) use of insulin; R06.02 Shortness of breath; Z51.81 Encounter for therapeutic drug level monitoring; Z79.899 Other long term (current) drug therapy; Z20.822 Contact with and (suspected) exposure to COVID-19; I48.91 Unspecified atrial fibrillation; R09.02 Hypoxemia; E11.65 Type 2 diabetes mellitus with hyperglycemia; Z72.0 Tobacco use; R05.9 Cough, unspecified; E87.6 Hypokalemia

== ENCOUNTER 2022-08-08 15:11 | Inpatient (IN) ==
[~2022-08-08 15:11] MED LIST: CARDIZEM INJ IVP ONE
[2022-08-08] MEDS ORDERED: DUONEB NEB ONE ×2 (15:32→19:33)
[2022-08-08] MEDS ORDERED: SOLU-MEDROL 125 MG IVP STA (15:32)
--- NOTE | 2022-08-08 15:38 | ED.PDOC ---
General ED Provider: Dr. ELVIA CRUZ MD Chief Complaint: Shortness of Air Stated Complaint: mild to mod short of breath for a week, worse in last 3 days, +cough, hx copd and lung biopsy, lives at home, not on home oxygen, no fever Time Seen by Provider: 08/08/22 15:12 Mode of Arrival: Ambulance Information Source: Patient Primary Care Provider: VICKI LEE Nursing and Triage Documentation Reviewed and Agree: Yes Does patient meet sepsis criteria?: No System Inflammatory Response Syndrome: Not Applicable Sepsis Protocol: For patient's 13 years and over: Temp is 96.8 and below OR 101 and greater Pulse >90 BPM Resp >20/minute Acutely Altered Mental Status Are patient's symptoms suggestive of a new infection, such as: -Pneumonia -Skin, Soft Tissue -Endocarditis -UTI -Bone, Joint Infection -Implantable Device -Acute Abdominal Infection -Wound Infection -Meningitis -Blood Stream Catheter Infection -Unknown Review of Systems Review Of Systems Constitutional: Reports Malaise and Weakness; Denies Fever Eyes: Denies Vision change Ears, Nose, Mouth, Throat: Denies Mouth pain Respiratory: Reports Cough, Short of air and Wheezing; Denies Stridor Cardiac: Denies Chest pain GI: Denies Abdominal pain or Vomiting : Denies Frequency Musculoskeletal: Denies Back pain Skin: Denies Rash or Cyanosis Neurological: Denies Cognitive dysfunction or Headache All Other Systems: Other [facility] Medical History A-fib Alcohol abuse CAD (coronary artery disease) Claudication COPD (chronic obstructive pulmonary disease) Diabetes mellitus Dyslipidemia Femoral artery occlusion GI bleed History of stent insertion of renal artery Neuropathy PAD (peripheral artery disease) Pancreatitis Right renal mass Family History Other No known health problems Social History Smoking and tobacco status: Current every day smoker Alcohol intake: current Alcohol intake frequency: a few times a week Substance use type: does not use Surgical History History of nephrectomy, right Hx of CABG Physical Exam Physical Exam Appearance: Reports No pain distress Ill-appearing: Mild Pain Distress: None Eyes: Reports GUILLERMO, EOMI and Conjunctiva clear ENT: Reports Oropharynx normal Neck: Supple Respiratory: Reports Airway patent and Wheezes; Denies Retractions Cardiovascular: Reports RRR GI/: Reports Soft and Nontender Musculoskeletal: Reports ROM intact Skin: Reports Warm and Dry Neurological: Reports Alert and Oriented Psychiatric: Reports Affect appropriate Interpretation Radiology Interpretation Radiology Interpretation By: Radiologist Xray Comments: copd EKG Interpretation Time of EKG #1: 17:00 Interpretation: atrial fib 96, no stemi Critical Care Note Critical Care Note Total Critical Care Time (mins): 30 Course Course Hematology/Chemistry: 08/08/22 15:40 08/08/22 15:40 Orders, Labs, Meds: Lab Review 08/08/22 08/08/22 08/08/22 15:30 15:40 15:40 WBC 12.37 H RBC 4.27 L Hgb 13.7 L Hct 40.9 L MCV 95.8 H MCH 32.1 H MCHC 33.5 RDW Coeff of Hilary 14.2 Plt Count 204 Immature Gran % (Auto) 0.5 Neut % (Auto) 81.1 H Lymph % (Auto) 11.2 Bladen % (Auto) 7.1 Eos % (Auto) 0.0 Baso % (Auto) 0.1 Neut # (Auto) 10.0 H Lymph # (Auto) 1.4 Bladen # (Auto) 0.9 Eos # (Auto) 0.0 Baso # (Auto) 0.0 Immature Gran # (Auto) 0.1 PT 14.0 H INR 1.37 Puncture Site Base Excess O2 Saturation ABG pH ABG pCO2 ABG pO2 ABG HCO3 ABG Total CO2 Laron Test Hemoglobin Oxyhemoglobin Carboxyhemoglobin Total Hemoglobin O2 Delivery Device Oxygen Liter Flow Sodium Potassium Chloride Carbon Dioxide Anion Gap BUN Creatinine Estimated GFR (MDRD) BUN/Creatinine Ratio Glucose Lactic Acid Calcium Total Bilirubin AST ALT Alkaline Phosphatase Troponin I NT-Pro-B Natriuret Pep Total Protein Albumin Globulin Albumin/Globulin Ratio Influ A Molecular Assay Influ B Molecular Assay RSV Antigen SARS CoV-2 RNA Rapid MARTINEZ Negative 08/08/22 08/08/22 08/08/22 15:40 15:40 15:49 WBC RBC Hgb Hct MCV MCH MCHC RDW Coeff of Hilary Plt Count Immature Gran % (Auto) Neut % (Auto) Lymph % (Auto) [place] % (Auto) Eos % (Auto) Baso % (Auto) Neut # (Auto) Lymph # (Auto) Bladen # (Auto) Eos # (Auto) Baso # (Auto) Immature Gran # (Auto) PT INR Puncture Site Base Excess O2 Saturation ABG pH ABG pCO2 ABG pO2 ABG HCO3 ABG Total CO2 Laron Test Hemoglobin Oxyhemoglobin Carboxyhemoglobin Total Hemoglobin O2 Delivery Device Oxygen Liter Flow Sodium 131.5 L Potassium 4.37 Chloride 94.7 L Carbon Dioxide 25.6 Anion Gap 15.57 BUN 24.5 H Creatinine 1.01 Estimated GFR (MDRD) 74.00 BUN/Creatinine Ratio 24.25 Glucose 434.6 H Lactic Acid 1.00 Calcium 8.99 Total Bilirubin 0.42 AST 38.7 ALT 29.3 Alkaline Phosphatase 166.3 H Troponin I < 0.012 NT-Pro-B Natriuret Pep 8160.000 H Total Protein 6.06 L Albumin 2.95 L Globulin 3.11 Albumin/Globulin Ratio 0.94 Influ A Molecular Assay Positive by naat H Influ B Molecular Assay Negative by naat RSV Antigen Negative by naat SARS CoV-2 RNA Rapid MARTINEZ 08/08/22 16:00 WBC RBC Hgb Hct MCV MCH MCHC RDW Coeff of Hilary Plt Count Immature Gran % (Auto) Neut % (Auto) Lymph % (Auto) Bladen % (Auto) Eos % (Auto) Baso % (Auto) Neut # (Auto) Lymph # (Auto) Bladen # (Auto) Eos # (Auto) Baso # (Auto) Immature Gran # (Auto) PT INR Puncture Site Rr Base Excess 1.0 O2 Saturation 91.1 L ABG pH 7.39 ABG pCO2 43.0 ABG pO2 62.0 L ABG HCO3 26.0 ABG Total CO2 27.3 H Laron Test Pos Hemoglobin 1.0 Oxyhemoglobin 90.6 L Carboxyhemoglobin 2.7 H Total Hemoglobin 14.2 O2 Delivery Device Cannula Oxygen Liter Flow 2.00 Sodium Potassium Chloride Carbon Dioxide Anion Gap BUN Creatinine Estimated GFR (MDRD) BUN/Creatinine Ratio Glucose Lactic Acid Calcium Total Bilirubin AST ALT Alkaline Phosphatase Troponin I NT-Pro-B Natriuret Pep Total Protein Albumin Globulin Albumin/Globulin Ratio Influ A Molecular Assay Influ B Molecular Assay RSV Antigen SARS CoV-2 RNA Rapid MARTINEZ Orders Category Date Time Status ABG DRAW REQUEST Stat CARDIO 08/08/22 15:32 Completed EKG-(ED ONLY) Stat CARDIO 08/08/22 15:32 Completed OXYGEN [ED APPLY O2] .ONCE EMERGENCY 08/08/22 15:32 Active ABG COOX Stat LAB 08/08/22 16:00 Completed BLOOD CULTURE Stat LAB 08/08/22 16:00 Received CBC W/ AUTO DIFF Stat LAB 08/08/22 15:40 Completed CMP [COMPREHENSIVE METABOLIC PANEL] Stat LAB 08/08/22 15:40 Completed LACTIC ACID Stat LAB 08/08/22 15:40 Completed MOLECULAR FLU A & B [FLU A/B MOLECULAR] Stat LAB 08/08/22 15:49 Completed NT-PROBNP Stat LAB 08/08/22 15:40 Completed PT WITH INR Stat LAB 08/08/22 15:40 Completed RAPID STREP SCREEN [MOLECULAR GROUP A STREP] Stat LAB 08/08/22 15:49 Completed RSV Stat LAB 08/08/22 15:49 Completed SARS COV-2 RNA RAPID MARTINEZ Stat LAB 08/08/22 15:30 Completed TROPONIN I Stat LAB 08/08/22 15:40 Completed URINALYSIS C & S IF INDICATED Stat LAB 08/08/22 15:32 Uncollected Ipratropium/Albuterol Neb [Duoneb] MEDS 08/08/22 15:32 Discontinued 3 ml NEB ONCE ONE Methylprednisolone Sod Succ/Pf [Solu-Medrol 125 mg] MEDS 08/08/22 15:32 Disco ntinued 125 mg IVP ONCE STA CHEST, 1V AP ONLY Stat RADS 08/08/22 15:32 Completed Medications Discontinued Medications Generic Name Dose Route Start Last Admin Trade Name Freq PRN Reason Stop Dose Admin Albuterol/Ipratropium 3 ml 08/08/22 15:32 08/08/22 16:15 Ipratropium/Albuterol Vial.Neb NEB 08/08/22 15:33 3 ml ONCE ONE Administration Methylprednisolone Sodium Succinate 125 mg 08/08/22 15:32 08/08/22 15:57 Methylprednisolone Sod Succ/Pf 125 Mg/2 Ml Vial IVP 08/08/22 15:33 125 mg ONCE STA Administration Vital Signs: Temp Pulse Resp BP Pulse Ox 08/08/22 15:12 97.9 F 67 20 121/77 90 L Discharge Plan Discharge Patient Disposition: ADMITTED INPATIENT Discharge Problem: Influenza A, Hypoxia, COPD exacerbation Prescriptions: No Action ferrous sulfate 325 MG tablet 325 mg PO DAILY insulin degludec [Tresiba FlexTouch U-100] 100 unit/mL (3 mL) Insulin Pen 15 unit SUBCUT DAILY fluticasone propionate 50 mcg/actuation [place],Suspension 2 spray INTRANASAL DAILY loratadine 10 mg Tablet 10 mg PO DAILY budesonide-formoterol 160-4.5 mcg/actuation Hfa Aerosol Inhaler 2 puff INHALATION BID sotalol [Betapace] 80 mg Tablet 40 mg PO BID Qty: 60 1RF doxycycline hyclate [Vibramycin] 100 mg Capsule 100 mg PO BID dexamethasone 6 mg Tablet 6 mg PO DAILY hydrocodone-acetaminophen 10-325 mg tablet 1 tab PO BID albuterol sulfate 90 mcg/actuation HFA aerosol inhaler 2 puff INHALATION Q4H PRN (Reason: Wheezing) Spiriva Respimat 2.5 mcg/actuation mist 2 puff INHALATION DAILY Eliquis 5 mg Tablet 5 mg PO BID Folbic 1 TAB tablet 1 tab PO DAILY pantoprazole 40 mg tablet,delayed release (DR/EC) 40 mg PO DAILY amlodipine 5 mg Tablet 5 mg PO BID Qty: 60 1RF ondansetron 4 mg tablet,disintegrating 4 mg PO Q8H Qty: 21 0RF Did you review [place] PODIATRIC ASSISTANT?: Not Applicable ED Provider: ELVIA CRUZ Condition: Stable Physician Progress Note: []Dr Lee asks that hospitalist admit his pt
[2022-08-08 16:05] LABS: BASOPHILS % (AUTO) 0.1 % (0.0-3.0); HEMATOCRIT 40.9 % (42.0-52.0); HEMOGLOBIN 13.7 g/dl (14.0-18.0); IMMATURE GRANULOCYTE # (AUTO) 0.1 (0.0-1.0); IMMATURE GRANULOCYTE % (AUTO) 0.5 % (0.0-5.0); LYMPHOCYTES # (AUTO) 1.4 K/uL (0.60-3.4); LYMPHOCYTES % (AUTO) 11.2 (10.0-50.0); MEAN CORPUSCULAR HEMOGLOBIN 32.1 pg (27.0-31.0); MEAN CORPUSCULAR HGB CONC 33.5 (31.8-35.4); MEAN CORPUSCULAR VOLUME 95.8 fl (80.0-94.0); MONOCYTES # (AUTO) 0.9 K/uL (0.4-2.0); MONOCYTES % (AUTO) 7.1 (0-10); NEUTROPHILS % (AUTO) 81.1 % (42.2-75.2); PLATELET COUNT 204 10^3/uL (140-440); RDW COEFFICIENT OF VARIATION 14.2 % (11.6-14.8); RED BLOOD COUNT 4.27 10^6/ul (4.70-6.10); WHITE BLOOD COUNT 12.37 K/ul (4.2-10.2)
[2022-08-08 16:08] LABS: ALANINE AMINOTRANSFERASE 29.3 U/L (0-50); ALBUMIN 2.95 g/dL (3.5-5.0); ALKALINE PHOSPHATASE 166.3 U/L (56-119); ASPARTATE AMINO TRANSFERASE 38.7 U/L (17-59); BILIRUBIN,TOTAL 0.42 mg/dL (0.2-1.3); BLOOD UREA NITROGEN 24.5 mg/dL (9-20); CALCIUM 8.99 mg/dL (8.4-10.2); CARBON DIOXIDE 25.6 mmol/L (22-30.0); CHLORIDE 94.7 mmol/L (98-107); CREATININE 1.01 mg/dL (0.60-1.10); GLUCOSE 434.6 mg/dL (74-106); POTASSIUM 4.37 mmol/L (3.5-5.1); SODIUM 131.5 mmol/L (134.5-145); TOTAL PROTEIN 6.06 g/dL (6.3-8.2)
[2022-08-08 16:09] LABS: ABG O2 HGB 90.6 % (95-100); ABG PH 7.39 (7.35-7.45); COHb 2.7 (0.5-1.5); TCO2 27.3 (19-24); sO2 91.1 % (94-98); tHb 14.2 g/dl (11.7-17.4)
--- NOTE | 2022-08-08 16:11 | DI ---
EXAM: Chest one-view HISTORY: Short of breath COMPARISON: 06/09/2022 FINDINGS: The lungs are clear. There is hyperinflation. Cardiac silhouette is normal. Wires are p resent from previous median sternotomy. IMPRESSION: Chronic obstructive pulmonary disease no acute cardiopulmonary process
[2022-08-08 16:14] LABS: MOLECULAR FLU A POSITIVE BY NAAT (NEGATIVE); MOLECULAR FLU B NEGATIVE BY NAAT (NEGATIVE)
[2022-08-08 16:19] LABS: RSV MOLECULAR NEGATIVE BY NAAT (NEGATIVE)
[2022-08-08 16:20] LABS: TROPONIN I < 0.012 ng/ml (0.0000-0.120)
[2022-08-08 16:33] LABS: SARS COV-2 RNA RAPID NAAT NEGATIVE (NEGATIVE)
[2022-08-08] MEDS ORDERED: HUMULIN R SUBCUT ONE (17:03)
[2022-08-08] MEDS ORDERED: DUONEB NEB STA (17:04)
[2022-08-08] MEDS ORDERED: TYLENOL PO PRN (17:04)
[2022-08-08 18:25] VITALS: BMI 14.1
[2022-08-08] MEDS ORDERED: ATROPINE SULFATE PFS IVP PRN (18:36)
[2022-08-08] MEDS ORDERED: NITROSTAT SL PRN (18:36)
[2022-08-08] MEDS: ZOFRAN ODT PO SCH (18:41)
[2022-08-08] MEDS: SODIUM CHLORIDE 1,000 ML IV SCH (18:41)
[2022-08-08] MEDS ORDERED: VENTOLIN HFA (PER PUFF-WITH SPACER) IH PRN (19:05)
[2022-08-08] MEDS ORDERED: PROAIR HFA (SINGLE PATIENT USE) IH ONE (19:08)
[2022-08-08] MEDS ORDERED: PROAIR HFA (SINGLE PATIENT USE) IH PRN (19:10)
[2022-08-08] MEDS ORDERED: ALBUTEROL 0.083% NEB NEB PRN (20:39)
[2022-08-08] MEDS: DOXYCYCLINE HYCLATE PO SCH (21:40)
[2022-08-08] MEDS: BETAPACE PO SCH (21:42)
[2022-08-08] MEDS: NORCO 10-325 PO SCH (21:43)
[2022-08-08] MEDS: ELIQUIS PO SCH (21:43)
[2022-08-08] MEDS: NORVASC PO SCH (21:43)
[2022-08-08] MEDS ORDERED: HUMULIN R IV ONE (22:07)
[2022-08-08] MEDS ORDERED: DILAUDID 0.5 MG/0.5 ML SYRINGE IVP STA ×2 (22:17→22:34)
[2022-08-08] MEDS ORDERED: CARDIZEM INJ IVP ONE ×2 (22:20)
[2022-08-08 22:54] LABS: ABG PH 7.44 (7.35-7.45); BEecf -4.5 (-2.0-3.0); COHb 2.7 (0.5-1.5); HCO3 19.7 (21-28); MetHb 0.9 (0-1.5)
[2022-08-08 22:55] LABS: ABG O2 HGB 96.8 % (95-100); TCO2 20.8 (19-24); tHb 15.4 g/dl (11.7-17.4)
[2022-08-08 22:59] LABS: BLOOD UREA NITROGEN 30.2 mg/dL (9-20); CALCIUM 9.08 mg/dL (8.4-10.2); CARBON DIOXIDE 20.8 mmol/L (22-30.0); CHLORIDE 98.6 mmol/L (98-107); GLUCOSE 496.9 mg/dL (74-106); MAGNESIUM 1.72 mg/dL (1.6-2.3); POTASSIUM 5.2 mmol/L (3.5-5.1)
[2022-08-08] MEDS: DUONEB NEB SCH (23:06)
[2022-08-08] MEDS ORDERED: DEXTROSE 5%-1/2NS IV SOLUTION 1,000 ML IV SCH (23:30)
[2022-08-09] MEDS: ZOFRAN ODT PO SCH ×3 (01:04→17:03)
[2022-08-09] MEDS: DUONEB NEB SCH ×4 (04:50→23:15)
[2022-08-09] MEDS: HUMULIN R SUBCUT PRN (06:30)
[2022-08-09] MEDS ORDERED: DEXTROSE 50%-WATER ABBOJECT IVP PRN (07:22)
[2022-08-09] MEDS ORDERED: VENTOLIN HFA (PER PUFF-WITH SPACER) IH PRN (07:57)
[2022-08-09 08:00] LABS: BASOPHILS % (AUTO) 0.2 % (0.0-3.0); HEMATOCRIT 41.3 % (42.0-52.0); HEMOGLOBIN 13.6 g/dl (14.0-18.0); IMMATURE GRANULOCYTE % (AUTO) 0.3 % (0.0-5.0); LYMPHOCYTES # (AUTO) 1.1 K/uL (0.60-3.4); LYMPHOCYTES % (AUTO) 7.8 (10.0-50.0); MEAN CORPUSCULAR HGB CONC 32.9 (31.8-35.4); MEAN CORPUSCULAR VOLUME 97.2 fl (80.0-94.0); MONOCYTES # (AUTO) 0.5 K/uL (0.4-2.0); MONOCYTES % (AUTO) 3.5 (0-10); NEUTROPHILS # (AUTO) 12.3 K/ul (2.0-6.9); NEUTROPHILS % (AUTO) 88.2 % (42.2-75.2); PLATELET COUNT 189 10^3/uL (140-440); RDW COEFFICIENT OF VARIATION 14.2 % (11.6-14.8); RED BLOOD COUNT 4.25 10^6/ul (4.70-6.10); WHITE BLOOD COUNT 13.95 K/ul (4.2-10.2)
[2022-08-09 08:13] LABS: ALANINE AMINOTRANSFERASE 33.1 U/L (0-50); ALKALINE PHOSPHATASE 153.6 U/L (56-119); ASPARTATE AMINO TRANSFERASE 40.9 U/L (17-59); BILIRUBIN,TOTAL 0.37 mg/dL (0.2-1.3); BLOOD UREA NITROGEN 26.3 mg/dL (9-20); CALCIUM 8.83 mg/dL (8.4-10.2); CARBON DIOXIDE 28.9 mmol/L (22-30.0); CHLORIDE 96.8 mmol/L (98-107); CREATININE 0.91 mg/dL (0.60-1.10); GLUCOSE 424.9 mg/dL (74-106); SODIUM 132.5 mmol/L (134.5-145)
[2022-08-09] MEDS: DILAUDID 0.5 MG/0.5 ML SYRINGE IVP PRN ×3 (08:17→22:13)
[2022-08-09 08:24] LABS: TROPONIN I < 0.012 ng/ml (0.0000-0.120)
[2022-08-09 08:25] LABS: BILIRUBIN,URINE Negative (NEGATIVE); CLARITY,URINE Clear (CLEAR); COLOR,URINE Yellow (YELLOW); GLUCOSE, URINE (UA) 2+ (NEGATIVE); KETONES,URINE 1+ (NEGATIVE); LEUKOCYTE ESTERASE ,URINE Negative (NEGATIVE); NITRITE,URINE Negative (NEGATIVE); PROTEIN,URINE 3+ (NEGATIVE); URINE, BLOOD Trace-intact (NEGATIVE); UROBILINOGEN,URINE 0.2 (0.2)
--- NOTE | 2022-08-09 08:27 | PCM.PROG ---
Hospitalist Rapid Response evaluation and management: Code status verified to be DNI Called to see patient at 2155 on 08/08/2022with complaints of anxiety, shortness of breath and chest pain. Patient stated that he usually feels better when he gets Dilaudid Telemetry showed A fib with RVR Rate of 177. EKG Confirmed Afib with RVR. He was given his breathing treatment but did not improve. ABG done on 4 liters of oxygen showed good oxygenation and no CO2 retention. Pertinent Lab 08/08/22 08/08/22 16:00 22:45 O2 Saturation 91.1 L 99.0 H ABG pH 7.39 7.44 ABG pCO2 43.0 29.0 L ABG pO2 62.0 L 127.0 H ABG HCO3 26.0 19.7 L ABG Total CO2 27.3 H 20.8 O2 Delivery Device Cannula Bnc Oxygen Liter Flow 2.00 4.00 FiO2 % 36.0 Repeat troponin was normal EXAM Patient is in Acute distress with severe anxiety Cachectic appearing Lungs where cause with scattered wheezing. He was then given Cardizem 5mg IV push then given 0.5 mg of Dilaudid with rate dropping to the 130s, Blood pressure checked also dropped to the 130 The Given another Cardizem 5mg IV push, followed by Dilaudid 0.5 mg IVP. Heart rate then came down to the less than 120s. BP down to 110 systolic He was also given 10 units IV for elevated blood glucose After above intervention patients pain and distress improved significantly and he was able to take his crushed medications and slept well. see nursing notes for more details Day hospitalist notified of Night events @ 0730 AM 08/09/2022
[2022-08-09 08:44] LABS: MUCUS,URINE 2+ (NOT PRESENT)
[2022-08-09] MEDS ORDERED: NON-FORMULARY MEDICATION (Tiotropium Bromide [Spiriva Respimat] 2.5 mcg/actuation mist) IH SCH (09:00)
[2022-08-09] MEDS ORDERED: LEVAQUIN 750 MG/150 ML D5W 750 MG/150 ML BAG IV SCH ×2 (09:00)
[2022-08-09] MEDS ORDERED: PROTONIX PO SCH (09:00)
[2022-08-09] MEDS ORDERED: LANOXIN IVP STA ×2 (09:06→09:19)
[2022-08-09] MEDS ORDERED: LASIX IVP STA (09:07)
[2022-08-09] MEDS: SOLU-MEDROL 125 MG IVP SCH ×3 (09:27→21:38)
[2022-08-09] MEDS: DOXYCYCLINE HYCLATE PO SCH (10:02)
[2022-08-09] MEDS: SODIUM CHLORIDE 1,000 ML IV SCH (10:03)
[2022-08-09] MEDS: NORVASC PO SCH (10:03)
[2022-08-09] MEDS: BETAPACE PO SCH ×2 (10:45→21:36)
[2022-08-09] MEDS: CLARITIN PO SCH (10:46)
[2022-08-09] MEDS: FERROUS SULFATE PO SCH (10:46)
[2022-08-09] MEDS: ELIQUIS PO SCH ×2 (10:46→21:37)
[2022-08-09] MEDS: NORCO 10-325 PO SCH ×2 (10:46→21:36)
[2022-08-09] MEDS: CARDIZEM PO SCH ×2 (10:46→21:36)
[2022-08-09] MEDS: SPIRIVA IH SCH (10:47)
[2022-08-09] MEDS: FOLIC ACID VIT B6 VIT B12 PO SCH (10:47)
[2022-08-09] MEDS: FLONASE NAS SCH (10:47)
--- NOTE | 2022-08-09 11:03 | CT ---
EXAM: CHEST CT WITH AND WITHOUT CONTRAST HISTORY: Shortness of breath. TECHNIQUE: CT acquisition of the chest from the thoracic inlet to the upper abdomen before and follow ing IV contrast administration. CT Dose Reduction Techniques Performed: Yes COMPARISON: CT chest 11/07/2021. FINDINGS: Lines, Tubes, Devices: None. Lung Parenchyma and Airways: The secretions in the right left main bronchi. Peripheral airway thicke shira and scattered mucus plugging most pronounced in the lung bases. Centrilobular micronodules and patchy foci of consolidation mostly in the right lower lobe and middle lobe. Moderate centrilobular e mphysema. Pleural Space: No pleural effusion. No pneumothorax. Thoracic Inlet, Mediastinum, and Sima: Thyroid gland is normal. Calcified granulomas in the mediasti nal lymph nodes. Heart, Vessels, and Pericardium: Extensive atherosclerotic calcifications. Normal caliber aorta. No central pulmonary embolus. No cardiomegaly. Post coronary bypass. No pericardial effusion. Bones and Soft Tissues: New compression fracture of the T9 vertebral body with mild height loss. Unc hanged mild superior endplate concavity at T3. There is osseous demineralization. No mass or lympha denopathy. Upper Abdomen: Calcified granulomas in the spleen. Post cholecystectomy. IMPRESSION: Infectious/inflammatory bronchiolitis with superimposed pneumonia. Recommend follow-up chest CT in 3 months to ensure resolution and exclude underlying nodules. Compression fracture of the T9 vertebral body with mild height loss, new since 11/07/2021. Emphysema. Extensive Atherosclerosis, status post coronary bypass. All CT scans are performed using dose optimization techniques as appropriate to the performed exam an d include at least one of the following: Automated exposure control, adjustment of the mA and/or kV according t o size, and the use of iterative reconstruction technique.
[2022-08-09] MEDS ORDERED: NON-FORMULARY MEDICATION (Insulin Degludec [Tresiba Flextouch U-100] 100 unit/mL (3 mL) In SUBCUT SCH (12:00)
[2022-08-09] MEDS: VANCOMYCIN 750 MG/150 ML BAG 750 MG/150 ML BAG IV SCH ×2 (13:51→21:35)
[2022-08-09 14:40] LABS: ABG O2 HGB 96.4 % (95-100); ABG PH 7.45 (7.35-7.45); BEecf 12.1 (-2.0-3.0); COHb 1.5 (0.5-1.5); HCO3 36.1 (21-28); MetHb 0.9 (0-1.5); TCO2 37.7 (19-24); sO2 97.6 % (94-98); tHb 12.8 g/dl (11.7-17.4)
--- NOTE | 2022-08-09 16:23 | RS.BEDDYS ---
Subjective Date of Evaluation: 08/09/22 Diagnosis: Flu A Current Level of Function: This is a 67 year old male whom resides with his in their home. He has hx of swallowing difficulty induced from reflux symptoms. He is admitted with Flu A, and pneumonia. The patient was placed NPO due to see led 3 oz water test, difficulty with medication administration, and wet voice production with coughs post PO intake. The patient has increased SOB episodes that lead to anxiety and requires breathing treatments, rescue inhalers, and use of medications to relieve symptoms. The patient will be evaluated at the bedside to determine safest and least restrictive diet/liquids. Current Diet: NPO; mildly thick liquids were presented due to dry mouth. Current Subjective/complaints:: BRINE MAKER and RN discussed current PO intake and aspiration risks. At this time, the patient has medications for reflux prevention and mucous production. However, he continues to have a change in voice quality with thin liquids and reports "the mucus is thick," and points to level of UES. BRINE MAKER asked multiple questions about swallowing. The patient reported he has had swallowing difficulty, 'for awhile." He reported that food is 'stuck right here, but doesn't happen every swallow, but most of the time." The patient reports that he uses milk products in the home environment with medications. The patient reported that at this time, his mouth is very dry and it hurts to swallow. The patient also reported that he has limited appetite from flu symptoms. The patient is willing to participate in swallow assessment and wants to improve his swallow function. Medical History Comments:: COPD, dehydration, HTN, A-fib, chest pain, DM. Patient's Goals: To improve swallow function; consume safest and least restrictive diet General Information - General Denture Type: Full- Upper & Lower (loose fitting; uses paste for meals) Patient Orientation: Person, Place, Time, Situation Ability to Follow Directions: Excellent Is Patient able to Repeat Directions?: Yes Oral Expression Ability: No Impairment - Voice Voice Quality: Normal Voice Pitch: Normal Voice Loudness: Normal Oral-Facial Assessment - Face Facial Symmetry: Symmetrical Facial Movement: Controlled - Dental/Labial Lip Protrusion: Reduced ROM Lip Retraction: Reduced ROM Puff Cheeks: Reduced Strength Lips Comment: Pt has dry, cracked lips impairing his ROM. - Lingual Protrusion: Weak Retraction: Weak Tip Lateralization: Weak Repeated Tip Lateralization: Weak Tip Elevation: Weak Repeated Tip Elevation: Weak Comments: Lingual surface presented with severe dryness and red color. BRINE MAKER commented to nursing to check for oral thrush. - Comments/Additional Info. Comments:: Severe oral dryness partially induced from 4L continuous oxygen. Food Presentation - Solids Food Presented: Pureed (No deficits, slight delay in A-P transfer. Delayed swallow initiation of 3 seconds.) Food Presented: Regular (Wright and bread sandwich per pt request.) Behaviors/Comments: Pt had prolonged mastication process and increased SOB. He demonstrated up to 15 swallows with one bite of food and reported on majority of the swallows the food was 'stuck'. BRINE MAKER offered liquid washes and this did clear reported pharyngeal/laryngeal residue. Oral cavity had moderate residue post swallows. BRINE MAKER used toothette to clean oral cavity and bilateral sulci had moderate pockets of residue. Pt had moderate lingual residue and required multiple liquid washes to clear food from tongue surface. Food Presented: Mechanical Soft (Pt refused trials) - Liquids Liquid Presented: Thin (via syringe; via straw, via open cup) Behaviors/Comments: BRINE MAKER presented warm H20 via 3mL syringe. He tolerated without coughing, audible swallow and 3x multiple swallow. Cervical auscultation used and thin liquids via syringe presented second trial. Audible swallow and timing deficits with laryngeal burps noted, multiple swallow attempts, and no overt s/s of aspiration. Audible wheezing on inspiration during cervical auscultation. Thin liquids via open cup presented and pt had no overt s/s of aspiration, but demonstrated 3 second delay in swallow initiation. Via straw, pt had 1x cough with thin liquids. BRINE MAKER presented thin liquids with bite of PO intake and pt had immediate cough response. BRINE MAKER cued pt through process to reduce aspiration/penetration risks. Liquid Presented: [place] (via open cup) Behaviors/Comments: Pt independently consumed multiple sips without overt s/s of aspiration. Pt consumed sips of thickened liquids with PO intake and no overt s/s of aspiration observed. Pt had 2-3 second delay in swallow initiation. - Recommendations: Dysphagia Evaluation Dietary Recommendations: Minced and Moist, Mildly Thick - H[place]ick Comments:: OK for sips of H20 between meals with oral care routine and open cup. Pt will request a straw, and BRINE MAKER recommends open cup. Medications via syringe dissolved in water. Dysphagia Swallow Precautions/Strategies: Sitting Upright (90 deg), Double Swallow, No Straw, Liquids from Cup, Small Bites and Sips, Alternate Liquids/Solids Comments:: Encourage medium bites, external pacing with meals, 2-3 swallows per bite, use of liquids before any PO intake to moisture oral cavity. Warm liquids as tolerated to relax muscles for improved swallow response. OK for Young free-water protocol with oral care routine. Please remove dentures and clean post meals, as pt does not demonstrate functional clearing of food from bilateral sucli and dentures are loose with potential for food to stick under dentures. - Summary Dysphagia Evaluation Summary: The patient presented with mild oral phase deficits and moderate pharyngeal/esophageal deficits. The patient's oral phase was weak with lingual coordination and ROM impairing his mastication process. Bolus manipulation/formation was impaired inducing moderate oral residue and use of multiple swallows to clear food. Pharyngeal phase presented with moderate- severe weakness. Laryngeal palpation revealed moderately decreased laryngeal elevation, which also may be reducing UES opening and impairing timing/coordination of swallow sequence. The patient demonstrated 3 second swallow delay increasing hsi risk for aspiration with thin liquids. However, pt has risks for dehydration and could tolerate small amounts of thin H20. Pt OK for small sips of thin H20 via open cup between meals, with oral care routine. At this time, GI testing is recommended and then potential swallow study if needed. BRINE MAKER recommends pt to consume minced and moist diet to reduce SOB episodes during PO intake and increase quantity of PO intake. Pt has risks for weight loss and BRINE MAKER recommends dietitian support as well. Medications are to be administered via syringe with medications dissolved in thin water and provided in 3 mL at a time. BRINE MAKER recommends all safe swallow and aspiration precautions utilized with PO intake. Pt to have liquids presented prior to any PO intake to moisten oral cavity. Pt has risks for aspiration at this time due to breath pattern, and difficulty with residue clearance in pharyngeal area. BRINE MAKER will follow patient at this time. Further Therapy Indicated?: Yes Comments: BRINE MAKER recommends pt have GI testing completed to assess upper esophageal sphincter; pt reports tight/sharp sensation at level of UES when he swallows; he also reports residue at level of UES that he cannot clear with water or multiple swallows. Rehab Potential: Good Functional Reporting G Codes: n/a Severity Impairment Rationale: n/a Short Term Goals Goal #1: Pt tolerate minced and moist diet with min to no overt s/s of asp Goal to be met by: 08/14/22 Goal #2: Pt tolerate mildly thick nectar liquids with min to no overt s/s of asp. Goal to be met by: 08/14/22 Goal #3: Re-assessment of swallow function for potential diet upgrade Goal to be met by: 08/14/22 Goal #4: Pt/family/staff utilize safe swallow/aspiration precautions 100% of PO Goal to be met by: 08/14/22 Goal #5: Pt complete pharyngeal exercises given v/v cues with 90% accuracy. Goal to be met by: 08/16/22 Long-Term Goals Goal #1: Pt tolerate safer and least restrictive diet w/ min to no overt s/s of asp Goal to be met by: 08/14/22 Plan Duration of Treatment: 1 week Frequency of Treatment: 1-2x/week Anticipated Discharge Destination: Home - Treatment Code (1) Dysphagia Code(s): R13.10 - Dysphagia, unspecified
[2022-08-09] MEDS: PULMICORT 1 MG/2 ML NEB SCH (16:50)
[2022-08-09] MEDS: PROTONIX PO SCH (17:03)
[2022-08-09] MEDS: DIFLUCAN PO SCH (17:03)
[2022-08-09] MEDS: INSULIN DEGLUDEC SUBCUT PRN (19:52)
[2022-08-10] MEDS: ZOFRAN ODT PO SCH ×3 (00:56→17:49)
[2022-08-10] MEDS: PULMICORT 1 MG/2 ML NEB SCH ×2 (04:50→17:00)
[2022-08-10] MEDS: DUONEB NEB SCH ×4 (04:50→23:05)
[2022-08-10] MEDS: SOLU-MEDROL 125 MG IVP SCH ×3 (05:26→21:01)
[2022-08-10 05:46] LABS: BASOPHILS % (AUTO) 0.1 % (0.0-3.0); HEMATOCRIT 39.4 % (42.0-52.0); HEMOGLOBIN 13.2 g/dl (14.0-18.0); IMMATURE GRANULOCYTE % (AUTO) 0.4 % (0.0-5.0); LYMPHOCYTES # (AUTO) 0.7 K/uL (0.60-3.4); MEAN CORPUSCULAR HEMOGLOBIN 32.6 pg (27.0-31.0); MEAN CORPUSCULAR HGB CONC 33.5 (31.8-35.4); MEAN CORPUSCULAR VOLUME 97.3 fl (80.0-94.0); MONOCYTES # (AUTO) 0.4 K/uL (0.4-2.0); MONOCYTES % (AUTO) 3.5 (0-10); NEUTROPHILS # (AUTO) 8.8 K/ul (2.0-6.9); PLATELET COUNT 149 10^3/uL (140-440); RDW COEFFICIENT OF VARIATION 13.8 % (11.6-14.8); RED BLOOD COUNT 4.05 10^6/ul (4.70-6.10); WHITE BLOOD COUNT 9.91 K/ul (4.2-10.2)
[2022-08-10] MEDS: PROTONIX PO SCH ×2 (05:49→17:44)
[2022-08-10 06:01] LABS: ALANINE AMINOTRANSFERASE 43.7 U/L (0-50); ALBUMIN 2.96 g/dL (3.5-5.0); ALKALINE PHOSPHATASE 172.6 U/L (56-119); ASPARTATE AMINO TRANSFERASE 52.5 U/L (17-59); BILIRUBIN,TOTAL 0.32 mg/dL (0.2-1.3); BLOOD UREA NITROGEN 28.1 mg/dL (9-20); CALCIUM 8.55 mg/dL (8.4-10.2); CREATININE 0.8 mg/dL (0.60-1.10); GLUCOSE 479.8 mg/dL (74-106); SODIUM 130.1 mmol/L (134.5-145); TOTAL PROTEIN 6.04 g/dL (6.3-8.2)
[2022-08-10 06:05] LABS: POTASSIUM 4.31 mmol/L (3.5-5.1)
[2022-08-10] MEDS ORDERED: PROTONIX PO SCH (06:30)
[2022-08-10] MEDS: INSULIN DEGLUDEC SUBCUT PRN (06:35)
[2022-08-10] MEDS: DILAUDID 0.5 MG/0.5 ML SYRINGE IVP PRN ×3 (09:09→22:02)
[2022-08-10] MEDS: DIFLUCAN PO SCH (10:28)
[2022-08-10] MEDS: CARDIZEM PO SCH ×2 (10:28→20:41)
[2022-08-10] MEDS: FERROUS SULFATE PO SCH (10:28)
[2022-08-10] MEDS: BETAPACE PO SCH ×2 (10:28→20:37)
[2022-08-10] MEDS: ELIQUIS PO SCH ×2 (10:29→20:42)
[2022-08-10] MEDS: CLARITIN PO SCH (10:30)
[2022-08-10] MEDS: FLONASE NAS SCH (10:34)
[2022-08-10] MEDS: SPIRIVA IH SCH (10:36)
[2022-08-10] MEDS: VANCOMYCIN 750 MG/150 ML BAG 750 MG/150 ML BAG IV SCH ×2 (10:46→21:43)
[2022-08-10] MEDS: FOLIC ACID VIT B6 VIT B12 PO SCH (10:52)
[2022-08-10] MEDS: NORCO 10-325 PO SCH ×2 (11:22→20:41)
[2022-08-10] MEDS: HUMULIN R SUBCUT PRN ×3 (12:41→20:41)
[2022-08-11] MEDS: ZOFRAN ODT PO SCH ×3 (01:47→18:07)
[2022-08-11] MEDS: DUONEB NEB SCH ×4 (05:03→23:33)
[2022-08-11] MEDS: PULMICORT 1 MG/2 ML NEB SCH ×2 (05:03→17:45)
[2022-08-11 05:49] LABS: BASOPHILS % (AUTO) 0.1 % (0.0-3.0); HEMATOCRIT 40.4 % (42.0-52.0); HEMOGLOBIN 13.5 g/dl (14.0-18.0); IMMATURE GRANULOCYTE # (AUTO) 0.1 (0.0-1.0); IMMATURE GRANULOCYTE % (AUTO) 0.4 % (0.0-5.0); LYMPHOCYTES # (AUTO) 0.7 K/uL (0.60-3.4); LYMPHOCYTES % (AUTO) 5.4 (10.0-50.0); MEAN CORPUSCULAR HGB CONC 33.4 (31.8-35.4); MEAN CORPUSCULAR VOLUME 95.7 fl (80.0-94.0); MONOCYTES # (AUTO) 0.3 K/uL (0.4-2.0); MONOCYTES % (AUTO) 2.3 (0-10); NEUTROPHILS % (AUTO) 91.8 % (42.2-75.2); PLATELET COUNT 168 10^3/uL (140-440); RED BLOOD COUNT 4.22 10^6/ul (4.70-6.10); WHITE BLOOD COUNT 11.99 K/ul (4.2-10.2)
[2022-08-11] MEDS: SOLU-MEDROL 125 MG IVP SCH ×3 (06:00→20:30)
[2022-08-11 06:03] LABS: ALBUMIN 2.98 g/dL (3.5-5.0); ALKALINE PHOSPHATASE 157.2 U/L (56-119); ASPARTATE AMINO TRANSFERASE 40.9 U/L (17-59); BILIRUBIN,TOTAL 0.36 mg/dL (0.2-1.3); BLOOD UREA NITROGEN 36.3 mg/dL (9-20); CALCIUM 9.04 mg/dL (8.4-10.2); CHLORIDE 97.3 mmol/L (98-107); CREATININE 0.79 mg/dL (0.60-1.10); GLUCOSE 154.8 mg/dL (74-106); POTASSIUM 4.18 mmol/L (3.5-5.1); SODIUM 133.2 mmol/L (134.5-145); TOTAL PROTEIN 6.17 g/dL (6.3-8.2)
[2022-08-11] MEDS: PROTONIX PO SCH ×2 (06:14→17:21)
[2022-08-11] MEDS: DILAUDID 0.5 MG/0.5 ML SYRINGE IVP PRN ×2 (07:45→13:27)
[2022-08-11] MEDS: NORCO 10-325 PO SCH ×2 (09:04→20:30)
[2022-08-11] MEDS: BETAPACE PO SCH ×2 (09:04→20:30)
[2022-08-11] MEDS: CLARITIN PO SCH (09:05)
[2022-08-11] MEDS: FERROUS SULFATE PO SCH (09:05)
[2022-08-11] MEDS: CARDIZEM PO SCH (09:05)
[2022-08-11] MEDS: LEVAQUIN 750 MG/150 ML D5W 750 MG/150 ML BAG IV SCH (09:05)
[2022-08-11] MEDS: DIFLUCAN PO SCH (09:05)
[2022-08-11] MEDS: ELIQUIS PO SCH ×2 (09:05→20:24)
[2022-08-11] MEDS: FLONASE NAS SCH (09:09)
[2022-08-11] MEDS: SPIRIVA IH SCH (09:09)
[2022-08-11] MEDS: FOLIC ACID VIT B6 VIT B12 PO SCH (09:12)
[2022-08-11] MEDS: VANCOMYCIN 750 MG/150 ML BAG 750 MG/150 ML BAG IV SCH ×2 (12:19→20:31)
[2022-08-11] MEDS: HUMULIN R SUBCUT PRN ×3 (12:37→20:19)
[2022-08-11 12:42] LABS: ABG PH 7.48 (7.35-7.45); BEecf 11.5 (-2.0-3.0); COHb 1.6 (0.5-1.5); MetHb 0.8 (0-1.5); TCO2 36.4 (19-24); sO2 95.5 % (94-98); tHb 11.6 g/dl (11.7-17.4)
[2022-08-12] MEDS: ZOFRAN ODT PO SCH ×3 (01:34→17:25)
[2022-08-12] MEDS: PULMICORT 1 MG/2 ML NEB SCH ×2 (04:35→17:29)
[2022-08-12] MEDS: DUONEB NEB SCH ×4 (04:35→23:15)
[2022-08-12 05:05] LABS: BASOPHILS % (AUTO) 0.1 % (0.0-3.0); HEMATOCRIT 35.3 % (42.0-52.0); HEMOGLOBIN 12.1 g/dl (14.0-18.0); IMMATURE GRANULOCYTE # (AUTO) 0.1 (0.0-1.0); IMMATURE GRANULOCYTE % (AUTO) 0.7 % (0.0-5.0); LYMPHOCYTES # (AUTO) 0.5 K/uL (0.60-3.4); LYMPHOCYTES % (AUTO) 4.6 (10.0-50.0); MEAN CORPUSCULAR HGB CONC 34.3 (31.8-35.4); MEAN CORPUSCULAR VOLUME 96.2 fl (80.0-94.0); MONOCYTES # (AUTO) 0.2 K/uL (0.4-2.0); NEUTROPHILS # (AUTO) 9.9 K/ul (2.0-6.9); NEUTROPHILS % (AUTO) 92.6 % (42.2-75.2); PLATELET COUNT 153 10^3/uL (140-440); RDW COEFFICIENT OF VARIATION 13.8 % (11.6-14.8); RED BLOOD COUNT 3.67 10^6/ul (4.70-6.10); WHITE BLOOD COUNT 10.72 K/ul (4.2-10.2)
[2022-08-12] MEDS: DILAUDID 0.5 MG/0.5 ML SYRINGE IVP PRN ×2 (05:17→12:49)
[2022-08-12] MEDS: SOLU-MEDROL 125 MG IVP SCH ×3 (05:19→20:52)
[2022-08-12 05:21] LABS: ALBUMIN 2.7 g/dL (3.5-5.0); ALKALINE PHOSPHATASE 142.3 U/L (56-119); ASPARTATE AMINO TRANSFERASE 76.1 U/L (17-59); BILIRUBIN,TOTAL 0.36 mg/dL (0.2-1.3); BLOOD UREA NITROGEN 35.2 mg/dL (9-20); CALCIUM 8.65 mg/dL (8.4-10.2); CARBON DIOXIDE 30.3 mmol/L (22-30.0); CHLORIDE 98.2 mmol/L (98-107); CREATININE 0.79 mg/dL (0.60-1.10); GLUCOSE 272.4 mg/dL (74-106); POTASSIUM 3.99 mmol/L (3.5-5.1); SODIUM 130.5 mmol/L (134.5-145); TOTAL PROTEIN 5.72 g/dL (6.3-8.2)
[2022-08-12] MEDS: PROTONIX PO SCH ×2 (05:47→17:30)
[2022-08-12] MEDS: HUMULIN R SUBCUT PRN ×4 (06:04→20:53)
[2022-08-12] MEDS: ELIQUIS PO SCH ×2 (09:23→20:47)
[2022-08-12] MEDS: FOLIC ACID VIT B6 VIT B12 PO SCH (09:23)
[2022-08-12] MEDS: VANCOMYCIN 750 MG/150 ML BAG 750 MG/150 ML BAG IV SCH ×2 (09:23→20:52)
[2022-08-12] MEDS: NORCO 10-325 PO SCH ×2 (09:24→20:47)
[2022-08-12] MEDS: DIFLUCAN PO SCH (09:24)
[2022-08-12] MEDS: FERROUS SULFATE PO SCH (09:24)
[2022-08-12] MEDS: BETAPACE PO SCH (09:24)
[2022-08-12] MEDS: CLARITIN PO SCH (09:25)
[2022-08-12] MEDS: FLONASE NAS SCH (09:35)
[2022-08-12] MEDS: SPIRIVA IH SCH (09:35)
[2022-08-12] MEDS: LEVAQUIN 750 MG/150 ML D5W 750 MG/150 ML BAG IV SCH (10:59)
[2022-08-12] MEDS ORDERED: ZOFRAN ODT PO PRN (19:04)
[2022-08-13] MEDS: PULMICORT 1 MG/2 ML NEB SCH (04:50)
[2022-08-13] MEDS: DUONEB NEB SCH ×2 (04:50→11:05)
[2022-08-13 05:33] VITALS: BP 135/87; TEMP 98.1
[2022-08-13] MEDS: SOLU-MEDROL 125 MG IVP SCH ×2 (05:53→12:03)
[2022-08-13] MEDS: PROTONIX PO SCH (05:53)
[2022-08-13] MEDS: HUMULIN R SUBCUT PRN ×2 (06:01→12:04)
[2022-08-13 08:42] LABS: BASOPHILS % (AUTO) 0.1 % (0.0-3.0); HEMATOCRIT 34.7 % (42.0-52.0); HEMOGLOBIN 12.1 g/dl (14.0-18.0); IMMATURE GRANULOCYTE # (AUTO) 0.1 (0.0-1.0); IMMATURE GRANULOCYTE % (AUTO) 0.7 % (0.0-5.0); LYMPHOCYTES # (AUTO) 0.4 K/uL (0.60-3.4); LYMPHOCYTES % (AUTO) 3.5 (10.0-50.0); MEAN CORPUSCULAR HEMOGLOBIN 32.6 pg (27.0-31.0); MEAN CORPUSCULAR HGB CONC 34.9 (31.8-35.4); MEAN CORPUSCULAR VOLUME 93.5 fl (80.0-94.0); MONOCYTES # (AUTO) 0.4 K/uL (0.4-2.0); MONOCYTES % (AUTO) 3.5 (0-10); NEUTROPHILS # (AUTO) 11.3 K/ul (2.0-6.9); NEUTROPHILS % (AUTO) 92.2 % (42.2-75.2); PLATELET COUNT 151 10^3/uL (140-440); RDW COEFFICIENT OF VARIATION 13.5 % (11.6-14.8); RED BLOOD COUNT 3.71 10^6/ul (4.70-6.10); WHITE BLOOD COUNT 12.22 K/ul (4.2-10.2)
[2022-08-13 08:59] LABS: ALANINE AMINOTRANSFERASE 46.3 U/L (0-50); ALBUMIN 2.59 g/dL (3.5-5.0); ALKALINE PHOSPHATASE 127.2 U/L (56-119); ASPARTATE AMINO TRANSFERASE 41.3 U/L (17-59); BILIRUBIN,TOTAL 0.32 mg/dL (0.2-1.3); BLOOD UREA NITROGEN 31.3 mg/dL (9-20); CALCIUM 8.45 mg/dL (8.4-10.2); CARBON DIOXIDE 27.2 mmol/L (22-30.0); CHLORIDE 99.1 mmol/L (98-107); CREATININE 0.88 mg/dL (0.60-1.10); GLUCOSE 294.3 mg/dL (74-106); POTASSIUM 3.31 mmol/L (3.5-5.1); SODIUM 130.5 mmol/L (134.5-145); TOTAL PROTEIN 5.55 g/dL (6.3-8.2)
[2022-08-13] MEDS: DIFLUCAN PO SCH (09:04)
[2022-08-13] MEDS: CLARITIN PO SCH (09:04)
[2022-08-13] MEDS: NORCO 10-325 PO SCH (09:05)
[2022-08-13] MEDS: SPIRIVA IH SCH (09:05)
[2022-08-13] MEDS: FERROUS SULFATE PO SCH (09:05)
[2022-08-13] MEDS: FLONASE NAS SCH (09:05)
[2022-08-13] MEDS: FOLIC ACID VIT B6 VIT B12 PO SCH (09:05)
[2022-08-13] MEDS: VANCOMYCIN 750 MG/150 ML BAG 750 MG/150 ML BAG IV SCH (09:06)
[2022-08-13] MEDS: ELIQUIS PO SCH (09:06)
[2022-08-13] MEDS: LEVAQUIN 750 MG/150 ML D5W 750 MG/150 ML BAG IV SCH (10:56)
[2022-08-13] MEDS ORDERED: K-DUR PO SCH (13:38)
[2022-08-13] MEDS ORDERED: K-DUR PO ONE (14:20)
[2022-08-13] MEDS: NORCO 7.5-325 PO SCH ×2 (14:33→14:52)
--- NOTE | 2022-08-14 08:43 | HOLTER ---
PATIENT INFORMATION AND COMMENTS Attending Physician: DR. VICKI ENRIQUEZ Indications: BRADYCARDIA, PAUSES __ Patient Medications: ALBUTEROL, ELIQUIS, HYDROCODONE, SPIRIVA __ Pre-procedure Summary: Protocol: Standard Heart Rate Started: 08/11/2022 Minimum: 40 BPM Weight: 93 LBS Ended: 08/12/2022 Maximum: 116 BPM Height: 68" Duration: 24 HRS Average: 90 BPM _ INTERPRETATIONS/OBSERVATIONS: 1. BASIC RHYTHM: ATRIAL FIBRILLATION, RATE 40 BPM TO 116 BPM, AVERAGE 90 BPM 2. INFREQUENT ISOLATED PVC'S 3. TOTAL OF 180 PAUSES NOTED GREATER THAN 2.0 SECONDS, LONGEST PAUSE 3.[address]-T WAVE CHANGES FROM BASELINE 5. ACTIVITY LOG NOT MAINTAINED MTDD
--- NOTE | 2022-08-14 13:50 | PN ---
DATE OF SERVICE: 08/09/22 SUBJECTIVE: The patient was accepted under my service today. Case discussed with Nurse Practitioner, orders are carried out. Condition is critical. He is in respiratory failure. The patient has multiple medical problems, most of them are endstage. He is emaciated and is malnourished now. He has chronic pancreatitis that is the reason why it is a failure to thrive along with his severe chronic lung disease with continued smoking and continued alcoholism. ASSESSMENT: 1. Acute respiratory failure 2. Chronic lung disease, endstage O2 dependent 3. Continue smoking 4. Lesion on the lung they were thought to be cancerous. Bronchoscopy is recommended but pulmonary MD at [facility] wants the patient to go to [place] which the patient and the family have declined. 5. Liver cirrhosis 6. Chronic pancreatitis 7. Alcoholic hepatitis 8. Hypertension 9. Severe dyslipidemia with severe peripheral arterial disease 10.Noncompliance of all aspects of medical care PLAN: 1. Start him on Steroids 2. Morphine sulfate 2-3mg every 2-3 hourly 3. IV Lasix one dose that was given 4. Antibiotics 5. Pneumonitis confirmed by CT scan of the chest 6. Nebulizer treatments QID as needed 7. Monitoring of telemetry 8. Monitor blood gasses 9. The patient is DNI. Only CPR. No intubation. No respiratory CONDITION: Critical. Family has been made aware of it. PROGNOSIS: POOR CODE: Extensive TIME SPENT: More than 30 minutes. Plan and coordination of the patient's care discussed in the presence of nurse. MTDD
--- NOTE | 2022-08-15 14:57 | PN ---
Admission day: Level 5 Couple of days after that: Extensive Rest of them: Intermediate Final day: D as in discharge. MTDD
--- NOTE | 2022-08-15 14:57 | DS ---
DATE OF SERVICE: 08/13/22 FINAL DIAGNOSIS: 1. Influenza A 2. Hypoxemia 3. Respiratory failure 4. Pneumonitis 5. Severe chronic lung disease with continued smoking 6. Arrhythmias like triggered by combination Cardizem and Betapace 7. Atrial fibrillation 8. Peripheral arterial disease 9. Coronary artery disease, endstage 10.C of the lung proven by biopsy 11.Dyslipidemia 12.Malnutrition with chronic pancreatitis 13.Alcoholism with liver cirrhosis 14.Diabetes mellitus 15.Gastroesophageal reflux disease 16.Chronic anemia DISCHARGE INSTRUCTIONS: Discharge home. The patient is DNI. The patient was explained about auto polisher or psychiatric rn for arrhythmia, the patient has declined and the has declined. Dr. Whitten had called the patient and indicated that the patient is not a surgical candidate for C of the lung given option to be referred to [place] which the patient has declined. During the stay in the hospital the patient wanted comfort measures and didn't want any invasive procedures or any kind of procedures. The patient didn't want to be evaluated for oxygen need, he said that "I don't need no oxygen, I breath fine." oxygen saturation 92-93% on room air. Rest of the medications to be continued. Instruction to come back in 5-7 days on followup. MEDICATIONS AT DISCHARGE: Pantoprazole Zofran as needed Loratadine Albuterol two puffs QID PRN Hydrocodone 10-325mg twice a day Spiriva Respimat two puffs daily Tresiba 15 units daily NEW PRESCRIPTIONS: Prednisone 20mg daily for 3 days after that 10mg daily for 5 days. Amlodipine 5mg Levofloxacin 500mg PO daily Potassium liquid 20meq PO daily. was given KCL 40meq before discharge as the Potassium was 3.3. DISCONTINUED MEDICATIONS: Betapace Amlodipine 5mg BID HOSPITAL COURSE: 67 year old white male hospitalized with hypoxemia and respiratory failure with Influenza A with pneumonitis. The patient was treated to cover staph with Vancomycin and Levaquin. The patient improved. The patient at the time of discharge was afebrile. His appetite was better. His swallowing has improved, felt a lot better. He had no distress at all, his oxygen saturation on room air was 92-93%. Initially had tachyarrhythmias for which he was put on Cardizem 60mg twice a day and Amlodipine was discontinued. The patient was noted to have pauses. The Holter monitored showed longest pause of 3.4 seconds. The patient was still on Betapace, the Holter was done. The patient was taken off Cardizem and later on Betapace. During past 12 hours the patient didn't have any pauses, he was taken off Betapace and Cardizem. He is advised to continue Amlodipine 5mg at night not BID. The other medications were continued. The patient had declined any further evaluation by psychiatric rn. The patient's condition at the time of discharge is stable. The patient has multiple endstage medical problems and is not a surgical candidate. He was diagnosed to have C of the lung with biopsy done at [facility]. Dr. Whitten had declined to intervene in a way of lobectomy clearly indicated that he is not a surgical candidate, I agreed. The patient has declined to go to [place]. PROGNOSIS: Extremely poor. TIME SPENT: More than 60 minutes. [facility]
--- NOTE | 2022-08-16 09:50 | PN ---
DATE OF SERVICE: 08/10/22 SUBJECTIVE: 67 year old white male hospitalized with respiratory failure with severe hypoxemia. The patient had influenza A. The patient has multiple medical problems. He has C of the lung. The patient got a call from Dr. Whitten according to the the patient had an appointment to be seen by Dr. Whitten last Sunday and they ended up sick and in the hospital. Dr. Whitten indicated that there is not going to do any kind of surgery on [facility]. He has multiple medical problems. He recommended to be referred to [place] but the patient has declined not to go any place else. The patient is also also followed by Dr. Lindsay pulmonary at [facility]. The patient knows all his problems and he does not want anything to do be done, according to him he wants to make sure that he is comfortable. He has problems swallowing at present time. The patient wants DNI. REVIEW OF SYSTEMS: CONSTITUTIONAL: No night sweats. No fatigue, malaise, lethargy. No fever or chills. HEENT: Eyes: No visual changes. No eye pain. No eye discharge. ENT: No runny nose. No epistaxis. No sinus pain. No sore throat. No odynophagia. No congestion. RESPIRATORY: No cough, no congestion. No hemoptysis. No shortness of breath. CARDIOVASCULAR: No angina symptoms. No CHF symptoms. No atypical chest pain for CAD. No palpitations. No PND. No orthopnea. GASTROINTESTINAL: No abdominal pain. No nausea or vomiting. No diarrhea or constipation. No hematemesis. No hematochezia. Appetite seems to be improving, still having problems swallowing. GENITOURINARY: No urgency. No frequency. No dysuria. No hematuria. No obstructive symptoms. No discharge. No pain. No significant abnormal bleeding. MUSCULOSKELETAL: No musculoskeletal pain; no joint swelling. NEUROLOGICAL: No headache. No neck pain. No syncope. No seizures. No dizziness. PSYCHIATRIC: Not anxious. No depression. No suicidal thoughts. No homicidal thoughts. SKIN: No rash. No lesions. No wounds. ENDOCRINE: No unexplained weight loss. No weight gain. HEMATOLOGIC/LYMPHATIC: No anemia. No purpura. No petechiae. No prolonged or excessive bleeding. No palpable lymph nodes. PHYSICAL EXAMINATION: VITAL SIGNS: Temperature 97.5, pulse 84, respiratory rate 18, blood pressure 155/86 and pulse ox 99%. HEENT: Head normocephalic, atraumatic. Eyes: Extraocular muscles are intact. Pupils are equal, round and reactive to light and accommodation. Ears: No lesions. Nose appeared normal. Throat: No exudate or erythema. NECK: Supple. No JVD, no carotid bruit. No lymphadenopathy or thyromegaly. LUNGS: Decreased breath sounds but clear to auscultation. Percussion note normal. Chest symmetrical. HEART: S1, S2, no S3. No murmurs. No cyanosis or clubbing. No ascites. Pulses: Dorsalis pedis and posterior tibial pulses +1 to +2 bilaterally. ABDOMEN: Soft. Nontender. Bowel sounds active. No CVA tenderness. No mass felt. EXTREMITIES: No edema. Full range of motion of all extremities, equal. NEUROLOGIC: No focal deficit. Cranial nerves II through XII are grossly intact. No headache. No double vision. SKIN: Not dry. Intact. Turgor - normal. LYMPHATIC: No palpable lymph nodes/no lymphedema. MUSCULOSKELETAL: Normal joints with no swelling. Muscle tone is normal. LABS: Hgb 13.2, hct 39, WBC 9,900 normal differential, creatinine 0.8, BUN 28, potassium 4.3. ASSESSMENT: 1. Acute respiratory failure with pneumonitis seems to be resolving. oxygen saturation is 99% on 2 liters. 2. Severe chronic lung disease with continued smoking 3. Influenza A and pneumonitis 4. Severe peripheral arterial disease 5. Severe coronary artery disease, endstage 6. Liver cirrhosis with chronic alcoholism 7. Chronic pancreatis with malnutrition and emaciation. PLAN: 1. Continue encourage the patient to eat 2. Continue steroids 3. Continue NEBS treatment 4. Continue Antibiotics, Oxygen supplements and telemetry PROGNOSIS: POOR is present in the room and discussed the patient prognosis in detail. CODE: Extensive. TIME SPENT: More than 30 minutes. Plan and coordination of the patient's care discussed in the presence of nurse. ESPERANZA
--- NOTE | 2022-08-16 10:49 | PN ---
DATE OF SERVICE: 08/11/22 SUBJECTIVE: 67 year old white male hospitalized with influenza A and respiratory failure. The patient's respiratory failure practically has resolved with oxygen saturation of almost 92% on room air. The patient doesn't seem to be in distress at all. Breathing quietly. Respiratory rate of 14-15 per minute. The patient's main problem still is difficulty swallowing but according to him he is feeling a little bit better as far as that part is concerned. REVIEW OF SYSTEMS: CONSTITUTIONAL: No night sweats. No fatigue, malaise, lethargy. No fever or chills. HEENT: Eyes: No visual changes. No eye pain. No eye discharge. ENT: No runny nose. No epistaxis. No sinus pain. No sore throat. No odynophagia. No congestion. RESPIRATORY: No cough, no congestion. No hemoptysis. Shortness of breath on exertion. CARDIOVASCULAR: No angina symptoms. No CHF symptoms. No atypical chest pain for CAD. No palpitations. No PND. No orthopnea. GASTROINTESTINAL: No abdominal pain. No nausea or vomiting. No diarrhea or constipation. No hematemesis. No hematochezia. Appetite seems to be improving. GENITOURINARY: No urgency. No frequency. No dysuria. No hematuria. No obstructive symptoms. No discharge. No pain. No significant abnormal bleeding. MUSCULOSKELETAL: No musculoskeletal pain; no joint swelling. NEUROLOGICAL: No headache. No neck pain. No syncope. No seizures. No dizziness. PSYCHIATRIC: Not anxious. No depression. No suicidal thoughts. No homicidal thoughts. SKIN: No rash. No lesions. No wounds. ENDOCRINE: No unexplained weight loss. No weight gain. HEMATOLOGIC/LYMPHATIC: No anemia. No purpura. No petechiae. No prolonged or excessive bleeding. No palpable lymph nodes. PHYSICAL EXAMINATION: VITAL SIGNS: Temperature 97.3, pulse 80, respiratory rate 20, blood pressure 137/81 and pulse ox 92%. HEENT: Head normocephalic, atraumatic. Eyes: Extraocular muscles are intact. Pupils are equal, round and reactive to light and accommodation. Ears: No lesions. Nose appeared normal. Throat: No exudate or erythema. NECK: Supple. No JVD, no carotid bruit. No lymphadenopathy or thyromegaly. LUNGS: Decreased breath sounds. Clear to auscultation. Percussion note normal. Chest symmetrical. HEART: S1, S2, no S3. No murmurs. No cyanosis or clubbing. No ascites. Pulses: Dorsalis pedis and posterior tibial pulses +1 to +2 bilaterally. ABDOMEN: Soft. Nontender. Bowel sounds active. No CVA tenderness. No mass felt. EXTREMITIES: No edema. Full range of motion of all extremities, equal. NEUROLOGIC: No focal deficit. Cranial nerves II through XII are grossly intact. No headache. No double vision. SKIN: Not dry. Intact. Turgor - normal. LYMPHATIC: No palpable lymph nodes/no lymphedema. MUSCULOSKELETAL: Normal joints with no swelling. Muscle tone is normal. LABS: Hgb 13, hct 40, WBC 11,900 normal differential, creatinine 0.7, BUN 36, potassium 4.1, glucose 154. ASSESSMENT: 1. Hypoxemia, respiratory failure seems to have resolved with Influenza A. The patient is afebrile and no symptoms 2. Severe chronic lung disease with continued smoking 3. Coronary artery disease with coronary bypass surgery 4. Peripheral arterial disease 5. History of liver cirrhosis 6. Chronic pancreatitis 7. Malnutrition. PLAN: 1. Advised to continue the same treatment and antibiotics 2. Later on it was reported that the patient had a pause of 2.7seconds. The patient's Diltazem was discontinued. He will be continued on Betapace. The patient Diltazem was started because of the patient's tachyarrhythmias on admission was rate of 167 per minute with SVT. Amlodipine was discontinued. 3. Holter Monitor CONDITION: Stable. TIME SPENT: More than 30 minutes. Plan and coordination of the patient's care discussed in the presence of nurse. ESPERANZA
--- NOTE | 2022-08-16 12:49 | PN ---
DATE OF SERVICE: 08/12/22 SUBJECTIVE: 67 year old white male hospitalized with Flu with hypoxemia an respiratory failure which seems to have resolved.The patient's oxygen saturation on room is 94/95%. Has no respiratory difficulty with practically no cough. The is ready to go home. 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 The patient has been taken off Cardizem. He is going to be taken off Betapace. Was explained about this finding and possibility for need for pacemaker. The patient and the both flatly refused. The patient said that he had a similar problem in he past and that problem had never occurred before. He was Cardizem and was taken off Norvasc because of the patient tachyarrhythmias could have triggered this but in any case he has been off Cardizem and is going to be taken off Betapace too. The patient had a Holter Monitor while he was on Betapace. REVIEW OF SYSTEMS: CONSTITUTIONAL: No night sweats. No fatigue, malaise, lethargy. No fever or chills. HEENT: Eyes: No visual changes. No eye pain. No eye discharge. ENT: No runny nose. No epistaxis. No sinus pain. No sore throat. No odynophagia. No congestion. RESPIRATORY: No cough, no congestion. No hemoptysis. No shortness of breath. CARDIOVASCULAR: No angina symptoms. No CHF symptoms. No atypical chest pain for CAD. No palpitations. No PND. No orthopnea. GASTROINTESTINAL: No abdominal pain. No nausea or vomiting. No diarrhea or constipation. No hematemesis. No hematochezia. swallowing somewhat better. Appetite seems to be improving. Patient says that the is gaining strength and wants to go home. Refused any evaluation for pacemaker or any other further testing or procedures. GENITOURINARY: No urgency. No frequency. No dysuria. No hematuria. No obstructive symptoms. No discharge. No pain. No significant abnormal bleeding. MUSCULOSKELETAL: No musculoskeletal pain; no joint swelling. NEUROLOGICAL: No headache. No neck pain. No syncope. No seizures. No dizziness. PSYCHIATRIC: Not anxious. No depression. No suicidal thoughts. No homicidal thoughts. SKIN: No rash. No lesions. No wounds. ENDOCRINE: No unexplained weight loss. No weight gain. HEMATOLOGIC/LYMPHATIC: No anemia. No purpura. No petechiae. No prolonged or excessive bleeding. No palpable lymph nodes. PHYSICAL EXAMINATION: VITAL SIGNS: Temperature 97.8, pulse 65, respiratory rate 18, blood pressure 130/76 and pulse ox 95% HEENT: Head normocephalic, atraumatic. Eyes: Extraocular muscles are intact. Pupils are equal, round and reactive to light and accommodation. Ears: No lesions. Nose appeared normal. Throat: No exudate or erythema. NECK: Supple. No JVD, no carotid bruit. No lymphadenopathy or thyromegaly. LUNGS: Decreased breath sounds but clear to auscultation. Percussion note normal. Chest symmetrical. HEART: S1, S2, no S3. No murmurs. No cyanosis or clubbing. No ascites. Pulses: Dorsalis pedis and posterior tibial pulses +1 to +2 bilaterally. ABDOMEN: Soft. Nontender. Bowel sounds active. No CVA tenderness. No mass felt. EXTREMITIES: No edema. Full range of motion of all extremities, equal. NEUROLOGIC: No focal deficit. Cranial nerves II through XII are grossly intact. No headache. No double vision. SKIN: Not dry. Intact. Turgor - normal. LYMPHATIC: No palpable lymph nodes/no lymphedema. MUSCULOSKELETAL: Normal joints with no swelling. Muscle tone is normal. LABS: Hgb 12.1, hct 35, WBC 10,000 normal differential, creatinine 0.7, BUN 35, potassium 3.9. glucose 272, ABG yesterday pO2 73, pCo2 47, PH 7.4 with 95% saturation on 2 liters. ASSESSMENT: 1. Respiratory failure has resolved 2. Influenza A symptoms have resolved 3. Bronchitis has resolved 4. Hypertension under control 5. CHF 6. CAD PLAN: 1. The patient had pauses of 2.7-2.5 second which is being taken care of by discontinuing Cardizem and Betapace 2. Holter Monitor to be taken off this morning 3. 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 TIME SPENT: More than 30 minutes. Plan and coordination of the patient's care discussed in the presence of nurse. ESPERANZA
--- NOTE | 2022-08-16 13:44 | PN ---
DATE OF SERVICE: 08/13/22 SUBJECTIVE: 67 year old white male hospitalized with hypoxemia and influenza A. Condition has improved. He is afebrile. His appetite has improved. Swallowing has improved. Bradyarrhythmias he doesn't want anything to be done, 3-4 second pauses noted on Holter Monitor which was on Betapace, came off now Betapace 24 hours, off Cardizem for more than 48 hours. He is going to be started back on Amlodipine 5mg at night. Vascular status is stable. Otherwise bradyarrhythmias are asymptomatic. He doesn't want anything to be done. REVIEW OF SYSTEMS: CONSTITUTIONAL: No night sweats. No fatigue, malaise, lethargy. No fever or chills. HEENT: Eyes: No visual changes. No eye pain. No eye discharge. ENT: No runny nose. No epistaxis. No sinus pain. No sore throat. No odynophagia. No congestion. RESPIRATORY: No cough, no congestion. No hemoptysis. No shortness of breath. CARDIOVASCULAR: No angina symptoms. No CHF symptoms. No atypical chest pain for CAD. No palpitations. No PND. No orthopnea. GASTROINTESTINAL: No abdominal pain. No nausea or vomiting. No diarrhea or constipation. No hematemesis. No hematochezia. GENITOURINARY: No urgency. No frequency. No dysuria. No hematuria. No obstructive symptoms. No discharge. No pain. No significant abnormal bleeding. MUSCULOSKELETAL: No musculoskeletal pain; no joint swelling. NEUROLOGICAL: No headache. No neck pain. No syncope. No seizures. No dizziness. PSYCHIATRIC: Not anxious. No depression. No suicidal thoughts. No homicidal thoughts. SKIN: No rash. No lesions. No wounds. ENDOCRINE: No unexplained weight loss. No weight gain. HEMATOLOGIC/LYMPHATIC: No anemia. No purpura. No petechiae. No prolonged or excessive bleeding. No palpable lymph nodes. PHYSICAL EXAMINATION: GENERAL: The patient is oriented to time, place and person. VITAL SIGNS: Temperature 98, pulse 58, respiratory rate 18, blood pressure 135/87 and pulse ox 95% on room air. HEENT: Head normocephalic, atraumatic. Eyes: Extraocular muscles are intact. Pupils are equal, round and reactive to light and accommodation. Ears: No lesions. Nose appeared normal. Throat: No exudate or erythema. NECK: Supple. No JVD, no carotid bruit. No lymphadenopathy or thyromegaly. LUNGS: Decreased breath sounds but clear to auscultation. Percussion note normal. Chest symmetrical. HEART: S1, S2, no S3. No murmurs. No cyanosis or clubbing. No ascites. Pulses: Dorsalis pedis and posterior tibial pulses +1 to +2 bilaterally. ABDOMEN: Soft. Nontender. Bowel sounds active. No CVA tenderness. No mass felt. EXTREMITIES: No edema. Full range of motion of all extremities, equal. NEUROLOGIC: No focal deficit. Cranial nerves II through XII are grossly intact. No headache. No double vision. SKIN: Not dry. Intact. Turgor - normal. LYMPHATIC: No palpable lymph nodes/no lymphedema. MUSCULOSKELETAL: Normal joints with no swelling. Muscle tone is normal. PLAN: 1. Wants to go home, says "I'm more comfortable at home, I need comfort measures", agreed. Wanted him to stay one more day but he declined. 2. The patient was discharged home on Prednisone, Levaquin, Potassium liquid 3. Changes in the medication discussed with him. CONDITION: Stable at the time of discharge. TIME SPENT: More than 30 minutes. Plan and coordination of the patient's care discussed in the presence of nurse. ESPERANZA
--- NOTE | 2022-09-13 15:29 | HP ---
DATE OF SERVICE: 08/09/22 REASON FOR HOSPITALIZATION: This is a 67 year-old white male who came to the emergency room on 08/08 complaining of shortness of breath which had been occurring for a week, worse in the last three days. He had a cough. He has underlying history of COPD, respiratory failure, history of positive lung biopsy for which he is waiting to decide treatment. PAST MEDICAL HISTORY: Chronic pancreatitis History of alcoholism Chronic anemia Severe PAD Hypertension Hyperglycemia History of right renal carcinoma with right partial nephrectomy End stage COPD Chronic smoker Afib on Eliquis Coronary artery disease Right femoral arterial occlusions Diabetes mellitus type 2 uncontrolled Claudication Neuropathy Possible malignant lung nodule which is currently being worked up by Dr. Griffiths History of GI bleed Dyslipidemia Heavy smoker Carotid stenosis GERD Long history of noncompliance with lifestyle, diet, medications and follow up. PAST SURGICAL HISTORY: Partial right nephrectomy by Dr. Sandoval History of renal stent CABG in 2006, last cath was 2019 Right common femoral endarterectomy 12/[address] Alcocer Left femoral artery stent Bilateral carotid endarterectomy 2010 Cholecystectomy REVIEW OF SYSTEMS: CONSTITUTIONAL: No night sweats. Fatigue, malaise, lethargy. No fever or chills. Generalized weakness. HEENT: Eyes: No visual changes. No eye pain. No eye discharge. ENT: No runny nose. No epistaxis. No sinus pain. No sore throat. No odynophagia. No ear pain. No congestion. RESPIRATORY: Cough, no congestion. No hemoptysis. Shortness of breath. Wheezing. CARDIOVASCULAR: No angina symptoms. No CHF symptoms. No atypical chest pain for CAD. No palpitations. No PND. No orthopnea. GASTROINTESTINAL: No abdominal pain. No nausea or vomiting. No diarrhea or constipation. No hematemesis. No hematochezia. GENITOURINARY: No urgency. No frequency. No dysuria. No hematuria. No obstructive symptoms. No discharge. No pain. No significant abnormal bleeding. MUSCULOSKELETAL: No musculoskeletal pain. No joint swelling. No arthritis. NEUROLOGICAL: No headache. No neck pain. No syncope. No seizures. No dizziness. PSYCHIATRIC: Not anxious. No depression. No suicidal thoughts. No homicidal thoughts. SKIN: No rash. No lesions. No wounds. ENDOCRINE: No unexplained weight loss. No weight gain. HEMATOLOGIC/LYMPHATIC: No anemia. No purpura. No petechiae. No prolonged or excessive bleeding. No palpable lymph nodes. PERSONAL/FAMILY/SOCIAL HISTORY: Lives at home with his . He is a heavy smoker. Again, history of alcoholism. No elicit drug use. He is independent of all ADL;s. LABS: White count 12.37, hemoglobin 13.7, hematocrit 40.9, platelets 204, sodium 131.5, potassium 4.37, BUN 24.5, creatinine 1.01, glucose 434. Covid is negative. Lactic acid 1.0, Influenza A is positive. Alkaline phos 6.6, troponin 0.012, NT ProBNP 8,160, total protein 6.06, albumin 2.95, globulin 3.1 ABG's on 2 liters O2 sat 91%, PH 7.39, PCO2 43, PO2 62, bicarb 26. Chest x-ray showed COPD, no acute pulmonary process. PHYSICAL EXAMINATION: GENERAL: The patient is , lying/sitting in bed in no distress. VITAL SIGNS: Temp 97.9, heart rate 67, respirations 20, blood pressure 121/77, pulse ox 90% on two liters. HEENT: Head normocephalic, atraumatic. Eyes: Extraocular muscles are intact. Pupils are equal, round and reactive to light and accommodation. Ears: No lesions. Nose appeared normal. Throat: No exudate or erythema. NECK: Supple. No JVD, no carotid bruit. No lymphadenopathy or thyromegaly. LUNGS: Clear to auscultation. Percussion note normal. Chest symmetrical. HEART: S1, S2, no S3. No murmur. No cyanosis or clubbing. No ascites. Pulses: Dorsalis pedis and posterior tibial pulses +1 to +2 bilaterally. ABDOMEN: Soft. Nontender. Bowel sounds active. No CVA tenderness. No mass felt. EXTREMITIES: No edema. Full range of motion of all extremities, equal. NEUROLOGIC: No focal deficit. Cranial nerves II through XII are grossly intact. No headache, no double vision or headache. SKIN: Not dry. Intact. Turgor - normal. LYMPHATIC: No palpable lymph nodes/no lymphedema. MUSCULOSKELETAL: Normal joints with no swelling. Muscle tone is normal. ASSESSMENT: 1. Acute respiratory failure 2. Influenza A 3. Chronic lung disease 4. End stage oxygen dependent chronic smoker 5. Possible malignant lung lesion 6. Liver cirrhosis 7. Chronic pancreatitis 8. Alcohol hepatitis 9. Hypertension 10. Coronary artery disease 11. Severe dyslipidemia 12. Noncompliance PLAN: 1. We will take over medical care as of 08/09/22. 2. CT of the chest with and without contrast 3. He needs to be on Solumedrol 125 IV Q 8 hours 4. Dilaudid 2-3 mg IV 2-3 hours PRN 5. Lasix 40 mg IV x1 6. Rocephin 1 gram IV daily 7. Doxycycline 100 mg IV Q 12 hours 8. Repeat ABG's on 2 liters 9. Regular diet 10. Albuterol nebs QID scheduled 11. Normal saline IV at 50 cc/hour x1 liter We will continue to follow him closely. Patient is a DO NOT INTUBATE PROGNOSIS: Poor CONDITION: Guarded TIME SPENT: More than 70 minutes. MTDD
== END 2022-08-13 15:20 | disposition home or self-care (01) | DRG 193 ==
LOC: ED 15:11 → MEDSURG A 17:44
PROVIDERS: ADMIT Internal Medicine; ATTEND Internal Medicine
DX: J18.9 Pneumonia, unspecified organism; Z79.01 Long term (current) use of anticoagulants; Z79.899 Other long term (current) drug therapy; R06.02 Shortness of breath; Z51.81 Encounter for therapeutic drug level monitoring; K74.60 Unspecified cirrhosis of liver; Z95.828 Presence of other vascular implants and grafts; D64.9 Anemia, unspecified; F10.20 Alcohol dependence, uncomplicated; K21.9 Gastro-esophageal reflux disease without esophagitis; J96.91 Respiratory failure, unspecified with hypoxia; J10.1 Influenza due to other identified influenza virus with other respiratory manifestations; E46 Unspecified protein-calorie malnutrition; J40 Bronchitis, not specified as acute or chronic; I10 Essential (primary) hypertension; I48.91 Unspecified atrial fibrillation; Z99.81 Dependence on supplemental oxygen; Z87.09 Personal history of other diseases of the respiratory system; Z87.19 Personal history of other diseases of the digestive system; I73.9 Peripheral vascular disease, unspecified; E78.5 Hyperlipidemia, unspecified; I25.10 Atherosclerotic heart disease of native coronary artery without angina pectoris; R13.10 Dysphagia, unspecified; J44.1 Chronic obstructive pulmonary disease with (acute) exacerbation; Z79.4 Long term (current) use of insulin; K70.10 Alcoholic hepatitis without ascites; C34.90 Malignant neoplasm of unspecified part of unspecified bronchus or lung; E11.42 Type 2 diabetes mellitus with diabetic polyneuropathy